=== PATIENT | male | born 1945 | race Caucasian/White ===

== ENCOUNTER → 2017-04-12 09:52 | Outpatient (CLI) | payer MEDICARE, SELFPAY ==
--- NOTE | 2017-04-12 09:57 | MR_ITS ---
MR shoulder RT wo con HISTORY: Right shoulder pain with tingling and numbness. Old injury with prior surgery ORDERING PHYSICIAN: Aguilar Ellison MD PATIENT AGE: 71 years COMPARISON: Radiograph 10/04/2016 TECHNIQUE: Standard multiplanar multiecho sequences are performed without contrast. FINDINGS: Study is slightly limited due to motion artifact and metallic artifact. There is prominent hypertrophic change of the acromioclavicular joint with impingement upon the supraspinatus tendon and subacromial stenosis. There is partial tear of the supraspinatus tendon distally and dorsally. The anterior fibers appear intact. A small amount of fluid in the subcutaneous deltoid region. The infraspinatus tendon is intact. There the subscapularis and teres minor tendons are intact. Artifact is present along the greater tuberosity and throughout the shoulder likely from metallic shavings from prior surgery. No no obvious labral tear there is a small shoulder joint effusion. There are mild osteoarthritic changes of the glenohumeral joint with small shoulder joint effusion. Small amount fluid is also present in the subcoracoid region. IMPRESSION: 1. Acromioclavicular arthropathy with hypertrophy and moderate impingement upon the supraspinatus tendon. 2. Partial tear of the supraspinatus tendon distally and posteriorly. 3. Osteoarthritic change of the glenohumeral joint with shoulder joint effusion and subcoracoid bursitis. 4. Somewhat limited exam due to motion artifact and metallic artifact
== END ==
PROVIDERS: PCP Emergency Medicine; Visit Provider Orthopaedic Surgery
DX: M75.41 Impingement syndrome of right shoulder (principal)
CPT/HCPCS: 73221

== ENCOUNTER → 2017-08-06 09:43 | Outpatient (REF) | payer MEDICARE, SELFPAY ==
[2017-08-06 13:40] LABS: Basophils # 0.1 K/mm3 (0-0.2); Basophils % 0.9 % (0.1-2.0); Eosinophils # 0.2 K/mm3 (0.0-0.4); Hematocrit 43.5 % (42.0-52.0); Hemoglobin 14.9 g/dL (14.1-18.0); Lymphocytes # 1.9 K/mm3 (0.7-4.5); Lymphocytes % 25.1 K/mm3 (10-50); Mean Corpuscular HGB Conc 34.1 g/dL (31.8-35.4); Mean Corpuscular Hemoglobin 30.9 pg (27.0-31.2); Mean Corpuscular Volume 90.7 fl (80-94); Mean Platelet Volume 8.2 fl (7.4-10.4); Monocytes # 0.4 K/mm3 (0.1-1.0); Monocytes % 4.8 % (1.7-9.3); Neutrophils # 5.1 K/mm3 (1.8-7.8); Neutrophils % 67.2 % (37.0-80.0); Platelet Count 290 K/mm3 (142-424); Red Cell Distribution Width 13.2 % (11.5-17.5); White Blood Count 7.7 K/mm3 (4.8-10.8)
[2017-08-06 14:25] LABS: Alanine Aminotransferase 19 U/L (12-78); Albumin Level 3.7 gm/dL (3.4-5.0); Albumin/Globulin Ratio 1.2 (1.1-1.8); Alkaline Phosphatase 98 U/L (46-116); Anion Gap 14.1 mEq/L (5-15); Aspartate Amino Transferase 13 U/L (15-37); Bilirubin,Total 1.3 mg/dL (0.2-1.0); Blood Urea Nitrogen 13 mg/dL (7-18); Calcium 9.6 mg/dL (8.5-10.1); Carbon Dioxide 25 mmol/L (21.0-32.0); Chloride 105 mmol/L (98-107); Creatinine,Serum 0.68 mg/dL (0.70-1.30); Estimated Glomerular Filt Rate 115 ml/min (>60); Free T4 (Free Thyroxine) 1.09 ng/dl (0.76-1.46); GFR (African American) 139 ML/MIN (>60); Globulin 3.1 gm/dl (1.3-3.2); Glucose 155 mg/dL (74-106); Potassium 4.1 mmoL/L (3.5-5.1); Sodium 140 mmol/L (136-145); Thyroid Stimulating Hormone 1.14 uIU/ml (0.358-3.740); Total Protein,Serum 6.8 gm/dL (6.4-8.2)
[2017-08-06 14:56] LABS: Hemoglobin A1C 6.4 % (0.0-7.0)
[2017-08-07 14:30] LABS: PSA, Free 0.36 ng/mL; Prostate Specific Ag 1.2 ng/mL (0.0-4.0); Vitamin D 25 Hydroxy 37.7 ng/mL (30.0-100.0)
== END ==
LOC: LAB 09:43
PROVIDERS: Visit Provider Emergency Medicine
DX: E11.9 Type 2 diabetes mellitus without complications (principal); I10 Essential (primary) hypertension; R35.1 Nocturia
CPT/HCPCS: 80053; 82652; 83036; 84153; 84154; 84439; 84443; 85025

== ENCOUNTER → 2017-09-27 08:08 | Outpatient (CLI) | payer MEDICARE, SELFPAY ==
--- NOTE | 2017-09-27 08:12 | XR_ITS ---
XR shoulder LT min 2V HISTORY: Left shoulder pain with inflammation ITS.REASON: axillary, grashy and supraspinatus views ORDERING PHYSICIAN: Aguilar Ellison MD PATIENT AGE: 72 years Comparison: None FINDINGS: No fracture or dislocation. No lytic or blastic change. There is normal mineralization. The joint spaces are well-preserved. No significant degenerative/arthritic changes. No erosive changes evident. IMPRESSION: Negative, no acute finding
== END ==
PROVIDERS: PCP Emergency Medicine; Visit Provider Orthopaedic Surgery
DX: M25.512 Pain in left shoulder (principal)
CPT/HCPCS: 73030

== ENCOUNTER → 2018-05-03 09:03 | Outpatient (CLI) | payer MEDICARE, SELFPAY | PROVIDERS: Visit Provider Emergency Medicine | DX: N39.0 Urinary tract infection, site not specified (principal) | CPT/HCPCS: 87086 ==

== ENCOUNTER → 2018-11-08 17:11 | Outpatient (CLI) | payer MEDICARE, SELFPAY ==
[2018-11-08 18:02] LABS: Basophils # 0.1 K/mm3 (0-0.2); Basophils % 0.8 % (0.1-2.0); Eosinophils # 0.2 K/mm3 (0.0-0.4); Eosinophils % 2.1 % (0.1-12.0); Hematocrit 43.9 % (42.0-52.0); Hemoglobin 14.5 g/dL (14.1-18.0); Lymphocytes # 2.5 K/mm3 (0.7-4.5); Lymphocytes % 29.4 % (10-50); Mean Corpuscular HGB Conc 33.1 g/dL (31.8-35.4); Mean Corpuscular Hemoglobin 30.3 pg (27.0-31.2); Mean Corpuscular Volume 91.5 fl (80-94); Mean Platelet Volume 7.6 fl (7.4-10.4); Monocytes # 0.4 K/mm3 (0.1-1.0); Monocytes % 4.7 % (1.7-9.3); Neutrophils # 5.4 K/mm3 (1.8-7.8); Neutrophils % 62.9 % (37.0-80.0); Platelet Count 292 K/mm3 (142-424); Red Cell Distribution Width 13.5 % (11.5-17.5); White Blood Count 8.5 K/mm3 (4.8-10.8)
[2018-11-08 19:00] LABS: Hemoglobin A1C 6.6 % (0.0-7.0)
[2018-11-08 19:28] LABS: Alanine Aminotransferase 29 U/L (12-78); Albumin Level 3.9 gm/dL (3.4-5.0); Albumin/Globulin Ratio 1.3 (1.1-1.8); Alkaline Phosphatase 96 U/L (46-116); Anion Gap 12.7 mEq/L (5-15); Aspartate Amino Transferase 12 U/L (15-37); Bilirubin,Total 1.1 mg/dL (0.2-1.0); Blood Urea Nitrogen 14 mg/dL (7-18); Calcium 9.5 mg/dL (8.5-10.1); Carbon Dioxide 25 mmol/L (21.0-32.0); Chloride 104 mmol/L (98-107); Chol/HDL Ratio 2.8 (1-3.5); Cholesterol 110 mg/dL (140-200); Creatinine,Serum 0.77 mg/dL (0.70-1.30); Estimated Glomerular Filt Rate 99 ml/min (>60); Free T4 (Free Thyroxine) 0.92 ng/dl (0.76-1.46); GFR (African American) 120 ML/MIN (>60); Globulin 3.1 gm/dl (1.3-3.2); Glucose 134 mg/dL (74-106); HDL Cholesterol 39 mg/dL (27-67); LDL Cholesterol 50 mg/dL (0-130); Potassium 4.7 mmoL/L (3.5-5.1); Sodium 137 mmol/L (136-145); Thyroid Stimulating Hormone 0.92 uIU/ml (0.358-3.740); Triglycerides 106 mg/dL (30-200); VLDL Cholesterol 21 mg/dL (0-40)
[2018-11-11 15:28] LABS: Vitamin D 25 Hydroxy 52.2 ng/mL (30.0-100.0)
== END ==
PROVIDERS: Visit Provider Emergency Medicine
DX: E11.9 Type 2 diabetes mellitus without complications (principal); Z79.84 Long term (current) use of oral hypoglycemic drugs
CPT/HCPCS: 80053; 80061; 82652; 83036; 84439; 84443; 85025

== ENCOUNTER → 2018-12-13 10:22 | Outpatient (CLI) | payer MEDICARE, SELFPAY ==
--- NOTE | 2018-12-13 10:26 | XR_ITS ---
PROCEDURE: XR FOOT WT BEARING LT 3V CLINICAL INDICATION: L Foot Pain Medial left foot pain COMPARISON: No exams were available for comparison FINDINGS: No fracture or dislocation. No lytic or blastic change. There is normal mineralization. Mild osteoarthritis of the 1st metatarsophalangeal joint Other findings:Calcaneal spur, Achilles enthesophyte, hammertoe deformity of the 2nd and 3rd toes IMPRESSION: Degenerative changes as described above Dictated by: Mingo Vanessa MD 12/13/2018 16:49 Electronically signed by Mingo Vanessa MD in [place] 12/13/2018 16:49
== END ==
PROVIDERS: PCP Emergency Medicine; Visit Provider Nurse Practitioner Family
DX: M79.672 Pain in left foot (principal)
CPT/HCPCS: 73630

== ENCOUNTER → 2019-02-04 06:37 | Outpatient (CLI) | payer MEDICARE, SELFPAY ==
--- NOTE | 2019-02-04 | CA_ITS ---
APPROVED REPORT Exam: Pharmacologic Technologist: Amrita Colvin Ht: 5 ft 5 in Wt: 192 lbs BSA: 1.94 m2 HR: 68 bpm BP: 145/77 mmHg Indications: Chest pain Medical History Medications: Amlodipine,,,,, Lisinopril,,,,, Omeprazole,,,,, Aspirin,,,,, Metformin,,,,, Gabapentin,,,,, Atorvastatin,,,,, Carvedilol,,,,, TAMSULOSIN,,,,, Flaxseed Oil,,,,, CloPIdogrel,,,,, Diclofenac,,,,, Stress Test Details Test: LEXISCAN HR Resting HR: 68 bpm Max Heart Rate (APMHR): 147 bpm Max HR Achieved: 78 bpm Target HR (85% APMHR): 124 bpm % of APMHR: 53 Recovery HR: 71 bpm BP Resting BP: 145.0/77.0 mmHg Max BP: 145.0/77.0 mmHg Recovery BP: 135.0/69.0 mmHg ECG Clinical Exercise duration: 04:01 min Highest Stage Achieved: Exercise capacity: 1.0 METs Stress ECG Conclusion Resting ECG: Sinus rhythm Lexiscan portion completed. Symptoms: Stomach discomfort, resolved in recovery. No chest pain. No shortness of breath. Arrhythmias/Ectopy: Occasional PVC. One episode of bigeminy. ST-T Changes: Less than 1.[address] depression. Conclusion: Images to follow. Electronically signed by : John Harkins, 02/05/2019 06:53:02
--- NOTE | 2019-02-04 06:39 | CA_ITS ---
APPROVED REPORT Acid Condenser: VELIA Laterality: Bilateral Study Quality: Good Indications: arm numbness DIZZINESS CAD Doppler Spectral Velocity Analysis dICA (R) 44.90/12.80 cm/s dICA (L) 63.60/18.70 cm/s Jelena (R) 72.70/18.20 cm/s Jelena (L) 92.80/25.40 cm/s pICA (R) 64.20/12.80 cm/s pICA (L) 65.80/23.20 cm/s dCCA (R) 65.50/17.30 cm/s dCCA (L) 55.60/15.50 cm/s pCCA (R) 69.00/13.90 cm/s pCCA (L) 59.30/14.40 cm/s Vert (R) 35.80/9.10 cm/s Vert (L) 34.40/9.70 cm/s ICA/CCA 1.10 ICA/CCA 1.67 Findings The right carotid arterial system appeared to be normal without stenosis of the bulb or internal carotid artery. The left carotid arterial system appeared to be normal without stenosis of the bulb or internal carotid artery. Antegrade flow seen bilateral vertebral arteries. Conclusion Bilateral carotid arterial system appeared to be normal without stenosis of the internal carotid artery. Electronically signed by : Mingo Vanessa MD 02/05/2019 19:12:16
--- NOTE | 2019-02-04 06:39 | CA_ITS ---
APPROVED REPORT EXAM: Comprehensive 2D, Doppler, and color-flow Echocardiogram Semiconductor Processing Technician: Carmelita Helms RDCS Ht: 5 ft 6 in Wt: 192lbs BSA: 1.97 BP: 142/80 mmHg Indications: Chest Pain, Diabetes, CAD, Hyperlipidemia, Hypertension/HDD 2D Dimensions LVOT 1.89 cm (M/F) 1.5-2.5 M-Mode Dimensions RVDd 2.82 cm (0.9-2.6) LVDd 5.11 cm (3.5-5.7) LVDs 3.26 cm (3.5-5.7) IVSd 1.17 cm (0.6-1.1) PWd 0.97 cm (0.6-1.1) EF (Teich) 65.60% FS 36.20% EDV (Teich) 124.40 mL ESV (Teich) 42.80 mL LV Diastology E/A Ratio 0.99 Mitral Valve MV A Velocity 54.00 (40-130 cm/s) Left Ventricle Left atrium is mildly enlarged, left ventricle is normal size, mild concentric left ventricular hypertrophy, visually estimated ejection fraction 55% with no regional wall motion abnormality, grade 1 diastolic dysfunction seen without tissue Doppler evidence of raise left atrial pressure. Right Ventricle Right atrium and right ventricular normal size and contractility. Aortic Valve Aortic valve is thickened and calcified leaflet chordae display good mobility, there is no aortic stenosis or aortic insufficiency. Mitral Valve Mitral valve is grossly normal, there is mild mitral regurgitation. Tricuspid Valve Tricuspid valve is grossly normal, there is mild tricuspid regurgitation, tricuspid regurgitation jet velocity is inadequate for calculation of the right ventricular systolic pressure. Pulmonic Valve Pulmonic valve is poorly visualized. Great Vessels Aortic root is normal size. Pericardium No significant pericardial effusion noted. Conclusion 1. Mildly enlarged left atrium, normal left ventricular size, mild concentric left ventricular hypertrophy, visually estimated ejection fraction 55% with no regional wall motion abnormality, grade 1 diastolic dysfunction seen without tissue Doppler evidence of raise left atrial pressure. 2. Mild mitral and tricuspid regurgitation. 3. No significant pericardial effusion noted. Electronically signed by : John Harkins, 02/05/2019 06:34:10
--- NOTE | 2019-02-04 06:40 | NM_ITS ---
APPROVED REPORT Exam: Nuclear Stress Test Indication: SOB, Dizziness, Left arm pain, CAD, Hx of PA, HTN, DM, High cholesterol, Family history Patient Location: Outpatient Stress Tech: Amrita Colvin [place] Tech:Patsy Morales, ARRT, RT (R)(N) Ht: 5 ft 5 in Wt: 192 lbs HR: 68 bpm BP: 145/77 mmHg BSA: 1.94 m2 BMI: 31.9 History: SOB, Dizziness, Left arm pain, CAD, Hx of PA, HTN, DM, High cholesterol, Family history Procedure: Patient received a 0.4 mg of intravenous Lexiscan, resting heart rate 68 bpm, resting blood pressure 145/77 mmHg, with Lexiscan maximum heart rate achived was 74 bpm which is Less than 85 % of the maximum predicted heart rate and blood pressure was 137/67 mmHg. With Lexiscan, patient denied any complaint of chest pain. Electrocardiogram Resting electrocardiogram showed sinus rhythm, with Lexiscan there is less than 1.[address] segment depression noted from the baseline EKG. The EKG portion of the Lexiscan Myoview is nondiagnostic. Cardiac Stress and Resting SPECT Images: Cardiac Stress and Resting SPECT images were obtained using technetium 99m Myoview 29.6 mCi stress and 10.09 mCi at rest. Gated SPECT with analysis of segmental wall motion and calculation of the ejection fraction also done. Cardiac stress and resting SPECT images show uniform myocardial activity without segmental perfusion abnormality, computer derived ejection fraction is 62% with no regional wall motion abnormality, right ventricle is normal size and contractility. Conclusion: 1. The EKG portion of the Lexiscan Myoview is nondiagnostic. 2. No scintigraphic evidence of reversible ischemia seen, computer derived ejection fraction is 62% with no regional wall motion abnormality, right ventricle is normal size and contractility. 3. Normal Lexiscan Myoview study. Electronically signed by : John Harkins, 02/05/2019 06:54:38
--- NOTE | 2019-02-04 07:12 | HMH.ITSHM ---
Current Home Medications as stated by this patient Mingo Combs or field marketing representative. []TAMSULOSIN OMEPRAZOLE METFORMIN LISINOPRIL GABAPENTIN FLUTICASONE FLAXSEED OIL DICLOFENAC CLOPIDOGREL CETIRIZINE CARVEDILOL ATORVASTATIN ASA AMLODIPINE
== END ==
PROVIDERS: PCP Emergency Medicine; Visit Provider Urology
DX: I20.9 Angina pectoris, unspecified; E78.5 Hyperlipidemia, unspecified; I11.9 Hypertensive heart disease without heart failure; I25.2 Old myocardial infarction; R20.0 Anesthesia of skin
CPT/HCPCS: 78452; 93017; 93306; 93880; A9502; J2785

== ENCOUNTER → 2019-08-04 13:30 | Outpatient (CLI) | payer MEDICARE, SELFPAY ==
[2019-08-04 14:52] LABS: Basophils # 0.1 K/mm3 (0-0.2); Basophils % 0.9 % (0.1-2.0); Eosinophils # 0.2 K/mm3 (0.0-0.4); Eosinophils % 2.1 % (0.1-12.0); Hematocrit 44.6 % (42.0-52.0); Hemoglobin 14.9 g/dL (14.1-18.0); Lymphocytes % 21.7 % (10-50); Mean Corpuscular HGB Conc 33.3 g/dL (31.8-35.4); Mean Corpuscular Volume 90.2 fl (80-94); Mean Platelet Volume 8.4 fl (7.4-10.4); Monocytes # 0.5 K/mm3 (0.1-1.0); Monocytes % 5.4 % (1.7-9.3); Neutrophils # 6.3 K/mm3 (1.8-7.8); Neutrophils % 69.8 % (37.0-80.0); Platelet Count 324 K/mm3 (142-424); Red Blood Count 4.95 M/mm3 (4.60-6.20); Red Cell Distribution Width 13.5 % (11.5-17.5)
[2019-08-04 16:00] LABS: Hemoglobin A1C 6.4 % (4.0-6.0)
[2019-08-04 16:18] LABS: Chloride 103 mmol/L (98-107); Potassium 4.6 mmoL/L (3.5-5.1); Sodium 135 mmol/L (136-145)
[2019-08-04 16:21] LABS: Alanine Aminotransferase 36 U/L (12-78); Albumin Level 4.4 g/dl (3.5-5.0); Albumin/Globulin Ratio 1.5 (1.1-1.8); Alkaline Phosphatase 104 U/L (38-126); Aspartate Amino Transferase 34 U/L (17-59); Bilirubin,Total 0.7 mg/dl (0.2-1.3); Blood Urea Nitrogen 19 mg/dl (9-20); Calcium 10.3 mg/dl (8.4-10.2); Carbon Dioxide 21 mmol/L (22.0-30.0); Cholesterol 104 mg/dl (140-200); Estimated Glomerular Filt Rate 110 ml/min (>60); GFR (African American) 133 ML/MIN (>60); Globulin 2.9 g/dL (1.3-3.2); Glucose 200 mg/dl (74-100); Total Protein,Serum 7.3 g/dl (6.3-8.2); Triglycerides 115 mg/dl (30-150); VLDL Cholesterol 23 mg/dL (0-40)
[2019-08-04 16:22] LABS: Anion Gap 15.6 mEq/L (5-15); HDL Cholesterol 35 mg/dl (40-60)
[2019-08-04 16:32] LABS: Direct LDL Cholesterol 63.67 mg/dL (100-129)
[2019-08-04 16:41] LABS: T4 (Thyroxine) 9.6 ug/dl (5.53-11.0)
[2019-08-04 16:55] LABS: Thyroid Stimulating Hormone 1.13 uIU/mL (0.465-4.68)
[2019-08-06 09:26] LABS: Creatinine, Urine 224.9 mg/dL (Not Estab.); Microalbumin, Urine 16.1 ug/mL (Not Estab.)
== END ==
PROVIDERS: Visit Provider Emergency Medicine
DX: E11.65 Type 2 diabetes mellitus with hyperglycemia (principal); G57.90 Unspecified mononeuropathy of unspecified lower limb; I10 Essential (primary) hypertension; E66.9 Obesity, unspecified; L60.3 Nail dystrophy; R53.83 Other fatigue
CPT/HCPCS: 80053; 80061; 82043; 82570; 82652; 83036; 84436; 84443; 85025

== ENCOUNTER → 2019-10-06 09:24 | Outpatient (CLI) | payer MEDICARE, SELFPAY ==
[2019-10-06 10:10] LABS: Basophils # 0.1 K/mm3 (0-0.2); Basophils % 0.9 % (0.1-2.0); Eosinophils # 0.2 K/mm3 (0.0-0.4); Eosinophils % 1.7 % (0.1-12.0); Hemoglobin 14.8 g/dL (14.1-18.0); Lymphocytes # 2.1 K/mm3 (0.7-4.5); Lymphocytes % 20.1 % (10-50); Mean Corpuscular HGB Conc 34.3 g/dL (31.8-35.4); Mean Corpuscular Hemoglobin 31.1 pg (27.0-31.2); Mean Corpuscular Volume 90.5 fl (80-94); Mean Platelet Volume 7.7 fl (7.4-10.4); Monocytes # 0.4 K/mm3 (0.1-1.0); Monocytes % 3.8 % (1.7-9.3); Neutrophils # 7.6 K/mm3 (1.8-7.8); Neutrophils % 73.5 % (37.0-80.0); Platelet Count 279 K/mm3 (142-424); Red Blood Count 4.75 M/mm3 (4.60-6.20); Red Cell Distribution Width 13.4 % (11.5-17.5); White Blood Count 10.3 K/mm3 (4.8-10.8)
[2019-10-06 11:00] LABS: Chloride 101 mmol/L (98-107); Potassium 4.1 mmoL/L (3.5-5.1); Sodium 136 mmol/L (136-145)
[2019-10-06 11:03] LABS: Anion Gap 16.1 mEq/L (5-15); Blood Urea Nitrogen 15 mg/dl (9-20); Carbon Dioxide 23 mmol/L (22.0-30.0); Estimated Glomerular Filt Rate 132 ml/min (>60); GFR (African American) 159 ML/MIN (>60)
[2019-10-06 11:04] LABS: Calcium 9.5 mg/dl (8.4-10.2); Glucose 237 mg/dl (74-100)
== END ==
PROVIDERS: Visit Provider Urology
DX: E11.8 Type 2 diabetes mellitus with unspecified complications (principal); I11.9 Hypertensive heart disease without heart failure; I25.10 Atherosclerotic heart disease of native coronary artery without angina pectoris; I25.2 Old myocardial infarction; R42 Dizziness and giddiness; R53.82 Chronic fatigue, unspecified; R55 Syncope and collapse; E78.49 Other hyperlipidemia; Z79.84 Long term (current) use of oral hypoglycemic drugs
CPT/HCPCS: 36415; 80048; 85025

== ENCOUNTER → 2019-12-08 16:10 | Outpatient (CLI) | payer MEDICARE, SELFPAY ==
--- NOTE | 2019-12-08 16:16 | XR_ITS ---
PROCEDURE: XR HIP RT 2-3V W/PELVIS CLINICAL INDICATION: hip pain Right hip pain COMPARISON: CR LS5 LUMBAR SPINE 5 VIEWS from 08/26/2012 FINDINGS: There are mild osteoarthritic changes of the right hip. No acute fracture or dislocation is evident. No lytic or blastic change. There postsurgical changes of the lumbar spine and lumbosacral junction with inter pedicular screws at L4-5 and S1. A rectangular shaped density is present in the right lower quadrant. This could be due to something within the patient, some thin patient has ingested, or artifact upon the patient. IMPRESSION: 1. Mild osteoarthritic changes of the hips 2. Other nonacute findings as described above Dictated by: Mingo Vanessa MD 12/08/2019 17:03 Mingo Vanessa MD in [place] 12/08/2019 17:03
== END ==
PROVIDERS: PCP Emergency Medicine; Visit Provider Family Medicine
DX: M25.551 Pain in right hip (principal)
CPT/HCPCS: 73502

== ENCOUNTER 2020-02-03 10:00 | Outpatient (RCR) | payer MEDICARE, SELFPAY ==
--- NOTE | 2020-01-28 15:06 | HMH.PTOPEV ---
PT Outpatient Evaluation Rehab PT Outpatient Evaluation Start: 01/28/20 14:32 Freq: Status: Active Protocol: Document 01/28/20 14:33 DARA (Rec: 01/28/20 15:06 HAYCODY [id number]) Electronically Signed By Roc Bailey PT 01/28/20 14:33 Outpatient Therapy Subjective History Subjective History Pt reports to PT for c/o R hip , thigh, rutherford, and buttocks pain. Pt reports pain began insidiously in November. Pt reprots he stated having a catch in his hip that shot pain into anterior thigh and knee, which sometimmes almost made his leg buckle. Pt reports the pain travels from his hip but points to his buttocks, and draws a line from buttocks to lateral hip, anterior thigh, rutherford and into top of foot and big toe. Pt reports that recently in the last few weeks the pain has increased. Chief Complaint Pain,Catches/Locks,Gives out/ Unstable Symptom Type Ache,Throb,Sharp,Stabbing, Burning,Shooting Symptoms Relieved By Rest/Positioning,Ice Symptoms Aggravated By Standing,Twisting Prior Functional Limitations None Current Functional Limitations Lifting,Sleeping,Standing, Recreation Activity,Walking Symptom Description Constant but Variable Level of pain today (0-10) 5 Pain scale - at its best (0-10) 2 Pain scale - at its worst (0-10) 8 Lumbopelvic Eval Palapation tenderness right thoracic spinal tenderness No lumbar spinal tenderness Yes paraspinal tenderness No buttock tenderness Yes Lumbar/Sacral Palpation Findings Tenderness Accessory Movement L2 bilateral L3 bilateral L4 bilateral Range of Motion Lumbar Spine Active Flexion Range of WFL Motion (degrees) Lumbar Spine Active Extension Range of 0 deg w/ pain into R Motion (degrees) Lumbar Spine ROM Limitations Pain Special Tests Lumbar Spine Screen Positive Forward Bending Test- Standing Negative Left,Negative Right Forward Bending Test- Sitting Negative Left,Negative Right Sciatic Nerve Tension Test Positive Right Reverse Sciatic Nerve Tension Test Positive Right Crossed Straight Leg Raise Test
== END 2020-02-03 10:58 | disposition home or self-care (01) ==
LOC: PT 10:00
PROVIDERS: PCP Emergency Medicine; Visit Provider Orthopaedic Surgery
DX: M54.41 Lumbago with sciatica, right side (principal)
CPT/HCPCS: 97014; 97110; 97163; G0283

== ENCOUNTER → 2020-02-04 12:46 | Outpatient (CLI) | payer MEDICARE, SELFPAY ==
--- NOTE | 2020-02-04 12:47 | MR_ITS ---
PROCEDURE: MR LUMBAR SPINE WO CON CLINICAL INDICATION: back pain Pt c/o lbp with rt hip and leg pain since sept this year. Pt denies injury or trauma. Pt had lumbar surgery in 1994 . COMPARISON: CR LS5 LUMBAR SPINE 5 VIEWS from 08/26/2012 TECHNIQUE: Standard multiplanar multiecho sequences are performed without contrast. 3-D MIP and myelographic images are also rendered and reviewed FINDINGS: There is normal alignment. The spinal cord ends at the L2 level. L1-L2: The disc is bulging anteriorly with anterior osteophytes. L2-L3: Degenerative disc disease with concentric bulging disc along with moderate to severe facet and ligamentum hypertrophy. There is resultant bilateral lateral recess and foraminal narrowing and canal stenosis. There is a small right paracentral disc herniation with inferior extrusion of the small right disc herniation. The disc is extruded inferiorly by 8 mm and is causing severe right lateral recess narrowing with impingement upon the right L3 nerve root. L3-L4: Severe facet and uncovertebral hypertrophy with canal stenosis and bilateral lateral recess and foraminal narrowing. L4-5: Postsurgical changes with inter pedicular screws at L4, L5, and S1. There is fusion at L4-5 with retrolisthesis of L4 of approximately 5 mm. There is some facet and ligamentum hypertrophy causing some mild transverse narrowing of the canal. The foramina are not well delineated due to the artifact from the prior surgery. There has been laminectomy at L5 Incidental note is made of a 3.2 cm right renal cyst which is incompletely imaged. IMPRESSION: 1. L2-L3: Degenerative disc disease with concentric bulging disc along with moderate to severe facet and ligamentum hypertrophy. There is resultant bilateral lateral recess and foraminal narrowing and canal stenosis. There is a small right paracentral disc herniation with inferior extrusion of the small right disc herniation. The disc is extruded inferiorly by 8 mm and is causing severe right lateral recess narrowing with impingement upon the right L3 nerve root. 2. L3-L4: Severe facet and uncovertebral hypertrophy with canal stenosis and bilateral lateral recess and foraminal narrowing. 3. L4-5: Postsurgical changes with inter pedicular screws at L4, L5, and S1. There is fusion at L4-5 with retrolisthesis of L4 of approximately 5 mm. There is some facet and ligamentum hypertrophy causing some mild transverse narrowing of the canal. The foramina are not well delineated due to the artifact from the prior surgery. There has been laminectomy at L5 Dictated by: Mingo Vanessa MD 02/05/2020 10:35 Mingo Vanessa MD in [place] 02/05/2020 10:35
== END ==
PROVIDERS: PCP Emergency Medicine; Visit Provider Emergency Medicine
DX: M54.9 Dorsalgia, unspecified (principal); M54.5 Low back pain
CPT/HCPCS: 72148; 76376

== ENCOUNTER → 2020-02-26 08:50 | Outpatient (POV) | payer MEDICARE, SELFPAY ==
[2020-02-26 09:26] VITALS: BP 125/88; PULSE 74; RESP 18; TEMP 36.6; O2SAT 98; BMI 30.2
--- NOTE | 2020-02-26 12:15 | HMH.PMCON ---
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 He is on Plavix we will call Dr. Aguayo to see if he can come off prior to his injection therapy. Patient has been instructed to call the office if he has any issues prior to his next appointment. I will follow-up with him after his injection reassess his symptoms at that time. Dr. Luna has reviewed this note and agrees with this plan of care. This note was dictated using voice recognition software and may contain errors or omissions HPI - Data of Consult Consult date: 02/26/20 Requesting Physician: Sosa Gallagher APRN Primary Care Provider: Zack Orellana MD - Consult Narrative Reason for consult: Back pain, leg pain History of present illness: Mr. Combs is a 74 year old male presents today for consultation in regard to his low back and leg pain. Patient had back surgery back in the 90s and was doing well until a month ago. He is now having back pain that radiates into his bilateral legs worse on the right side. He has an updated MRI and is awaiting neurosurgical consultation. Patient rates his pain a 9 out of 10 he is very uncomfortable he has difficulty with sleeping and daily activity. He has burning numbness tingling. Recent activity increases pain while ice and heat decreases the pain. Has tried chiropractic therapy and physical therapy along with Parkin and gabapentin with no long-term relief. CC: Sosa Gallagher APRN [facility] History I have reviewed the patient's past medical history: Yes Medical History: Reports:: Coronary Artery Disease, Diabetes Mellitus Type 2, Gastroesophageal Reflux Disease(GERD), Hyperlipidemia, Hypertension, Myocardial Infarction Denies:: Cancer, MRSA *Have you ever received a pneumonia vaccine?: Yes *Have you received a flu vaccine this season?: Yes Other Medical History: Reports: Arthritis, Other Laterality Cases: Right: Arthroscopy Shoulder Other Surgeries: Yes: Colonoscopy, Coronary Stent, Other Amputation: No Fractures: No - *Social History Smoking Status: Never smoker Alcohol Intake: never Alcohol Intake Frequency:: other Substance Use Type: denies use *Occupational Status:: other Housing: house Household Members: other *Travel in the last 8 weeks: None Family Hx:: Unable to obtain Review of Systems - Review of Systems ROS General: no recent weight change, no fever, no sleep disturbances Respiratory: no cough, no shortness of air, no recurring pulmonary infections Cardiovascular/Peripheral Vascular: No chest pain, No palpitations, no edema, no shortness of breath. Gastrointestinal: no new onset incontinence, normal bowel movements reported Genitourinary: no new onset incontinence Musculoskeletal: Back pain, leg pain Psychiatric: normal mood/ affect Neurological: [denies new onset weakness in extremities], [denies new onset balance issues] Meds Home Medications Medication Instructions Recorded Confirmed Type aspirin 81 mg tablet,delayed 81 mg PO QDAY 04/09/17 01/28/20 History release cetirizine 10 mg capsule 10 mg PO DAILY #30 cap 11/08/18 01/28/20 Rx diclofenac sodium 1 % topical gel 4 g TOPICAL QID PRN 30 Days #100 g 01/28/19 01/28/20 Rx atorvastatin 20 mg tablet 10 mg PO QDAY #90 tab 02/18/19 01/28/20 Rx fluticasone propionate 50 1 spray INTRANASAL QDAY #9.9 g 04/22/19 01/28/20 Rx mcg/actuation nasal spray,suspension carvedilol 12.5 mg tablet 12
== END ==
PROVIDERS: PCP Emergency Medicine; Visit Provider Clinical Nurse Specialist Family Health
DX: M96.1 Postlaminectomy syndrome, not elsewhere classified (principal); M47.896 Other spondylosis, lumbar region; M54.16 Radiculopathy, lumbar region
CPT/HCPCS: 99202

== ENCOUNTER 2020-03-17 15:02 | Day surgery (SDC) | payer MEDICARE, SELFPAY ==
[2020-03-17 15:34] VITALS: BP 150/74; PULSE 70; RESP 18; TEMP 36.6; O2SAT 98; BMI 22.6
[2020-03-17 16:01] VITALS: BP 133/74; PULSE 85
[2020-03-17 16:02] VITALS: BP 140/74; PULSE 85; RESP 18; O2SAT 98
--- NOTE | 2020-03-17 16:07 | HMH.PMPROC ---
- Procedure Date: 03/17/20 Time: 16:07 Anesthesiologist:: Moody Luna MD Complications:: None Pre-procedure Diagnosis:: Degenerative disc disease of lumbar spine with lumbar radiculopathy symptoms and postlaminectomy syndrome lumbar spine Post-procedure Diagnosis:: Same Indications for Procedure:: This patient is a pleasant 74-year-old white male who we are treating for low back pain with lumbar radiculopathy symptoms and postlaminectomy syndrome lumbar spine. He has increasing pain in his back rating down his legs. Right is worse than left. We will plan on a lumbar pleural steroid injection under fluoroscopy today. Procedure Details:: Lumbar epidural steroid injection under fluoroscopy Informed consent was obtained and the risk and benefits of the procedure was explained to the patient. The patient was taken to the procedure room. The patient was placed prone on the procedure table. The patient was prepped and draped in sterile fashion. C-arm fluoroscopy was used to view the lumbar spine. Skin and subcutaneous tissues were anesthetized using lidocaine. I placed an 18-gauge epidural needle and advanced into the L4-L5 interspace using fluoroscopic guidance and [id number] to air. After confirmation of needle placement in the epidural space with dye I injected 2 mL of lidocaine 1.5% with Depo-Medrol 80 mg. Patient tolerated the procedure well with no complications. Plan and Disposition:: We will follow-up with him in 2 weeks. Will reevaluate his symptoms at that time.
[2020-03-17 16:14] VITALS: BP 164/85; PULSE 75; RESP 18; O2SAT 98
== END 2020-03-17 16:15 | disposition home or self-care (01) ==
LOC: SC.PAINP 15:04
PROVIDERS: PCP Emergency Medicine; Visit Provider Anesthesiology
DX: M51.16 Intervertebral disc disorders with radiculopathy, lumbar region (principal); M96.1 Postlaminectomy syndrome, not elsewhere classified; I25.10 Atherosclerotic heart disease of native coronary artery without angina pectoris; I10 Essential (primary) hypertension; E78.5 Hyperlipidemia, unspecified; K21.9 Gastro-esophageal reflux disease without esophagitis; E11.9 Type 2 diabetes mellitus without complications; N40.0 Benign prostatic hyperplasia without lower urinary tract symptoms
CPT/HCPCS: 62323; J1040; Q9966

== ENCOUNTER 2020-03-31 14:29 | Emergency (ER) | payer MEDICARE, SELFPAY ==
[2020-03-31 14:29] VITALS: BP 102/74; PULSE 71; RESP 18; TEMP 36.9; O2SAT 98; BMI 27.3
--- NOTE | 2020-03-31 14:43 | XR_ITS ---
PROCEDURE: XR CHEST PORTABLE CLINICAL HISTORY: soa COMPARISON: No exams were available for comparison FINDINGS: There is mild cardiomegaly without failure. Small triangular-shaped opacity is present along the left heart border possibly due to a small pericardial fat pad or overlying pulmonary nodule. Consider follow-up PA and lateral chest for evaluation. The lungs are clear without infiltrates, suspicious nodules, or pleural effusions. No acute bony abnormalities. IMPRESSION: Cardiomegaly with triangular-shaped opacity along the left heart border which measures 1.9 cm at its base and could be due to pericardial fat pad or overlying pulmonary nodule or area of consolidation. Consider PA and lateral chest for further evaluation. Dictated by: Mingo Vanessa MD 03/31/2020 15:43 Mingo Vanessa MD in [place] 03/31/2020 15:43
[2020-03-31 14:54] LABS: Basophils # 0.1 K/mm3 (0-0.2); Basophils % 1.1 % (0.1-2.0); Chloride 102 mmol/L (98-107); Eosinophils % 0.2 % (0.1-12.0); Hematocrit 44.5 % (42.0-52.0); Hemoglobin 15.5 g/dL (14.1-18.0); Lymphocytes # 1.3 K/mm3 (0.7-4.5); Lymphocytes % 29.4 % (10-50); Mean Corpuscular HGB Conc 34.9 g/dL (31.8-35.4); Mean Corpuscular Hemoglobin 32.5 pg (27.0-31.2); Mean Corpuscular Volume 93.3 fl (80-94); Mean Platelet Volume 7.9 fl (7.4-10.4); Monocytes # 0.3 K/mm3 (0.1-1.0); Monocytes % 6.3 % (1.7-9.3); Neutrophils # 2.8 K/mm3 (1.8-7.8); Platelet Count 254 K/mm3 (142-424); Red Blood Count 4.77 M/mm3 (4.60-6.20); Red Cell Distribution Width 13.7 % (11.5-17.5); Sodium 135 mmol/L (136-145); White Blood Count 4.5 K/mm3 (4.8-10.8)
[2020-03-31 14:57] LABS: Blood Urea Nitrogen 15 mg/dl (9-20); Carbon Dioxide 25 mmol/L (22.0-30.0); Estimated Glomerular Filt Rate 132 ml/min (>60); GFR (African American) 159 ML/MIN (>60)
[2020-03-31 14:58] LABS: Calcium 9.8 mg/dl (8.4-10.2); Glucose 144 mg/dl (74-100)
[2020-03-31 14:59] LABS: Creatinine Clearance Estimated 75 mL/min (50-200)
--- NOTE | 2020-03-31 15:11 | HMH.EDGENADL ---
ED Disposition Clinical Impression: COVID-19, Dehydration Disposition: Home, Self-Care Condition on Discharge: Good Instructions: DI for Diarrhea and Traveler's Diarrhea -- Adult, DI for Diarrhea and Traveler's Diarrhea -- Child, DI for Nausea -- Adult, DI for Nausea -- Child Referrals: Zack Orellana MD [Primary Care Provider] - - Critical Care Critical Care Time: No Attestation: On 03/31/20, the high probability of a clinically significant, sudden or life threatening deterioration of the following system(s) required my full and direct attention, intervention and personal management. The time I documented below is in addition to time spent performing reported procedures but includes the following listed in this critical care notation. Medical Decision Making - Medical Records Medical records reviewed: Yes: I reviewed the patient's medical records. - Luan Inquiry Pt receiving controlled substance: No Vital Signs: 03/31/20 14:29 03/31/20 15:29 03/31/20 15:30 Temperature 98.4 F Temperature Source Oral Pulse Rate [Left Radial] 71 68 68 Respiratory Rate 18 20 20 Blood Pressure [Right Arm] 102/74 L 152/83 H 152/83 H Blood Pressure Mean [Right Arm] 83 106 106 Blood Pressure Source [Right Arm] Automatic Cuff Automatic Cuff Blood Pressure Position [Right Arm] Sitting Supine 02 Sat by Pulse Oximetry 98 96 96 Oxygen Delivery Method Room Air Room Air Room Air - Lab Data Lab Results 03/31/20 14:40: WBC 4.5 L, RBC 4.77, Hgb 15.5, Hct 44.5, MCV 93.3, MCH 32.5 H, MCHC 34.9, RDW 13.7, Plt Count 254, MPV 7.9, Neut % (Auto) 63.0, Lymph % (Auto) 29.4, Lyon % (Auto) 6.3, Eos % (Auto) 0.2, Baso % (Auto) 1.1, Neut # (Auto) 2.8, Lymph # (Auto) 1.3, Lyon # (Auto) 0.3, Eos # (Auto) 0.0, Baso # (Auto) 0.1 03/31/20 14:40: Sodium 135 L, Potassium 4.0, Chloride 102, Carbon Dioxide 25, Anion Gap 12.0, BUN 15, Creatinine 0.60 L, Estimated Creat Clear 75, Estimated GFR 132, Est GFR ( Amer) 159, Glucose 144 H, Calcium 9.8 Result diagrams: 03/31/20 14:40 03/31/20 14:40 Orders (Tests/Meds): ED MEDICATIONS Generic Name Dose Route Start Last Admin Trade Name Jay PRN Reason Stop Dose Admin Sodium Chloride 1,000 mls @ 999 mls/hr 03/31/20 14:45 03/31/20 14:58 Sod Chlor 0.9% 1000ml Bag IV 03/31/20 15:45 999 mls/hr .Q1H1M FOREIGN Administration ORDERS Category Date Time Status XR chest portable Stat Exams 03/31/20 14:43 Taken EKG Request [ECG Request by /Juan] Stat Y 03/31/20 14:43 Ordered Medical Decision Narrative: 74-year-old male presents with symptoms of COVID-19. Plan to give IV fluids per request, vital signs are normal not requiring extra oxygenation. Chest x-ray obtained. I doubt pulmonary embolism at this time. Laboratory evaluation obtained as well. Symptoms atypical for myocardial infarction. On reassessment he was feeling better chest x-ray and labs otherwise unremarkable and he is able to be discharged at this time General Adult HPI - General Chief complaint: Nausea/Vomiting/Diarrhea Stated complaint: covid positive,dehydrated Time Seen by Provider: 03/31/20 15:00 Mode of Arrival: Ambulatory Limitations: No Limitations Description of Symptoms (Recalled from ER Triage Doc. by RN): c/o dehydration due to covid. States he has had watery diarrhea for a few days with little appetite - History of Present Illness HPI narrative: 74-year-old male presents with worsening shortness of breath. He is diagnosed with COVID-19 and says he has had mild shortness of breath as well as inability to eat. He says he has not wanted to eat and he has noted chest pain or abdominal pain nausea or vomiting. His came to the emergency department this morning and was given IV fluids and he thought that he might be dehydrated and wants to get IV fluids as well. - Related Data Home Medications Medication Instructions Recorded Confirmed aspirin 81 mg tablet,delayed 81 mg PO QDAY 03/20
[2020-03-31 15:29] VITALS: BP 152/83; PULSE 68; RESP 20; O2SAT 96
[2020-03-31 15:30] VITALS: BP 152/83; PULSE 68; RESP 20; O2SAT 96
[2020-03-31 16:11] VITALS: BP 168/88; PULSE 68; RESP 20; TEMP 36.9; O2SAT 98
== END 2020-03-31 16:17 | disposition home or self-care (01) ==
PROVIDERS: Emergency Provider Emergency Medicine; PCP Emergency Medicine
DX: U07.1 COVID-19 (principal); E86.0 Dehydration; I10 Essential (primary) hypertension; E11.65 Type 2 diabetes mellitus with hyperglycemia; E78.5 Hyperlipidemia, unspecified; Z79.899 Other long term (current) drug therapy
CPT/HCPCS: 71045; 80048; 85025; 96365; 99282

== ENCOUNTER 2020-04-05 10:10 | Inpatient (IN) | payer MEDICARE, SELFPAY ==
[2020-04-05] VITALS (10 sets, daily range): BP systolic 129–170; BP diastolic 71–88; PULSE 72–90; RESP 14–30; TEMP 36.6–36.8; O2SAT 89–98; BMI 29.6
--- NOTE | 2020-04-05 10:28 | XR_ITS ---
PROCEDURE: XR CHEST PORTABLE CLINICAL HISTORY: cough Cough and chills, positive Covid19 COMPARISON: CR XR CHEST PORTABLE from 03/31/2020 FINDINGS: The cardiomediastinal silhouette and pulmonary vascularity are within normal limits. Consolidation present in the mid lower lung zones bilaterally consistent with pneumonia.. No obvious effusion. No acute bony abnormalities. IMPRESSION: Interval development of bilateral lower lobe pneumonia Dictated by: Mingo Vanessa MD 04/05/2020 10:56 Mingo Vanessa MD in OV 04/05/2020 10:56
--- NOTE | 2020-04-05 10:44 | PC.NURSE ---
Resp. at bedside for BG
[2020-04-05 10:50] LABS: Basophils # 0.1 K/mm3 (0-0.2); Basophils % 1.1 % (0.1-2.0); Eosinophils % 0.2 % (0.1-12.0); Hematocrit 44.1 % (42.0-52.0); Hemoglobin 14.9 g/dL (14.1-18.0); Lymphocytes # 0.7 K/mm3 (0.7-4.5); Lymphocytes % 9.5 % (10-50); Mean Corpuscular HGB Conc 33.8 g/dL (31.8-35.4); Mean Corpuscular Hemoglobin 31.8 pg (27.0-31.2); Mean Corpuscular Volume 93.9 fl (80-94); Mean Platelet Volume 11.8 fl (7.4-10.4); Monocytes # 0.5 K/mm3 (0.1-1.0); Monocytes % 6.5 % (1.7-9.3); Neutrophils # 6.3 K/mm3 (1.8-7.8); Neutrophils % 82.7 % (37.0-80.0); Platelet Count 393 K/mm3 (142-424); White Blood Count 7.7 K/mm3 (4.8-10.8)
[2020-04-05 10:51] LABS: ABG Base Excess -2.5 mmol/L (-2.4-2.3); ABG HCO3 21.5 mmhg (22.0-26.0); ABG Oxygen Saturation 91 % (90-100); ABG PCO2 31.6 mmhg (35.0-45.0); ABG PH 7.45 mmol/L (7.35-7.45); ABG PO2 55.9 mmhg (80-100); ABG TCO2 22.5 mmhg (23-27)
[2020-04-05 10:52] LABS: Allen's Test Acceptable; Oxygen RA %; Source Left Radial
[2020-04-05 10:57] LABS: Alanine Aminotransferase 19 U/L (12-78); Albumin Level 4.1 g/dl (3.5-5.0); Albumin/Globulin Ratio 1.2 (1.1-1.8); Alkaline Phosphatase 84 U/L (38-126); Anion Gap 12.7 mEq/L (5-15); Aspartate Amino Transferase 29 U/L (17-59); Bilirubin,Total 1.6 mg/dl (0.2-1.3); Blood Urea Nitrogen 16 mg/dl (9-20); Calcium 9.9 mg/dl (8.4-10.2); Carbon Dioxide 29 mmol/L (22.0-30.0); Chloride 96 mmol/L (98-107); Creatinine Clearance Estimated 74 mL/min (50-200); Estimated Glomerular Filt Rate 110 ml/min (>60); GFR (African American) 133 ML/MIN (>60); Globulin 3.5 g/dL (1.3-3.2); Glucose 167 mg/dl (74-100); Potassium 3.7 mmoL/L (3.5-5.1); Sodium 134 mmol/L (136-145); Total Protein,Serum 7.6 g/dl (6.3-8.2)
--- NOTE | 2020-04-05 11:07 | ECG_ITS ---
APPROVED REPORT Exam: Resting ECG HR:74 bpm ECG Measurements Heart Rate 74 AXES NM 190 P QRSd 88 QRS 61 QT 382 T 53 QTc 424 Conclusion Normal sinus rhythm Normal ECG Electronically signed by : Michael Hewitt, 04/05/2020 19:36:24
--- NOTE | 2020-04-05 11:08 | HMH.EDGENADL ---
ED Disposition Clinical Impression: Acute hypoxemic respiratory failure due to COVID-19, Pneumonia due to COVID-19 virus Disposition: Admitted As Inpatient Condition on Discharge: Serious Referrals: Zack Orellana MD [Primary Care Provider] - - Critical Care Critical Care Time: No Attestation: On 04/05/20, the high probability of a clinically significant, sudden or life threatening deterioration of the following system(s) required my full and direct attention, intervention and personal management. The time I documented below is in addition to time spent performing reported procedures but includes the following listed in this critical care notation. Medical Decision Making - Medical Records Medical records reviewed: Yes: I reviewed the patient's medical records. - Luan Inquiry Pt receiving controlled substance: No Vital Signs: 04/05/20 10:11 04/05/20 10:41 04/05/20 11:23 Temperature 98.2 F Temperature Source Oral Pulse Rate [Right] 73 75 78 Respiratory Rate 16 25 H Blood Pressure [Right Arm] 134/75 155/78 H 150/78 H Blood Pressure Mean [Right Arm] 94 103 102 Blood Pressure Source [Right Arm] Automatic Cuff Automatic Cuff Automatic Cuff Blood Pressure Position [Right Arm] Sitting Sitting Sitting 02 Sat by Pulse Oximetry 94 L 90 L 89 L Oxygen Delivery Method Room Air Room Air Room Air Oxygen Flow Rate (LPM) 04/05/20 11:30 04/05/20 12:00 Temperature Temperature Source Pulse Rate [Right] 82 77 Respiratory Rate 24 30 H Blood Pressure [Right Arm] 151/71 H 141/74 H Blood Pressure Mean [Right Arm] 97 96 Blood Pressure Source [Right Arm] Automatic Cuff Automatic Cuff Blood Pressure Position [Right Arm] Sitting Sitting 02 Sat by Pulse Oximetry 98 98 Oxygen Delivery Method Nasal Cannula Nasal Cannula Oxygen Flow Rate (LPM) 4 4 - Lab Data Lab Results 04/05/20 10:30: Specimen Source Left radial, O2 % Ra, ABG pH 7.45, ABG pCO2 31.6 L, ABG pO2 55.9 L, ABG HCO3 21.5 L, ABG Total CO2 22.5 L, ABG O2 Saturation 91, ABG Base Excess -2.5 L, Mingo Test Acceptable 04/05/20 10:32: WBC 7.7, RBC 4.70, Hgb 14.9, Hct 44.1, MCV 93.9, MCH 31.8 H, MCHC 33.8, RDW 14.0, Plt Count 393, MPV 11.8 H, Neut % (Auto) 82.7 H, Lymph % (Auto) 9.5 L, Hardin % (Auto) 6.5, Eos % (Auto) 0.2, Baso % (Auto) 1.1, Neut # (Auto) 6.3, Lymph # (Auto) 0.7, Hardin # (Auto) 0.5, Eos # (Auto) 0.0, Baso # (Auto) 0.1 04/05/20 10:32: Sodium 134 L, Potassium 3.7, Chloride 96 L, Carbon Dioxide 29, Anion Gap 12.7, BUN 16, Creatinine 0.70, Estimated Creat Clear 74, Estimated GFR 110, Est GFR ( Amer) 133, Glucose 167 H, Calcium 9.9, Total Bilirubin 1.6 H, AST 29, ALT 19, Alkaline Phosphatase 84, Troponin I < 0.01, Total Protein 7.6, Albumin 4.1, Globulin 3.5 H, Albumin/Globulin Ratio 1.2 04/05/20 10:32: SARS-CoV-2 IgG Ab (Rapid) Positive A, SARS-CoV-2 IgM Ab (Rapid) Negative 04/05/20 10:32: Lactate 1.4 Result diagrams: 04/05/20 10:32 04/05/20 10:32 Orders (Tests/Meds): ED MEDICATIONS Discontinued Medications Generic Name Dose Route Start Last Admin Trade Name Freq PRN Reason Stop Dose Admin Sodium Chloride 1,000 mls @ 999 mls/hr 04/05/20 10:30 04/05/20 10:39 Sod Chlor 0.9% 1000ml Bag IV 04/05/20 11:30 999 mls/hr .Q1H1M FOREIGN Administration Iopamidol 70 ml 04/05/20 12:32 04/05/20 12:33 Iopamidol-370 (76%);100ml Bottle IV 04/05/20 12:33 70 ml ONCE ONE Administration Sodium Chloride 10 ml 04/05/20 12:32 04/05/20 12:33 Sodium Chloride 0.9% 10ml Syr (Rad Only) IV 04/05/20 12:33 10 ml ONCE ONE Administration Sodium Chloride 50 ml 04/05/20 12:32 04/05/20 12:33 0.9 % Sodium Chloride 50 Ml Vial IV 04/05/20 12:33 50 ml ONCE ONE Administration ORDERS Category Date Time Status Consult to Pulmonology [CONS] Stat Cons 04/05/20 13:00 Ordered Full Resp Panel w/COVID ([facility]) Routine Lab 04/05/20 11:37 Received Troponin I Q3H Lab 04/05/20 13:30 Ordered Troponin I Q3H Lab 04/05/20 16:30 Ordered
[2020-04-05 11:10] LABS: Troponin I < 0.01 ng/ml (0.00-0.034)
--- NOTE | 2020-04-05 11:11 | PC.NURSE ---
Urine specimen requested from pt. pt states he does not feel the urge to urinate at this time. Urinal placed at bedside for patient w/ call light in reach.
--- NOTE | 2020-04-05 11:45 | PC.NURSE ---
pt still unable to urinate at this time.
--- NOTE | 2020-04-05 11:51 | PC.NURSE ---
Pt placed on 4lpm NC due to O2 sat being 88-89%. O2 increased to 97% on 4lpm NC O2.
[2020-04-05 12:02] LABS: Lactic Acid 1.4 mmol/L (0.7-2.1)
--- NOTE | 2020-04-05 12:04 | CT_ITS ---
PROCEDURE: CT ANGIO CHEST CLINCIAL INDICATION: soa Shortness of air, weakness, Covid19 positive COMPARISON: CR XR CHEST PORTABLE from 04/05/2020 TECHNIQUE: IV Contrast: 70ML Isovue 370 Axial images obtained with sagittal and coronal reformats. All CT scans at the facility use one or more dose reduction, viz: automated exposure control, ma/kV adjustment per patient size (including targeted exams where dose is matched to indication, i.e. head), or iterative reconstruction technique. FINDINGS: HEART AND MEDIASTINAL STRUCTURES: No evidence of aortic aneurysm or dissection. No evidence of pulmonary embolus. No mediastinal or hilar mass or adenopathy. There are some mildly prominent mediastinal and hilar lymph nodes which may be reactive. LUNGS AND PLEURAL SPACES: Multifocal areas of ground glass consolidation in both lower lobes, in the inferior aspect of the upper lobes, right middle lobe and lingula consistent with Covid19 pneumonia. There is trace right-sided effusion. BONY STRUCTURES: No acute bony abnormalities apparent. UPPER ABDOMEN: Unremarkable. ADDITIONAL FINDINGS: No other significant abnormalities. IMPRESSION: 1. No evidence of pulmonary embolus. 2. Multifocal pneumonia with ground-glass attenuation consistent with atypical/Covid19 pneumonia Dictated by: Mingo Vanessa MD 04/05/2020 12:48 Mingo Vanessa MD in [facility] 04/05/2020 12:48
[2020-04-05 12:10] LABS: Coronavirus 19 IgG Antibody Positive (Negative); Coronavirus 19 IgM Antibody Negative (Negative)
--- NOTE | 2020-04-05 12:10 | PC.NURSE ---
pt going to rad
--- NOTE | 2020-04-05 12:35 | PC.NURSE ---
pt returning from rad
[2020-04-05 12:40] LABS: Adenovirus,PCR Not Detected (NotDetected); Bordetella Pertussis Not Detected (NotDetected); Chlamydophila Pneumoniae, PCR Not Detected (NotDetected); Coronavirus 229E Not Detected (NotDetected); Coronavirus NL63 Not Detected (NotDetected); Coronavirus OC43 Not Detected (NotDetected); Coronovirus HKU1,PCR Not Detected (NotDetected); Human Metapneumovirus Not Detected (NotDetected); Influenza A, PCR Not Detected (NotDetected); Influenza AH1, 2009 Not Detected (NotDetected); Influenza AH1, PCR Not Detected (NotDetected); Influenza AH3,PCR Not Detected (NotDetected); Influenza B, PCR Not Detected (NotDetected); Mycoplasma Pneumoniae, PCR Not Detected (NotDetected); Parainfluenza 1, PCR Not Detected (NotDetected); Parainfluenza 2, PCR Not Detected (NotDetected); Parainfluenza 3, PCR Not Detected (NotDetected); Parainfluenza 4, PCR Not Detected (NotDetected); Respiratory Syncytial Virus Not Detected (NotDetected); Rhinovirus/Enterovirus Not Detected (NotDetected)
[2020-04-05 14:01] LABS: Coronavirus 19, PCR Detected (NotDetected)
--- NOTE | 2020-04-05 14:01 | PC.NURSE ---
Lab report received. Pt is covid positive.
[2020-04-05 14:02] LABS: Microscopic, Urine URINE MICROSCOPIC (MICROSCOPIC)
[2020-04-05 14:05] LABS: Appearance,Urine CLEAR (Clear); Bilirubin,Urine Negative (Negative); Blood, Urine Negative (Negative); Color,Urine YELLOW (Yellow); Glucose,Urine (UA) Negative (Negative); Ketones,Urine 2+ (Negative); Leukocyte Esterase,Urine Negative (Negative); Nitrate,Urine Negative (Negative); Protein,Urine Negative (Negative); Specific Gravity, Urine 1.015 (1.005-1.030); Urobilinogen,Urine 0.2 EU/dl (0.2)
[2020-04-05 14:39] LABS: Squamous Epithelial Cell,Urine Occasional #/hpf (0-5)
--- NOTE | 2020-04-05 15:37 | PC.NURSE ---
Notified floor pt was ready for admission
--- NOTE | 2020-04-05 16:08 | HMH.PHAVTE ---
[facility] Pharmacy VTE Monitoring - Patient Demographics Admission date: 04/05/20 (T) Report Date: 04/05/20 Time: 16:08 Allergies/Adverse Reactions: Patient Allergies levofloxacin [From LEVAQUIN] Allergy (Mild, Verified 03/17/20 15:46) hydrochlorothiazide/lisinopr Allergy (Uncoded 01/28/20 10:34) affects breathing Height: 1.65 m Weight: 80.739 kg Patient Problems: Current Active Problems Acute hypoxemic respiratory failure due to COVID-19 (Acute) Pneumonia due to COVID-19 virus (Acute) - VTE Risk Labs: VTE Related Lab Results Hgb 14.9 g/dL (14.1-18.0) 04/05/20 10:32 Hct 44.1 % (42.0-52.0) 04/05/20 10:32 Plt Count 393 K/mm3 (142-424) 04/05/20 10:32 BUN 16 mg/dl (9-20) 04/05/20 10:32 Creatinine 0.70 mg/dl (0.66-1.25) 04/05/20 10:32 Estimated Creat Clear 74 mL/min (50-200) 04/05/20 10:32 Clinical Trial Participant: No - Prophylaxis VTE Prophylaxis Ordered?: Yes Types of VTE Prophylaxis: TEDS Knee High, Pharmacological Pharmacologic Type: Enoxaparin
[2020-04-06] VITALS: BP 140/70; PULSE 74; RESP 17; TEMP 36.9; O2SAT 91
--- NOTE | 2020-04-06 01:45 | PC.NURSE ---
PT IS RESTING IN BED. NO COMPLAINTS OF SOA. PT STATES HE CONTINUES TO HAVE A POOR APPETITE BUT HAS BEEN DRINKING WELL. LUNG SOUNDS DIMINISHED. ABDOMEN SOFT/ NON TENDER. PT HAS NOT COMPLAINED OF NAUSEA. O2 SATURATION HAS BEEN 90-92% ON 3 L NC. VSS. WILL CONTINUE TO MONITOR.
[2020-04-06 04:00] VITALS: BP 140/62; PULSE 78; RESP 18; TEMP 36.6; O2SAT 91
[2020-04-06 06:24] LABS: Basophils % 0.5 % (0.1-2.0); Hematocrit 38.6 % (42.0-52.0); Hemoglobin 13.6 g/dL (14.1-18.0); Lymphocytes # 0.6 K/mm3 (0.7-4.5); Lymphocytes % 20.1 % (10-50); Mean Corpuscular HGB Conc 35.3 g/dL (31.8-35.4); Mean Corpuscular Hemoglobin 31.8 pg (27.0-31.2); Mean Corpuscular Volume 90.2 fl (80-94); Mean Platelet Volume 7.5 fl (7.4-10.4); Monocytes # 0.1 K/mm3 (0.1-1.0); Monocytes % 4.7 % (1.7-9.3); Neutrophils # 2.2 K/mm3 (1.8-7.8); Neutrophils % 74.6 % (37.0-80.0); Platelet Count 358 K/mm3 (142-424); Red Blood Count 4.28 M/mm3 (4.60-6.20); Red Cell Distribution Width 13.3 % (11.5-17.5)
[2020-04-06 06:47] LABS: Alanine Aminotransferase 16 U/L (12-78); Albumin Level 3.4 g/dl (3.5-5.0); Albumin/Globulin Ratio 1.1 (1.1-1.8); Alkaline Phosphatase 66 U/L (38-126); Anion Gap 13.6 mEq/L (5-15); Aspartate Amino Transferase 26 U/L (17-59); Blood Urea Nitrogen 14 mg/dl (9-20); Calcium 9.1 mg/dl (8.4-10.2); Carbon Dioxide 22 mmol/L (22.0-30.0); Chloride 102 mmol/L (98-107); Estimated Glomerular Filt Rate 210 ml/min (>60); GFR (African American) 254 ML/MIN (>60); Globulin 3.2 g/dL (1.3-3.2); Glucose 192 mg/dl (74-100); Potassium 3.6 mmoL/L (3.5-5.1); Sodium 134 mmol/L (136-145); Total Protein,Serum 6.6 g/dl (6.3-8.2)
[2020-04-06 06:50] VITALS: BMI 29.3
[2020-04-06 06:53] LABS: Creatinine Clearance Estimated 73 mL/min (50-200)
[2020-04-06 08:00] VITALS: BP 129/71; PULSE 64; RESP 18; TEMP 36.6; O2SAT 92
[2020-04-06 10:47] VITALS: BP 128/70; PULSE 70; RESP 18; TEMP 36.7; O2SAT 98
--- NOTE | 2020-04-06 10:48 | SW/DCPLANNER ---
Addendum entered by Naomi Trejo 04/07/20 11:07: Jael Hoover has stated that portable O2 will be delivered to [facility] for this patient. Addendum entered by Naomi Trejo 04/07/20 10:06: Patient is agreeable to home health services. Patient information/order will be faxed to [facility]. I will follow up with Nkechi rodrigues/ Gemma once patient information is reviewed. Patient information has also been faxed to [facility] for home O2 and portable tank. I will follow up with Kiko once patient information is reviewed. Original Note: I have spoke with patients regarding discharge plans. stated that patient does well at home prior to COVID diagnosis. stated that patients plan is to return home once medically stable for discharge. I will set patient up with home O2 if needed at time of discharge. is also agreeable to home health services if needed at time of discharge. Patient could potentially be ready for discharge soon.
--- NOTE | 2020-04-06 11:10 | HMH.PULMCON ---
*Admission Date: 04/05/20 (T) *Reason for consult:: COVID-19 pneumonia *History of present illness: Mr. Combs is a 74-year-old male never smoker no prior respiratory complaints recently diagnosed with COVID-19 on 25 March with progressively worsening symptoms since then presented to the hospital with worsening respiratory failure along with abdominal discomfort and diarrhea. Patient admits cough which is mostly nonproductive since her symptom onset. Dyspnea worsens with exertion relieved by taking rest [facility] History Medical History: Reports:: Coronary Artery Disease, Diabetes Mellitus Type 2, Gastroesophageal Reflux Disease(GERD), Hyperlipidemia, Hypertension, Myocardial Infarction Denies:: Cancer, Diabetes Mellitus Type 1, MRSA, Seizures *Have you ever received a pneumonia vaccine?: Yes *Have you received a flu vaccine this season?: Yes Other Medical History: Reports: Arthritis, Other. Denies: Blood Transfusion Reaction Laterality Cases: Right: Arthroscopy Shoulder Other Surgeries: Yes: Cardiac Catheterization, Colonoscopy, Coronary Stent, Other Amputation: No Fractures: No - *Social History Last grade of school completed: 9th or 10th Smoking Status: Never smoker Alcohol Intake: never Alcohol Intake Frequency:: other Substance Use Type: denies use *Occupational Status:: retired Housing: house Household Members: spouse *Travel in the last 8 weeks: None Family Hx:: Coronary Artery Disease, Alcoholism ROS - Cons Reports anorexia, Reports body ache(s) - Card Reports shortness of breath, Reports shortness of breath with activity, Denies leg swelling - Resp Respiratory: Reports shortness of breath, Reports chest congestion, Reports cough, Reports non-productive cough, Reports dyspnea, Reports dyspnea on exertion, Denies excessive phlegm production, Denies coughing up blood, Denies pain on inspiration, Denies pain with cough - GI Gastrointestingal: Reports: change in bowel habits Meds Home Medications Medication Instructions Recorded Confirmed Type aspirin 81 mg tablet,delayed 81 mg PO DAILY 04/09/17 04/05/20 History release tamsulosin 0.4 mg capsule 0.4 mg PO HS 10/31/19 04/05/20 History Amlodipine Besylate [Amlodipine 5 mg PO DAILY 03/17/20 04/05/20 History 5mg tab] Atorvastatin Calcium [Lipitor 20mg 10 mg PO DAILY 03/17/20 04/05/20 History Tablet*] Gabapentin 300 mg PO BID 03/17/20 04/05/20 History Metformin HCl [Glucophage] 1,000 mg PO BID 03/17/20 04/05/20 History Omeprazole 20 mg PO BID 03/17/20 04/05/20 History carvediloL [Carvedilol 12.5mg Tab] 12.5 mg PO BID 03/17/20 04/05/20 History lisinopriL [Prinivil 10mg Tablet] 10 mg PO DAILY 03/17/20 04/05/20 History Allergies Allergy/AdvReac Type Severity Reaction Status Date / Time [facility] Allergy Mild Verified 03/17/20 15:46 hydrochlorothiazide/lisinopr Allergy affects Uncoded 01/28/20 10:34 breathing Exam - Constitutional Constitutional:: no acute distress, comfortable - HENMT Exam HENMT: normocephalic - Eye Exam Eyes:: normal appearance both eyes and related structures - Neck Exam Neck:: thyroid normal - Respiratory Exam Respiratory:: able to speak in complete sentences, normal breath sounds, crackles - Cardiovascular Exam Cardiac:: S1, S2 - GI Exam GI:: soft - Skin Exam Skin: no rash - Neurological Exam Neurological: alert, awake, normal cognition - Extremities Exam Extremities: no cyanosis, no clubbing, no edema - Psychiatric Exam Psychiatric: normal affect Internal Medicine - CN: Reslt - Labs CBC & Chem 7: 04/06/20 06:00 04/06/20 06:00 Labs: Short CBC 04/06/20 Range/Units 06:00 WBC 3.0 L D (4.8-10.8) K/mm3 Hgb 13.6 L (14.1-18.0) g/dL Hct 38.6 L (42.0-52.0) % Plt Count 358 (142-424) K/mm3 [facility] 04/06/20 06:00 Sodium 134 L Potassium 3.6 Chloride 102 Carbon Dioxide 22 D BUN 14 Creatinine 0.40 L D Glucose 192 H Calcium 9.1 Cardia
--- NOTE | 2020-04-06 11:17 | HMH.HP ---
*Admission Date: 04/05/20 (T) *Chief complaint: Weakness *History of present illness: 74-year-old male presents to the emergency department complaints of generalized not feeling well, he reports he COVID-19 on 03/25/2020 and has progressively work worsened since then. He reports he has had increased shortness of breath, nonproductive cough, generalized fatigue, nausea, and some diarrhea. He does deny any vomiting. He does report a poor p.o. intake and has had difficulty getting out of bed In the emergency department CBC was unremarkable, white blood cell count was normal. Chemistries unremarkable. blood cultures x2 was drawn troponins were negative, He was afebrile, blood pressure/heart rate/respiratory rate all within normal limits. Oxygen saturations 94% on room air He did receive 1 L of normal saline in the emergency department. Azithromycin, ceftriaxone, dexamethasone, and remdesivir IV were all ordered 04/05/20 CXR: FINDINGS: The cardiomediastinal silhouette and pulmonary vascularity are within normal limits. Consolidation present in the mid lower lung zones bilaterally consistent with pneumonia.. No obvious effusion. No acute bony abnormalities. IMPRESSION: Interval development of bilateral lower lobe pneumonia Dictated by: Otf, 04/05/20 Chest CTA: FINDINGS: HEART AND MEDIASTINAL STRUCTURES: No evidence of aortic aneurysm or dissection. No evidence of pulmonary embolus. No mediastinal or hilar mass or adenopathy. There are some mildly prominent mediastinal and hilar lymph nodes which may be reactive. LUNGS AND PLEURAL SPACES: Multifocal areas of ground glass consolidation in both lower lobes, in the inferior aspect of the upper lobes, right middle lobe and lingula consistent with Covid19 pneumonia. There is trace right-sided effusion. BONY STRUCTURES: No acute bony abnormalities apparent. UPPER ABDOMEN: Unremarkable. ADDITIONAL FINDINGS: No other significant abnormalities. IMPRESSION: 1. No evidence of pulmonary embolus. 2. Multifocal pneumonia with ground-glass attenuation consistent with atypical/Covid19 pneumonia Dictated by: Otf 34-year-old man lying In bed, he reports he is still short of breath and feels better today. He is reporting restless leg syndrome and asking his medication to be restarted. Oxygen saturation 93% on 2 L per nasal cannula [facility] History I have reviewed the patient's past medical history: Yes Medical History: Reports:: Coronary Artery Disease, Diabetes Mellitus Type 2, Gastroesophageal Reflux Disease(GERD), Hyperlipidemia, Hypertension, Myocardial Infarction Denies:: Cancer, Diabetes Mellitus Type 1, MRSA, Seizures *Have you ever received a pneumonia vaccine?: Yes *Have you received a flu vaccine this season?: Yes Other Medical History: Reports: Arthritis, Other. Denies: Blood Transfusion Reaction Laterality Cases: Right: Arthroscopy Shoulder Other Surgeries: Yes: Cardiac Catheterization, Colonoscopy, Coronary Stent, Other Amputation: No Fractures: No - *Social History Last grade of school completed: 9th or 10th Smoking Status: Never smoker Alcohol Intake: never Alcohol Intake Frequency:: other Substance Use Type: denies use *Occupational Status:: retired Housing: house Household Members: spouse *Travel in the last 8 weeks: None Family Hx:: Coronary Artery Disease, Alcoholism Review of Systems - Review of Systems Review of systems:: pertinent systems reviewed and negative unless documented below - Constitutional Reports fatigue, Reports lack of energy, Denies increased appetite - Eyes Denies blind spots, Denies blurry vision - ENT Reports abnormal hearing, Denies dizziness - *Cardiovascular Reports shortness of breath - *Respiratory Reports cough, Reports shortness of breath - *Gastrointestinal Reports loose stools, Reports nausea, Denies abdominal pain, Denies vomiting - *Genitourinary Reports difficulty urinating, Reports genital pain -
[2020-04-06 14:50] VITALS: BP 125/64; PULSE 70; RESP 18; TEMP 36.5; O2SAT 91
--- NOTE | 2020-04-06 16:11 | PC.NURSE ---
Pt has been pleasant and cooperative this shift. A&O X4. No complaints of pain or SOA. Pt is receiving O2 via NC @ 2 LPM with sats. >90%. Lungs CTA. No edema noted. Skin is C/D/I. Pt ambulates independently to/from the bathroom and throughout the room. Pt has sat up in the recliner for the majority of the shift. Pt uses the urinal to void clear, yellow urine without issue. Pt reports 1 small, brown BM today thus far. 20 G peripheral IV in the RT AC is patent and infusing NS @ 100 ML/HR. 20 G peripheral IV in the LT AC is patent and SL. VSS. Call light within reach. Will continue to monitor.
[2020-04-06 20:00] VITALS: BP 146/75; PULSE 74; RESP 20; TEMP 36.5; O2SAT 90
[2020-04-07] VITALS: BP 171/75; PULSE 74; RESP 24; TEMP 36.6; O2SAT 95
[2020-04-07 04:00] VITALS: BP 150/72; PULSE 66; RESP 17; TEMP 36.6; O2SAT 93
[2020-04-07 04:59] VITALS: BMI 29.9
[2020-04-07 05:32] LABS: Chloride 104 mmol/L (98-107)
[2020-04-07 05:33] LABS: Potassium 3.5 mmoL/L (3.5-5.1); Sodium 135 mmol/L (136-145)
[2020-04-07 05:35] LABS: Alanine Aminotransferase 14 U/L (12-78); Aspartate Amino Transferase 19 U/L (17-59); Blood Urea Nitrogen 16 mg/dl (9-20); Creatinine Clearance Estimated 75 mL/min (50-200); Estimated Glomerular Filt Rate 163 ml/min (>60); GFR (African American) 197 ML/MIN (>60)
[2020-04-07 05:36] LABS: Albumin Level 3.3 g/dl (3.5-5.0); Albumin/Globulin Ratio 1.1 (1.1-1.8); Alkaline Phosphatase 66 U/L (38-126); Anion Gap 8.5 mEq/L (5-15); Bilirubin,Total 0.6 mg/dl (0.2-1.3); Calcium 9.3 mg/dl (8.4-10.2); Carbon Dioxide 26 mmol/L (22.0-30.0); Glucose 234 mg/dl (74-100); Total Protein,Serum 6.3 g/dl (6.3-8.2)
--- NOTE | 2020-04-07 06:15 | PC.NURSE ---
Pt is A&Ox4. Pt has slept well this shift. Pt has remained on 2L NC w/ o2 sats between 90-95%. Lung sounds CTA. No edema noted to extremities. Active bowel sounds in all 4 quads, no BM noted this shift. Pt turns self in the bed. Pt independently performed all ADL's. No other acute changes or complaints at this time.
[2020-04-07 08:00] VITALS: BP 147/75; PULSE 71; RESP 20; TEMP 37.1; O2SAT 92
--- NOTE | 2020-04-07 10:39 | HMH.DCSUM ---
General - General Admission date:: 04/05/20 Discharge date: 04/07/20 HPI HPI: 74-year-old male presents to the emergency department complaints of generalized not feeling well, he reports he COVID-19 on 03/25/2020 and has progressively work worsened since then. He reports he has had increased shortness of breath, nonproductive cough, generalized fatigue, nausea, and some diarrhea. He does deny any vomiting. He does report a poor p.o. intake and has had difficulty getting out of bed In the emergency department CBC was unremarkable, white blood cell count was normal. Chemistries unremarkable. blood cultures x2 was drawn troponins were negative, He was afebrile, blood pressure/heart rate/respiratory rate all within normal limits. Oxygen saturations 94% on room air He did receive 1 L of normal saline in the emergency department. Azithromycin, ceftriaxone, dexamethasone, and remdesivir IV were all ordered 04/05/20 CXR: FINDINGS: The cardiomediastinal silhouette and pulmonary vascularity are within normal limits. Consolidation present in the mid lower lung zones bilaterally consistent with pneumonia.. No obvious effusion. No acute bony abnormalities. IMPRESSION: Interval development of bilateral lower lobe pneumonia Dictated by: Otf, 04/05/20 Chest CTA: FINDINGS: HEART AND MEDIASTINAL STRUCTURES: No evidence of aortic aneurysm or dissection. No evidence of pulmonary embolus. No mediastinal or hilar mass or adenopathy. There are some mildly prominent mediastinal and hilar lymph nodes which may be reactive. LUNGS AND PLEURAL SPACES: Multifocal areas of ground glass consolidation in both lower lobes, in the inferior aspect of the upper lobes, right middle lobe and lingula consistent with Covid19 pneumonia. There is trace right-sided effusion. BONY STRUCTURES: No acute bony abnormalities apparent. UPPER ABDOMEN: Unremarkable. ADDITIONAL FINDINGS: No other significant abnormalities. IMPRESSION: 1. No evidence of pulmonary embolus. 2. Multifocal pneumonia with ground-glass attenuation consistent with atypical/Covid19 pneumonia Dictated by: Otf 34-year-old man lying In bed, he reports he is still short of breath and feels better today. He is reporting restless leg syndrome and asking his medication to be restarted. Oxygen saturation 93% on 2 L per nasal cannula Hospital Course Hospital Course: 4-year-old male presents to the emergency department complaints of generalized not feeling well, he reports he COVID-19 on 03/25/2020 and has progressively work worsened since then. He reports he has had increased shortness of breath, nonproductive cough, generalized fatigue, nausea, and some diarrhea. He does deny any vomiting. He does report a poor p.o. intake and has had difficulty getting out of bed In the emergency department CBC was unremarkable, white blood cell count was normal. Chemistries unremarkable. blood cultures x2 was drawn troponins were negative, He was afebrile, blood pressure/heart rate/respiratory rate all within normal limits. Oxygen saturations 94% on room air He did receive 1 L of normal saline in the emergency department. Azithromycin, ceftriaxone, dexamethasone, and remdesivir IV were all ordered 04/05/20 CXR: FINDINGS: The cardiomediastinal silhouette and pulmonary vascularity are within normal limits. Consolidation present in the mid lower lung zones bilaterally consistent with pneumonia.. No obvious effusion. No acute bony abnormalities.
[2020-04-07 11:18] VITALS: BP 138/82; PULSE 74; RESP 20; TEMP 36.8; O2SAT 92
--- NOTE | 2020-04-07 12:20 | HMH.PULMPN ---
Internal Medicine - PN: Subj *Date: 04/07/20 *Time: 12:20 Interval history: No acute respite event overnight. Patient is morning on 2 L nasal cannula saturating 92% Exam - Constitutional Constitutional:: no acute distress, comfortable - HENMT Exam HENMT: normocephalic, atraumatic - Respiratory Exam Respiratory:: able to speak in complete sentences, normal respiratory effort, crackles - Cardiovascular Exam Cardiac:: S1, S2 - GI Exam GI:: soft - Skin Exam Skin: warm, no rash, dry - Neurological Exam Neurological: alert, awake, normal cognition - Extremities Exam Extremities: no cyanosis, no clubbing, no edema Assessment and Plan (1) Acute hypoxemic respiratory failure due to COVID-19 Status: Acute Category: Medical Code(s): U07.1 - COVID-19; J96.01 - Acute respiratory failure with hypoxia (2) Pneumonia due to COVID-19 virus Status: Acute Category: Medical Code(s): U07.1 - COVID-19; J12.82 - Pneumonia due to coronavirus disease 2019 (3) COVID-19 Status: Acute Category: Medical Code(s): U07.1 - COVID-19 (4) Chronic low back pain Status: Acute Qualifiers: Back pain laterality: unspecified Sciatica presence: without sciatica Qualified Code(s): M54.5 - Low back pain; G89.29 - Other chronic pain Category: Medical Code(s): M54.5 - Low back pain; G89.29 - Other chronic pain (5) DJD (degenerative joint disease) Status: Acute Qualifiers: Osteoarthritis location: foot Osteoarthritis type: primary Laterality: bilateral Qualified Code(s): M19.071 - Primary osteoarthritis, right ankle and foot; M19.072 - Primary osteoarthritis, left ankle and foot Category: Medical Code(s): M19.90 - Unspecified osteoarthritis, unspecified site (6) Overweight (BMI 25.0-29.9) Status: Acute Category: Medical Code(s): E66.3 - Overweight (7) Fatigue Status: Chronic Qualifiers: Fatigue type: chronic, unspecified Qualified Code(s): R53.82 - Chronic fatigue, unspecified Category: Medical Code(s): R53.83 - Other fatigue (8) HHD (hypertensive heart disease) Status: Chronic Qualifiers: Heart failure presence: unspecified whether heart failure present Qualified Code(s): I11.9 - Hypertensive heart disease without heart failure Category: Medical Code(s): I11.9 - Hypertensive heart disease without heart failure (9) HLD (hyperlipidemia) Status: Chronic Qualifiers: Hyperlipidemia type: mixed hyperlipidemia Qualified Code(s): E78.2 - Mixed hyperlipidemia Category: Medical Code(s): E78.5 - Hyperlipidemia, unspecified (10) History of myocardial infarction Status: Chronic Category: Medical Code(s): I25.2 - Old myocardial infarction - Assessment and plan all Dx Assessment and Plan for all problems:: #COVID-19 pneumonia: number 74-year-old never smoker, no prior respiratory complaints presented to the ED with generalized weakness on further work-up tested positive for COVID-19 pneumonia. CTA performed did not show any evidence of however showed bilateral lower lobe predominant groundglass patchy airspace disease. Patient was initiated initiated on ceftriaxone azithromycin along with remdesivir and dexamethasone for possible COVID-19 pneumonia on admission Patient presentation needing 3 L nasal cannula supplementation respiratory significantly improved, this morning needing 2 L nasal cannula. Patient appreciates significant improvement in his respiratory distress. Auscultation revealed bilateral coarse breath sounds improved from yesterday. Blood cultures no growth 48 hours. Patient unable to produce phlegm for sputum analysis. White count decreased from 7.7-3.0 with lymphopenia. Plan: - Continue ceftriaxone and azithromycin for COVID-19 pneumonia, can be deescalated to Levoflaacin for total of 5 days upon discharge. - Continue remdesivir and dexamethasone until discharge - DuoNebs every 6 hours as needed, consider discharging
== END 2020-04-07 13:50 | disposition home or self-care (01) | DRG 177 ==
LOC: ER 13:11 → 2ND 21:31
PROVIDERS: Admitting Provider Emergency Medicine; Emergency Provider Emergency Medicine; PCP Emergency Medicine; Visit Provider Emergency Medicine
DX: U07.1 COVID-19 (principal); J12.82 Pneumonia due to coronavirus disease 2019; J96.01 Acute respiratory failure with hypoxia; I25.2 Old myocardial infarction; E78.5 Hyperlipidemia, unspecified; M19.071 Primary osteoarthritis, right ankle and foot; M19.072 Primary osteoarthritis, left ankle and foot; M54.5 Low back pain; I11.9 Hypertensive heart disease without heart failure; Z95.5 Presence of coronary angioplasty implant and graft; G89.29 Other chronic pain; Z79.899 Other long term (current) drug therapy; Z79.82 Long term (current) use of aspirin
CPT/HCPCS: 71045; 71275; 80053; 81001; 82803; 83605; 84484; 85025; 86328; 87040; 87581; 87633; 87798; 93005; 96365; 96375; 99284; Q9967; U0003

== ENCOUNTER → 2020-04-30 07:40 | Outpatient (CLI) | payer MEDICARE, SELFPAY ==
--- NOTE | 2020-04-30 | CA_ITS ---
APPROVED REPORT Exam: Pharmacologic Technologist: Amrita Colvin Ht: 5 ft 5 in Wt: 179 lbs BSA: 1.89 m2 HR: 71 bpm BP: 109/76 mmHg Indications: Chest pain, Shortness of Air Medical History Medications: Amlodipine,,,,, Lisinopril,,,,, Omeprazole,,,,, Aspirin,,,,, Metformin,,,,, Gabapentin,,,,, Atorvastatin,,,,, Carvedilol,,,,, TAMSULOSIN,,,,, CloPIdogrel,,,,, Tolterodine,,,,, Stress Test Details Test: LEXISCAN HR Resting HR: 72 bpm Max Heart Rate (APMHR): 146 bpm Max HR Achieved: 85 bpm Target HR (85% APMHR): 124 bpm % of APMHR: 58 Recovery HR: 75 bpm BP Resting BP: 109.0/76.0 mmHg Max BP: 123.0/67.0 mmHg Recovery BP: 112.0/68.0 mmHg ECG Resting ECG: sinus rhythm with PAC Clinical Exercise duration: 04:00 min Highest Stage Achieved: Stress ECG Conclusion Lexiscan portion complete. Patient complained of shortness of breath during peak infusion. Symptoms: Shortness of breath during peak infusion, resolved in recovery. No chest pain. Arrhythmias/Ectopy: Occasional PAC (2 episode of atrial tachycardia 3 - 4 beats) ST-T Changes: Less than 1.[address] depression. Conclusion: Images to follow. Test Summary REST . . . . . . . Resting REST 03:22 . . 72 . 109/ 76 . . Stage 1 . . . . . . . Cardiolite injected Stage 1 01:00 . . 76 . . . . Stage 2 01:00 . . 80 . 117/ 62 . . Stage 3 01:00 . . 81 . 123/ 67 . . Stage 4 01:00 . . 81 . 120/ 71 . Stop exercise at 04:00 RECOVERY 01:00 . . 77 . 120/ 70 . . RECOVERY 02:00 . . 78 . 119/ 66 . . RECOVERY 03:00 . . 76 . 119/ 66 . . RECOVERY 03:32 . . 76 . 112/ 68 . . Electronically signed by : John Harkins, 04/30/2020 12:11:56
--- NOTE | 2020-04-30 07:40 | NM_ITS ---
APPROVED REPORT Exam: Nuclear Stress Test Indication: CAD, HX.MD, HTN, DM, FM HX, C.P., SOB, FATIGUE Patient Location: Outpatient Stress Tech: Amrita Colvin MT Tech:Marlene Elam NATALIYA RT (R)(N)(M) Ht: 5 ft 6 in Wt: 177 lbs HR: 71 bpm BP: 107/76 mmHg BSA: 1.90 m2 BMI: 28.5 History: CAD, HX.MD, HTN, DM, FM HX, C.P., SOB, FATIGUE Procedure: Patient received a 0.4 mg of intravenous Lexiscan, resting heart rate 71 bpm, resting blood pressure 107/76 mmHg, with Lexiscan maximum heart rate achived was 84 bpm which is Less than 85 % of the maximum predicted heart rate and blood pressure was 117/62 mmHg. Electrocardiogram Resting electrocardiogram showed sinus rhythm, with Lexiscan there is less than 1.[address] segment depression noted from the baseline EKG. The EKG portion of the Lexiscan is nondiagnostic. Cardiac Stress and Resting SPECT Images: Cardiac Stress and Resting SPECT images were obtained using technetium 99m Myoview 30.5 mCi stress and 10.17 mCi at rest. Gated SPECT for analysis of segmental wall motion and calculation of the ejection fraction also done. Prone images were also obtained. Cardiac stress and resting SPECT images show uniform myocardial activity without segmental perfusion abnormality, computer derived ejection fraction is 55% with no regional wall motion abnormality, right ventricle is mildly enlarged with normal contractility. Conclusion: 1. The EKG portion of the Lexiscan is nondiagnostic. 2. No scintigraphic evidence of reversible ischemia seen, computer derived ejection fraction is 55% with no regional wall motion abnormality, right ventricle is mildly enlarged with normal contractility. 3. Normal Lexiscan Myoview study. Electronically signed by : John Hakrins, 04/30/2020 12:15:14
--- NOTE | 2020-04-30 07:53 | CA_ITS ---
APPROVED REPORT EXAM: Comprehensive 2D, Doppler, and color-flow Echocardiogram Shot Fireman: Medina Randall RT(R) Ht: 5 ft 5 in Wt: 179lbs BSA: 1.89 BP: 132/74 mmHg Indications: CP, SOB, DM, HTN, hyperlipidemia,CAD, preop for back surgery, post covid 2D Dimensions LVOT 2.49 cm (M/F) 1.5-2.5 M-Mode Dimensions RVDd 2.78 cm (0.9-2.6) LA Diam 4.00 cm (1.9-4.0) LVDd 5.52 cm (3.5-5.7) Ao Diam 3.39 cm (2.0-3.7) LVDs 4.35 cm (3.5-5.7) IVSd 0.97 cm (0.6-1.1) PWd 0.97 cm (0.6-1.1) EF (Teich) 42.60% FS 21.20% EDV (Teich) 148.70 mL ESV (Teich) 85.40 mL LV Diastology E Decel Time 163.00 (160-240 msec) E/A Ratio 0.7 MED E' 7.20 (< 7 cm/sec) E'/MED E' Ratio 7.97 (>14) LAT E' 7.30 (<10 cm/sec) E/LAT E' Ratio 7.86 (>14) Mitral Valve MV E Max Ezekiel. 57.00 (40-130 cm/s) MV A Velocity 82.00 (40-130 cm/s) E/A Ratio 0.70 MV Decel. Time 163.00 (160-240 ms) MV PHT 48.00 ms Tricuspid Valve TR P. Velocity 200.00 cm/s RAP Estimate 15.00 mmHg RVSP 31.00 mmHg Left Ventricle Left atrium is mildly enlarged, left ventricle is normal size, mild concentric left ventricular hypertrophy, visually estimated ejection fraction 55% with no regional wall motion abnormality, grade 1 diastolic dysfunction seen without tissue Doppler evidence of raise left atrial pressure. Right Ventricle Right atrium and right ventricle are normal size and contractility. Aortic Valve Aortic valve is minimally thickened and fibrosed, there is no aortic stenosis or aortic except 3. Mitral Valve Mitral valve is grossly normal, there is trace mitral regurgitation. Tricuspid Valve Tricuspid valve grossly normal, there is mild tricuspid regurgitation, calculated right ventricular systolic pressure is 31 mmHg. Pulmonic Valve Pulmonic valve is poorly visualized. Great Vessels Aortic root is normal size. Pericardium No significant pericardial effusion noted. Conclusion 1. Mildly enlarged left atrium, normal left ventricular size, mild concentric left ventricular hypertrophy, visually estimated ejection fraction 55% with no regional wall motion abnormality, grade 1 diastolic dysfunction seen without tissue Doppler evidence of raise left atrial pressure. 2. Trace mitral and mild tricuspid regurgitation, calculated right ventricular systolic pressure is 31 mmHg. 3. No significant pericardial effusion noted. Electronically signed by : John Harkins, 04/30/2020 13:26:54
== END ==
PROVIDERS: PCP Emergency Medicine; Visit Provider Nurse Practitioner Family
DX: E11.8 Type 2 diabetes mellitus with unspecified complications (principal); E78.2 Mixed hyperlipidemia; I11.9 Hypertensive heart disease without heart failure; I25.10 Atherosclerotic heart disease of native coronary artery without angina pectoris; R06.00 Dyspnea, unspecified; R07.89 Other chest pain; R42 Dizziness and giddiness; Z79.84 Long term (current) use of oral hypoglycemic drugs
CPT/HCPCS: 78452; 93017; 93306; A9502; J2785

== ENCOUNTER → 2020-07-01 11:17 | Outpatient (CLI) | payer MEDICARE, SELFPAY ==
[2020-07-01 11:38] LABS: Basophils # 0.1 K/mm3 (0-0.2); Eosinophils # 0.2 K/mm3 (0.0-0.4); Eosinophils % 2.1 % (0.1-12.0); Hematocrit 45.3 % (42.0-52.0); Hemoglobin 14.9 g/dL (14.1-18.0); Lymphocytes # 2.1 K/mm3 (0.7-4.5); Lymphocytes % 21.7 % (10-50); Mean Corpuscular Hemoglobin 29.7 pg (27.0-31.2); Mean Corpuscular Volume 90.1 fl (80-94); Mean Platelet Volume 7.6 fl (7.4-10.4); Monocytes # 0.3 K/mm3 (0.1-1.0); Monocytes % 3.4 % (1.7-9.3); Neutrophils # 6.9 K/mm3 (1.8-7.8); Neutrophils % 71.8 % (37.0-80.0); Platelet Count 325 K/mm3 (142-424); Red Blood Count 5.03 M/mm3 (4.60-6.20); Red Cell Distribution Width 14.4 % (11.5-17.5); White Blood Count 9.6 K/mm3 (4.8-10.8)
[2020-07-01 12:44] LABS: Alanine Aminotransferase 19 U/L (12-78); Albumin Level 4.4 g/dl (3.5-5.0); Albumin/Globulin Ratio 1.6 (1.1-1.8); Alkaline Phosphatase 81 U/L (38-126); Anion Gap 13.6 mEq/L (5-15); Aspartate Amino Transferase 24 U/L (17-59); Blood Urea Nitrogen 16 mg/dl (9-20); Calcium 10.4 mg/dl (8.4-10.2); Carbon Dioxide 26 mmol/L (22.0-30.0); Chloride 102 mmol/L (98-107); Chol/HDL Ratio 3.1 (1-3.5); Cholesterol 122 mg/dl (140-200); Estimated Glomerular Filt Rate 110 ml/min (>60); GFR (African American) 133 ML/MIN (>60); Globulin 2.7 g/dL (1.3-3.2); Glucose 234 mg/dl (74-100); HDL Cholesterol 39 mg/dl (40-60); Potassium 4.6 mmoL/L (3.5-5.1); Sodium 137 mmol/L (136-145); Total Protein,Serum 7.1 g/dl (6.3-8.2); Triglycerides 123 mg/dl (30-150); VLDL Cholesterol 25 mg/dL (0-40)
[2020-07-01 13:02] LABS: T4 (Thyroxine) 8.5 ug/dl (5.53-11.0)
[2020-07-01 13:16] LABS: Thyroid Stimulating Hormone 0.99 uIU/mL (0.465-4.68)
[2020-07-01 13:16] LABS: Prostate Specific Ag Screen 2.1 ng/ml (0.0-4.0)
== END ==
PROVIDERS: Emergency Medicine; Visit Provider Urology
DX: Z12.5 Encounter for screening for malignant neoplasm of prostate (principal); E11.65 Type 2 diabetes mellitus with hyperglycemia; R06.00 Dyspnea, unspecified; E66.9 Obesity, unspecified; Z79.84 Long term (current) use of oral hypoglycemic drugs
CPT/HCPCS: 36415; 80053; 80061; 84436; 84443; 85025; G0103

== ENCOUNTER → 2020-11-23 11:00 | Outpatient (CLI) | payer MEDICARE, SELFPAY ==
--- NOTE | 2020-11-23 11:03 | XR_ITS ---
PROCEDURE: XR HIP LT 2-3V W/PELVIS XR HIP RT 2-3V W/PELVIS the CLINICAL INDICATION: hip pain COMPARISON: CR XR HIP RT 2-3V W/PELVIS from 12/08/2019 CR XR HIP RT 2-3V W/PELVIS from 11/23/2020 FINDINGS: Left hip: Minimal osteoarthritic change with minimal spurring along the femoral head. Slight decrease in the joint space. No fracture or dislocation. Right hip: Minimal osteoarthritic change with slight decrease in the joint space and minimal spurring at the femoral head. No fracture or dislocation. No lytic or blastic change. AP view of the pelvis shows postsurgical changes at L4-5 and S1. Inter pedicular screws are present with laminectomy defect and stimulator wires along the right and left lateral aspect of the postsurgical area. Left SI joint appears partially fused superiorly. IMPRESSION: Postsurgical and degenerative changes. No acute finding. Minimal osteoarthritic changes of the hips. Dictated by: Mingo Vanessa MD 11/23/2020 11:35 Mingo Vanessa MD in [facility] 11/23/2020 11:35
== END ==
PROVIDERS: PCP Emergency Medicine; Visit Provider Emergency Medicine
DX: M25.552 Pain in left hip (principal); M25.551 Pain in right hip
CPT/HCPCS: 73502

== ENCOUNTER → 2020-12-24 10:29 | Outpatient (CLI) | payer MEDICARE, SELFPAY ==
--- NOTE | 2021-01-28 13:50 | HMH.OPNOTE ---
Date of procedure: 01/28/21 Pre-op Diagnosis:: Right hip arthritis Post-op Diagnosis:: Same Procedure performed:: Right fluoroscopic guided intra-articular hip injection Surgeon:: Diego Hudson JR, MD Anesthesia: none Estimated blood loss (mL): 0 Operative findings:: Intra-articular needle and contrast placement. Operative note:: 75-year-old male with right hip arthritis refractory to conservative measures. We discussed further treatment including fluoroscopic guided right corticosteroid injection. He was amenable with the plan. We discussed the risk and benefits of the procedure risks included but were not limited to pain, bleeding, infection, damage to adjacent structures, need for further procedures. Patient expressed verbal consent and written consent was obtained for the above procedure. Patient was identified in radiology department. History, physical, consent were reviewed and updated. All in attendance agreed regarding the patient's identity, procedure, operative site. Under sterile conditions under fluoroscopic guidance I inserted a spinal needle into the hip joint at the level of the base of the femoral neck, injected contrast dye to confirm needle placement. Once I noted that the contrast was gathering around the base of the femoral head, I injected 4 mL of 1% lidocaine and 1 mL of 40 mg/mL of methylprednisolone. He tolerated the procedure well. Condition: stable Disposition: other (Home) Complications:: None
== END ==
PROVIDERS: PCP Emergency Medicine; Visit Provider Orthopaedic Surgery
DX: M16.11 Unilateral primary osteoarthritis, right hip (principal)
CPT/HCPCS: 20610; 77002; Q9967

== ENCOUNTER 2020-12-27 15:26 | Emergency (ER) | payer MEDICARE, SELFPAY ==
--- NOTE | 2020-12-27 16:14 | XR_ITS ---
PROCEDURE INFORMATION: Exam: XR Left Wrist Exam date and time: 12/27/2020 4:14 PM Age: 75 years old Clinical indication: Injury or trauma; Fall; Blunt trauma (contusions or hematomas); Wrist; Left; Additional info: Pain TECHNIQUE: Imaging protocol: XR Left wrist. Views: 3 or more views. COMPARISON: No relevant prior studies available. FINDINGS: Bones/joints: Linear intra-articular lucency through the radial styloid. Degenerative changes at the 2nd and 3rd metacarpophalangeal joints, as well as in the radiocarpal joint and 1st carpometacarpal joint. These appear to be related to osteoarthritic changes. No other acutely displaced fractures are identified. There is no evidence of joint dislocation. No aggressive osseous lesions. Soft tissues: There is soft tissue swelling. IMPRESSION: Linear intra-articular fracture through the radial styloid.
--- NOTE | 2020-12-27 16:29 | XR_ITS ---
PROCEDURE INFORMATION: Exam: XR Left Shoulder Exam date and time: 12/27/2020 4:29 PM Age: 75 years old Clinical indication: Injury or trauma; Fall; Blunt trauma (contusions or hematomas); Shoulder; Left; Additional info: Pain TECHNIQUE: Imaging protocol: XR Left shoulder. Views: 2 or more views. COMPARISON: CR SHOULDCMLT XR shoulder LT min 2V 09/27/2017 8:17 AM FINDINGS: Bones/joints: There are mild degenerative changes of the left acromioclavicular joint. There is no evidence of acutely displaced fractures. There is no evidence of joint dislocation. No aggressive osseous lesions. Soft tissues: There is no significant soft tissue swelling. Visualized chest is unremarkable. IMPRESSION: Negative for acute skeletal pathology.
[2020-12-27 16:40] VITALS: BP 138/79; PULSE 67; RESP 19; TEMP 36.9; O2SAT 97; BMI 29.1
--- NOTE | 2020-12-27 17:06 | HMH.EDUTC ---
[facility] Disposition Clinical Impression: Radius fracture Qualifiers: Encounter type: initial encounter Radius location: styloid process Fracture type: closed Fracture alignment: nondisplaced Laterality: left Qualified Code(s): S52.515A - Nondisplaced fracture of left radial styloid process, initial encounter for closed fracture Disposition: Home, Self-Care Condition on Discharge: Good Instructions: How To Perform RICE (Rest, Ice, Compress, Elevate), Ibuprofen Additional Instructions: *RICE, Rest the extremity, Ice 15-20 minutes 3-4 times daily, Compress- wear the elton wrap as discussed as much as possible to help reduce swelling and pain, Elevate the extremity when at rest *Elton wrap is for support and help control swelling, use it except in the shower. Be sure that is not to tight but not to loose either *Elevate when resting *Ibuprofen as directed on package every 6-8 hours as needed for pain an inflammation. If need something more can take Tylenol in between doses of Ibuprofen to help Immediately follow up with your family doctor for new or worsening of symptoms, or no noticeable improvement over the next 3-5 days Referrals: Zack Orellana MD [Primary Care Provider] - As needed Aguilar Ellison MD [Staff Physician] - Time of Disposition: 17:28 Medical Decision Making - Luan Inquiry Pt receiving controlled substance: No Luan was queried for this patient: No Vital Signs: 12/27/20 16:40 12/27/20 17:37 Temperature 98.4 F 98.4 F Temperature Source Oral Pulse Rate 67 Pulse Rate [Right Brachial] 67 Respiratory Rate 19 19 Blood Pressure 138/79 Blood Pressure [Right Arm] 138/79 Blood Pressure Mean [Right Arm] 98 Blood Pressure Source [Right Arm] Automatic Cuff Blood Pressure Position [Right Arm] Sitting 02 Sat by Pulse Oximetry 97 Oxygen Delivery Method Room Air - Radiology Data #1 Image(s): Shoulder Image Reviewed: Yes I have reviewed radiologist's interpretation IMPRESSION: Negative for acute skeletal pathology. #2 Image(s): Wrist Image Reviewed: Yes I have reviewed radiologist's interpretation IMPRESSION: Linear intra-articular fracture through the radial styloid. [facility] HPI - General Stated complaint: L wrist injury Time Seen by Provider: 12/27/20 17:06 Mode of Arrival: Ambulatory Source of Information: Patient Limitations: No Limitations Description of Symptoms (Recalled from Triage Doc. by RN): PATIENT C/O LEFT SHOULDER AND WRIST PAIN AFTER FALLING THIS MORNING HEENT Symptoms (Recalled from RN notes): No Resp Symptoms (Recalled from RN notes): No Skin Symptoms (Recalled from RN notes): No MS Symptoms (Recalled from RN notes): Yes Functional Status (Recalled from RN notes): WNL - History of Present Illness Provider Complaint: Patient states that he was getting into his truck earlier when he lost his balance and fell landing on his left wrist and shoulder States that ever since he has been having pain in his left wrist area and shoulder when he moves them States that he has an abrasion on his left elbow but doesnt want to get that looked at - Related Data Home Medications Medication Instructions Recorded Confirmed aspirin 81 mg tablet,delayed 81 mg PO DAILY 04/09/17 12/27/20 release tamsulosin 0.4 mg capsule 0.4 mg PO HS 10/31/19 12/27/20 clopidogrel 75 mg tablet 75 mg PO DAILY 04/21/20 12/27/20 atorvastatin 20 mg tablet 10 mg PO HS tab 10/04/20 12/27/20 metformin 1,000 mg tablet 1,000 mg PO BID tab 10/04/20 12/27/20 omeprazole 20 mg capsule,delayed 20 mg PO DAILY cap 10/04/20 12/27/20 release Previous Rx's Medication Instructions Recorded gabapentin 300 mg capsule 300 mg PO BID #60 cap 04/28/20 carvedilol 12.5 mg tablet See Rx Instructions .ROUTE 10/11/20 .COMPLEX #180 tablet lisinopril 20 mg tablet 20 mg PO DAILY #90 tab 11/01/20 meloxicam 7.5 mg tablet 7.5 mg PO DAILY #30 tab 12/03/20 Allergies Allergy/AdvReac Type Severity Reaction
[2020-12-27 17:37] VITALS: BP 138/79; PULSE 67; RESP 19; TEMP 36.9; O2SAT 97
== END 2020-12-27 17:53 | disposition home or self-care (01) ==
PROVIDERS: Emergency Provider Nurse Practitioner; PCP Emergency Medicine
DX: S52.515A Nondisplaced fracture of left radial styloid process, initial encounter for closed fracture (principal); W19.XXXA Unspecified fall, initial encounter; I25.10 Atherosclerotic heart disease of native coronary artery without angina pectoris; E11.9 Type 2 diabetes mellitus without complications; K21.9 Gastro-esophageal reflux disease without esophagitis; E78.5 Hyperlipidemia, unspecified; I10 Essential (primary) hypertension; I25.2 Old myocardial infarction
CPT/HCPCS: 29125; G0463; 73030; 73110; 99203

== ENCOUNTER 2020-12-31 12:00 | Outpatient (RCR) | payer MEDICARE, SELFPAY | END 2020-12-31 13:29 | disposition home or self-care (01) | LOC: OT 12:00 | PROVIDERS: Visit Provider Orthopaedic Surgery | DX: M25.532 Pain in left wrist (principal) | CPT/HCPCS: 97763 ==

== ENCOUNTER → 2021-01-03 19:09 | Outpatient (CLI) | payer MEDICARE, SELFPAY ==
[2021-01-03 20:30] LABS: Benzodiazepines Screen,Urine Negative ng/ml (<200)
[2021-01-03 20:31] LABS: Amphetamine/Metha Screen,Urine Negative ng/ml (<1000); Barbiturates Screen,Urine Negative ng/ml (<200)
[2021-01-03 20:32] LABS: Cannabinoid Screen,Urine Negative ng/ml (<50); Methadone Screen,Urine Negative ng/ml (<300)
[2021-01-03 20:33] LABS: Cocaine Screen,Urine Negative ng/ml (<300)
[2021-01-03 20:34] LABS: Opiate Screen,Urine Negative ng/ml (<300); Phencyclidine Screen,Urine Negative ng/ml (<25)
== END ==
PROVIDERS: Visit Provider Emergency Medicine
DX: M47.816 Spondylosis without myelopathy or radiculopathy, lumbar region (principal)
CPT/HCPCS: 80305

== ENCOUNTER → 2021-01-27 10:48 | Outpatient (CLI) | payer MEDICARE, SELFPAY ==
--- NOTE | 2021-01-27 10:52 | XR_ITS ---
PROCEDURE: XR WRIST LT MIN 3V CLINICAL INDICATION: LT wrist pain COMPARISON: CR XR WRIST LT MIN 3V from 12/27/2020 FINDINGS: There is a nondisplaced fracture with intra-articular extension involving the base of the radial styloid process with longitudinal component extending to the articular surface. Fracture is not significantly changed. No displacement. Mild osteoarthritic change 1st carpal metacarpal joint and the scapho trapezium joint. Other findings:None. IMPRESSION: No change nondisplaced intra-articular fracture of the distal radius Dictated by: Mingo Vanessa MD 01/27/2021 13:35 Mingo Vanessa MD in [facility] 01/27/2021 13:35
== END ==
PROVIDERS: PCP Emergency Medicine; Visit Provider Orthopaedic Surgery
DX: M25.532 Pain in left wrist (principal)
CPT/HCPCS: 73110

== ENCOUNTER 2021-02-02 15:00 | Outpatient (RCR) | payer MEDICARE, SELFPAY | END 2021-02-02 15:05 | disposition home or self-care (01) | LOC: PT 15:00 | PROVIDERS: PCP Emergency Medicine; Visit Provider Orthopaedic Surgery | DX: M70.61 Trochanteric bursitis, right hip (principal) | CPT/HCPCS: 97014; 97035; 97110; 97140; 97163; G0283 ==

== ENCOUNTER 2021-02-12 10:56 | Emergency (ER) | payer MEDICARE, SELFPAY ==
[2021-02-12] VITALS (17 sets, daily range): BP systolic 133–225; BP diastolic 75–110; PULSE 65–98; RESP 18; TEMP 36.5; O2SAT 93–98; BMI 28.2
--- NOTE | 2021-02-12 11:04 | CT_ITS ---
PROCEDURE INFORMATION: Exam: CT Head Without Contrast Exam date and time: 02/12/2021 11:04 AM Age: 75 years old Clinical indication: Dizziness; Additional info: Headache, dizziness, vomiting TECHNIQUE: Imaging protocol: Computed tomography of the head without contrast. Radiation optimization: All CT scans at this facility use at least one of these dose optimization techniques: automated exposure control; mA and/or kV adjustment per patient size (includes targeted exams where dose is matched to clinical indication); or iterative reconstruction. COMPARISON: US CA CAROTID DUPLEX BI 02/04/2019 9:10 AM FINDINGS: Brain: There is no acute intracranial hemorrhage or mass effect. Mild diffuse volume loss is within the range of normal for patient age. There are small vessel ischemic changes within the periventricular and subcortical white matter, but the normal peres/white matter delineation is maintained. Cerebral ventricles: Prominence of the ventricular system is commensurate with volume loss. Paranasal sinuses: Visualized sinuses are unremarkable. No fluid levels. Mastoid air cells: Visualized mastoid air cells are well aerated. Bones/joints: Unremarkable. No acute fracture. Soft tissues: Unremarkable. IMPRESSION: No acute intracranial hemorrhage or edema. Chronic changes.
--- NOTE | 2021-02-12 11:07 | PC.NURSE ---
rad notified of head ct order
--- NOTE | 2021-02-12 11:07 | HMH.EDGENADL ---
ED Disposition Clinical Impression: Hypertensive urgency Headache Qualifiers: Headache type: unspecified Headache chronicity pattern: acute headache Intractability: not intractable Qualified Code(s): R51.9 - Headache, unspecified Disposition: Home, Self-Care Condition on Discharge: Good Additional Instructions: Home medications as directed. Return to the emergency department for returned headache, visual change, difficulty walking, slurred speech, nausea and vomiting, facial droop or weakness in your arms or legs. Referrals: Zack Orellana MD [Primary Care Provider] - 3 days Time of Disposition: 18:02 - Critical Care Critical Care Time: No Attestation: On 02/12/21, the high probability of a clinically significant, sudden or life threatening deterioration of the following system(s) required my full and direct attention, intervention and personal management. The time I documented below is in addition to time spent performing reported procedures but includes the following listed in this critical care notation. Medical Decision Making - Medical Records Medical records reviewed: Yes: I reviewed the patient's medical records. - Luan Inquiry Pt receiving controlled substance: No Vital Signs: 02/12/21 10:56 02/12/21 11:00 02/12/21 11:27 Temperature 97.7 F Temperature Source Oral Pulse Rate 68 67 Pulse Rate [Right Radial] 68 Respiratory Rate 18 Blood Pressure 208/98 H 225/110 H Blood Pressure [Right Arm] 216/103 H Blood Pressure Mean Blood Pressure Mean [Right Arm] 140 Blood Pressure Source [Right Arm] Automatic Cuff Blood Pressure Position [Right Arm] Sitting 02 Sat by Pulse Oximetry 98 98 97 Oxygen Delivery Method Room Air 02/12/21 11:35 02/12/21 11:56 02/12/21 12:06 Temperature Temperature Source Pulse Rate 65 71 74 Pulse Rate [Right Radial] Respiratory Rate Blood Pressure 197/99 H 203/96 H 177/95 H Blood Pressure [Right Arm] Blood Pressure Mean Blood Pressure Mean [Right Arm] Blood Pressure Source [Right Arm] Blood Pressure Position [Right Arm] 02 Sat by Pulse Oximetry 98 98 96 Oxygen Delivery Method 02/12/21 13:15 02/12/21 13:30 02/12/21 14:00 Temperature Temperature Source Pulse Rate 78 75 77 Pulse Rate [Right Radial] Respiratory Rate 18 18 18 Blood Pressure 190/98 H 182/97 H 198/102 H Blood Pressure [Right Arm] Blood Pressure Mean 128 125 124 Blood Pressure Mean [Right Arm] Blood Pressure Source [Right Arm] Blood Pressure Position [Right Arm] 02 Sat by Pulse Oximetry 93 L 93 L 94 L Oxygen Delivery Method Room Air Room Air Room Air 02/12/21 14:20 02/12/21 15:00 02/12/21 15:30 Temperature Temperature Source Pulse Rate 78 96 H 96 H Pulse Rate [Right Radial] Respiratory Rate Blood Pressure 194/101 H 153/83 H 156/82 H Blood Pressure [Right Arm] Blood Pressure Mean 106 Blood Pressure Mean [Right Arm] Blood Pressure Source [Right Arm] Blood Pressure Position [Right Arm] 02 Sat by Pulse Oximetry 94 L 95 97 Oxygen Delivery Method 02/12/21 16:00 02/12/21 16:30 Temperature Temperature Source Pulse Rate 98 H 90 Pulse Rate [Right Radial] Respiratory Rate Blood Pressure 133/87 143/84 H Blood Pressure [Right Arm] Blood Pressure Mean 102 103 Blood Pressure Mean [Right Arm] Blood Pressure Source [Right Arm] Blood Pressure Position [Right Arm] 02 Sat by Pulse Oximetry 96 98 Oxygen Delivery Method - Lab Data Lab results reviewed: Yes: I reviewed the patient's lab results. Lab Results 02/12/21 11:11: WBC 10.6, RBC 4.64, Hgb 15.0, Hct 42.2, MCV 90.9, MCH 32.3 H, MCHC 35.5 H, RDW 13.5, Plt Count 289, MPV 8.0, Neut % (Auto) 77.6, Lymph % (Auto) 16.5, [place] % (Auto) 4.0, Eos % (Auto) 1.0, Baso % (Auto) 0.9, Neut # (Auto) 8.2 H, Lymph # (Auto) 1.8, [place] # (Auto) 0.4, Eos # (Auto) 0.1, Baso # (Auto) 0.1 02/12/21 11:11: Sodium 138, Potassium 3.8, Chloride 100, Carb
--- NOTE | 2021-02-12 11:17 | PC.NURSE ---
Pt with rad.
[2021-02-12 11:21] LABS: Basophils # 0.1 K/mm3 (0-0.2); Basophils % 0.9 % (0.1-2.0); Eosinophils # 0.1 K/mm3 (0.0-0.4); Hematocrit 42.2 % (42.0-52.0); Lymphocytes # 1.8 K/mm3 (0.7-4.5); Lymphocytes % 16.5 % (10-50); Mean Corpuscular HGB Conc 35.5 g/dL (31.8-35.4); Mean Corpuscular Hemoglobin 32.3 pg (27.0-31.2); Mean Corpuscular Volume 90.9 fl (80-94); Monocytes # 0.4 K/mm3 (0.1-1.0); Neutrophils # 8.2 K/mm3 (1.8-7.8); Neutrophils % 77.6 % (37.0-80.0); Platelet Count 289 K/mm3 (142-424); Red Blood Count 4.64 M/mm3 (4.60-6.20); Red Cell Distribution Width 13.5 % (11.5-17.5); White Blood Count 10.6 K/mm3 (4.8-10.8)
--- NOTE | 2021-02-12 11:21 | PC.NURSE ---
Pt returned from rad.
[2021-02-12 11:24] LABS: Chloride 100 mmol/L (98-107); Potassium 3.8 mmoL/L (3.5-5.1); Sodium 138 mmol/L (136-145)
[2021-02-12 11:27] LABS: Alanine Aminotransferase 12 U/L (12-78); Albumin Level 4.1 g/dl (3.5-5.0); Albumin/Globulin Ratio 1.6 (1.1-1.8); Alkaline Phosphatase 105 U/L (38-126); Anion Gap 11.8 mEq/L (5-15); Aspartate Amino Transferase 20 U/L (17-59); Bilirubin,Total 1.5 mg/dl (0.2-1.3); Blood Urea Nitrogen 13 mg/dl (9-20); Calcium 9.6 mg/dl (8.4-10.2); Carbon Dioxide 30 mmol/L (22.0-30.0); Creatinine Clearance Estimated 72 mL/min (50-200); Estimated Glomerular Filt Rate 131 ml/min (>60); GFR (African American) 159 ML/MIN (>60); Globulin 2.6 g/dL (1.3-3.2); Glucose 198 mg/dl (74-100); Total Protein,Serum 6.7 g/dl (6.3-8.2)
--- NOTE | 2021-02-12 11:37 | CT_ITS ---
PROCEDURE INFORMATION: Exam: CT Angiography Neck With Contrast Exam date and time: 02/12/2021 11:37 AM Age: 75 years old Clinical indication: Headache; Additional info: R/O cva- headache and nausea TECHNIQUE: Imaging protocol: Computed tomography angiography of the neck with contrast. 3D rendering (Not supervised by radiologist): MIP and/or 3D reconstructed images were created by the technologist. Radiation optimization: All CT scans at this facility use at least one of these dose optimization techniques: automated exposure control; mA and/or kV adjustment per patient size (includes targeted exams where dose is matched to clinical indication); or iterative reconstruction. Contrast material: ISOVUE; Contrast volume: 100 ml; Contrast route: INTRAVENOUS (IV); COMPARISON: US CA CAROTID DUPLEX BI 02/04/2019 9:10 AM FINDINGS: Right common carotid artery: No stenosis. No dissection or occlusion. Right internal carotid artery: No stenosis of the extracranial segment. No dissection or occlusion. Right external carotid artery: No occlusion or stenosis of the origin. Left common carotid artery: No stenosis. No dissection or occlusion. Left internal carotid artery: No stenosis of the extracranial segment. No dissection or occlusion. Left external carotid artery: No occlusion or stenosis of the origin. Right vertebral artery: No stenosis. No dissection or occlusion. Left vertebral artery: No stenosis. No dissection or occlusion. Soft tissues: Normal. No significant soft tissue swelling. Bones/joints: No acute fracture. IMPRESSION: No stenosis or occlusion. REFERENCES: NASCET CRITERIA. The degree of internal carotid artery stenosis is based on NASCET criteria. Normal is no stenosis. Mild is less than 50% stenosis. Moderate is 50-69% stenosis. Severe is 70% to 99% stenosis. Total occlusion is no detectable patent lumen.
--- NOTE | 2021-02-12 11:37 | CT_ITS ---
PROCEDURE INFORMATION: Exam: CT Angiography Head With Contrast, Arteriography Exam date and time: 02/12/2021 11:37 AM Age: 75 years old Clinical indication: Headache; Additional info: R/O cva- headache and nausea TECHNIQUE: Imaging protocol: Computed tomography angiography of the head with contrast. Exam focused on the arteries. 3D rendering (Not supervised by radiologist): MIP and/or 3D reconstructed images were created by the technologist. Radiation optimization: All CT scans at this facility use at least one of these dose optimization techniques: automated exposure control; mA and/or kV adjustment per patient size (includes targeted exams where dose is matched to clinical indication); or iterative reconstruction. Contrast material: ISOVUE; Contrast volume: 100 ml; Contrast route: INTRAVENOUS (IV); COMPARISON: CT HEAD/BRAIN WO CON 02/12/2021 11:14 AM FINDINGS: ANTERIOR CIRCULATION: Right internal carotid artery: Unremarkable. Intracranial segment is patent with no significant stenosis. No aneurysm. Right middle cerebral artery: Unremarkable. No occlusion or significant stenosis. No aneurysm. Right anterior cerebral artery: Unremarkable. No occlusion or significant stenosis. No aneurysm. Left internal carotid artery: Unremarkable. Intracranial segment is patent with no significant stenosis. No aneurysm. Left middle cerebral artery: Unremarkable. No occlusion or significant stenosis. No aneurysm. Left anterior cerebral artery: Unremarkable. No occlusion or significant stenosis. No aneurysm. POSTERIOR CIRCULATION: Right vertebral artery: Unremarkable. No occlusion or significant stenosis. No aneurysm. Left vertebral artery: Unremarkable. No occlusion or significant stenosis. No aneurysm. Basilar artery: Unremarkable. No occlusion or significant stenosis. No aneurysm. Right posterior cerebral artery: Unremarkable. No occlusion or significant stenosis. No aneurysm. Left posterior cerebral artery: Unremarkable. No occlusion or significant stenosis. No aneurysm. Brain: No definite mass, mass effect, or midline shift. Cerebral ventricles: No ventriculomegaly. Bones/joints: Unremarkable. No acute fracture. Soft tissues: Unremarkable. IMPRESSION: No large vessel stenosis or occlusion.
[2021-02-12 11:43] LABS: Troponin I < 0.01 ng/ml (0.00-0.034)
--- NOTE | 2021-02-12 12:00 | ECG_ITS ---
APPROVED REPORT Exam: Resting ECG HR:74 bpm ECG Measurements Heart Rate 74 AXES WA 192 P 80 QRSd 94 QRS 40 QT 390 T 61 QTc 432 Conclusion Normal sinus rhythm Normal ECG Electronically signed by : Michael Hewitt MD 02/14/2021 14:25:08
--- NOTE | 2021-02-12 17:26 | PC.NURSE ---
pt states headache has improved
--- NOTE | 2021-02-12 18:00 | PC.NURSE ---
ALISA AGUIRRE reevaluated pt, states pt will be d/c'd home. got pt up into wheelchair, pt tolerating transfer from wheelchair to bed well. Pt states he feels better sitting up
== END 2021-02-12 18:14 | disposition home or self-care (01) ==
PROVIDERS: Emergency Provider Family Medicine; PCP Emergency Medicine
DX: I16.0 Hypertensive urgency (principal); R51.9 Headache, unspecified; I25.10 Atherosclerotic heart disease of native coronary artery without angina pectoris; E78.5 Hyperlipidemia, unspecified; I25.2 Old myocardial infarction; R73.9 Hyperglycemia, unspecified; Z79.899 Other long term (current) drug therapy
CPT/HCPCS: 70450; 70496; 70498; 80053; 84484; 85025; 93005; 96374; 96375; 96376; 99283; J2405; Q9967

== ENCOUNTER → 2021-02-17 13:35 | Outpatient (CLI) | payer MEDICARE, SELFPAY ==
--- NOTE | 2021-02-17 13:39 | XR_ITS ---
PROCEDURE: XR WRIST LT MIN 3V CLINICAL INDICATION: LT wrist pain COMPARISON: CR XR WRIST LT MIN 3V from 12/27/2020 CR XR WRIST LT MIN 3V from 01/27/2021 FINDINGS: Fracture at the base of the radial styloid process is once again noted. The fracture line however is less apparent. There is mild prominence of the scapholunate space. There is an in area cortical lucency involving the proximal aspect of the scaphoid. This could represent is impaction type injury. No evidence of avascular necrosis. Mild osteoarthritic changes are present at the scapho trapezium and 1st metacarpal-carpal joint. IMPRESSION: Healing fracture at the base of the radial styloid process. Mild prominence of the scapholunate space which may be seen with ligamentous injury. Oval area of cortical lucency involving the proximal and lateral aspect of the scaphoid possibly due to an impaction type injury. Probably not significantly changed. Dictated by: Mingo Vanessa MD 02/17/2021 14:10 Mingo Vanessa MD in OV 02/17/2021 14:10
== END ==
PROVIDERS: PCP Emergency Medicine; Visit Provider Orthopaedic Surgery
DX: S52.512A Displaced fracture of left radial styloid process, initial encounter for closed fracture (principal)
CPT/HCPCS: 73110

== ENCOUNTER → 2021-03-31 11:23 | Outpatient (CLI) | payer MEDICARE, SELFPAY ==
--- NOTE | 2021-03-31 11:29 | XR_ITS ---
FINAL REPORT CLINICAL HISTORY: LT wrist pain COMPARISON: 02/17/2021 FINDINGS: LEFT WRIST 3 views were obtained. There is a nondisplaced fracture of the radial styloid which is stable. There are mild and moderate degenerative changes. There is no soft tissue abnormality. IMPRESSION: Stable fracture of the radial styloid. Reviewed, Interpreted and Dictated by Usman Licea III, MD Transcribed by Rekha Sandoval Authenticated by Usman Licea III, MD on 03/31/2021 12:28:42 PM [facility]
== END ==
PROVIDERS: PCP Emergency Medicine; Visit Provider Orthopaedic Surgery
DX: S69.92XA Unspecified injury of left wrist, hand and finger(s), initial encounter (principal)
CPT/HCPCS: 73110

== ENCOUNTER → 2021-05-18 10:37 | Outpatient (CLI) | payer MEDICARE, SELFPAY ==
--- NOTE | 2021-05-18 10:39 | CA_ITS ---
APPROVED REPORT EXAM: Comprehensive 2D, Doppler, and color-flow Echocardiogram Head Animal Keeper: Connie Rhodes RVT Ht: 5 ft 5 in Wt: 177lbs BSA: 1.88 BP: 162/74 mmHg Indications: SYNCOPE,DIZZINESS,CAD,HTN,HLD,DIZZINESS 2D Dimensions LVOT 2.39 cm (M/F) 1.5-2.5 LA Volume 72.10 mL LA Volume Index 38.55 mL/m2 (M/F) 16-34 M-Mode Dimensions RVDd 2.63 cm (0.9-2.6) LA Diam 4.54 cm (1.9-4.0) LVDd 5.43 cm (3.5-5.7) Ao Diam 3.56 cm (2.0-3.7) LVDs 3.95 cm (3.5-5.7) IVSd 0.55 cm (0.6-1.1) PWd 0.59 cm (0.6-1.1) EF (Teich) 52.60% FS 27.30% EDV (Teich) 143.10 mL TAPSE 2.87 (<1.7) ESV (Teich) 67.90 mL LV Diastology E Decel Time 280.00 (160-240 msec) E/A Ratio 0.9 MED E' 3.90 (< 7 cm/sec) E'/MED E' Ratio 14.62 (>14) LAT E' 5.70 (<10 cm/sec) E/LAT E' Ratio 10.00 (>14) Aortic Valve AO Peak GR. 3.30 mmHg Mitral Valve MV E Max Ezekiel. 57.00 (40-130 cm/s) MV A Velocity 67.00 (40-130 cm/s) E/A Ratio 0.85 MV Decel. Time 280.00 (160-240 ms) MV PHT 82.00 ms Pulmonary Valve PV Peak Velocity 67.00 (50-150 cm/s) Tricuspid Valve TR P. Velocity 234.00 cm/s RAP Estimate 10.00 mmHg RVSP 31.90 mmHg Left Ventricle Left atrium is mildly enlarged, left ventricle is normal size, mild concentric left ventricular hypertrophy, visually estimated ejection fraction 55% with no regional wall motion abnormality, grade 1 diastolic dysfunction seen without tissue Doppler evidence of raise left atrial pressure. Right Ventricle Right atrium and right ventricle are mildly enlarged with normal contractility. Aortic Valve Aortic valve is minimally thickened and fibrosed, there is no aortic stenosis or aortic insufficiency. Mitral Valve Mitral valve is grossly normal, there is trace mitral regurgitation. Tricuspid Valve Tricuspid grossly normal, there is trace tricuspid regurgitation, tricuspid regurgitation jet velocity is inadequate for calculation of the right ventricular systolic pressure. Pulmonic Valve Pulmonic valve is poorly visualized. Great Vessels Aortic root is normal size. Inferior vena cava normal size with normal inspiratory collapse. Pericardium No significant pericardial effusion noted. Conclusion 1. Mild biatrial enlargement,, normal left ventricular size, mild concentric left ventricular hypertrophy, visually estimated ejection fraction 55% with no regional wall motion abnormality, grade 1 diastolic dysfunction seen without tissue Doppler evidence of raise left atrial pressure. 2. Mildly enlarged right ventricle with normal contractility. 3. Trace mitral and tricuspid regurgitation. 4. No significant pericardial effusion. 5. Inferior vena cava normal size with normal inspiratory collapse. Electronically signed by : John Harkins MD 05/18/2021 20:26:22
== END ==
PROVIDERS: PCP Family Medicine; Visit Provider Physician Assistant
DX: E78.2 Mixed hyperlipidemia (principal); I11.9 Hypertensive heart disease without heart failure; I25.118 Atherosclerotic heart disease of native coronary artery with other forms of angina pectoris; I25.2 Old myocardial infarction; R26.81 Unsteadiness on feet; R42 Dizziness and giddiness; R55 Syncope and collapse
CPT/HCPCS: 93306

== ENCOUNTER → 2021-05-27 11:27 | Outpatient (CLI) | payer MEDICARE, SELFPAY ==
[2021-05-27 12:11] LABS: Basophils # 0.2 K/mm3 (0-0.2); Basophils % 1.6 % (0.1-2.0); Eosinophils # 0.1 K/mm3 (0.0-0.4); Eosinophils % 1.6 % (0.1-12.0); Hemoglobin 14.8 g/dL (14.1-18.0); Lymphocytes # 2.1 K/mm3 (0.7-4.5); Lymphocytes % 22.9 % (10-50); Mean Corpuscular HGB Conc 32.3 g/dL (31.8-35.4); Mean Corpuscular Hemoglobin 30.8 pg (27.0-31.2); Mean Corpuscular Volume 95.4 fl (80-94); Mean Platelet Volume 8.3 fl (7.4-10.4); Monocytes # 0.4 K/mm3 (0.1-1.0); Neutrophils # 6.3 K/mm3 (1.8-7.8); Neutrophils % 69.9 % (37.0-80.0); Platelet Count 310 K/mm3 (142-424); Red Blood Count 4.82 M/mm3 (4.60-6.20); Red Cell Distribution Width 13.7 % (11.5-17.5); White Blood Count 9.1 K/mm3 (4.8-10.8)
[2021-05-27 12:50] LABS: Alanine Aminotransferase 16 U/L (12-78); Albumin Level 4.2 g/dl (3.5-5.0); Albumin/Globulin Ratio 1.7 (1.1-1.8); Alkaline Phosphatase 85 U/L (38-126); Anion Gap 13.3 mEq/L (5-15); Aspartate Amino Transferase 17 U/L (17-59); Bilirubin,Total 1.2 mg/dl (0.2-1.3); Blood Urea Nitrogen 11 mg/dl (9-20); Calcium 9.7 mg/dl (8.4-10.2); Carbon Dioxide 25 mmol/L (22.0-30.0); Chloride 103 mmol/L (98-107); Estimated Glomerular Filt Rate 162 ml/min (>60); GFR (African American) 196 ML/MIN (>60); Globulin 2.5 g/dL (1.3-3.2); Glucose 186 mg/dl (74-100); Potassium 4.3 mmoL/L (3.5-5.1); Sodium 137 mmol/L (136-145); Total Protein,Serum 6.7 g/dl (6.3-8.2)
[2021-05-27 13:20] LABS: Thyroid Stimulating Hormone 0.87 uIU/mL (0.465-4.68)
[2021-05-27 13:55] LABS: Vitamin B12 229 pg/mL (239-931)
[2021-05-27 13:58] LABS: Folate 6.97 ng/mL
== END ==
PROVIDERS: Visit Provider Specialist
DX: G62.9 Polyneuropathy, unspecified (principal); R26.9 Unspecified abnormalities of gait and mobility; U07.1 COVID-19
CPT/HCPCS: 36415; 80053; 82607; 82746; 84443; 85025

== ENCOUNTER → 2021-06-02 13:34 | Outpatient (CLI) | payer MEDICARE, SELFPAY ==
--- NOTE | 2021-06-02 13:35 | MR_ITS ---
FINAL REPORT CLINICAL HISTORY: dizziness, hearing loss, left tinnitus. 16ml prohance given. FINDINGS: Multiplanar MR imaging of the brain was performed without and with contrast. There is mild age-appropriate atrophy. Scattered foci of increased T2 signal are seen in the cerebral white matter that have a nonspecific appearance but likely represent severe chronic ischemic/gliotic changes. There is no evidence of intracranial hemorrhage or mass. No abnormal ventricular dilatation is identified. There is no evidence of shift of the midline structures. No abnormal extra-axial fluid collection is seen. No area of abnormal restricted diffusion is identified. The posterior fossa and brainstem have an unremarkable appearance. No abnormal contrast enhancement is seen. Normal major vessel vascular flow voids are seen. IMPRESSION: Atrophy and severe chronic ischemic/gliotic changes. No acute intracranial abnormality. Reviewed, Interpreted and Dictated by Usman Licea III, MD Transcribed by Magali Gudino Authenticated by Usman Licea III, MD on 06/02/2021 04:01:01 PM [facility]
== END ==
PROVIDERS: PCP Family Medicine; Visit Provider Specialist
DX: H91.90 Unspecified hearing loss, unspecified ear (principal); H93.12 Tinnitus, left ear; R42 Dizziness and giddiness
CPT/HCPCS: 70553; A9576

== ENCOUNTER → 2021-06-16 12:07 | Outpatient (CLI) | payer MEDICARE, SELFPAY ==
[2021-06-18 12:41] LABS: Antiparietal Cell Antibody 1.6 Units (0.0-20.0)
== END ==
PROVIDERS: PCP Emergency Medicine; Visit Provider Specialist
DX: E53.8 Deficiency of other specified B group vitamins; R42 Dizziness and giddiness
CPT/HCPCS: 36415; 83516; 86340; 93225; 93226

== ENCOUNTER → 2021-06-20 06:25 | Outpatient (CLI) | payer MEDICARE, SELFPAY ==
--- NOTE | 2021-06-20 06:26 | CA_ITS ---
APPROVED REPORT Exam: Pharmacologic Technologist: Rebeca Vera, Ht: 5 ft 5 in Wt: 175 lbs BSA: 1.87 m2 HR: 59 bpm BP: 161/76 mmHg Rhythm: SINUS RHONDA Medical History Medications: Aspirin,,,,, Metformin,,,,, Gabapentin,,,,, Vitamin C,,,,, Atorvastatin,,,,, TAMSULOSIN,,,,, Protonix,,,,, CloPIdogrel,,,,, BisOPROLOL,,,,, Meclizine,,,,, OxYbutynin,,,,, Lisinopri/HCTZ,,,,, Allergies: LEVOFLOXACIN Stress Test Details Test: LEXISCAN HR Resting HR: 59 bpm Max Heart Rate (APMHR): 145 bpm Max HR Achieved: 79 bpm Target HR (85% APMHR): 123 bpm % of APMHR: 54 Recovery HR: 71 bpm BP Max BP: 180/89 mmHg Recovery BP: 188.0/89.0 mmHg ECG Resting ECG: SINUS RHONDA Clinical Reason for Termination: Completed Protocol Exercise duration: 04:05 min Highest Stage Achieved: Stress ECG Conclusion NO CP. OCC PVC'S. <1.[address] SEGMENT CHANGES. NON-DIAGNOSTIC Electronically signed by : John Harkins MD 06/20/2021 21:23:44
--- NOTE | 2021-06-20 06:26 | NM_ITS ---
APPROVED REPORT Exam: Nuclear Stress Test Indication: Chest pain, SOB, Abnormal EKG, HTN, CAD, Hx of VT, DM, High cholesterol, Family history Patient Location: Outpatient Stress Tech: Rebeca Vera [place] Tech:Patsy Morales, ARRT, RT (R)(N) Ht: 5 ft 5 in Wt: 174 lbs HR: 59 bpm BP: 180/89 mmHg BSA: 1.86 m2 BMI: 28.9 History: Chest pain, SOB, Abnormal EKG, HTN, CAD, Hx of VT, DM, High cholesterol, Family history Procedure: Patient received a 0.4 mg of intravenous Lexiscan, resting heart rate 59 bpm, resting blood pressure 180/89 mmHg, with Lexiscan maximum heart rate achived was 79 bpm which is Less than 85 resting electrocardiogram shows sinus rhythm, % of the maximum predicted heart rate and blood pressure was 180/89 mmHg. With Lexiscan, patient denied any complaint of chest pain. Electrocardiogram The Lexiscan there is less than 1.[address] segment depression noted from the baseline EKG. The EKG portion of the Lexiscan is nondiagnostic. Cardiac Stress and Resting SPECT Images: Cardiac Stress and Resting SPECT images were obtained using technetium 99m Myoview 31.2 mCi stress and 10.11 mCi at rest. Gated SPECT for analysis of segmental wall motion and calculation of the ejection fraction also done. Cardiac stress and rest SPECT images show uniform myocardial activity without segmental perfusion abnormality, computer derived ejection fraction is 52% with no regional wall motion abnormality, right ventricle is normal size and contractility. Conclusion: 1. The EKG portion of the Lexiscan is nondiagnostic. 2. No scintigraphic evidence of reversible ischemia seen, computer derived ejection fraction is 53% with no regional wall motion abnormality, right ventricle is normal size and contractility. 3. Normal Lexiscan Myoview study. Electronically signed by : John Harkins MD 06/20/2021 21:25:51
--- NOTE | 2021-06-20 08:52 | HMH.ITSHM ---
Current Home Medications as stated by this patient Mingo Combs or medical customer service representative. []PANTOPRAZOLE OXYBUTYNIN METFORMIN MECLIZINE LISINOPRIL GABAPENTIN DICLOFENAC CLOPIDOGREL BISOPROLOL ATORVASTATIN ASA VITAMIN C
== END ==
PROVIDERS: PCP Emergency Medicine; Visit Provider Physician Assistant
DX: E11.65 Type 2 diabetes mellitus with hyperglycemia (principal); E11.8 Type 2 diabetes mellitus with unspecified complications; E66.9 Obesity, unspecified; E78.2 Mixed hyperlipidemia; I10 Essential (primary) hypertension; I11.9 Hypertensive heart disease without heart failure; I25.118 Atherosclerotic heart disease of native coronary artery with other forms of angina pectoris; I25.2 Old myocardial infarction; I27.20 Pulmonary hypertension, unspecified; R42 Dizziness and giddiness; Z79.84 Long term (current) use of oral hypoglycemic drugs
CPT/HCPCS: 78452; 93017; A9502; J2785

== ENCOUNTER → 2021-07-05 14:37 | Outpatient (CLI) | payer MEDICARE, SELFPAY | PROVIDERS: PCP Emergency Medicine; Visit Provider Urology | DX: Z12.5 Encounter for screening for malignant neoplasm of prostate (principal) | CPT/HCPCS: 36415; G0103 ==

== ENCOUNTER 2021-07-12 18:08 | Emergency (ER) | payer MEDICARE, SELFPAY ==
[2021-07-12] VITALS (9 sets, daily range): BP systolic 174–206; BP diastolic 80–162; PULSE 60–69; RESP 18–20; TEMP 36.3–36.8; O2SAT 95–100; BMI 27.4
--- NOTE | 2021-07-12 18:13 | ECG_ITS ---
APPROVED REPORT Exam: Resting ECG HR:61 bpm ECG Measurements Heart Rate 61 AXES FL 220 P 47 QRSd 106 QRS 34 QT 421 T 35 QTc 424 Conclusion SINUS RHYTHM WITH FIRST DEGREE AV BLOCK ABNORMAL ECG UNCONFIRMED REPORT Electronically signed by : Michael Hewitt MD 07/14/2021 08:03:52
--- NOTE | 2021-07-12 18:13 | CT_ITS ---
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 Radiation optimization: All CT scans at this facility use at least one of these dose optimization techniques: automated exposure control; mA and/or kV adjustment per patient size (includes targeted exams where dose is matched to clinical indication); or iterative reconstruction. Other technique: STROKE PROTOCOL was implemented. COMPARISON: MR HEAD/BRAIN WO/W CON 06/02/2021 1:59 PM FINDINGS: Brain: Decreased attenuation of the supratentorial white matter is likely secondary to chronic microvascular ischemia. No acute intracranial hemorrhage. Cerebral ventricles: Ventricular and subarachnoid spaces are age appropriate. Paranasal sinuses: Minimal paranasal sinus disease. Mastoid air cells: Partial opacification of the [id number]-left mastoid air cells. Vasculature: Intracranial vascular calcification. Bones/joints: Unremarkable. No acute fracture. Soft tissues: Unremarkable. IMPRESSION: No acute intracranial abnormality. ASSESSMENT: ASPECTS (Darleen Stroke Program Early CT Score) is 10.
--- NOTE | 2021-07-12 18:15 | HMH.EDGENADL ---
ED Disposition Condition on Discharge: Good - Critical Care Critical Care Time: No <Rafita Mcbride - Last Filed: 07/12/21 19:12> <Zack Orellana - Last Filed: 07/12/21 22:35> Clinical Impression: TIA (transient ischemic attack) Disposition: Xfer Short-Term Hosp Referrals: Kishore Chu MD [Primary Care Provider] - Attestation: On 07/12/21, the high probability of a clinically significant, sudden or life threatening deterioration of the following system(s) required my full and direct attention, intervention and personal management. The time I documented below is in addition to time spent performing reported procedures but includes the following listed in this critical care notation. Medical Decision Making - Medical Records Medical records reviewed: Yes: I reviewed the patient's medical records. - Luan Inquiry Pt receiving controlled substance: No - ECG Data Tracing #1 I reviewed this ECG and interpreted as documented below: <Rafita Mcbride - Last Filed: 07/12/21 19:12> - Lab Data Lab results reviewed: Yes: I reviewed the patient's lab results. Result diagrams: 07/12/21 18:54 07/12/21 18:54 - ECG Data Tracing #1 Normal Sinus Rhythm: Yes - Physician Consults Physician Consulted: [email or web address] Reason -: Pt condition Additional Consult: maria del carmen Reason -: Transfer to another facilty <Zack Orellana - Last Filed: 07/12/21 22:35> Vital Signs: 07/12/21 18:08 07/12/21 18:30 07/12/21 19:00 Temperature 97.4 F L Temperature Source Oral Pulse Rate 60 63 Pulse Rate [Left Radial] 62 Respiratory Rate 18 Blood Pressure 181/108 H 174/86 H Blood Pressure [Right Arm] 182/80 H Blood Pressure Mean 115 Blood Pressure Mean [Right Arm] 114 Blood Pressure Source Blood Pressure Position [Right Arm] Sitting 02 Sat by Pulse Oximetry 96 96 95 Oxygen Delivery Method Room Air Room Air 07/12/21 19:30 07/12/21 20:09 07/12/21 20:30 Temperature Temperature Source Pulse Rate 69 65 64 Pulse Rate [Left Radial] Respiratory Rate Blood Pressure 184/85 H 204/100 H 188/96 H Blood Pressure [Right Arm] Blood Pressure Mean 118 118 Blood Pressure Mean [Right Arm] Blood Pressure Source Manual Cuff/ Auscultation Blood Pressure Position [Right Arm] 02 Sat by Pulse Oximetry 98 98 100 Oxygen Delivery Method Room Air Room Air Room Air 07/12/21 21:02 07/12/21 21:32 Temperature Temperature Source Pulse Rate 66 68 Pulse Rate [Left Radial] Respiratory Rate 20 Blood Pressure 206/162 H 177/98 H Blood Pressure [Right Arm] Blood Pressure Mean 187 149 Blood Pressure Mean [Right Arm] Blood Pressure Source Blood Pressure Position [Right Arm] 02 Sat by Pulse Oximetry 97 98 Oxygen Delivery Method Room Air Room Air - Lab Data Lab Results 07/12/21 18:54: WBC 9.7, RBC 4.72, Hgb 14.5, Hct 42.8, MCV 90.7, MCH 30.7, MCHC 33.9, RDW 13.5, Plt Count 286, MPV 7.3 L, Neut % (Auto) 65.9, Lymph % (Auto) 25.5, [place] % (Auto) 5.8, Eos % (Auto) 1.9, Baso % (Auto) 0.9, Neut # (Auto) 6.4, Lymph # (Auto) 2.5, [place] # (Auto) 0.6, Eos # (Auto) 0.2, Baso # (Auto) 0.1 07/12/21 18:54: Sodium 139, Potassium 4.2, Chloride 105, Carbon Dioxide 26, Anion Gap 12.2, BUN 16, Creatinine 0.60 L, Estimated Creat Clear 70, Estimated GFR 131, Est GFR ( Amer) 159, Glucose 125 H, Calcium 9.9, Total Bilirubin 1.7 H, AST 26, ALT 17, Alkaline Phosphatase 66, Total Protein 7.0, Albumin 4.1, Globulin 2.9, Albumin/Globulin Ratio 1.4 07/12/21 18:54: Vitamin B12 401 07/12/21 20:35: Urine Color Yellow, Urine Appearance Clear, Urine pH 8.0, Ur Specific [place] 1.015, Urine Protein Negative, Urine Glucose (UA) Negative, Urine Ketones Negative, Urine Blood Negative, Urine Nitrate Negative, Urine Bilirubin Negative, Urine Urobilinogen 0.2, Ur Leukocyte Esterase Negative, Urine RBC None, Urine WBC 3-5, Ur Squamous Epith Cells Occasional, Urine Bacteria None 07/12/21 21:15: SARS-CoV-2 (PCR) Not det
--- NOTE | 2021-07-12 18:53 | PC.NURSE ---
ct report called to ALISA AGUIRRE
--- NOTE | 2021-07-12 18:59 | CT_ITS ---
PROCEDURE INFORMATION: Exam: CT Angiography Neck With Contrast Exam date and time: 07/12/2021 7:46 PM Age: 75 years old Clinical indication: Speech disturbance; Aphasia; Additional info: TIA symptoms, aphasia TECHNIQUE: Imaging protocol: Computed tomography angiography of the neck with contrast. 3D rendering (Not supervised by radiologist): MIP and/or 3D reconstructed images were created by the technologist. Radiation optimization: All CT scans at this facility use at least one of these dose optimization techniques: automated exposure control; mA and/or kV adjustment per patient size (includes targeted exams where dose is matched to clinical indication); or iterative reconstruction. Contrast material: ISOVUE 370; Contrast volume: 100 ml; Contrast route: INTRAVENOUS (IV); COMPARISON: CT ANGIO NECK 02/12/2021 12:17 PM FINDINGS: Right common carotid artery: No stenosis. No dissection or occlusion. Right internal carotid artery: No stenosis of the extracranial segment. No dissection or occlusion. Right external carotid artery: No occlusion or stenosis of the origin. Left common carotid artery: No stenosis. No dissection or occlusion. Left internal carotid artery: No stenosis of the extracranial segment. No dissection or occlusion. Left external carotid artery: No occlusion or stenosis of the origin. Right vertebral artery: No stenosis. No dissection or occlusion. Left vertebral artery: No stenosis. No dissection or occlusion. Soft tissues: Normal. No significant soft tissue swelling. Bones/joints: There are degenerative changes involving the spine. IMPRESSION: No significant stenosis or dissection. REFERENCES: NASCET CRITERIA. The degree of internal carotid artery stenosis is based on NASCET criteria. Normal is no stenosis. Mild is less than 50% stenosis. Moderate is 50-69% stenosis. Severe is 70% to 99% stenosis. Total occlusion is no detectable patent lumen.
--- NOTE | 2021-07-12 18:59 | CT_ITS ---
PROCEDURE INFORMATION: Exam: CT Angiography Head With Contrast, Arteriography Exam date and time: 07/12/2021 7:46 PM Age: 75 years old Clinical indication: Speech disturbance; Aphasia; Additional info: TIA symptoms, aphasia TECHNIQUE: Imaging protocol: Computed tomography angiography of the head with contrast. Exam focused on the arteries. 3D rendering (Not supervised by radiologist): MIP and/or 3D reconstructed images were created by the technologist. Radiation optimization: All CT scans at this facility use at least one of these dose optimization techniques: automated exposure control; mA and/or kV adjustment per patient size (includes targeted exams where dose is matched to clinical indication); or iterative reconstruction. Contrast material: ISOVUE 370; Contrast volume: 100 ml; Contrast route: INTRAVENOUS (IV); COMPARISON: CT ANGIO HEAD 02/12/2021 12:17 PM FINDINGS: ANTERIOR CIRCULATION: Right internal carotid artery: Unremarkable. Intracranial segment is patent with no significant stenosis. No aneurysm. Right middle cerebral artery: Unremarkable. No occlusion or significant stenosis. No aneurysm. Right anterior cerebral artery: Hypoplastic right A1 segment. Left internal carotid artery: Unremarkable. Intracranial segment is patent with no significant stenosis. No aneurysm. Left middle cerebral artery: Unremarkable. No occlusion or significant stenosis. No aneurysm. Left anterior cerebral artery: Unremarkable. No occlusion or significant stenosis. No aneurysm. POSTERIOR CIRCULATION: Right vertebral artery: Unremarkable. No occlusion or significant stenosis. No aneurysm. Left vertebral artery: Unremarkable. No occlusion or significant stenosis. No aneurysm. Basilar artery: Unremarkable. No occlusion or significant stenosis. No aneurysm. Right posterior cerebral artery: Unremarkable. No occlusion or significant stenosis. No aneurysm. Left posterior cerebral artery: Unremarkable. No occlusion or significant stenosis. No aneurysm. IMPRESSION: No hemodynamically significant stenosis or large vessel occlusion.
[2021-07-12 19:05] LABS: Basophils # 0.1 K/mm3 (0-0.2); Basophils % 0.9 % (0.1-2.0); Eosinophils # 0.2 K/mm3 (0.0-0.4); Eosinophils % 1.9 % (0.1-12.0); Hematocrit 42.8 % (42.0-52.0); Hemoglobin 14.5 g/dL (14.1-18.0); Lymphocytes # 2.5 K/mm3 (0.7-4.5); Lymphocytes % 25.5 % (10-50); Mean Corpuscular HGB Conc 33.9 g/dL (31.8-35.4); Mean Corpuscular Hemoglobin 30.7 pg (27.0-31.2); Mean Corpuscular Volume 90.7 fl (80-94); Mean Platelet Volume 7.3 fl (7.4-10.4); Monocytes # 0.6 K/mm3 (0.1-1.0); Monocytes % 5.8 % (1.7-9.3); Neutrophils # 6.4 K/mm3 (1.8-7.8); Neutrophils % 65.9 % (37.0-80.0); Platelet Count 286 K/mm3 (142-424); Red Blood Count 4.72 M/mm3 (4.60-6.20); Red Cell Distribution Width 13.5 % (11.5-17.5); White Blood Count 9.7 K/mm3 (4.8-10.8)
[2021-07-12 19:18] LABS: Chloride 105 mmol/L (98-107)
[2021-07-12 19:19] LABS: Potassium 4.2 mmoL/L (3.5-5.1); Sodium 139 mmol/L (136-145)
[2021-07-12 19:21] LABS: Alanine Aminotransferase 17 U/L (12-78); Albumin Level 4.1 g/dl (3.5-5.0); Albumin/Globulin Ratio 1.4 (1.1-1.8); Alkaline Phosphatase 66 U/L (38-126); Anion Gap 12.2 mEq/L (5-15); Aspartate Amino Transferase 26 U/L (17-59); Bilirubin,Total 1.7 mg/dl (0.2-1.3); Blood Urea Nitrogen 16 mg/dl (9-20); Carbon Dioxide 26 mmol/L (22.0-30.0); Creatinine Clearance Estimated 70 mL/min (50-200); Estimated Glomerular Filt Rate 131 ml/min (>60); GFR (African American) 159 ML/MIN (>60); Globulin 2.9 g/dL (1.3-3.2)
[2021-07-12 19:22] LABS: Calcium 9.9 mg/dl (8.4-10.2); Glucose 125 mg/dl (74-100)
--- NOTE | 2021-07-12 19:46 | PC.NURSE ---
Pt gone to RAD
--- NOTE | 2021-07-12 20:00 | PC.NURSE ---
Pt back from RAD
--- NOTE | 2021-07-12 20:02 | PC.NURSE ---
ER speaking to Dr. Aguilar and Dr. Moon with [facility] stroke team
--- NOTE | 2021-07-12 20:46 | PC.NURSE ---
Dr. Orellana s/w family and pt at bedside
[2021-07-12 20:47] LABS: Microscopic, Urine URINE MICROSCOPIC (MICROSCOPIC)
--- NOTE | 2021-07-12 21:12 | PC.NURSE ---
Dr. Orellana on phone with Dr. Vitale
[2021-07-12 21:22] LABS: Coronavirus 19, PCR Not Detected (NotDetected); Influenza A, PCR Not Detected (NotDetected); Influenza B, PCR Not Detected (NotDetected)
[2021-07-12 21:25] LABS: Appearance,Urine CLEAR (Clear); Bilirubin,Urine Negative (Negative); Blood, Urine Negative (Negative); Color,Urine YELLOW (Yellow); Glucose,Urine (UA) Negative (Negative); Ketones,Urine Negative (Negative); Leukocyte Esterase,Urine Negative (Negative); Nitrate,Urine Negative (Negative); Protein,Urine Negative (Negative); Specific Gravity, Urine 1.015 (1.005-1.030); Urobilinogen,Urine 0.2 EU/dl (0.2)
--- NOTE | 2021-07-12 21:32 | PC.NURSE ---
Dr. Orellana speaking with Dr. Miller hospitalist at [facility] [place]
--- NOTE | 2021-07-12 21:41 | PC.NURSE ---
Dr. Orellana @ bedside s/w pt & family reviewing POC and process of transfer
[2021-07-12 21:43] LABS: Vitamin B12 401 pg/mL (239-931)
--- NOTE | 2021-07-12 21:46 | PC.NURSE ---
Spoke with Latoya at [facility], she advised they had no immediate beds available, and would give another bed status update around 0300.
[2021-07-12 21:52] LABS: Squamous Epithelial Cell,Urine Occasional #/hpf (0-5)
--- NOTE | 2021-07-12 22:26 | PC.NURSE ---
[facility] called and advised that pt had bed assignment
--- NOTE | 2021-07-12 22:33 | PC.NURSE ---
Luz Maria Triana RN, spoke with pt and notified her pt had bed at [facility]
--- NOTE | 2021-07-12 23:03 | PC.NURSE ---
Called report to Nunu @ [facility] 3 E
== END 2021-07-12 23:25 | disposition short-term general hospital (02) ==
PROVIDERS: Emergency Medicine; Emergency Provider Emergency Medicine; PCP Family Medicine
DX: R47.01 Aphasia (principal); R42 Dizziness and giddiness; R47.81 Slurred speech; R29.810 Facial weakness; G45.9 Transient cerebral ischemic attack, unspecified; Z20.822 Contact with and (suspected) exposure to COVID-19; I10 Essential (primary) hypertension; I44.0 Atrioventricular block, first degree; I25.10 Atherosclerotic heart disease of native coronary artery without angina pectoris; I25.2 Old myocardial infarction; K21.9 Gastro-esophageal reflux disease without esophagitis; E78.5 Hyperlipidemia, unspecified; E11.9 Type 2 diabetes mellitus without complications; N40.0 Benign prostatic hyperplasia without lower urinary tract symptoms; M19.90 Unspecified osteoarthritis, unspecified site; Z79.84 Long term (current) use of oral hypoglycemic drugs; Z79.82 Long term (current) use of aspirin; Z79.02 Long term (current) use of antithrombotics/antiplatelets; Z88.8 Allergy status to other drugs, medicaments and biological substances; Z82.49 Family history of ischemic heart disease and other diseases of the circulatory system; Z81.1 Family history of alcohol abuse and dependence
CPT/HCPCS: 70450; 70496; 70498; 80053; 81001; 82607; 85025; 93005; 99285; C9803; Q9967; U0003; U0005

== ENCOUNTER 2021-09-05 14:20 | Outpatient (RCR) | payer MEDICARE, SELFPAY ==
--- NOTE | 2021-09-05 15:13 | HMH.PTOPEV ---
PT Outpatient Evaluation Rehab PT Outpatient Evaluation Start: 09/05/21 14:24 Freq: Status: Active Protocol: Document 09/05/21 15:02 PHORNE (Rec: 09/05/21 15:13 PHORNE [id number]) Electronically Signed By Fahad Tan, PT 09/05/21 15:02 Outpatient Therapy Subjective History Subjective History Pt is 76 yowm who presents with c/o decreased balance x 3 -4 mos. He reports 1 fall ~ 5 mos ago with resulting L hand fx which happened while stepping up onto a curb and falling backwards. He reports no c/o dizziness, lightheadedness or vertigo. He reports PMH of DM-II with neuropathy, PLIF, BPH, CAD, HL , HTN, HI with stents x 2. Chief Complaint Weakness Symptoms Relieved By Nothing Symptoms Aggravated By Physical Activity Prior Functional Limitations None Current Functional Limitations Recreation Activity,Walking Symptom Description Activity Dependent Balance Eval Hx of Falls Hx Falls Yes Number in last 6 months 1 Gait/Posture Asssessment General Gait Observation Wide Based Gait,Decrease Stride Lngth (R),Decrease Stride Lngth (L) Nystagmus Nystagmus Presence None Oculomotor Gaze Oculomotor Gaze Nml: Vergence Smooth Pursuit Saccades VOR Cancellation Cover/Uncover Cross Cover Dynamic Gait Index Test Protocol Gait Level Surface Normal Query Text: Instructions: Walk at your normal speed from here to the next steve (20'). Grading: Steve the lowest category that applies. Change in Gait Speed Normal Query Text: Instructions: Begin walking at your normal pace (for 5'), when I tell you go , walk as fast as you can (for 5'). When I tell you slow , walk as slowly as you can (for 5'). Grading: Steve the lowest category that applies. Gait with Horizontal Head Turns Normal Query Text: Instructions: Begin walking at your normal pace. When I tell you to look right , keep walking straight, but turn you head to the right. Keep looking to the right unit I tell you look left , then keep walking straight and turn your head to the left. Keep your head to the left until I tell you
== END 2021-09-05 14:25 | disposition home or self-care (01) ==
LOC: PT 14:20
PROVIDERS: PCP Family Medicine; Visit Provider Otolaryngology
DX: R42 Dizziness and giddiness (principal)
CPT/HCPCS: 97112; 97163

== ENCOUNTER → 2022-06-22 13:48 | Outpatient (CLI) | payer MEDICARE, SELFPAY ==
[2022-06-22 14:15] LABS: Basophils # 0.1 K/mm3 (0-0.2); Basophils % 1.2 % (0.1-2.0); Eosinophils # 0.1 K/mm3 (0.0-0.4); Eosinophils % 1.5 % (0.1-12.0); Hematocrit 45.2 % (42.0-52.0); Hemoglobin 14.1 g/dL (14.1-18.0); Lymphocytes # 1.7 K/mm3 (0.7-4.5); Lymphocytes % 20.3 % (10-50); Mean Corpuscular HGB Conc 31.3 g/dL (31.8-35.4); Mean Corpuscular Hemoglobin 29.2 pg (27.0-31.2); Mean Corpuscular Volume 93.2 fl (80-94); Mean Platelet Volume 7.7 fl (7.4-10.4); Monocytes # 0.4 K/mm3 (0.1-1.0); Monocytes % 5.1 % (1.7-9.3); Neutrophils # 5.9 K/mm3 (1.8-7.8); Platelet Count 278 K/mm3 (142-424); Red Blood Count 4.84 M/mm3 (4.60-6.20); Red Cell Distribution Width 13.8 % (11.5-17.5); White Blood Count 8.2 K/mm3 (4.8-10.8)
[2022-06-22 15:50] LABS: Chloride 104 mmol/L (98-107); Sodium 142 mmol/L (136-145)
[2022-06-22 15:51] LABS: Potassium 4.5 mmoL/L (3.5-5.1)
[2022-06-22 15:53] LABS: Alanine Aminotransferase 23 U/L (12-78); Alkaline Phosphatase 87 U/L (38-126); Anion Gap 19.5 mEq/L (5-15); Aspartate Amino Transferase 23 U/L (17-59); Bilirubin,Indirect 1.2 mg/dL (0.0-0.9); Bilirubin,Total 1.2 mg/dl (0.2-1.3); Bilirubin,Unconjugated 1.2 mg/dL (0.0-1.1); Blood Urea Nitrogen 13 mg/dl (9-20); Calcium 9.5 mg/dl (8.4-10.2); Carbon Dioxide 23 mmol/L (22.0-30.0); Cholesterol 89 mg/dl (140-200); Estimated Glomerular Filt Rate 131 ml/min (>60); GFR (African American) 159 ML/MIN (>60); Glucose 204 mg/dl (74-100); Triglycerides 144 mg/dl (30-150); VLDL Cholesterol 29 mg/dL (0-40)
[2022-06-22 15:54] LABS: Albumin Level 4.2 g/dl (3.5-5.0); Chol/HDL Ratio 2.7 (1-3.5); HDL Cholesterol 33 mg/dl (40-60); Total Protein,Serum 6.6 g/dl (6.3-8.2)
[2022-06-22 16:11] LABS: Free T4 (Free Thyroxine) 0.95 ng/dl (0.78-2.19)
[2022-06-22 16:26] LABS: Thyroid Stimulating Hormone 0.48 uIU/mL (0.465-4.68)
== END ==
PROVIDERS: PCP Emergency Medicine; Visit Provider Nurse Practitioner
DX: E66.9 Obesity, unspecified; E78.2 Mixed hyperlipidemia; I11.9 Hypertensive heart disease without heart failure; I25.10 Atherosclerotic heart disease of native coronary artery without angina pectoris; I25.2 Old myocardial infarction; I27.20 Pulmonary hypertension, unspecified; M54.16 Radiculopathy, lumbar region; R00.0 Tachycardia, unspecified; R42 Dizziness and giddiness; R06.00 Dyspnea, unspecified; I63.9 Cerebral infarction, unspecified; E11.9 Type 2 diabetes mellitus without complications; Z68.29 Body mass index [BMI] 29.0-29.9, adult; Z79.84 Long term (current) use of oral hypoglycemic drugs
CPT/HCPCS: 36415; 80048; 80061; 80076; 84439; 84443; 85025

== ENCOUNTER → 2022-08-21 13:35 | Outpatient (CLI) | payer MEDICARE, SELFPAY ==
--- NOTE | 2022-08-21 13:42 | XR_ITS ---
FINAL REPORT CLINICAL HISTORY: pain in left hand and 4th digit FINDINGS: AP, oblique, and lateral views of the left hand were obtained. There is no prior exam for comparison. There is no acute fracture of the left hand. There is multi joint degenerative change in the radiocarpal joint, as well as mild degenerative change in the 2nd and 3rd metacarpal phalangeal joints. The soft tissues are normal. IMPRESSION: No acute osseous abnormality of the left hand. Degenerative change in the radiocarpal joint as well as the 2nd and 3rd metacarpophalangeal joints. Reviewed, Interpreted and Dictated by Tila Raymundo MD Transcribed by Camila Jesus Authenticated and [facility]
== END ==
PROVIDERS: PCP Internal Medicine Adolescent Medicine; Visit Provider Orthopaedic Surgery
DX: M79.642 Pain in left hand (principal)
CPT/HCPCS: 73130

== ENCOUNTER → 2022-09-01 10:33 | Outpatient (CLI) | payer MEDICARE, SELFPAY ==
--- NOTE | 2022-09-01 10:39 | XR_ITS ---
FINAL REPORT TECHNIQUE: Chest PA & Lateral CLINICAL HISTORY: Pre op trigger finger release, 0 chest complaints. 0 chest complaints COMPARISON: None FINDINGS: 2 views of the chest were performed. The heart size is normal. Calcified right hilar lymph nodes. There is no acute cardiopulmonary process. There are no pleural effusions. There is no pneumothorax. The bony thorax appears intact. IMPRESSION: No acute cardiopulmonary process. Reviewed, Interpreted and Dictated by Den Cronin MD Transcribed by Nkechi Barraza Authenticated and [facility]
[2022-09-01 10:51] LABS: MANUAL DIFFERENTIAL MANUAL DIFFERENTIAL (MANUAL DIFF)
--- NOTE | 2022-09-01 11:03 | ECG_ITS ---
APPROVED REPORT Exam: Resting ECG HR:56 bpm ECG Measurements Heart Rate 56 AXES AR 144 P -11 QRSd 105 QRS 61 QT 417 T 29 QTc 409 Conclusion SINUS BRADYCARDIA NONSPECIFIC ST & T-WAVE ABNORMALITY BORDERLINE ECG UNCONFIRMED REPORT Electronically signed by : Michael Hewitt MD 09/01/2022 16:17:08
[2022-09-01 11:42] LABS: Basophils # 0.1 K/mm3 (0-0.2); Basophils % 0.6 % (0.1-2.0); Eosinophils # 0.2 K/mm3 (0.0-0.4); Hematocrit 44.1 % (42.0-52.0); Hemoglobin 14.1 g/dL (14.1-18.0); Lymphocytes % 22.7 % (10-50); Mean Corpuscular HGB Conc 31.9 g/dL (31.8-35.4); Mean Corpuscular Hemoglobin 29.1 pg (27.0-31.2); Mean Corpuscular Volume 91.3 fl (80-94); Mean Platelet Volume 8.3 fl (7.4-10.4); Monocytes # 0.4 K/mm3 (0.1-1.0); Monocytes % 5.1 % (1.7-9.3); Neutrophils # 6.1 K/mm3 (1.8-7.8); Neutrophils % 69.7 % (37.0-80.0); Platelet Count 301 K/mm3 (142-424); Red Blood Count 4.83 M/mm3 (4.60-6.20); Red Cell Distribution Width 13.5 % (11.5-17.5); White Blood Count 8.7 K/mm3 (4.8-10.8)
[2022-09-01 11:55] LABS: Alanine Aminotransferase 22 U/L (12-78); Albumin Level 4.3 g/dl (3.5-5.0); Albumin/Globulin Ratio 1.5 (1.1-1.8); Alkaline Phosphatase 69 U/L (38-126); Anion Gap 16.6 mEq/L (5-15); Aspartate Amino Transferase 31 U/L (17-59); Bilirubin,Total 1.5 mg/dl (0.2-1.3); Blood Urea Nitrogen 13 mg/dl (9-20); Calcium 9.6 mg/dl (8.4-10.2); Carbon Dioxide 25 mmol/L (22.0-30.0); Chloride 102 mmol/L (98-107); Estimated Glomerular Filt Rate 131 ml/min (>60); GFR (African American) 158 ML/MIN (>60); Globulin 2.8 g/dL (1.3-3.2); Glucose 182 mg/dl (74-100); Potassium 4.6 mmoL/L (3.5-5.1); Sodium 139 mmol/L (136-145); Total Protein,Serum 7.1 g/dl (6.3-8.2)
[2022-09-01 16:06] LABS: Eosinophils % 1 % (0-3); Lymphocytes % 18 % (10-50); Monocytes % 3 % (2-9); Neutrophils % 78 % (42-76); Platelet Estimate Normal; RBC Morphology Normal; Total Cells Counted 100
== END ==
PROVIDERS: PCP Internal Medicine Adolescent Medicine; Visit Provider Orthopaedic Surgery
DX: M65.342 Trigger finger, left ring finger (principal); Z01.818 Encounter for other preprocedural examination
CPT/HCPCS: 36415; 71046; 80053; 85007; 85014; 85018; 85048; 85049; 93005

== ENCOUNTER 2022-09-13 09:37 | Day surgery (SDC) | payer MEDICARE, SELFPAY ==
[2022-09-05 11:39] VITALS: BMI 30.2
[2022-09-13 10:31] VITALS: BP 158/85; PULSE 59; RESP 18; TEMP 36.9; O2SAT 99
[2022-09-13 10:37] LABS: POC Glucose,Bedside 147 (70-110)
--- NOTE | 2022-09-13 11:13 | P.PN_ITS ---
[facility] Disclaimer: The information contained in this section may have been updated after the patient was seen, as this information can be updated by other users. Medical History CAD (coronary artery disease) Degenerative joint disease (DJD) of lumbar spine Diabetes mellitus DJD (degenerative joint disease) HHD (hypertensive heart disease) History of myocardial infarction HLD (hyperlipidemia) HTN (hypertension) Left Achilles bursitis Left Achilles tendinitis Postlaminectomy syndrome Pulmonary HTN Radius fracture Right chronic serous otitis media TIA (transient ischemic attack) Type 2 diabetes mellitus with hyperglycemia, without long-term current use of insulin Varicose veins of both lower extremities Vertigo Surgical History (Updated 09/13/22 @ 10:26 by Nkechi Benoit RN) History of back surgery History of coronary artery stent placement Family History Other No significant family history Social History Smoking Status: Never smoker second hand exposure: No alcohol intake: never substance use type: denies use current occupational status: retired and disabled Travel in the last 8 weeks: None household members: family housing: house number of children: 2 current occupational exposures/hazards: No caffeine: Yes [facility] Anesthesia Checklist Patient Identification Patient Identification: Arm Band, Family and Verbal (Name & ) Structural Data Admitted From: Home Planned Operative Procedure/s: left trigger finger Verified Documents: Surgical Consent and History and Physical NPO Status Verified Time NPO: 00:00 Additional verifications Anesthesia Reactions: No Hx Blood Transfusions: No Blood Transfusion Reaction: No Airway Assessment C-Spine Mobility Assessed: Yes TMJ Mobility Assessed: Yes Dentition: Good Dentition Neurological Assessment Level of Consciousness: Awake and Alert Anesthesia Plan Anesthesia Risk discussed: Yes ASA Class: III Anesthesia Type: IV sedation
[2022-09-13 11:55] VITALS: BP 151/73; PULSE 60; RESP 18; TEMP 36.8; O2SAT 93
--- NOTE | 2022-09-13 11:59 | EXP.OP.NOTE ---
Date of procedure: 09/13/22 Pre-op Diagnosis:: Left ring finger trigger finger Post-op Diagnosis:: Same Procedure performed:: Left ring finger A1 mellissa release Surgeon:: Gerard Gardiner DO BIT SHARPENER OPERATOR:: Other Anesthesia: MAC and local Estimated blood loss (mL): 0 Operative findings:: Triggering left ring finger Operative note:: Patient is identified preoperatively. Left ring finger marked with a yes and my initials. Transferred operative suite. Placed upon operating bed. Hand table placed. Left upper extremity prepped draped normal sterile fashion. Once prepped and draped final operative timeout performed to identify proper patient procedure and extremity. Everyone involved the case agreed. No counter occasion beginning. He did receive antibiotics. Local anesthesia lidocaine with epinephrine was injected to the planned incision site over the A1 mellissa in the ring finger on the left hand. Esmarch was used to exsanguinate during pneumatic tourniquet plated 1050 mmHg. Skin knife was used incise through skin. Careful dissection was taken down and retractors were placed to identify the A1 mellissa. A1 mellissa was cut with a [place] blade. And then completed cut with scissors. The tendons were brought out through the wound to make sure there is no adhesions and catching to the tendon. The finger was taken through range of motion there is a small bump around the tendons but no triggering of the finger. Irrigation of wound performed skin closed with nylon stitch sterile dressing placed patient waken from sedation taken recovery stable condition. Tourniquet time (min): 13 Condition: stable Disposition: PACU Complications:: None apparent
[2022-09-13 12:10] VITALS: BP 153/75; PULSE 60; RESP 18; TEMP 36.8; O2SAT 95
[2022-09-13 12:46] LABS: POC Glucose,Bedside 172 (70-110)
== END 2022-09-13 12:40 | disposition home or self-care (01) ==
PROVIDERS: PCP Internal Medicine Adolescent Medicine; Visit Provider Orthopaedic Surgery
PROC: (CPT 26055; principal; 2022-09-13 11:15)
DX: M65.342 Trigger finger, left ring finger (principal); E11.9 Type 2 diabetes mellitus without complications; I10 Essential (primary) hypertension; I25.10 Atherosclerotic heart disease of native coronary artery without angina pectoris; Z79.899 Other long term (current) drug therapy
CPT/HCPCS: 26055; 82962; 96374

== ENCOUNTER → 2023-01-02 14:22 | Outpatient (POV) | payer MEDICARE, SELFPAY | PROVIDERS: Visit Provider Dermatology | DX: Z00.00 Encounter for general adult medical examination without abnormal findings (principal) ==

== ENCOUNTER 2023-03-02 15:42 | Emergency (ER) | payer MEDICARE, SELFPAY ==
[2023-03-02 15:42] VITALS: BP 199/85; PULSE 61; RESP 18; TEMP 36.4; O2SAT 99; BMI 28.2
--- NOTE | 2023-03-02 15:43 | ECG_ITS ---
APPROVED REPORT Exam: Resting ECG HR:60 bpm ECG Measurements Heart Rate 60 AXES IN 234 P 72 QRSd 101 QRS 46 QT 416 T 64 QTc 416 Conclusion SINUS RHYTHM WITH FIRST DEGREE AV BLOCK ABNORMAL ECG UNCONFIRMED REPORT Electronically signed by : Michael Hewitt MD 03/04/2023 07:34:51
--- NOTE | 2023-03-02 15:46 | PC.NURSE ---
FSBS: [id number]
--- NOTE | 2023-03-02 15:49 | CT_ITS ---
PROCEDURE INFORMATION: Exam: CT Head Without Contrast Exam date and time: 03/02/2023 4:15 PM Age: 77 years old Clinical indication: Weakness, extremity; Left; Additional info: Cp to back with L upper extremity weakness TECHNIQUE: Imaging protocol: Computed tomography of the head without contrast. Radiation optimization: All CT scans at this facility use at least one of these dose optimization techniques: automated exposure control; mA and/or kV adjustment per patient size (includes targeted exams where dose is matched to clinical indication); or iterative reconstruction. REPORTING DATA: Count of CT and Cardiac NM exams in prior 12 months: This patient has received 0 known CTs and 0 known cardiac nuclear medicine studies in the 12 months prior to the current study. COMPARISON: 1. CT ANGIO HEAD 07/12/2021 7:[address] HEAD/BRAIN WO CON 07/12/2021 6:18 PM 3. MR HEAD/BRAIN WO/W CON 06/02/2021 1:59 PM FINDINGS: Brain: The brain parenchyma appears normal for an elderly patient, with no evidence of acute ischemia, hemorrhage, or masses. The hooper-white matter differentiation is preserved. Mild periventricular white matter hypodensities are consistent with chronic small vessel ischemic changes, which are often seen in elderly patients and are not indicative of acute pathology. Cerebral ventricles: Ventricles and sulci are consistent with patient age, showing mild age-related atrophy but no significant enlargement. Paranasal sinuses: The orbits and paranasal sinuses are free of marked disease. No opacifications are observed in the visible sinus cavities. Mastoid air cells: Visualized mastoid air cells are well aerated. Bones/joints: The cranial bones are intact with no signs of fractures or lytic lesions. Soft tissues: Unremarkable. IMPRESSION: In this patient, the head CT reveals no evidence of acute intracranial pathology. The observed structures including the brain parenchyma, vascular structures, cranial bones, and soft tissues appear within normal limits, except for age-related atrophic and chronic ischemic changes which are not unexpected for this age group.
--- NOTE | 2023-03-02 15:49 | CT_ITS ---
PROCEDURE INFORMATION: Exam: CTA Neck With Contrast Exam date and time: 03/02/2023 4:41 PM Age: 77 years old Clinical indication: Weakness; Additional info: Cp to back with L upper extremity weakness TECHNIQUE: Imaging protocol: Computed tomographic angiography of the neck with contrast. Exam focused on the cervical segments of the vasculature. 3D rendering (Not supervised by radiologist): MIP and/or 3D reconstructed images were created by the technologist. Radiation optimization: All CT scans at this facility use at least one of these dose optimization techniques: automated exposure control; mA and/or kV adjustment per patient size (includes targeted exams where dose is matched to clinical indication); or iterative reconstruction. Contrast material: ISOVUE 370; Contrast volume: 100 ml; Contrast route: INTRAVENOUS (IV); REPORTING DATA: Count of CT and Cardiac NM exams in prior 12 months: This patient has received 0 known CTs and 0 known cardiac nuclear medicine studies in the 12 months prior to the current study. COMPARISON: 1. CT ANGIO NECK 07/12/2021 7:[address] ANGIO NECK 02/12/2021 12:[address] ANGIO HEAD 03/02/2023 4:41 PM FINDINGS: Right common carotid artery: No stenosis. No dissection or occlusion. Right internal carotid artery: No stenosis of the extracranial segment. No dissection or occlusion. Right external carotid artery: No occlusion or stenosis of the origin. Left common carotid artery: No stenosis. No dissection or occlusion. Left internal carotid artery: No stenosis of the extracranial segment. No dissection or occlusion. Left external carotid artery: No occlusion or stenosis of the origin. Right vertebral artery: No stenosis. No dissection or occlusion. Left vertebral artery: No stenosis. No dissection or occlusion. Thyroid: There is heterogeneity of the thyroid gland for which nonemergent thyroid ultrasound should be considered. Soft tissues: Normal. No significant soft tissue swelling. Bones/joints: Partially imaged degenerative disease of the cervical spine. Other findings: Please see the dedicated interpretation of the thorax for findings in that region. IMPRESSION: 1. No large vessel occlusion or significant stenosis. No evidence for dissection. 2. Please see the dedicated interpretation of the thorax for findings in that region. 3. There is heterogeneity of the thyroid gland for which nonemergent thyroid ultrasound should be considered. REFERENCES: NASCET CRITERIA. The degree of stenosis in the cervical segment of the internal carotid artery is based on NASCET criteria. Normal is no stenosis. Mild is less than 50% stenosis. Moderate is 50-69% stenosis. Severe is 70% to 99% stenosis. Total occlusion is no detectable patent lumen.
--- NOTE | 2023-03-02 15:49 | CT_ITS ---
PROCEDURE INFORMATION: Exam: CTA Head With Contrast, Arteriography Exam date and time: 03/02/2023 4:41 PM Age: 77 years old Clinical indication: Weakness; Additional info: Cp to back with L upper extremity weakness TECHNIQUE: Imaging protocol: Computed tomographic angiography of the head with contrast. Exam focused on the arteries. 3D rendering (Not supervised by radiologist): MIP and/or 3D reconstructed images were created by the technologist. Radiation optimization: All CT scans at this facility use at least one of these dose optimization techniques: automated exposure control; mA and/or kV adjustment per patient size (includes targeted exams where dose is matched to clinical indication); or iterative reconstruction. Contrast material: ISOVUE 370; Contrast volume: 100 ml; Contrast route: INTRAVENOUS (IV); REPORTING DATA: Count of CT and Cardiac NM exams in prior 12 months: This patient has received 0 known CTs and 0 known cardiac nuclear medicine studies in the 12 months prior to the current study. COMPARISON: 1. CT ANGIO HEAD 07/12/2021 7:[address] ANGIO HEAD 02/12/2021 12:[address] HEAD/BRAIN WO CON 03/02/2023 4:15 PM FINDINGS: ANTERIOR CIRCULATION: Right internal carotid artery: Intracranial segment is patent with no significant stenosis. No aneurysm. Right middle cerebral artery: No occlusion or significant stenosis. No aneurysm. Right anterior cerebral artery: No occlusion or significant stenosis. No aneurysm. Left internal carotid artery: Intracranial segment is patent with no significant stenosis. No aneurysm. Left middle cerebral artery: No occlusion or significant stenosis. No aneurysm. Left anterior cerebral artery: No occlusion or significant stenosis. No aneurysm. POSTERIOR CIRCULATION: Right vertebral artery: No occlusion or significant stenosis. No aneurysm. Left vertebral artery: No occlusion or significant stenosis. No aneurysm. Basilar artery: No occlusion or significant stenosis. No aneurysm. Right posterior cerebral artery: No occlusion or significant stenosis. No aneurysm. Left posterior cerebral artery: No occlusion or significant stenosis. No aneurysm. Brain: No definite mass, mass effect, or midline shift. Cerebral ventricles: No ventriculomegaly. Bones/joints: Unremarkable. No acute fracture. Soft tissues: Unremarkable. IMPRESSION: No large vessel stenosis or occlusion.
--- NOTE | 2023-03-02 15:50 | CT_ITS ---
PROCEDURE INFORMATION: Exam: CTA Chest With Contrast Exam date and time: 03/02/2023 4:45 PM Age: 77 years old Clinical indication: Pain; Chest pressure; Additional info: Cp with arm weakness TECHNIQUE: Imaging protocol: Computed tomographic angiography of the chest with contrast. Exam focused on the arteries. 3D rendering (Not supervised by radiologist): MIP and/or 3D reconstructed images were created by the technologist. Radiation optimization: All CT scans at this facility use at least one of these dose optimization techniques: automated exposure control; mA and/or kV adjustment per patient size (includes targeted exams where dose is matched to clinical indication); or iterative reconstruction. Contrast material: ISOVUE 370; Contrast volume: 100 ml; Contrast route: INTRAVENOUS (IV); REPORTING DATA: Count of CT and Cardiac NM exams in prior 12 months: This patient has received 0 known CTs and 0 known cardiac nuclear medicine studies in the 12 months prior to the current study. COMPARISON: 1. CT ANGIO CHEST 04/05/2020 12:25 PM 2. CR XR CHEST 2V 09/01/2022 10:43 AM 3. CR XR CHEST PORTABLE 04/05/2020 10:45 AM FINDINGS: Pulmonary arteries: There is fair opacification of the pulmonary arterial tree. No central pulmonary arterial filling defect is seen. Aorta: There is atherosclerotic disease of the visualized aorta and its major branch vessels. Other arteries: Subsegmental vessels are not well evaluated due to contrast timing. Lungs: There is extensive ground-glass opacity which could reflect air trapping but may also be seen in viral pneumonitis among other entities, correlate clinically. Calcified granuloma in the left upper lobe. Evaluation for small pulmonary nodules is precluded by patient condition. Fleischner Society guidelines are n/a. Scattered areas of bronchial wall thickening which are likely chronic inflammatory. A few areas of subpleural reticulation are noted, nonspecific. Pleural spaces: Unremarkable. No pneumothorax. No pleural effusion. Heart: The heart appears upper limits of normal in size. Coronary arteries: There is mild coronary atherosclerotic disease/calcification although evaluation is limited secondary to the non gated nature of the study. Lymph nodes: Stable borderline enlarged right hilar lymph nodes since at least 2020. There are calcified mediastinal lymph nodes likely reflecting prior granulomatous disease. Spleen: There are multiple calcifications in the spleen most likely reflects small granulomas. Bones/joints: There is diffuse degenerative disease of the visualized osseous structures. Soft tissues: Unremarkable. Other findings: Motion artifact mildly limits evaluation. IMPRESSION: 1. There is extensive ground-glass opacity which could reflect air trapping but may also be seen in viral pneumonitis among other entities, correlate clinically. 2. No central pulmonary arterial filling defect is seen. Subsegmental vessels are not well evaluated due to contrast timing.
--- NOTE | 2023-03-02 15:51 | XR_ITS ---
PROCEDURE INFORMATION: Exam: XR Chest Exam date and time: 03/02/2023 4:48 PM Age: 77 years old Clinical indication: Pain; Chest pressure; Additional info: Cp TECHNIQUE: Imaging protocol: Radiologic exam of the chest. Views: 1 view. COMPARISON: CT ANGIO CHEST 03/02/2023 4:45 PM FINDINGS: Lungs: There is coarsening of the bronchovascular markings. Pleural spaces: No evidence of pleural effusion, pneumothorax, or pleural thickening in the visualized pleural spaces. Heart/Mediastinum: Stable cardiac and mediastinal contours. Bones/joints: No evidence of acute osseous abnormalities within the visualized portions of the thoracic spine and ribs. Osseous structures appear appropriate for patient age. IMPRESSION: No dense parenchymal consolidation, pleural effusion, or pneumothorax.
--- NOTE | 2023-03-02 15:57 | PC.NURSE ---
Dr. Orozco at BS for pt eval
[2023-03-02 16:00] VITALS: BP 193/83; PULSE 76; O2SAT 99
[2023-03-02 16:05] LABS: Basophils # 0.1 K/mm3 (0-0.2); Eosinophils # 0.1 K/mm3 (0.0-0.4); Eosinophils % 1.7 % (0.1-12.0); Hematocrit 43.9 % (42.0-52.0); Hemoglobin 14.8 g/dL (14.1-18.0); Lymphocytes # 2.3 K/mm3 (0.7-4.5); Lymphocytes % 29.5 % (10-50); Mean Corpuscular HGB Conc 33.7 g/dL (31.8-35.4); Mean Corpuscular Hemoglobin 31.1 pg (27.0-31.2); Mean Corpuscular Volume 92.2 fl (80-94); Mean Platelet Volume 8.3 fl (7.4-10.4); Monocytes # 0.4 K/mm3 (0.1-1.0); Monocytes % 4.9 % (1.7-9.3); Neutrophils # 4.9 K/mm3 (1.8-7.8); Neutrophils % 62.9 % (37.0-80.0); Platelet Count 268 K/mm3 (142-424); Red Blood Count 4.76 M/mm3 (4.60-6.20); Red Cell Distribution Width 13.6 % (11.5-17.5); White Blood Count 7.8 K/mm3 (4.8-10.8)
[2023-03-02 16:07] LABS: Alanine Aminotransferase 30 U/L (12-78); Albumin Level 4.4 g/dl (3.5-5.0); Albumin/Globulin Ratio 1.3 (1.1-1.8); Alkaline Phosphatase 72 U/L (38-126); Anion Gap 11.2 mEq/L (5-15); Aspartate Amino Transferase 37 U/L (17-59); Bilirubin,Total 1.5 mg/dl (0.2-1.3); Blood Urea Nitrogen 10 mg/dl (9-20); Carbon Dioxide 26 mmol/L (22.0-30.0); Chloride 102 mmol/L (98-107); Creatinine Clearance Estimated 69 mL/min (50-200); Estimated Glomerular Filt Rate 109 ml/min (>60); GFR (African American) 132 ML/MIN (>60); Globulin 3.3 g/dL (1.3-3.2); Glucose 233 mg/dl (74-100); Potassium 4.2 mmoL/L (3.5-5.1); Sodium 135 mmol/L (136-145); Total Protein,Serum 7.7 g/dl (6.3-8.2)
--- NOTE | 2023-03-02 16:09 | [facility].EDCP ---
Discharge Plan Disposition Patient Disposition: Home, Self-Care Chief Complaint: Chest Pain Prescriptions Prescriptions: No Action aspirin [Adult Low Dose Aspirin] 81 mg tablet,delayed release (DR/EC) 81 mg PO DAILY tamsulosin 0.4 mg capsule 0.4 mg PO DAILY Patient Comments: TAKE 1 CAPSULE BY MOUTH EVERY DAY AT BEDTIME oxybutynin chloride 10 mg tablet extended release 24hr 10 mg PO DAILY cyclobenzaprine 10 mg tablet 10 mg PO TID PRN (Reason: muscle spasm) Qty: 60 0RF mecobalamin (vitamin B12) 1,000 mcg tablet,disintegrating 1,000 mcg SL DAILY Rx Instructions: place tablet under tongue and allow to dissolve for at least30 secs before swallowing atorvastatin 20 mg tablet 10 mg PO HS Qty: 90 3RF lisinopril 40 mg tablet 40 mg PO DAILY Qty: 90 3RF clopidogrel 75 mg tablet See Rx Instructions .ROUTE .COMPLEX Qty: 30 11RF Rx Instructions: Take 1 tablet by mouth once daily pantoprazole 20 mg tablet,delayed release (DR/EC) See Rx Instructions .ROUTE .COMPLEX Qty: 90 1RF Rx Instructions: Take 1 tablet by mouth once daily bisoprolol fumarate 10 mg tablet 10 mg PO DAILY metformin 1,000 mg tablet See Rx Instructions .ROUTE .COMPLEX Rx Instructions: Take 1 tablet by mouth twice daily gabapentin 300 mg capsule 300 mg PO BID Referrals Follow up/Referrals: Michael Hewitt MD [Primary Care Provider] - See instructions Activity Restrictions/Add. Instructions Additional Instructions/Restrictions: Follow-up with your family doctor regarding this visit to the emergency department. Talk to them about referral to Dr. Flores, neurologist. Call your family doctor to establish care for this visit to the emergency department and schedule follow-up within 48 hours to ensure improvement. If you have any worsening of your condition or any other concerning signs or symptoms, return to the emergency department or your primary care doctor for further evaluation. Christal maneuver on the left or right side can help with your symptoms, depending on which side is affected by vertigo. Clinical Impressions Clinical Impression: Episodic peripheral vertigo Discharge ED Provider: Dawson Orozco General Chief Complaint: Chest Pain Stated Complaint: WEAKNESS Time Seen by Provider: 03/02/23 15:44 Mode of Arrival: Ambulatory Source of Information: Patient Limitations: No Limitations Description of Symptoms (Recalled from ER Triage Doc. by RN): started yesterday chest pain & pain in back part of head and right ear with some slurred speech; today continued with slurred speech & unable to feel & hold anything in left hand. History of Present Illness HPI narrative: 77 male history hypertension, hyperlipidemia, CAD, and last stenting x 2, type 2 diabetes, chronic peripheral vertigo presenting with multiple complaints. Patient states that 1 day prior to arrival, he started having chest tightness and shortness of breath with exertion. Today, he started having difficulty speaking and weakness in his left arm, as well as pain and burning behind his right ear. Last known normal was yesterday, 03/01 in the morning. This all happened while he was driving. He states that it is worse when he looks up and down, not necessarily when he turns his head left and right in the car to look around. Denies current chest pain or shortness of breath, lower extremity swelling, diaphoresis, vomiting, or any other concerns. On my evaluation, speaking in full sentences clearly Related Data Home Medications Medication Instructions Recorded Confirmed aspirin 81 mg tablet,delayed 81 mg PO DAILY heart health 04/09/17 03/02/23 release (Adult Low Dose Aspirin) oxybutynin chloride 10 mg 10 mg PO DAILY . 05/26/21 03/02/23 tablet,extended release 24 hr mecobalamin (vitamin B12) 1,000 1,000 mcg sublingual DAILY 09/15/21 03/02/23 mcg disintegrating Supplement tablet,sublingual
[2023-03-02 16:10] LABS: Lipase 84 U/L (23-300)
[2023-03-02 16:19] LABS: NT Pro Brain Natriuretic Pep. 562 pg/mL (0-450)
--- NOTE | 2023-03-02 16:20 | PC.NURSE ---
Pt gone to RAD via stretcher
[2023-03-02 16:24] LABS: Troponin I < 0.01 ng/ml (0.00-0.034)
--- NOTE | 2023-03-02 16:56 | PC.NURSE ---
Pt returned from RAD
[2023-03-02 17:01] VITALS: BP 206/92; PULSE 75; RESP 16; O2SAT 98
[2023-03-02 18:07] VITALS: BP 163/76; PULSE 69; RESP 17; TEMP 36.7; O2SAT 99
--- NOTE | 2023-03-02 18:12 | PC.NURSE ---
DR GOMEZ AT BEDSIDE TO UPDATE PT
== END 2023-03-02 18:28 | disposition home or self-care (01) ==
PROVIDERS: Emergency Provider Emergency Medicine; PCP Internal Medicine Adolescent Medicine
DX: H81.399 Other peripheral vertigo, unspecified ear (principal); R07.9 Chest pain, unspecified; R51.9 Headache, unspecified; R47.81 Slurred speech; R06.02 Shortness of breath; I44.0 Atrioventricular block, first degree; E78.5 Hyperlipidemia, unspecified; I25.10 Atherosclerotic heart disease of native coronary artery without angina pectoris; E11.9 Type 2 diabetes mellitus without complications; I11.9 Hypertensive heart disease without heart failure; I27.20 Pulmonary hypertension, unspecified
CPT/HCPCS: 70450; 70496; 70498; 71045; 71275; 80053; 83690; 83880; 84484; 85025; 93005; 96374; 99285; Q9967

== ENCOUNTER 2023-06-20 18:08 | Emergency (ER) | payer MEDICARE, SELFPAY ==
[2023-06-20 18:09] VITALS: BP 181/83; PULSE 79; RESP 18; TEMP 38.2; O2SAT 95; BMI 29.3
[2023-06-20 18:16] VITALS: BP 181/83; PULSE 77; RESP 18; TEMP 38.2; O2SAT 95
--- NOTE | 2023-06-20 18:16 | ED_ITS ---
<Statement entered by Lilia Reagan DO - 06/20/23 22:25> I was consulted by the FRANCESCA, and we discussed the complexity of the problems being addressed. I approved the treatment and management plan for this patient's care in the emergency department, thus performing a substantive portion of the medical decision making. Lilia Reagan DO Discharge Plan Disposition Patient Disposition: Home, Self-Care Condition: Good Prescriptions Prescriptions: No Action aspirin [Adult Low Dose Aspirin] 81 mg tablet,delayed release (DR/EC) 81 mg PO DAILY tamsulosin 0.4 mg capsule 0.4 mg PO DAILY Patient Comments: TAKE 1 CAPSULE BY MOUTH EVERY DAY AT BEDTIME hydrochlorothiazide 25 mg tablet 25 mg PO DAILY Qty: 90 3RF atorvastatin 20 mg tablet 10 mg PO HS Qty: 90 3RF lisinopril 40 mg tablet 40 mg PO DAILY Qty: 90 3RF clopidogrel 75 mg tablet See Rx Instructions .ROUTE .COMPLEX Qty: 30 11RF Rx Instructions: Take 1 tablet by mouth once daily pantoprazole 20 mg tablet,delayed release (DR/EC) See Rx Instructions .ROUTE .COMPLEX Qty: 90 1RF Rx Instructions: Take 1 tablet by mouth once daily bisoprolol fumarate 10 mg tablet 10 mg PO DAILY metformin 1,000 mg tablet See Rx Instructions .ROUTE .COMPLEX Rx Instructions: Take 1 tablet by mouth twice daily gabapentin 300 mg capsule 300 mg PO BID Referrals Follow up/Referrals: Reanna Lockhart APRN [Primary Care Provider] - See instructions Activity Restrictions/Add. Instructions Additional Instructions/Restrictions: Take Tylenol alternating every 4 hours with Motrin as needed for constitutional symptoms of fever body aches etc. Follow-up with PCP as needed or return to ER as needed. Clinical Impressions Clinical Impression: Acute COVID-19, Asthenia Discharge ED Provider: Neymar Chang General Adult HPI <MIKA Ott - Last Filed: 06/20/23 19:42> General Chief complaint: Fever Stated complaint: weakness Time Seen by Provider: 06/20/23 18:12 Mode of Arrival: EMS Source of Information: Patient and EMS Limitations: No Limitations Description of Symptoms (Recalled from ER Triage Doc. by RN): pt presents to ED c/o fever. per report EMS was called for lift assist after pt became weak while going to the restroom. pt denies falling but states he got weak so sat himself down. pt alert and oriented. pt c/o sore throat and aching all over. History of Present Illness HPI narrative: Patient presents after having an event of profound weakness in which he assisted himself to the ground but felt too weak to get up. There was no precipitating factors. Patient reports generalized malaise and bodyaches throughout the day but no other specific localizing complaints. Patient denies chest pain fever chills hemoptysis hematochezia melena nausea vomiting diarrhea. However patient was febrile on arrival here to 100.8. Related Data Home Medications Medication Instructions Recorded Confirmed aspirin 81 mg tablet,delayed 81 mg PO DAILY heart health 04/09/17 06/18/23 release (Adult Low Dose Aspirin) tamsulosin 0.4 mg capsule 0.4 mg PO DAILY prostate 11/10/21 06/18/23 bisoprolol fumarate 10 mg tablet 10 mg PO DAILY bp 09/13/22 06/18/23 gabapentin 300 mg capsule 300 mg PO BID Pain 09/13/22 06/18/23 metformin 1,000 mg tablet See Rx Instructions .Route 09/13/22 06/18/23 .COMPLEX Diabetes Previous Rx's Medication Instructions Recorded atorvastatin 20 mg tablet 10 mg (1/2 x 20 mg) PO HS High 09/04/22 cholesterol #90 tabs lisinopril 40 mg tablet 40 mg PO DAILY bp #90 tabs 09/25/22 clopidogrel 75 mg tablet See Rx Instructions .Route 01/30/23 .COMPLEX Blood thinner #30 tabs pantoprazole 20 mg tablet,delayed See Rx Instructions .Route 02/20/23 release .COMPLEX gerd #90 tabs hydrochlorothiazide 25 mg tablet 25 mg PO DAILY #90 tabs 06/18/23 Allergies Allergy/AdvReac Type Severity Reaction Status Date / Time levofloxacin [From LEVAQUIN] Allergy Mild Verified 06/18/23 14:24 [facility] <MIKA Ott - Last Filed: 06/20/23 19:42> [facility] Disclaimer: The information contained in this section may have been updated after the patient was seen, as this information can be updated by other users. Medical History Right chronic serous otitis media Vertigo This appears to be more of a disequilibrium issue. I do think he would benefit from vestibular therapy. If it should persist, I would recommend VNG and posturography examination. TIA (transient ischemic attack) Radius fracture Pulmonary HTN Degenerative joint disease (DJD) of lumbar spine Postlaminectomy syndrome Left Achilles tendinitis Left Achilles bursitis Type 2 diabetes mellitus with hyperglycemia, without long-term current use of insulin Varicose veins of both lower extremities DJD (degenerative joint disease) Diabetes mellitus HHD (hypertensive heart disease) History of myocardial infarction HLD (hyperlipidemia) HTN (hypertension) CAD (coronary artery disease) Surgical History History of back surgery History of coronary artery stent placement Family History Other No significant family history Social History Smoking Status: Never smoker second hand exposure: No alcohol intake: never substance use type: denies use current occupational status: retired and disabled Travel in the last 8 weeks: None household members: family housing: house number of children: 2 current occupational exposures/hazards: No caffeine: Yes <MIKA Ott - Last Filed: 06/20/23 19:42> ROS Obtained: Yes Systems reviewed as appropriate & no additional complaints except as documented Physical Exam <MIKA Ott - Last Filed: 06/20/23 19:42> General General appearance: alert and in no apparent distress Head Head exam: atraumatic and normal inspection Eye Eye exam: Present normal appearance, PERRL and EOMI ENT ENT exam: Present normal exam, normal oropharynx and mucous membranes moist Neck Neck exam: Present normal inspection, full ROM and trachea midline; Absent lymphadenopathy Chest Chest inspection: Present normal inspection and symmetric chest wall rise Respiratory Respiratory exam: Present normal lung sounds bilaterally; Absent respiratory distress, wheezes, stridor or accessory muscle use Cardiovascular Cardiovascular exam: Present regular rate, normal rhythm, normal heart sounds, +S1 and +S2 Abdominal Exam Abdominal exam: Present soft and normal bowel sounds; Absent tenderness Extremities Exam Extremities exam: Present normal inspection and full ROM; Absent tenderness Back Exam Back exam: Present normal inspection; Absent full ROM Neurological Exam Neurological exam: Present alert, oriented X3 and CN II-XII intact Psychiatric Psychiatric exam: Present normal affect and normal mood Skin Skin exam: Present warm, dry and normal color Medical Decision Making <MIKA Ott - Last Filed: 06/20/23 19:42> Medical Records Medical records reviewed: Yes I reviewed the patient's medical records. Luan Inquiry Pt receiving controlled substance: No Vital Signs: 06/20/23 18:09 06/20/23 18:16 06/20/23 18:17 Temperature 100.8 F H 100.8 F H Temperature Source Oral Oral Oral Pulse Rate 77 Pulse Rate [Right Radial] 79 Respiratory Rate 18 18 Blood Pressure 181/83 H Blood Pressure [Right Arm] 181/83 H Blood Pressure Mean Blood Pressure Mean [Right Arm] 115 Blood Pressure Source Automatic Cuff Blood Pressure Source [Right Arm] Automatic Cuff Blood Pressure Position Sitting Blood Pressure Position [Right Arm] Sitting 02 Sat by Pulse Oximetry 95 95 Oxygen Delivery Method Room Air Room Air 06/20/23 18:30 06/20/23 18:57 06/20/23 19:01 Temperature Temperature Source Pulse Rate 74 74 Pulse Rate [Right Radial] Respiratory Rate Blood Pressure 162/93 H 145/80 H 145/76 H Blood Pressure [Right Arm] Blood Pressure Mean 116 113 99 Blood Pressure Mean [Right Arm] Blood Pressure Source Blood Pressure Source [Right Arm] Blood Pressure Position Blood Pressure Position [Right Arm] 02 Sat by Pulse Oximetry 96 96 Oxygen Delivery Method 06/20/23 19:51 Temperature 97.9 F Temperature Source Oral Pulse Rate 73 Pulse Rate [Right Radial] Respiratory Rate 20 Blood Pressure 145/76 H Blood Pressure [Right Arm] Blood Pressure Mean Blood Pressure Mean [Right Arm] Blood Pressure Source Automatic Cuff Blood Pressure Source [Right Arm] Blood Pressure Position Sitting Blood Pressure Position [Right Arm] 02 Sat by Pulse Oximetry Oxygen Delivery Method Room Air Lab Data Lab results reviewed: Yes I reviewed the patient's lab results. Lab Results 06/20/23 18:14: SARS-CoV-2 (PCR) Detected A, Influenza A Untype (PCR) Not detected, Influenza Type B (PCR) Not detected 06/20/23 18:15: WBC 13.8 H, RBC 4.64, Hgb 14.6, Hct 42.7, MCV 92.1, MCH 31.4 H, MCHC 34.1, RDW 14.0, Plt Count 284, MPV 8.1, Neut % (Auto) 84.8 H, Lymph % (Auto) 9.4 L, [place] % (Auto) 4.7, Eos % (Auto) 0.3, Baso % (Auto) 0.8, Neut # (Auto) 11.7 H, Lymph # (Auto) 1.3, [place] # (Auto) 0.7, Eos # (Auto) 0.1, Baso # (Auto) 0.1, Sodium 133 L, Potassium 3.9, Chloride 101, Carbon Dioxide 24, Anion Gap 11.9, BUN 16, Creatinine 0.70, Estimated Creat Clear 72, Estimated GFR 109, Est GFR ( Amer) 132, Glucose 191 H, Calcium 9.8, Total Bilirubin 1.9 H, AST 37, ALT 40, Alkaline Phosphatase 101, Total Protein 7.1, Albumin 4.2, Globulin 2.9, Albumin/Globulin Ratio 1.4 06/20/23 19:35: Urine Color Yellow, Urine Appearance Clear, Urine pH 6.0, Ur Specific Christine >= 1.030, Urine Protein Negative, Urine Glucose (UA) Trace, Urine Ketones Trace, Urine Blood Negative, Urine Nitrate Negative, Urine Bilirubin Negative, Urine Urobilinogen 1.0, Ur Leukocyte Esterase Negative, Urine RBC None, Urine WBC None, Ur Squamous Epith Cells None, Urine Bacteria None 06/20/23 : Lactate 2.4 H 06/20/23 18:15 06/20/23 18:15 Orders (Tests/Meds): ED MEDICATIONS Discontinued Medications Generic Name Dose Route Start Last Admin Trade Name Freq PRN Reason Stop Dose Admin Acetaminophen 1,000 mg 06/20/23 18:24 06/20/23 18:38 Acetaminophen 1,000mg/100ml Vial IV 06/20/23 18:25 1,000 mg ONCE ONE Administration Lactated Ringer's 1,000 mls @ 999 mls/hr 06/20/23 18:24 06/20/23 18:37 Lactated Ringer's 1000 Ml Bag IV 06/20/23 19:24 999 mls/hr .Q1H1M ONE Administration Piperacillin Sod/Tazobactam 50 mls @ 100 mls/hr 06/20/23 19:30 Sod 3.375 gm/ Sodium Chloride IV 06/30/23 19:29 Q6H FOREIGN Ketorolac Tromethamine 15 mg 06/20/23 18:24 06/20/23 18:38 Ketorolac 30mg/Ml Vial IV 06/20/23 18:25 15 mg ONCE ONE Administration Miscellaneous 1 each 06/20/23 19:30 Vancomycin Consult Request NOTAPPLIC 07/20/23 19:29 [facility] Sodium Chloride 10 ml 06/20/23 18:17 Sodium Chloride 0.9% 10ml Flush Syringe IV 07/20/23 18:16 NEEDED PRN Maintain IV Site ORDERS Category Date Time Status Chest XR -- portable [XR chest portable] Stat Exams 06/20/23 18:25 Completed Complete Blood Count Auto Diff Stat Lab 06/20/23 18:15 Completed Comprehensive Metabolic Panel Stat Lab 06/20/23 18:15 Completed Lactic Acid Stat Lab 06/20/23 Completed Myoglobin Stat Lab 06/20/23 Received Rapid PCR Covid and Flu A/B Stat Lab 06/20/23 18:14 Completed Urinalysis and Microscopic Stat Lab 06/20/23 19:35 Completed Medical Decision Narrative: In summary patient is a 77-year-old male who presents to the emergency department for evaluation of asthenia. Patient is slightly hypertensive but satting at 96% on room air with a heart rate of 74 respiratory rate of 18 upon arrival, with a temperature of 100.8. Physical exam is unremarkable and nonfocal including no chest pain clear breath sounds normal posterior pharynx full range of motion with muscle strength 4 out of 5 in all 4 extremities and no focal neurologic deficits of any kind. Differential diagnosis includes functional decline versus viral or bacterial illness versus neurologic event etc. Initial workup will be conducted with hematologic labs plain film chest x- ray twelve-lead EKG respiratory swabs for flu and COVID. Initial interventions include crystalloid bolus Toradol and Tylenol. Initial workup reviewed by me shows a slightly elevated white count with a left shift and a positive COVID test but my informal interpretation is plain film chest x-ray shows no acute processes and his urinalysis was bland. Upon repeat evaluation patient is tolerating p.o. and is able to ambulate without assistance in the emergency department prior to discharge. Subsequently patient was discharged home with instructions to follow-up with PCP in 1 week or sooner if symptoms worsen or change or return to the ER as needed. Patient verbalized understanding and agreement. <Lilia Reagan, - Last Filed: 06/20/23 22:25> Vital Signs: 06/20/23 18:09 06/20/23 18:16 06/20/23 18:17 Temperature 100.8 F H 100.8 F H Temperature Source Oral Oral Oral Pulse Rate 77 Pulse Rate [Right Radial] 79 Respiratory Rate 18 18 Blood Pressure 181/83 H Blood Pressure [Right Arm] 181/83 H Blood Pressure Mean Blood Pressure Mean [Right Arm] 115 Blood Pressure Source Automatic Cuff Blood Pressure Source [Right Arm] Automatic Cuff Blood Pressure Position Sitting Blood Pressure Position [Right Arm] Sitting 02 Sat by Pulse Oximetry 95 95 Oxygen Delivery Method Room Air Room Air 06/20/23 18:30 06/20/23 18:57 06/20/23 19:01 Temperature Temperature Source Pulse Rate 74 74 Pulse Rate [Right Radial] Respiratory Rate Blood Pressure 162/93 H 145/80 H 145/76 H Blood Pressure [Right Arm] Blood Pressure Mean 116 113 99 Blood Pressure Mean [Right Arm] Blood Pressure Source Blood Pressure Source [Right Arm] Blood Pressure Position Blood Pressure Position [Right Arm] 02 Sat by Pulse Oximetry 96 96 Oxygen Delivery Method 06/20/23 19:51 Temperature 97.9 F Temperature Source Oral Pulse Rate 73 Pulse Rate [Right Radial] Respiratory Rate 20 Blood Pressure 145/76 H Blood Pressure [Right Arm] Blood Pressure Mean Blood Pressure Mean [Right Arm] Blood Pressure Source Automatic Cuff Blood Pressure Source [Right Arm] Blood Pressure Position Sitting Blood Pressure Position [Right Arm] 02 Sat by Pulse Oximetry Oxygen Delivery Method Room Air Lab Data Lab Results 06/20/23 18:14: SARS-CoV-2 (PCR) Detected A, Influenza A Untype (PCR) Not detected, Influenza Type B (PCR) Not detected 06/20/23 18:15: WBC 13.8 H, RBC 4.64, Hgb 14.6, Hct 42.7, MCV 92.1, MCH 31.4 H, MCHC 34.1, RDW 14.0, Plt Count 284, MPV 8.1, Neut % (Auto) 84.8 H, Lymph % (Auto) 9.4 L, [place] % (Auto) 4.7, Eos % (Auto) 0.3, Baso % (Auto) 0.8, Neut # (Auto) 11.7 H, Lymph # (Auto) 1.3, [place] # (Auto) 0.7, Eos # (Auto) 0.1, Baso # (Auto) 0.1, Sodium 133 L, Potassium 3.9, Chloride 101, Carbon Dioxide 24, Anion Gap 11.9, BUN 16, Creatinine 0.70, Estimated Creat Clear 72, Estimated GFR 109, Est GFR ( Amer) 132, Glucose 191 H, Calcium 9.8, Total Bilirubin 1.9 H, AST 37, ALT 40, Alkaline Phosphatase 101, Total Protein 7.1, Albumin 4.2, Globulin 2.9, Albumin/Globulin Ratio 1.4 06/20/23 19:35: Urine Color Yellow, Urine Appearance Clear, Urine pH 6.0, Ur Specific Christine >= 1.030, Urine Protein Negative, Urine Glucose (UA) Trace, Urine Ketones Trace, Urine Blood Negative, Urine Nitrate Negative, Urine Bilirubin Negative, Urine Urobilinogen 1.0, Ur Leukocyte Esterase Negative, Urine RBC None, Urine WBC None, Ur Squamous Epith Cells None, Urine Bacteria None 06/20/23 : Lactate 2.4 H Orders (Tests/Meds): ED MEDICATIONS Discontinued Medications Generic Name Dose Route Start Last Admin Trade Name Freq PRN Reason Stop Dose Admin Acetaminophen 1,000 mg 06/20/23 18:24 06/20/23 18:38 Acetaminophen 1,000mg/100ml Vial IV 06/20/23 18:25 1,000 mg ONCE ONE Administration Lactated Ringer's 1,000 mls @ 999 mls/hr 06/20/23 18:24 06/20/23 18:37 Lactated Ringer's 1000 Ml Bag IV 06/20/23 19:24 999 mls/hr .Q1H1M ONE Administration Piperacillin Sod/Tazobactam 50 mls @ 100 mls/hr 06/20/23 19:30 Sod 3.375 gm/ Sodium Chloride IV 06/30/23 19:29 Q6H FOREIGN Ketorolac Tromethamine 15 mg 06/20/23 18:24 06/20/23 18:38 Ketorolac 30mg/Ml Vial IV 06/20/23 18:25 15 mg ONCE ONE Administration Miscellaneous 1 each 06/20/23 19:30 Vancomycin Consult Request NOTAPPLIC 07/20/23 19:29 [facility] Sodium Chloride 10 ml 06/20/23 18:17 Sodium Chloride 0.9% 10ml Flush Syringe IV 07/20/23 18:16 NEEDED PRN Maintain IV Site ORDERS Category Date Time Status Chest XR -- portable [XR chest portable] Stat Exams 06/20/23 18:25 Completed Complete Blood Count Auto Diff Stat Lab 06/20/23 18:15 Completed Comprehensive Metabolic Panel Stat Lab 06/20/23 18:15 Completed Lactic Acid Stat Lab 06/20/23 Completed Myoglobin Stat Lab 06/20/23 Received Rapid PCR Covid and Flu A/B Stat Lab 06/20/23 18:14 Completed Urinalysis and Microscopic Stat Lab 06/20/23 19:35 Completed ECG Data Tracing #1: I reviewed this ECG and interpreted as documented below: Sinus rhythm with a ventricular rate of [address] changes concerning for ischemia. First-degree AV block with a UT interval of 224 ms. ECG initial impression date: 06/20/23 ECG initial impression time: 19:25 Critical Care <MIKA Ott - Last Filed: 06/20/23 19:42> Critical Care Time Critical Care Time: No
[2023-06-20 18:23] LABS: Basophils # 0.1 K/mm3 (0-0.2); Basophils % 0.8 % (0.1-2.0); Eosinophils # 0.1 K/mm3 (0.0-0.4); Eosinophils % 0.3 % (0.1-12.0); Hematocrit 42.7 % (42.0-52.0); Hemoglobin 14.6 g/dL (14.1-18.0); Lymphocytes # 1.3 K/mm3 (0.7-4.5); Lymphocytes % 9.4 % (10-50); Mean Corpuscular HGB Conc 34.1 g/dL (31.8-35.4); Mean Corpuscular Hemoglobin 31.4 pg (27.0-31.2); Mean Corpuscular Volume 92.1 fl (80-94); Mean Platelet Volume 8.1 fl (7.4-10.4); Monocytes # 0.7 K/mm3 (0.1-1.0); Monocytes % 4.7 % (1.7-9.3); Neutrophils # 11.7 K/mm3 (1.8-7.8); Neutrophils % 84.8 % (37.0-80.0); Platelet Count 284 K/mm3 (142-424); Red Blood Count 4.64 M/mm3 (4.60-6.20); White Blood Count 13.8 K/mm3 (4.8-10.8)
[2023-06-20 18:24] LABS: Influenza A, PCR Not Detected (NotDetected); Influenza B, PCR Not Detected (NotDetected)
--- NOTE | 2023-06-20 18:25 | XR_ITS ---
PROCEDURE INFORMATION: Exam: XR Chest Exam date and time: 06/20/2023 6:24 PM Age: 77 years old Clinical indication: Fever; Additional info: Weakness, fever TECHNIQUE: Imaging protocol: Radiologic exam of the chest. Views: 1 view. COMPARISON: CR XR CHEST PORTABLE 03/02/2023 4:48 PM FINDINGS: Lungs: Unremarkable. No consolidation. Pleural spaces: Unremarkable. No pleural effusion. No pneumothorax. Heart/Mediastinum: Heart size mildly enlarged and stable. Bones/joints: Unremarkable. IMPRESSION: Stable chest x-ray with no acute disease.
[2023-06-20 18:28] LABS: Chloride 101 mmol/L (98-107)
[2023-06-20 18:29] LABS: Potassium 3.9 mmoL/L (3.5-5.1); Sodium 133 mmol/L (136-145)
[2023-06-20 18:30] VITALS: BP 162/93; PULSE 74; O2SAT 96
[2023-06-20 18:31] LABS: Alanine Aminotransferase 40 U/L (12-78); Aspartate Amino Transferase 37 U/L (17-59); Blood Urea Nitrogen 16 mg/dl (9-20); Creatinine Clearance Estimated 72 mL/min (50-200); Estimated Glomerular Filt Rate 109 ml/min (>60); GFR (African American) 132 ML/MIN (>60)
--- NOTE | 2023-06-20 18:31 | PC.NURSE ---
lab called about pt blood needed for labs, lab will be to draw it
[2023-06-20 18:32] LABS: Albumin Level 4.2 g/dl (3.5-5.0); Albumin/Globulin Ratio 1.4 (1.1-1.8); Alkaline Phosphatase 101 U/L (38-126); Anion Gap 11.9 mEq/L (5-15); Bilirubin,Total 1.9 mg/dl (0.2-1.3); Calcium 9.8 mg/dl (8.4-10.2); Carbon Dioxide 24 mmol/L (22.0-30.0); Globulin 2.9 g/dL (1.3-3.2); Glucose 191 mg/dl (74-100); Total Protein,Serum 7.1 g/dl (6.3-8.2)
[2023-06-20] MEDS: LACTATED RINGERS 1000ML 1,000 ML 999 ML IV (18:37)
[2023-06-20] MEDS: KETOROLAC 30MG/ML VIAL 15 MG IV (18:38)
[2023-06-20] MEDS: ACETAMINOPHEN 1,000MG/100ML VIAL 1000 MG IV (18:38)
--- NOTE | 2023-06-20 18:40 | PC.NURSE ---
pt aware that urine sample is needed, urinal given
[2023-06-20 18:49] LABS: Coronavirus 19, PCR Detected (NotDetected)
[2023-06-20 18:57] VITALS: BP 145/80; PULSE 74; O2SAT 96
[2023-06-20 19:01] VITALS: BP 145/76
--- NOTE | 2023-06-20 19:09 | PC.NURSE ---
report given to oncoming shift.
[2023-06-20 19:12] LABS: Lactic Acid 2.4 mmol/L (0.7-2.1)
--- NOTE | 2023-06-20 19:17 | ECG_ITS ---
APPROVED REPORT Exam: Resting ECG HR:70 bpm ECG Measurements Heart Rate 70 AXES UT 224 P 49 QRSd 106 QRS 34 QT 396 T 48 QTc 417 Conclusion SINUS RHYTHM WITH FIRST DEGREE AV BLOCK NONSPECIFIC T-WAVE ABNORMALITY Electronically signed by : SKYLER BAUMAN, 06/20/2023 23:25:39
[2023-06-20 19:40] LABS: Microscopic, Urine URINE MICROSCOPIC (MICROSCOPIC)
--- NOTE | 2023-06-20 19:46 | PC.NURSE ---
pt tolerated ambuation well.
--- NOTE | 2023-06-20 19:47 | PC.NURSE ---
Patient ambulated well from room to bathroom with minimal assistance. Provider notified
[2023-06-20 19:51] VITALS: BP 145/76; PULSE 73; RESP 20; TEMP 36.6; O2SAT 96
[2023-06-20 20:10] LABS: Appearance,Urine CLEAR (Clear); Bilirubin,Urine Negative (Negative); Blood, Urine Negative (Negative); Color,Urine YELLOW (Yellow); Glucose,Urine (UA) TRACE (Negative); Ketones,Urine TRACE (Negative); Leukocyte Esterase,Urine Negative (Negative); Nitrate,Urine Negative (Negative); Protein,Urine Negative (Negative); Specific Gravity, Urine >= 1.030 (1.005-1.030)
[2023-06-20 22:58] LABS: Reflex Lactic Add Lactic Reflex
[2023-06-22 13:34] LABS: Myoglobin 46 ng/mL (28-72)
== END 2023-06-20 19:52 | disposition home or self-care (01) ==
PROVIDERS: Emergency Provider Physician Assistant; PCP Nurse Practitioner Family
DX: U07.1 COVID-19 (principal); E87.1 Hypo-osmolality and hyponatremia; I44.0 Atrioventricular block, first degree; R50.9 Fever, unspecified; R53.1 Weakness; R53.81 Other malaise; E11.9 Type 2 diabetes mellitus without complications; I11.9 Hypertensive heart disease without heart failure; I25.10 Atherosclerotic heart disease of native coronary artery without angina pectoris; E78.5 Hyperlipidemia, unspecified; Z79.84 Long term (current) use of oral hypoglycemic drugs; Z95.5 Presence of coronary angioplasty implant and graft
CPT/HCPCS: 71045; 80053; 81001; 83605; 83874; 85025; 87636; 93005; 96361; 96365; 96375; 99285; J0131

== ENCOUNTER 2023-06-26 16:32 | Outpatient (POV) | payer MEDICARE, SELFPAY | END 2023-06-26 23:59 | disposition home or self-care (01) | LOC: SC 16:32 | PROVIDERS: PCP Nurse Practitioner Family; Visit Provider Dermatology | DX: Z00.00 Encounter for general adult medical examination without abnormal findings (principal) ==

== ENCOUNTER 2023-07-30 09:42 | Outpatient (CLI) | payer MEDICARE, SELFPAY ==
--- NOTE | 2023-07-30 09:46 | FL_ITS ---
FINAL REPORT CLINICAL HISTORY: RECURRENT VOMITING 1322.84 dap 2.04 fluoro time FINDINGS: UPPER GI EXAM HISTORY: Acute epigastric pain with vomiting PROCEDURE: The patient ingested barium. Effervescent crystals were also administered. Spot and overhead films were obtained. FINDINGS: The esophagus is normal. There is no hiatal hernia. A 13 mm barium tablet passes through the esophagus and into the stomach without delay. There is no gastroesophageal reflux. Peristalsis is normal. The rugal fold pattern of the stomach is normal. The duodenal bulb is normal. Number of images: 26 Fluoro time: 2 minutes 4 seconds DAP: 1322.84 uGym2. IMPRESSION: Normal upper GI. Films reviewed , interpreted and dictated by Dr. Licea. Transcribed by John Thomas PA-C. Reviewed, Interpreted and Dictated by Usman Licea III, MD Transcribed by MIKA Ramirez Authenticated and [facility]
[2023-07-30] MEDS: BARIUM SULFATE(E-Z-AC);750ML BOTTLE 750 ML PO (10:31)
[2023-07-30] MEDS: BARIUM SULFATE (E-Z-HD 340GM);135ML BOTTLE 135 ML PO (10:31)
[2023-07-30] MEDS: E-Z-GASII EFFERVESCENT GRANULES;1PK 1 EACH PO (10:32)
== END 2023-07-30 23:59 | disposition home or self-care (01) ==
LOC: RAD 09:42
PROVIDERS: PCP Nurse Practitioner Family; Visit Provider Nurse Practitioner Family
DX: R11.10 Vomiting, unspecified (principal)
CPT/HCPCS: 74246

== ENCOUNTER 2023-08-06 09:03 | Outpatient (CLI) | payer MEDICARE, SELFPAY ==
--- NOTE | 2023-08-06 09:07 | US_ITS ---
FINAL REPORT CLINICAL HISTORY: RECURRENT VOMITING FINDINGS: ULTRASOUND GALLBLADDER Sonographic imaging of the gallbladder was obtained. The gallbladder is small with numerous tiny stones. Limited images of the pancreas are unremarkable. The right kidney measures 11 cm in length. There is a right renal cyst measuring 3 cm. IMPRESSION: Small gallbladder with numerous tiny stones. Right renal cyst. Reviewed, Interpreted and Dictated by Den Cronin MD Transcribed by Rekha Sandoval Authenticated and [facility]
== END 2023-08-06 23:59 | disposition home or self-care (01) ==
LOC: RAD 09:04
PROVIDERS: PCP Nurse Practitioner Family; Visit Provider Nurse Practitioner Family
DX: R11.10 Vomiting, unspecified (principal)
CPT/HCPCS: 76705

== ENCOUNTER 2023-09-10 08:18 | Day surgery (SDC) | payer MEDICARE, SELFPAY ==
[2023-09-10] VITALS (7 sets, daily range): BP systolic 114–154; BP diastolic 65–87; PULSE 45–58; RESP 14–17; TEMP 36.3–36.6; O2SAT 95–100; BMI 29.6
[2023-09-10 08:54] LABS: POC Glucose,Bedside 203 (70-110)
--- NOTE | 2023-09-10 09:02 | P.PNANES_ITS ---
[facility] Disclaimer: The information contained in this section may have been updated after the patient was seen, as this information can be updated by other users. Medical History Right chronic serous otitis media Vertigo This appears to be more of a disequilibrium issue. I do think he would benefit from vestibular therapy. If it should persist, I would recommend VNG and posturography examination. TIA (transient ischemic attack) Radius fracture Pulmonary HTN Degenerative joint disease (DJD) of lumbar spine Postlaminectomy syndrome Left Achilles tendinitis Left Achilles bursitis Type 2 diabetes mellitus with hyperglycemia, without long-term current use of insulin Varicose veins of both lower extremities DJD (degenerative joint disease) Diabetes mellitus HHD (hypertensive heart disease) History of myocardial infarction HLD (hyperlipidemia) HTN (hypertension) CAD (coronary artery disease) Surgical History History of back surgery History of coronary artery stent placement Family History Other No significant family history Social History Smoking Status: Never smoker second hand exposure: No alcohol intake: never substance use type: denies use current occupational status: retired and disabled Travel in the last 8 weeks: None household members: family housing: house number of children: 2 current occupational exposures/hazards: No caffeine: Yes [facility] Anesthesia Checklist Patient Identification Patient Identification: Arm Band and Verbal (Name & ) Structural Data Admitted From: Home Planned Operative Procedure/s: EGD Consent for Planned Operative Procedure(s) Verified: Yes Verified Documents: Surgical Consent and History and Physical NPO Status Verified Time NPO: 19:00 Chart Verification Results Verified: CBC, BMP, ECG and Chest Xray Additional verifications Fingerstick Blood Glucose: 203 Patient : No Anesthesia Reactions: No Hx Blood Transfusions: No Blood Transfusion Reaction: No Cardiovascular Assessment Heart Sounds: S1 & S2 Pulse Rhythm: Irregular Peripheral Edema: No Airway Assessment Mallampati Score:: Class II C-Spine Mobility Assessed: Yes (FROM) TMJ Mobility Assessed: Yes Dentition: Poor Dentition (Many missing. Nothing loose per pt.) Neurological Assessment Level of Consciousness: Awake, Alert, Appropriate and Follows Commands Hx Seizures: No Numbness or tingling in extremities: No Anesthesia Plan Anesthesia Risk discussed: Yes Anesthesia Plan: Verified ASA Class: III Anesthesia Type: MAC
--- NOTE | 2023-09-10 09:29 | P.PCN_ITS ---
Procedure: Date: 09/10/23 Patient Date of :: 1945 Procedure Performed:: Esophagogastroduodenoscopy with biopsies . Indications:: Patient presents for upper endoscopy. He is a 78-year-old male with history of TIA, pulmonary hypertension, type 2 diabetes, hypertensive heart disease, coronary artery disease, prior myocardial infarction with stents on Plavix, hypertension, hyperlipidemia, referred by Marley Lockhart for gallstones and seen in the office on 08/31/2023. He describes symptoms over about the past couple of months of mostly postprandial nausea and some discomfort. It is usually epigastric. Basically he states that he awakens early in the morning with epigastric fullness. This is not necessarily related to eating however he has been on a very limited diet due to his symptoms. He often has regurgitation of medications. He also feels some fullness in the throat early in the morning and has the need to clear his throat. He underwent upper GI series on 07/30/2023 which was normal. He had a gallbladder ultrasound on 08/06/2023 which reveals small gallbladder with numerous tiny stones. No mention of common bile duct. Given his history he underwent cardiac risk assessment and has been cleared for surgery. Apparently he has a history of hiatal hernia. When I last saw the patient in the office after his cardiology assessment I felt that his symptoms seemed much more consistent with upper GI etiology. Prior to proceeding immediately with surgical removal of the gallbladder I felt that upper endoscopy would be warranted and this was arranged to be done expeditiously. His symptoms been rather atypical for gallbladder disease. He does state that a couple of days ago he had vomiting with coffee in the morning without associated pain. . Performing Provider:: Usman Leone MD Referring Provider:: Marley Lockhart Sedation:: MAC sedation Procedure:: Patient history was obtained and appropriate physical examination was performed. Patient's medications and allergies were reviewed. Informed consent was obtained after explaining the benefits, alternatives, and risks of the procedure including, but not limited to, bleeding, perforation, missed lesions, and ad verse reaction to anesthesia medications. Patient was transported to endoscopy procedure room. Patient was connected to monitoring devices. Throughout the procedure the patient's blood pressure, p ulse, and oxygen saturations were monitored continuously. Patient identification and planned procedure were verified by the staff. Patient was positioned in lateral decubitus position. Olympus endoscope was inserted via the oropharynx. Esophagus was cannulated. Endoscope was advanced. There is minor tortuosity to the esophagus. Gastroesophageal junction was encountered at 42 cm from the incisors. No evidence of any appreciable esophagitis or obstructing lesion. Stomach was cannulated and insufflated. Retroflexion was performed which revealed an extremely tiny 1 to 2 cm sliding hiatal hernia. There is some diffuse mild to moderate nonerosive gastropathy/gastritis. Pylorus was traversed. Duodenum was carefully inspected which appeared to be normal. Biopsy was obtained at the duodenal sweep and within the duodenal bulb. Endoscope was withdrawn into the gastric lumen and a couple of biopsies were obtained in the antrum. Endoscope was withdrawn into the distal esophagus and a couple of distal esophageal biopsies were obtained. Stomach was desufflated and the endoscope was withdrawn. . Findings:: Mild tortuosity to the esophagus but no evidence of any appreciable esophagitis or obstructing lesion Gastroesophageal junction at 42 cm Mild to moderate diffuse nonerosive gastritis/gastropathy, biopsied Normal duodenum . Recommendations:: Upper endoscopy relatively unremarkable on endoscopic appearance. Follow-up on biopsies. May be reasonable to proceed with cholecystectomy. However, once again, his symptoms seem somewhat atypical. Could be secondary to gastroparesis. . Complications:: None immediately apparent Estimated blood obtained (mL): 1 Colonoscopy Component Colonoscopy Component Was a colonoscopy performed during today's procedure?: No
--- NOTE | 2023-09-10 09:32 | EXP.ANES.I ---
[facility] Anesthesia Record Part I Anesthesia Record I Intake, IV Amount: 300 Hydration: Adequate Estimated blood loss (mL): 1 Urine output (mL): 0 Blood Products used (#): none Blood Pressure: 114/65 SaO2: 96 Pulse Rate: 53 Airway Patency: Patent Respiratory Rate: 16 Temperature: 97.9 F Patient is:: Awake (Talking) and Stable Stable to PACU at:: 09:35
== END 2023-09-10 10:05 | disposition home or self-care (01) ==
PROVIDERS: PCP Nurse Practitioner Family; Visit Provider Surgery
PROC: 0DJ08ZZ Inspection of Upper Intestinal Tract, Via Natural or Artificial Opening Endoscopic (ICD-10-PCS; CPT 43235; principal; 2023-09-10 09:30)
DX: R10.13 Epigastric pain (principal); R11.0 Nausea; E11.9 Type 2 diabetes mellitus without complications; K44.9 Diaphragmatic hernia without obstruction or gangrene; K29.70 Gastritis, unspecified, without bleeding; K31.9 Disease of stomach and duodenum, unspecified
CPT/HCPCS: 43239; 82962; 88305

== ENCOUNTER 2023-09-18 13:34 | Outpatient (CLI) | payer MEDICARE, SELFPAY ==
[2023-09-18 14:01] LABS: Basophils # 0.1 K/mm3 (0-0.2); Basophils % 1.3 % (0.1-2.0); Eosinophils # 0.1 K/mm3 (0.0-0.4); Eosinophils % 0.9 % (0.1-12.0); Hematocrit 41.1 % (42.0-52.0); Hemoglobin 13.6 g/dL (14.1-18.0); Lymphocytes # 2.2 K/mm3 (0.7-4.5); Lymphocytes % 22.1 % (10-50); Mean Corpuscular Hemoglobin 30.8 pg (27.0-31.2); Mean Corpuscular Volume 93.3 fl (80-94); Mean Platelet Volume 8.2 fl (7.4-10.4); Monocytes # 0.4 K/mm3 (0.1-1.0); Monocytes % 3.7 % (1.7-9.3); Neutrophils # 7.2 K/mm3 (1.8-7.8); Platelet Count 352 K/mm3 (142-424); Red Blood Count 4.41 M/mm3 (4.60-6.20); Red Cell Distribution Width 14.5 % (11.5-17.5)
[2023-09-18 14:15] LABS: Alanine Aminotransferase 30 U/L (12-78); Albumin Level 4.2 g/dl (3.5-5.0); Albumin/Globulin Ratio 1.5 (1.1-1.8); Alkaline Phosphatase 68 U/L (38-126); Anion Gap 13.2 mEq/L (5-15); Aspartate Amino Transferase 31 U/L (17-59); Bilirubin,Total 1.4 mg/dl (0.2-1.3); Blood Urea Nitrogen 22 mg/dl (9-20); Calcium 10.8 mg/dl (8.4-10.2); Carbon Dioxide 26 mmol/L (22.0-30.0); Chloride 102 mmol/L (98-107); Estimated Glomerular Filt Rate 82 ml/min (>60); GFR (African American) 99 ML/MIN (>60); Globulin 2.8 g/dL (1.3-3.2); Glucose 214 mg/dl (74-100); Potassium 4.2 mmoL/L (3.5-5.1); Sodium 137 mmol/L (136-145)
== END 2023-09-18 23:59 | disposition home or self-care (01) ==
LOC: LAB 13:35
PROVIDERS: PCP Nurse Practitioner Family; Visit Provider Surgery
DX: K80.20 Calculus of gallbladder without cholecystitis without obstruction (principal)
CPT/HCPCS: 36415; 80053; 85025

== ENCOUNTER → 2023-09-21 05:59 | Day surgery (SDC) | payer MEDICARE, SELFPAY ==
[2023-09-19 13:00] VITALS: BMI 29.0
[2023-09-21] VITALS (10 sets, daily range): BP systolic 125–147; BP diastolic 65–89; PULSE 56–63; RESP 16–18; TEMP 36.2–43; O2SAT 94–100; BMI 29.9
[2023-09-21] MEDS: LACTATED RINGERS 1000ML 1,000 ML 25 ML IV (06:39)
[2023-09-21] MEDS: CEFAZOLIN SODIUM 1 GM in 0.9 % SODIUM CHLORIDE 50 ML IV (07:23)
[2023-09-21] MEDS: ROPIVACAINE 0.5% 30ML VIAL 150 MG (07:47)
[2023-09-21] MEDS: LIDOCAINE 1% 20ML MDV 20 ML (07:47)
[2023-09-21 09:02] LABS: POC Glucose,Bedside 143 (70-110)
--- NOTE | 2023-09-21 09:04 | EXP.OP.NOTE ---
Date of procedure: 09/21/23 Pre-op Diagnosis:: Symptomatic gallstones Post-op Diagnosis:: Same Procedure performed:: Laparoscopic cholecystectomy Surgeon:: Usman Leone MD PROGRESSIVE DIE MAKER:: Haresh Hickey Anesthesia: GETEnrique Estimated blood loss (mL): 25 Clinical Note:: Patient presents for cholecystectomy. He is a 78-year-old male with history of TIA, pulmonary hypertension, type 2 diabetes, hypertensive heart disease, coronary artery disease, prior myocardial infarction with stents on Plavix, hypertension, hyperlipidemia, originally referred by Marley Lockhart for gallstones and seen in the office on 08/31/2023. He describes symptoms over about the past couple of months of nausea and some epigastric discomfort. He states that he awakens early in the morning with epigastric fullness. This is not necessarily related to eating however he has been on a very limited diet due to his symptoms. He often has regurgitation of medications. He also feels some fullness in the throat early in the morning and has the need to clear his throat. He underwent upper GI series on 07/30/2023 which was normal. He had a gallbladder ultrasound on 08/06/2023 which reveals small gallbladder with numerous tiny stones. No mention of common bile duct. Given his history he underwent cardiac risk assessment and has been cleared for surgery. When I last saw the patient in the office after his cardiology assessment I felt that his symptoms likely seemed much more consistent with upper GI etiology and that his symptoms seemed rather atypical for gallbladder disease. Therefore prior to proceeding with immediate cholecystectomy I performed expeditious outpatient endoscopy on 09/10/2023. He was found to have some mild tortuosity of the esophagus, gastroesophageal junction at 42 cm, mild to moderate diffuse nonerosive gastritis/gastropathy (), normal duodenum. Biopsies reveal normal duodenal mucosa, mild chronic gastritis, normal distal esophageal biopsies.Patient has gallstones with somewhat atypical symptoms with normal upper GI and unremarkable EGD. He was seen back in the office following upper endoscopy. He had ongoing symptoms. I discussed the options with him. I felt that it may be reasonable to proceed with cholecystectomy. I explained him the nature and details of this procedure along with associated risks and expected outcome. I explained to him that cholecystectomy may not alleviate his symptoms. He understands and agrees to proceed. . Operative findings:: He had findings of some hepatic steatosis with appearance of the liver consistent with early mild cirrhosis. Gallbladder was somewhat thickened and distended. He had a quite prominent cystic artery. . Operative note:: Consent was obtained and patient was taken to the operating room. Was given preoperative intravenous antibiotics. In the operating room he was placed in a supine position. General anesthesia was induced via endotracheal tube. Abdomen was prepped and draped in the standard surgical fashion. Subumbilical skin incision was made and while performing abdominal wall lift Veress needle was inserted. CO2 pneumoperitoneum was achieved to approximately 15 mmHg. 11 mm optical trocar was inserted at the umbilicus. Intraperitoneal contents were visualized. He was positioned in reverse Trendelenburg left side down. A couple 5 mm trocars were inserted in the right upper abdomen. 10 mm trocar was inserted in the epigastrium. Liver was found to have findings on apparent consistent with early mild cirrhosis. Liver was elevated and gallbladder was grasped retracted anteriorly and superiorly over the dome of the liver. Infundibulum of the gallbladder was retracted anterior laterally. Blunt dissection was carried out the neck of the gallbladder bluntly incising the visceral peritoneum. Prolonged dissection was carried out ultimately identifying the cystic duct and cystic artery in the critical view of safety. Cystic duct was multiply clipped and sharply divided. Due to the prominence of the cystic artery single Hemoclip was placed and then it was cauterized and divided with MERARI ultrasonic harmonic dayan. Gallbladder was carefully dissected free from the liver in a retrograde fashion using MERARI ultrasonic harmonic dayan. Gallbladder was placed within an Endo Catch retrieval device and removed from the peritoneal cavity via the umbilical trocar site which required some extension of the fascial incision for delivery. Gallbladder fossa was inspected for hemostasis. There appeared to be good hemostasis. Limited irrigation was performed of the perihepatic space and gallbladder fossa. Trocars were removed as CO2 pneumoperitoneum was evacuated. Fascia at the umbilical incision was closed with several interrupted 0 Vicryl sutures. Single 0 Vicryl suture was placed in the epigastric trocar site in the anterior fashion. Local anesthetic was infiltrated. Skin incision was closed with 4-0 Monocryl in a subcuticular fashion. Dermabond and dressings were applied. Condition: stable Disposition: PACU Complications:: None immediately apparent
--- NOTE | 2023-09-21 09:13 | P.PNANES_ITS ---
[facility] Anesthesia Record Part I Anesthesia Record I Intake, IV Amount: 1,000 Hydration: Adequate Estimated blood loss (mL): 10 Urine output (mL): 0 Blood Products used (#): none Blood Pressure: 128/75 SaO2: 95 Pulse Rate: 59 Airway Patency: Patent Respiratory Rate: 16 Temperature: 99.1 F Patient is:: Drowsy and Stable Stable to PACU at:: 09:05
--- NOTE | 2023-09-21 09:13 | EXP.ANES.CKL ---
[facility] Disclaimer: The information contained in this section may have been updated after the patient was seen, as this information can be updated by other users. Medical History Right chronic serous otitis media Vertigo TIA (transient ischemic attack) Radius fracture Pulmonary HTN Degenerative joint disease (DJD) of lumbar spine Postlaminectomy syndrome Left Achilles tendinitis Left Achilles bursitis Type 2 diabetes mellitus with hyperglycemia, without long-term current use of insulin Varicose veins of both lower extremities DJD (degenerative joint disease) Diabetes mellitus HHD (hypertensive heart disease) History of myocardial infarction HLD (hyperlipidemia) HTN (hypertension) CAD (coronary artery disease) Surgical History History of esophagogastroduodenoscopy (EGD) History of back surgery History of coronary artery stent placement Family History Other No significant family history Social History (Updated 09/21/23 @ 06:13 by Karly Hassan RN) Smoking Status: Never smoker second hand exposure: No alcohol intake: never substance use type: denies use current occupational status: retired and disabled Travel in the last 8 weeks: None household members: family housing: house number of children: 2 current occupational exposures/hazards: No caffeine: Yes [facility] Anesthesia Checklist Patient Identification Patient Identification: Arm Band Structural Data Admitted From: Home Planned Operative Procedure/s: Laparoscopic Cholecystectomy Consent for Planned Operative Procedure(s) Verified: Yes Verified Documents: Surgical Consent and History and Physical NPO Status Verified Time NPO: 00:00 Additional verifications Anesthesia Reactions: No Hx Blood Transfusions: No Blood Transfusion Reaction: No Airway Assessment Mallampati Score:: Class II C-Spine Mobility Assessed: Yes TMJ Mobility Assessed: Yes Dentition: Good Dentition Neurological Assessment Level of Consciousness: Awake, Alert and Appropriate Anesthesia Plan Anesthesia Risk discussed: Yes Anesthesia Plan: Verified ASA Class: III Anesthesia Type: General
--- NOTE | 2023-09-21 10:09 | EXP.ANES.II ---
[facility] Anesthesia Record Part II Anesthesia Record Part II Discharge Time: 09:35 Destination: Surgical Day Care (OP Surgery) PACU nurse assessment reviewed?: Yes Patient Condition:: Good Anesthesia Complications:: None Swallowing reflex intact?: Yes Airway Patency: Patent Cyanosis?: No Blood Pressure: 125/79 SaO2: 96 Respiratory Rate: 16 Pulse Rate: 57 Temperature: 99.1 F Mental Status: Alert & Oriented Pain level:: 0 Nausea and/or vomitting:: None Intake, IV Amount: 0 Hydration: Adequate
== END | disposition home or self-care (01) ==
PROVIDERS: PCP Nurse Practitioner Family; Visit Provider Surgery
PROC: 0FT44ZZ Resection of Gallbladder, Percutaneous Endoscopic Approach (ICD-10-PCS; CPT 47562; principal; 2023-09-21 07:30)
DX: K80.10 Calculus of gallbladder with chronic cholecystitis without obstruction (principal); E11.9 Type 2 diabetes mellitus without complications; Z79.84 Long term (current) use of oral hypoglycemic drugs; I10 Essential (primary) hypertension; I25.10 Atherosclerotic heart disease of native coronary artery without angina pectoris; Z79.899 Other long term (current) drug therapy
CPT/HCPCS: 47562; 82962; 88304; 96374; J3490; J1100; J2405; J3010; J7120

== ENCOUNTER 2023-10-24 07:52 | Outpatient (CLI) | payer MEDICARE, SELFPAY ==
--- NOTE | 2023-10-24 07:53 | CA_ITS ---
APPROVED REPORT EXAM: Comprehensive 2D, Doppler, and color-flow Echocardiogram Leather Finisher: Cece Juarez CRT Ht: 5 ft 5 in Wt: 174lbs BSA: 1.86 BP: 156/74 mmHg Indications: Shortness of Breath, Diabetes, CAD, Hyperlipidemia, Hypertension/HDD, PHTN, stents 2D Dimensions Left Atrium 3.96 cm LVEF (Haile's) 54.40 % LVOT 2.09 cm (M/F) 1.5-2.5 LV Volume 101.80 mL LA Volume 77.20 mL LA Volume Index 41.50 mL/m2 (M/F) 16-34 EF AP4 55.50 % EF AP2 53.4 % EF BP 54.4 % GL Strain -19.2 % M-Mode Dimensions RVDd 2.94 cm (0.9-2.6) LVDd 5.27 cm (3.5-5.7) Ao Diam 4.24 cm (2.0-3.7) LVDs 3.58 cm (3.5-5.7) IVSd 1.61 cm (0.6-1.1) PWd 0.80 cm (0.6-1.1) EF (Teich) 59.80% FS 32.10% EDV (Teich) 133.60 mL TAPSE 2.65 (<1.7) ESV (Teich) 53.70 mL LV Diastology E Decel Time 196 (160-240 msec) E/A Ratio 0.81 MED E' 4.6 (>= 7 cm/sec) MED A' 10.40 cm/s E'/MED E' Ratio 11.59 (<= 14) LAT E' 4.5 (>= 10 cm/sec) LAT A' 6.90 cm/s E/LAT E' Ratio 11.84 (<= 14) Aortic Valve AoV Peak Ezekiel. 116.0 (50-130 cm/s) AO Peak GR. 5.40 mmHg Mitral Valve MV E Max Ezekiel. 53.0 (40-130 cm/s) MV A Velocity 65.0 (40-130 cm/s) E/A Ratio 0.81 MV Decel. Time 196 (160-240 ms) Tricuspid Valve TR P. Velocity 268.00 cm/s RAP Estimate 10.00 mmHg RVSP 38.80 mmHg Left Ventricle The left ventricle is normal size. The left ventricular systolic function is normal. The left ventricular ejection fraction is within the normal range. There is increased LV wall thickness. There is normal LV segmental wall motion. The left ventricular diastolic function is normal. LVEF is 55%. Right Ventricle The right ventricle is normal size. The right ventricular systolic function is normal. Atria The left atrium is mildly dilated. The right atrium size is normal. There is no Doppler evidence of interatrial shunt. Aortic Valve The aortic valve is mildly thickened. There is no aortic valvular stenosis. Trace aortic regurgitation. Mitral Valve The mitral valve is normal in structure. No evidence of mitral valve stenosis. Mild mitral regurgitation. Tricuspid Valve The tricuspid valve leaflets are thin and pliable. Trace tricuspid regurgitation. There is insufficient TR jet to estimate RVSP. Pulmonic Valve The pulmonary valve is normal in structure. Mild pulmonic regurgitation. Great Vessels The aortic root is normal in size. The ascending aorta is normal in size. IVC is normal in size and collapses >50% with inspiration. Pericardium There is no pericardial effusion. Other Information Study Quality: Fair Conclusion Normal biventricular systolic function. Mild LA dilation. Mild MR. Electronically signed by : Rimma Lyon MD 10/28/2023 17:36:57
== END 2023-10-24 23:59 | disposition home or self-care (01) ==
LOC: RT 07:53
PROVIDERS: PCP Nurse Practitioner Family; Visit Provider Physician Assistant
DX: I25.10 Atherosclerotic heart disease of native coronary artery without angina pectoris (principal); I51.7 Cardiomegaly
CPT/HCPCS: 93306

== ENCOUNTER 2024-08-05 06:35 | Outpatient (CLI) | payer MEDICARE, SELFPAY ==
--- NOTE | 2024-08-05 | CA_ITS ---
APPROVED REPORT Exam: Pharmacologic Technologist: Amrita Colvin Ht: 5 ft 5 in Wt: 176 lbs BSA: 1.87 m2 HR: 86 bpm BP: 186/87 mmHg Stress Test Details Test: Lexiscan HR Resting HR: 86 bpm Max Heart Rate (APMHR): 141 bpm Max HR Achieved: 119 bpm Target HR (85% APMHR): 120 bpm % of APMHR: 84 Recovery HR: 101 bpm BP Resting BP: 186.0/87.0 mmHg Max BP: 210.0/136.0 mmHg Recovery BP: 186.0/116.0 mmHg ECG Resting ECG: Atrial fibrillation Stress ECG Conclusion Symptoms: Nausea, dyspnea Arrhythmias/Ectopy: Atrial fibrillation, PVC ST-T Changes: Less than [address] depression. Conclusion: EKG portion abnormal due to new onset atrial fibrillation, and abnormal blood pressure response. No significant changes. Patient sent to cardiology office for further evaluation. Electronically signed by : Rimma Lyon MD 08/06/2024 13:20:44
--- NOTE | 2024-08-05 07:00 | NM_ITS ---
APPROVED REPORT Exam: Nuclear Stress Test Indication: SOB, HTN, DM, High cholesterol, Family history, CAD, Hx of VA Patient Location: Outpatient Stress Tech: Amrita Vinicius MA Tech:Patsy Morales, ARRT, RT (R)(N) Ht: 5 ft 5 in Wt: 180 lbs HR: 91 bpm BP: 186/87 mmHg BSA: 1.89 m2 TID: 1.07 BMI: 29.9 History: SOB, HTN, DM, High cholesterol, Family history, CAD, Hx of VA Procedure: Patient received 0.4 mg of intravenous Lexiscan, resting heart rate 91 bpm, resting blood pressure 186/87 mmHg, with Lexiscan maximum heart rate achieved was 121 bpm which is % of the maximum predicted heart rate and blood pressure was 210/136 mmHg. Cardiac Stress and Resting SPECT Images: Resting and stress imaging in supine and prone position demonstrate no evidence of fixed or reversible perfusion defects. Gated imaging demonstrates moderate reduction of global LV systolic function. LVEF is calculated at 32%. Conclusion: No evidence of fixed or reversible perfusion defects. Gated imaging demonstrates moderate reduction of global LV systolic function. LVEF is calculated at 32%. Correlation of LV systolic function with new or recent TTE is suggested. Electronically signed by : Rimma Lyon MD 08/05/2024 11:33:43
[2024-08-05] MEDS: SODIUM CHLORIDE 0.9% 10ML SYR (RAD ONLY) 10 ML IV ×2 (08:55→08:56)
[2024-08-05] MEDS: REGADENOSON 0.4MG/5ML SYRINGE 0.4 MG IV (08:55)
[2024-08-05] MEDS: ISOTOPE MYOVIEW (PER STUDY) 1 DOSE IV (08:56)
== END 2024-08-05 23:59 | disposition home or self-care (01) ==
PROVIDERS: PCP Nurse Practitioner Family; Visit Provider Physician Assistant
DX: R06.02 Shortness of breath (principal); I25.10 Atherosclerotic heart disease of native coronary artery without angina pectoris; I10 Essential (primary) hypertension; I48.0 Paroxysmal atrial fibrillation
CPT/HCPCS: 78452; 93017; 93018; 93270; A9502; J2785

== ENCOUNTER 2024-08-19 09:22 | Inpatient (IN) | payer MEDICARE, SELFPAY ==
[2024-08-19] VITALS (16 sets, daily range): BP systolic 132–197; BP diastolic 87–113; PULSE 70–85; RESP 15–23; TEMP 36.6–36.8; O2SAT 94–98; BMI 30.9; BMI 29.2
--- NOTE | 2024-08-19 09:32 | ECG_ITS ---
APPROVED REPORT Exam: Resting ECG HR:79 bpm ECG Measurements Heart Rate 79 AXES QRSd 105 QRS 76 QT 393 T 51 QTc 427 Conclusion ATRIAL FIBRILLATION WITH ABERRANT CONDUCTION OR VENTRICULAR PREMATURE COMPLEXES ANTEROSEPTAL MYOCARDIAL INFARCTION , OF INDETERMINATE AGE [40+ ms Q WAVE IN V1-V4] No STEMI Electronically signed by : TOBY CARLSON, 08/20/2024 02:22:35
--- NOTE | 2024-08-19 09:37 | PC.NURSE ---
EKG done at 0932
[2024-08-19 10:03] LABS: Basophils # 0.1 K/mm3 (0-0.2); Basophils % 0.9 % (0.1-2.0); Eosinophils # 0.1 Kmm3 (0.0-0.4); Hematocrit 41.7 % (42.0-52.0); Hemoglobin 13.7 g/dL (14.1-18.0); Immature Granulocytes # 0.03 10^3uL; Immature Granulocytes % 0.3 %; Lymphocytes # 1.5 K/mm3 (0.7-4.5); Lymphocytes % 15.8 % (10-50); Mean Corpuscular HGB Conc 32.9 g/dL (31.8-35.4); Mean Corpuscular Hemoglobin 29.7 pg (27.0-31.2); Mean Corpuscular Volume 90.3 fl (80-94); Mean Platelet Volume 10.1 fl (7.4-10.4); Monocytes # 0.5 K/mm3 (0.1-1.0); Monocytes % 5.1 % (1.7-9.3); Neutrophils # 7.1 K/mm3 (1.8-7.8); Neutrophils % 76.9 % (37.0-80.0); Nucleated Red Blood Cells # 0 10^3/uL; Nucleated Red Blood Cells % 0 %; Platelet Count 293 K/mm3 (142-424); Red Blood Count 4.62 M/mm3 (4.60-6.20); Red Cell Distribution Width 13.2 % (11.5-17.5); Red Cell Distribution Width-SD 43.7 fL; White Blood Count 9.2 K/mm3 (4.8-10.8)
--- NOTE | 2024-08-19 10:07 | XR_ITS ---
FINAL REPORT CLINICAL HISTORY: chest pain, soa 2 weeks COMPARISON: 06/20/2023 FINDINGS: 2 views of the chest were obtained . The heart is normal in size. The mediastinum is within normal limits. There are new bilateral interstitial opacities which could represent pulmonary edema or pneumonia. There is no effusion or pneumothorax. Osseous structures are unremarkable. IMPRESSION: New bilateral interstitial opacities which could represent pulmonary edema or pneumonia. Reviewed, Interpreted and Dictated by Tila Raymundo MD Transcribed by Ml Mustafa Authenticated and [facility]
[2024-08-19 10:09] LABS: Potassium 3.9 mmoL/L (3.5-5.1)
[2024-08-19 10:10] LABS: Alanine Aminotransferase 14 U/L (12-78); Albumin Level 3.9 g/dl (3.5-5.0); Albumin/Globulin Ratio 1.3 (1.1-1.8); Alkaline Phosphatase 72 U/L (38-126); Anion Gap 10.9 mEq/L (5-15); Aspartate Amino Transferase 20 U/L (17-59); Bilirubin,Total 1.8 mg/dl (0.2-1.3); Blood Urea Nitrogen 13 mg/dl (9-20); Calcium 9.5 mg/dl (8.4-10.2); Carbon Dioxide 27 mmol/L (22.0-30.0); Chloride 106 mmol/L (98-107); Creatinine Clearance Estimated 71 mL/min (50-200); Estimated Glomerular Filt Rate 109 ml/min (>60); GFR (African American) 132 ML/MIN (>60); Globulin 2.9 g/dL (1.3-3.2); Glucose 138 mg/dl (74-100); Sodium 140 mmol/L (136-145); Total Protein,Serum 6.8 g/dl (6.3-8.2)
[2024-08-19] MEDS: ONDANSETRON 4MG/2ML VIAL 4 MG IV (10:23)
[2024-08-19] MEDS: BELLADONNA ALKALOIDS 60 ML ML PO (10:23)
[2024-08-19] MEDS: ASPIRIN 81MG CHEWABLE TABLET 324 MG PO (10:23)
[2024-08-19] MEDS: NITROGLYCERIN 0.4MG SL TABLET 0.4 MG SL (10:24)
[2024-08-19 10:27] LABS: D-Dimer 0.54 ug/mL (0.0-0.5)
[2024-08-19 10:40] LABS: NT Pro Brain Natriuretic Pep. 1660 pg/mL (0-450)
[2024-08-19 10:44] LABS: Troponin I < 0.01 ng/ml (0.00-0.034)
[2024-08-19 10:45] LABS: T4 (Thyroxine) 9.3 ug/dl (5.53-11.0)
[2024-08-19 10:58] LABS: Thyroid Stimulating Hormone 1.55 uIU/mL (0.465-4.68)
--- NOTE | 2024-08-19 11:16 | HMH.EDCP ---
Discharge Plan Disposition Patient Disposition: Admitted Condition: Good Clinical Impressions Clinical Impression: CHF (congestive heart failure), Pulmonary edema, Chest pain, HBP (high blood pressure), Atrial fibrillation Discharge ED Provider: Lilia Reagan HPI General Chief Complaint: Shortness of Breath/Dyspnea Stated Complaint: vomiting bp elevated Time Seen by Provider: 08/19/24 09:52 Mode of Arrival: Ambulatory Source of Information: Patient Description of Symptoms (Recalled from ER Triage Doc. by RN): Patient states he has been feeling short of breath for about 2-3 weeks, has had a stress test and saw Johnny Morton with cardiology yesterday and was prescribed a new medication because his heart is out of rhythm but he has not started it yet. Patient states he took all his blood pressure medication this morning but he vomited it back up. History of Present Illness HPI narrative: This patient is a 79-year-old male with a history of atrial fibrillation, CHF, hypertension, hyperlipidemia, hypertensive heart disease, CAD status post stenting, prior TIA, type 2 diabetes presenting to the Emergency Department for evaluation with concern for chest tightness, high blood pressure, and feeling like his heart is out of rhythm. Patient notes that he was just seen by cardiology yesterday and was told to stop taking his aspirin and to start taking Eliquis, but he has not yet picked that up. They also were increasing his heart medication because of irregular heart rhythm. It looks like they are increasing his bisoprolol. He states that he was doing okay yesterday, but when he woke up this morning he was feeling very bad chest tightness. He states that he then had an episode of emesis and felt a little bit better afterward, but the chest tightness is still there. He took his blood pressure and the systolic was greater than 200 at home this morning. He did vomit up all of his blood pressure medication. No back pain, abdominal pain, or other concerns. Related Data Home Medications ?Medication ?Instructions ?Recorded ?Confirmed tamsulosin 0.4 mg capsule 0.4 mg PO DAILY 11/10/21 08/19/24 metformin 1,000 mg tablet 1,000 mg PO BID 09/13/22 08/19/24 atorvastatin 20 mg tablet 10 mg PO HS 08/19/24 08/19/24 clopidogrel 75 mg tablet 75 mg PO DAILY 08/19/24 08/19/24 lisinopril 40 mg tablet 40 mg PO DAILY 08/19/24 08/19/24 pantoprazole 40 mg tablet,delayed 40 mg PO DAILY 08/19/24 08/19/24 release Previous Rx's ?Medication ?Instructions ?Recorded bisoprolol fumarate 10 mg tablet 20 mg (2 x 10 mg) PO DAILY #60 tabs 08/18/24 Allergies Allergy/AdvReac Type Severity Reaction Status Date / Time levofloxacin (From LEVAQUIN) Allergy Mild Anaphylaxis Verified 08/19/24 09:43 [facility] Disclaimer: The information contained in this section may have been updated after the patient was seen, as this information can be updated by other users. Medical History Afib SOB (shortness of breath) Right chronic serous otitis media Vertigo TIA (transient ischemic attack) Radius fracture Pulmonary HTN Degenerative joint disease (DJD) of lumbar spine Postlaminectomy syndrome Left Achilles tendinitis Left Achilles bursitis Type 2 diabetes mellitus with hyperglycemia, without long-term current use of insulin Varicose veins of both lower extremities DJD (degenerative joint disease) Diabetes mellitus HHD (hypertensive heart disease) History of myocardial infarction HLD (hyperlipidemia) HTN (hypertension) CAD (coronary artery disease) Surgical History History of laparoscopic cholecystectomy History of esophagogastroduodenoscopy (EGD) History of back surgery History of coronary artery stent placement Family History Other No significant family history Social History Smoking Status: Never smoker second hand exposure: No alcohol intake: never substance use type: denies use current occupational status: retired and disabled Travel in the last 8 weeks?: None household members: family housing: house number of children: 2 current occupational exposures/hazards: No caffeine: Yes Have you lived/traveled outside US in past 30 days?: No Contact w/someone who lives/traveled outside US past 30 days?: No Exposure to someone with infectious disease in past 14 days?: No Do you have a fever (greater than 100.4 F or 38 C)?: No Have you tested positive for COVID-19?: No Exposed to someone with COVID-19 in past 14 days?: No Do you have a sore throat?: No Do you have a cough?: No Do you have any weakness?: No Do you have any diarrhea?: No Are you experiencing any unusual bleeding?: No Do you have any muscle aches/pain?: No Do you have any abdominal pain?: No Are you experiencing loss of taste or smell?: No Other Medical History Have you received the Flu Vaccine for this season: Yes Have you received the Pneumonia Vaccine: Yes ROS Obtained: Yes All systems reviewed & no additional complaints except as documented Physical Exam General General appearance: alert, in no apparent distress and obese Head Head exam: atraumatic and normocephalic Eye Eye exam: Present normal appearance, PERRL and EOMI ENT ENT exam: Present normal exam, normal oropharynx, mucous membranes moist and normal external ear exam Neck Neck exam: Present normal inspection, full ROM and trachea midline; Absent tenderness Chest Chest inspection: Present normal inspection and symmetric chest wall rise; Absent tenderness Respiratory Respiratory exam: Present normal lung sounds bilaterally; Absent respiratory distress, wheezes, stridor or accessory muscle use Cardiovascular Cardiovascular exam: Present regular rate and normal rhythm Abdominal Exam Abdominal exam: Present soft; Absent distention, tenderness or guarding Extremities Exam Extremities exam: Present normal inspection, full ROM and normal capillary refill; Absent tenderness or edema Back Exam Back exam: Present normal inspection and full ROM; Absent tenderness Neurological Exam Neurological exam: Present alert, oriented X3, CN II-XII intact and normal gait; Absent motor sensory deficit Psychiatric Psychiatric exam: Present normal affect and normal mood Skin Skin exam: Present warm and dry HEART Score HEART Score HEART Score assessment performed?: Yes History (anamnesis): Moderately suspicious ECG: Normal Age: >65 years Risk factors: Atherosclerosis history Troponin: </= normal limit HEART Score: 5 Critical Care Critical Care Time Critical Care Time: No Medical Decision Making Luan Inquiry Pt receiving controlled substance: No Vital Signs Vital Signs: 08/19/24 09:37 08/19/24 10:00 08/19/24 10:23 Temperature 97.9 F Temperature Source Oral Pulse Rate 85 77 Pulse Rate [Right Radial] 78 Respiratory Rate 15 18 18 Blood Pressure 182/101 H 183/108 H Blood Pressure [Right Arm] 197/107 H Blood Pressure Mean 128 122 Blood Pressure Mean [Right Arm] 137 Blood Pressure Source Blood Pressure Source [Right Arm] Automatic Cuff Blood Pressure Position Blood Pressure Position [Right Arm] Sitting 02 Sat by Pulse Oximetry 97 96 97 Oxygen Delivery Method Room Air 08/19/24 11:01 08/19/24 11:30 08/19/24 12:01 Temperature Temperature Source Pulse Rate 78 76 77 Pulse Rate [Right Radial] Respiratory Rate 18 16 18 Blood Pressure 154/88 H 157/94 H 165/102 H Blood Pressure [Right Arm] Blood Pressure Mean 110 107 110 Blood Pressure Mean [Right Arm] Blood Pressure Source Blood Pressure Source [Right Arm] Blood Pressure Position Blood Pressure Position [Right Arm] 02 Sat by Pulse Oximetry 97 95 97 Oxygen Delivery Method 08/19/24 12:30 08/19/24 13:00 08/19/24 13:30 Temperature Temperature Source Pulse Rate 76 76 77 Pulse Rate [Right Radial] Respiratory Rate 17 18 18 Blood Pressure 158/87 H 175/96 H 152/90 H Blood Pressure [Right Arm] Blood Pressure Mean 110 113 110 Blood Pressure Mean [Right Arm] Blood Pressure Source Blood Pressure Source [Right Arm] Blood Pressure Position Blood Pressure Position [Right Arm] 02 Sat by Pulse Oximetry 95 94 L 98 Oxygen Delivery Method 08/19/24 14:00 08/19/24 14:31 08/19/24 15:05 Temperature Temperature Source Pulse Rate 79 76 Pulse Rate [Right Radial] Respiratory Rate 16 18 Blood Pressure 171/103 H 160/104 H Blood Pressure [Right Arm] Blood Pressure Mean Blood Pressure Mean [Right Arm] Blood Pressure Source Blood Pressure Source [Right Arm] Blood Pressure Position Blood Pressure Position [Right Arm] 02 Sat by Pulse Oximetry 94 L Oxygen Delivery Method Room Air Room Air 08/19/24 15:59 08/19/24 16:00 Temperature 98.3 F 97.9 F Temperature Source Oral Oral Pulse Rate 83 Pulse Rate [Right Radial] 78 Respiratory Rate 18 23 Blood Pressure 132/100 H Blood Pressure [Right Arm] 132/113 H Blood Pressure Mean Blood Pressure Mean [Right Arm] 119 Blood Pressure Source Automatic Cuff Blood Pressure Source [Right Arm] Automatic Cuff Blood Pressure Position Sitting Blood Pressure Position [Right Arm] 02 Sat by Pulse Oximetry 96 Oxygen Delivery Method Room Air Room Air Lab Data Labs: Lab Results 08/19/24 09:50: WBC 9.2, RBC 4.62, Hgb 13.7 L, Hct 41.7 L, MCV 90.3, MCH 29.7, MCHC 32.9, RDW 13.2, Plt Count 293, MPV 10.1, Neut % (Auto) 76.9, Lymph % (Auto) 15.8, [place] % (Auto) 5.1, Eos % (Auto) 1.0, Baso % (Auto) 0.9, Neut # (Auto) 7.1, Lymph # (Auto) 1.5, [place] # (Auto) 0.5, Eos # (Auto) 0.1, Baso # (Auto) 0.1, D-Dimer 0.54 H, Sodium 140, Potassium 3.9, Chloride 106, Carbon Dioxide 27, Anion Gap 10.9, BUN 13, Creatinine 0.70, Estimated Creat Clear 71, Estimated GFR 109, Est GFR ( Amer) 132, Glucose 138 H, Calcium 9.5, Total Bilirubin 1.8 H, AST 20, ALT 14, Alkaline Phosphatase 72, Troponin I < 0.01, NT-Pro-B Natriuret Pep 1660 H, Total Protein 6.8, Albumin 3.9, Globulin 2.9, Albumin/Globulin Ratio 1.3, TSH 1.55, Thyroxine (T4) 9.3 08/19/24 12:46: Troponin I < 0.01 08/19/24 09:50 08/19/24 09:50 Response Orders (Tests/Meds): ED MEDICATIONS Generic Name Dose Route Start Last Admin Trade Name Freq PRN Reason Stop Dose Admin Acetaminophen 650 mg 08/19/24 15:45 Acetaminophen 325mg Tab PO 09/18/24 15:44 Q4HP PRN Fever or Mild Pain (1-3) Enoxaparin Sodium 40 mg 08/20/24 09:00 Enoxaparin 40mg/0.4ml Syringe SUBCUT 09/19/24 08:59 DAILY FOREIGN Furosemide 40 mg 08/19/24 17:15 08/19/24 17:42 Furosemide 40mg/4ml Vial IV 09/18/24 17:14 40 mg DAILY FOREIGN Administration Insulin Human Lispro 0 unit 08/19/24 16:30 08/19/24 16:05 Humalog 100 Units/Ml 10ml Vial (Ssi) SUBCUT 09/18/24 16:29 Not Given ACHS [facility] Protocol Ondansetron HCl 4 mg 08/19/24 15:45 Ondansetron 4mg/2ml Vial IV 09/18/24 15:44 Q6HP PRN Nausea Discontinued Medications Generic Name Dose Route Start Last Admin Trade Name Luis Albertoq PRN Reason Stop Dose Admin Aspirin 324 mg 08/19/24 10:07 08/19/24 10:23 Aspirin 81mg Chewable Tablet PO 08/19/24 10:08 324 mg ONCE ONE Administration Belladonna Alkaloids 60 ml 08/19/24 10:07 08/19/24 10:23 Belladonna Alkaloids 60 Ml Ml PO 08/19/24 10:08 60 ml ONCE ONE Administration Nitroglycerin 0.4 mg 08/19/24 10:07 08/19/24 10:24 Nitroglycerin 0.4mg Sl Tablet SL 08/19/24 10:08 0.4 mg ONCE ONE Administration Ondansetron HCl 4 mg 08/19/24 10:09 08/19/24 10:23 Ondansetron 4mg/2ml Vial IV 08/19/24 10:10 4 mg ONCE ONE Administration ORDERS Category Date Time Status Cardiology Consult [Consult to Cardiology] [CONS] Cons 08/19/24 13:48 Active Routine CXR 2 view (NOT portable) [XR chest 2V] Stat Exams 08/19/24 10:07 Completed BNP [NT Pro Brain Natriuretic Pep.] Stat Lab 08/19/24 09:50 Completed Complete Blood Count Auto Diff Stat Lab 08/19/24 09:50 Completed Comprehensive Metabolic Panel Stat Lab 08/19/24 09:50 Completed D-Dimer Stat Lab 08/19/24 09:50 Completed T4 (Thyroxine) Stat Lab 08/19/24 09:50 Completed TSH [Thyroid Stimulating Hormone] Stat Lab 08/19/24 09:50 Completed Trop I [Troponin I] Stat Lab 08/19/24 09:50 Completed Troponin I Q3H Lab 08/19/24 12:46 Completed Troponin I Q3H Lab 08/19/24 16:15 Completed ECG Data Tracing #1: Attestation: I reviewed this ECG and interpreted as documented below: ECG Narrative: Atrial fibrillation with a ventricular rate of 79 bpm. No acute STEMI. PVC noted ECG initial impression date: 08/19/24 ECG initial impression time: 09:35 MDM Narrative Medical Decision Narrative: In summary, this patient is a 79-year-old male presenting to the Emergency Department for evaluation of chest tightness, high blood pressure at home, irregular heart rate, and an episode of emesis this morning. Differential diagnoses considered include but are not limited to ACS, dysrhythmia, hypertensive urgency, hypertensive emergency, GERD, costochondritis. Ruling out the most morbid conditions drove assessment. It should be noted patient's history includes CAD status post stenting, hypertension, hypertensive heart disease, atrial fibrillation, CHF which may or may not be at goal therapy. This complicates all aspects of care by increasing patient's risk for morbidity. I reviewed patient's past medical records and noted cardiology evaluation yesterday, at which point patient complained that he had been having episodes of emesis in the mornings. He also was prescribed Eliquis for anticoagulation and told to stop his aspirin. His bisoprolol was also increased. He was given GI referral for vomiting, but has not yet seen GI. On exam, the patient is sitting upright in no acute distress. He is hypertensive with systolics in the 180s on my assessment, but otherwise vitals are reassuring on cardiac telemetry. He is in atrial fibrillation with an irregularly irregular heart rate but he is rate controlled. Abdominal exam is benign with no tenderness. Workup included CBC, CMP, troponin, D-dimer, chest x-ray, EKG. EKG is reassuring with no acute ST changes. Patient was given oral aspirin, GI cocktail, and nitroglycerin for symptomatic improvement. I independently interpreted chest x-ray prior to the radiologist read and noted no acute focal consolidation concerning for pneumonia, no pneumothorax, but he does have pulmonary edema. Please see their read for final interpretation. Labs were obtained that demonstrated negative initial troponin, reassuring CBC with no significant leukocytosis or anemia, reassuring chemistry with normal liver enzymes. Bilirubin is very mildly elevated, which is chronic. BNP is slightly elevated from prior at 1660, though he does not look grossly volume overloaded on clinical exam. On reassessment, patient had decent improvement after administration of interventions above. He is resting comfortably with improved vital signs on cardiac telemetry with systolics in the 150s. Heart rate is still in the 70s in atrial fibrillation. At 1115, patient was placed in ED observation status pending second troponin to determine whether or not the patient would be appropriate for discharge versus admission. The patient was provided serial reevaluations and cardiac monitoring while awaiting ultimate disposition. Patient's second troponin resulted and is also negative, and on reassessment he states he is feeling okay. He does have elevation in BNP with pulmonary edema noted on chest x-ray and had concerning chest pain this morning. I reviewed his records and the stress test demonstrated an EF of around 32% when previously he had had normal EF, so I called and had an interactive discussion with Dr. Aguayo with cardiology who recommended admission for potential cath or further workup tomorrow. I then had an interactive discussion with the hospitalist who admitted the patient in stable condition at 2:15 PM. Total ED observation time was 3 hours.
[2024-08-19 13:38] LABS: Troponin I < 0.01 ng/ml (0.00-0.034)
--- NOTE | 2024-08-19 13:50 | PC.NURSE ---
Dr. Reagan spoke with Dr. Aguayo who states pt will get a heart cath tomorrow.
--- NOTE | 2024-08-19 14:00 | PC.NURSE ---
house notified of admission
--- NOTE | 2024-08-19 14:45 | HMH.PHAINT1 ---
Pharmacy Intervention Comments: MEDICATION RECONCILIATION COMPLETED ON PATIENT USING EXTERNAL FILL HISTORY FROM PHARMACY AND LIST FROM CARDIOLOGY OFFICE. -BRAEDEN HINDS, SONJAD
--- NOTE | 2024-08-19 15:44 | EXP.HP ---
History of Present Illness *Admission Date: 08/19/24 *Reason for visit:: Chest pain *History of present illness: Rocky Combs is a 79-year-old male with a medical history significant for CAD with stents, A-fib on Eliquis, hypertension, type 2 diabetes who presents with acute onset chest pain around 8 AM this morning. It lasted up until he arrived to the ED. He states last time he had this some lower midsternal chest pain was when he had his heart attack about 10 years ago which required 2 stents. No radiation. He does endorse chronic intermittent nausea/vomiting that is not related to eating. It occurred again this morning. Unclear if it is of cardiac origin. On arrival, BP 197/107. Troponins negative, EKG without acute ischemic changes. CXR showing bibasilar opacities suggestive of pneumonia versus edema. BNP elevated 1660. On room air. ED reached out to Dr. Aguayo who recommended LHC in the morning. Case discussed with ED provider and decision was made to admit patient for ACS workup. [facility] Disclaimer: The information contained in this section may have been updated after the patient was seen, as this information can be updated by other users. Medical History Afib SOB (shortness of breath) Right chronic serous otitis media Vertigo TIA (transient ischemic attack) Radius fracture Pulmonary HTN Degenerative joint disease (DJD) of lumbar spine Postlaminectomy syndrome Left Achilles tendinitis Left Achilles bursitis Type 2 diabetes mellitus with hyperglycemia, without long-term current use of insulin Varicose veins of both lower extremities DJD (degenerative joint disease) Diabetes mellitus HHD (hypertensive heart disease) History of myocardial infarction HLD (hyperlipidemia) HTN (hypertension) CAD (coronary artery disease) Surgical History History of laparoscopic cholecystectomy History of esophagogastroduodenoscopy (EGD) History of back surgery History of coronary artery stent placement Family History Other No significant family history Social History Smoking Status: Never smoker second hand exposure: No alcohol intake: never substance use type: denies use current occupational status: retired and disabled Travel in the last 8 weeks?: None household members: family housing: house number of children: 2 current occupational exposures/hazards: No caffeine: Yes Have you lived/traveled outside [place] in past 30 days?: No Contact w/someone who lives/traveled outside US past 30 days?: No Exposure to someone with infectious disease in past 14 days?: No Do you have a fever (greater than 100.4 F or 38 C)?: No Have you tested positive for COVID-19?: No Exposed to someone with COVID-19 in past 14 days?: No Do you have a sore throat?: No Do you have a cough?: No Do you have any weakness?: No Do you have any diarrhea?: No Are you experiencing any unusual bleeding?: No Do you have any muscle aches/pain?: No Do you have any abdominal pain?: No Are you experiencing loss of taste or smell?: No Other Medical History Have you received the Flu Vaccine for this season: Yes Have you received the Pneumonia Vaccine: Yes Meds Home Medications and Allergies Home Medications ?Medication ?Instructions ?Recorded ?Confirmed ?Type tamsulosin 0.4 mg capsule 0.4 mg PO DAILY 11/10/21 08/19/24 History metformin 1,000 mg tablet 1,000 mg PO BID 09/13/22 08/19/24 History bisoprolol fumarate 10 mg tablet 20 mg (2 x 10 mg) PO DAILY #60 tabs 08/18/24 08/19/24 Rx atorvastatin 20 mg tablet 10 mg PO HS 08/19/24 08/19/24 History clopidogrel 75 mg tablet 75 mg PO DAILY 08/19/24 08/19/24 History lisinopril 40 mg tablet 40 mg PO DAILY 08/19/24 08/19/24 History pantoprazole 40 mg tablet,delayed 40 mg PO DAILY 08/19/24 08/19/24 History release New Prescriptions to Start Prescriptions: Allergies Allergy/AdvReac Type Severity Reaction Status Date / Time levofloxacin (From LEVAQUIN) Allergy Mild Anaphylaxis Verified 08/19/24 09:43 Exam Data for Last 24 hours Vital signs and Labs for Last 24 Hours: Temp Pulse Resp BP Pulse Ox O2 Del Method 97.9 F 76 18 160/104 H 94 L Room Air 08/19/24 09:37 08/19/24 14:31 08/19/24 14:31 08/19/24 14:31 08/19/24 14:31 08/19/24 14:31 Laboratory Results - last 24 hr 08/19/24 09:50: WBC 9.2, RBC 4.62, Hgb 13.7 L, Hct 41.7 L, MCV 90.3, MCH 29.7, MCHC 32.9, RDW 13.2, Plt Count 293, MPV 10.1, Neut % (Auto) 76.9, Lymph % (Auto) 15.8, [place] % (Auto) 5.1, Eos % (Auto) 1.0, Baso % (Auto) 0.9, Neut # (Auto) 7.1, Lymph # (Auto) 1.5, [place] # (Auto) 0.5, Eos # (Auto) 0.1, Baso # (Auto) 0.1, D-Dimer 0.54 H, Sodium 140, Potassium 3.9, Chloride 106, Carbon Dioxide 27, Anion Gap 10.9, BUN 13, Creatinine 0.70, Estimated Creat Clear 71, Estimated GFR 109, Est GFR ( Amer) 132, Glucose 138 H, Calcium 9.5, Total Bilirubin 1.8 H, AST 20, ALT 14, Alkaline Phosphatase 72, Troponin I < 0.01, NT-Pro-B Natriuret Pep 1660 H, Total Protein 6.8, Albumin 3.9, Globulin 2.9, Albumin/Globulin Ratio 1.3, TSH 1.55, Thyroxine (T4) 9.3 08/19/24 12:46: Troponin I < 0.01 I & O for Last 24 hours: Intake & Output 08/16/24 08/17/24 08/18/24 08/19/24 23:59 23:59 23:59 23:59 Weight 84.368 kg Constitutional Constitutional: no acute distress *Routine HEENT Exam Head: Present normocephalic Eye: Present EOMI and PERRL ENT: Present mucous membranes moist *Routine Neck Exam Neck: Present supple; Absent lymphadenopathy *Routine Respiratory Exam Respiratory: Present CTA bilaterally *Routine Cardiovascular Exam Cardiovascular: Present RRR *Routine Abdominal Exam Abdominal: Present soft and normoactive bowel sounds; Absent tenderness *Routine Rectal Exam Rectal:: deferred *Routine Genitalia Exam Genitalia:: deferred *Routine Extremities Exam Extremities: Absent cyanosis, clubbing or edema *Routine Skin Exam Skin: Present warm; Absent rash *Routine Neurological Exam Neurological: Present alert and oriented X3 Assessment and Plan *Assessment and plan (1) Chest pain: Status: Acute Category: Medical Code(s): R07.9 - Chest pain, unspecified Plan Rocky Combs is a 79-year-old male with a medical history significant for CAD with stents, A-fib on Eliquis, hypertension, type 2 diabetes who presents with acute onset chest pain around 8 AM this morning. It lasted up until he arrived to the ED. He states last time he had this some lower midsternal chest pain was when he had his heart attack about 10 years ago which required 2 stents. No radiation. He does endorse chronic intermittent nausea/vomiting that is not related to eating. It occurred again this morning. Unclear if it is of cardiac origin. On arrival, BP 197/107. Troponins negative, EKG without acute ischemic changes. CXR showing bibasilar opacities suggestive of pneumonia versus edema. BNP elevated 1660. Patient states he has experienced orthopnea for some time now has gotten worse. On room air. ED reached out to Dr. Aguayo who recommended LHC in the morning. Case discussed with ED provider and decision was made to admit patient for ACS workup. #Chest pain #History of CAD with stents #Suspected heart failure, unknown type new onset #Suspected community-acquired pneumonia #Hypertension ? Acute onset lower midsternal chest pain without radiation. Troponins, EKG unremarkable. ? CXR shows bibasilar opacities, pneumonia versus edema. BNP elevated to 1660. Patient endorses orthopnea. ? Aspirin 81 mg, atorvastatin 40 mg. ? IV ceftriaxone, azithromycin day 1/5 for suspected pneumonia. ? IV Lasix 40 mg daily for suspected heart failure. ? Continue home bisoprolol, lisinopril. Third up this morning, schedule lisinopril tonight. Labetalol as needed for BP greater than 200/100. ? Follow-up ECHO. ? Cardiology consulted, pending further recommendations. N.p.o. at midnight for tentative LHC in the morning. #Acute on chronic intermittent nausea/vomiting #GERD ? Not related to eating. History of GERD, on Protonix. ? GI consulted, pending further recommendations. Possible gastroparesis with a history of diabetes. ? Follow-up CT abdomen/pelvis. ? Continue Protonix 40 mg. #A-fib ? Continue home bisoprolol, Eliquis. #Type 2 diabetes ? Follow-up hemoglobin A1c. LDSSI, ACHS glucose checks. DNR/DNI DVT prophylaxis: Lovenox 40 mg
[2024-08-19 17:19] LABS: Troponin I < 0.01 ng/ml (0.00-0.034)
[2024-08-19] MEDS: FUROSEMIDE 40MG/4ML VIAL 40 MG IV (17:42)
--- NOTE | 2024-08-19 17:46 | PC.NURSE ---
new admit. no angina since arrival to floor. aox4. tolerating room air. ambulates in room independently. afib/flutter on tele.
--- NOTE | 2024-08-19 19:13 | CT_ITS ---
PROCEDURE INFORMATION: Exam: CT Abdomen And Pelvis With Contrast Exam date and time: 08/19/2024 7:34 PM Age: 79 years old Clinical indication: Other: Chronic intermittent nausea/vomiting TECHNIQUE: Imaging protocol: Computed tomography of the abdomen and pelvis with contrast. Radiation optimization: All CT scans at this facility use at least one of these dose optimization techniques: automated exposure control; mA and/or kV adjustment per patient size (includes targeted exams where dose is matched to clinical indication); or iterative reconstruction. Contrast material: ISOVUE; Contrast volume: 75 ml; Contrast route: IV; COMPARISON: 1. CT ANGIO CHEST 04/05/2020 12:25 PM 2. CR XR HIP LT 2-3V W/PELVIS 11/23/2020 11:10 AM FINDINGS: Lungs: Bibasilar interlobular septal thickening suggesting interstitial edema. Small to moderate-sized bibasilar pleural effusions [id number]-left. Liver: Normal. No mass. Gallbladder and biliary ducts: Status post cholecystectomy. No evident bile duct dilatation allowing for prior cholecystectomy. Pancreas: Normal. No ductal dilation. Spleen: Normal. No splenomegaly. Adrenal glands: A 20 mm left adrenal nodule incidentally noted. This is unchanged from CT chest 04/05/2020 compatible with adenoma. Kidneys and ureters: A 3.8 cm simple appearing cyst arises from the posterolateral right kidney. No follow-up advised. A 2 mm nonobstructing stone inferior left kidney. Kidneys and ureters otherwise unremarkable with no obstructing stones or uropathy. Stomach and bowel: Some scattered diverticula of the sigmoid and descending colon. Colon otherwise unremarkable with no evidence of diverticulitis. GI tract structures otherwise unremarkable with no evident wall thickening allowing for incomplete distention. Appendix: Appendix is normal. No evidence of appendicitis. Intraperitoneal space: Unremarkable. No free air. No significant fluid collection. Vasculature: Unremarkable. No abdominal aortic aneurysm. Lymph nodes: Unremarkable. No enlarged lymph nodes. Urinary bladder: A 12 mm stone noted in the posterior left side of the bladder. Bladder otherwise unremarkable. Reproductive: Unremarkable as visualized. Bones/joints: Unremarkable. No acute fracture. Soft tissues: Small fat containing inguinal hernias. IMPRESSION: 1. Bibasilar interlobular septal thickening suggesting interstitial edema. Small to moderate-sized bibasilar pleural effusions [id number]-left. 2. Tiny left kidney stone and 12 mm bladder stone. 3. Additional nonemergent findings as above. COMMENTS: Consistent with the [employer]'s Incidental Findings Committee white paper (J Am Moni Radiol 2018): Any incidental renal lesion less than 1 cm or classified as too small to characterize, or any incidental cystic renal lesion characterized as simple-appearing, is likely benign. No follow-up imaging is recommended for these lesions per consensus recommendations based on imaging criteria.
[2024-08-19 19:30] LABS: POC Glucose,Bedside 105 (70-110)
--- NOTE | 2024-08-19 19:31 | PC.NURSE ---
Patient left floor with radiology at 19:35.
[2024-08-19] MEDS: IOPAMIDOL-370 (76%);100ML BOTTLE 75 ML IV (19:32)
[2024-08-19] MEDS: SODIUM CHLORIDE 0.9% 10ML SYR (RAD ONLY) 10 ML IV (19:32)
--- NOTE | 2024-08-19 19:40 | PC.NURSE ---
Patient arrived back to floor from Radiology at 19:40.
[2024-08-19] MEDS: CEFTRIAXONE 1 GM 1 GM in 0.9 % SODIUM CHLORIDE 50 ML IV (19:50)
[2024-08-19] MEDS: AZITHROMYCIN 500 MG in 0.9 % SODIUM CHLORIDE 250 ML 250 MG IV (20:19)
[2024-08-19] MEDS: APIXABAN 5MG TABLET 5 MG PO (20:20)
[2024-08-19] MEDS: ATORVASTATIN 20MG TABLET 10 MG PO (20:24)
[2024-08-19] MEDS: humaLOG 100 UNITS/ML 10ML VIAL (SSI) SUBCUT (20:28)
[2024-08-19 20:40] LABS: POC Glucose,Bedside 192 (70-110)
[2024-08-20] VITALS (26 sets, daily range): BP systolic 121–190; BP diastolic 73–105; PULSE 68–99; RESP 14–24; TEMP 36.6–36.9; O2SAT 89–98; BMI 29.3
--- NOTE | 2024-08-20 06:00 | CA_ITS ---
APPROVED REPORT EXAM: Comprehensive 2D, Doppler, and color-flow Echocardiogram Apprentice: SHAUN Georges, RVS Ht: 5 ft 5 in Wt: 175lbs BSA: 1.87 BP: 160/104 mmHg Indications: Chest Pain, CAD, Afib 2D Dimensions IVSd 0.98 cm M: 0.6-1.2 LVEF (Visual) 39.70 % PWd 0.96 cm M: 0.6 - 1.2 LA Volume 122.60 mL LVDd 5.72 cm M: 4.2 - 5.9 LA Volume Index 65.56 mL/m2 (M/F) 16-34 LVDs 4.60 cm M: 2.5 - 4.0 Left Atrium 4.91 cm M: 3.0 - 4.0 M-Mode Dimensions RVDd 2.81 cm (0.9-2.6) LA Diam 4.46 cm (1.9-4.0) LVDd 6.12 cm (3.5-5.7) LVDs 4.98 cm (3.5-5.7) IVSd 0.95 cm (0.6-1.1) PWd 0.65 cm (0.6-1.1) EF (Teich) 37.80% EPSs 1.45 cm FS 18.60% EDV (Teich) 188.30 mL TAPSE 1.72 (<1.7) ESV (Teich) 117.10 mL LV Diastology E Decel Time 193 (160-240 msec) E/A Ratio 4.56 MED A' 2.00 cm/s LAT A' 3.20 cm/s Aortic Valve RADHA Index 1.38 cm2/m2 AoV Peak Ezekiel. 90.0 (50-130 cm/s) AO Peak GR. 3.20 mmHg AO Mean GR. 1.60 (<5 mmHg) AO VTI 17.8 (18-25 cm) RADHA (VTI) 2.63 (2.5-4.5 cm2) Mitral Valve MV A Velocity 23.0 (40-130 cm/s) E/A Ratio 4.56 Pulmonary Valve CA End VMAX 175.0 cm/s Tricuspid Valve TR P. Velocity 259.00 cm/s RAP Estimate 10.00 mmHg RVSP 36.90 mmHg Left Ventricle The left ventricle is normal size. Left ventricular systolic function is mildly decreased. There is increased LV wall thickness. There is mild global hypokinesis present. There is moderate hypokinesis of the septal and anteroseptal LV ruiz. Diastolic function is indeterminate. LVEF is 40-45%. Right Ventricle The right ventricle is normal size. The right ventricular systolic function is normal. Atria The left atrium is severely dilated. Right atrium is severely dilated. The interatrial septum is not well-visualized on the study. Aortic Valve The aortic valve is trileaflet. The aortic valve opens well. There is no aortic valvular stenosis. No aortic regurgitation is present. Mitral Valve The mitral valve is normal in structure. No evidence of mitral valve stenosis. Mild mitral regurgitation. Tricuspid Valve Tricuspid valve is grossly normal in structure and function. Mild tricuspid regurgitation. RVSP 30-35 mmHg. Pulmonic Valve The pulmonary valve is normal in structure. Mild pulmonic regurgitation. Great Vessels The aortic root is normal in size. IVC is normal in size and collapses >50% with inspiration. Pericardium There is no pericardial effusion. Other Information Study Quality: Fair Conclusion Mildly reduced LV systolic function (LVEF 40-45%). Moderate hypokinesis of the septal and anteroseptal LV ruiz. Severe biatrial dilation. Mild MR, mild TR, mild PI. Electronically signed by : Rimma Lyon MD 08/20/2024 12:20:45
[2024-08-20 06:10] LABS: POC Glucose,Bedside 113 (70-110)
--- NOTE | 2024-08-20 06:11 | PC.NURSE ---
Pt A&OX4 and has tolerated room air. Lung sounds clear and bowels sounds active. He has denied any chest pain or SOA. Receiving IV ABX. He has ambulated room independently. He has remained NPO since midnight. No complaints at this time, call light within reach.
[2024-08-20 06:35] LABS: Basophils # 0.1 K/mm3 (0-0.2); Basophils % 0.9 % (0.1-2.0); Eosinophils # 0.1 Kmm3 (0.0-0.4); Eosinophils % 0.8 % (0.1-12.0); Hematocrit 37.7 % (42.0-52.0); Immature Granulocytes # 0.02 10^3uL; Immature Granulocytes % 0.2 %; Lymphocytes # 2.2 K/mm3 (0.7-4.5); Lymphocytes % 25.9 % (10-50); Mean Corpuscular HGB Conc 32.1 g/dL (31.8-35.4); Mean Corpuscular Hemoglobin 28.8 pg (27.0-31.2); Mean Corpuscular Volume 89.8 fl (80-94); Mean Platelet Volume 10.4 fl (7.4-10.4); Monocytes # 0.5 K/mm3 (0.1-1.0); Neutrophils # 5.6 K/mm3 (1.8-7.8); Neutrophils % 66.2 % (37.0-80.0); Nucleated Red Blood Cells # 0 10^3/uL; Nucleated Red Blood Cells % 0 %; Platelet Count 255 K/mm3 (142-424); Red Cell Distribution Width 13.2 % (11.5-17.5); Red Cell Distribution Width-SD 43.3 fL; White Blood Count 8.5 K/mm3 (4.8-10.8)
[2024-08-20 06:44] LABS: Albumin Level 3.7 g/dl (3.5-5.0); Chloride 104 mmol/L (98-107); Potassium 3.4 mmoL/L (3.5-5.1); Sodium 139 mmol/L (136-145)
[2024-08-20 06:46] LABS: Alanine Aminotransferase 10 U/L (12-78); Alkaline Phosphatase 68 U/L (38-126); Anion Gap 9.4 mEq/L (5-15); Aspartate Amino Transferase 21 U/L (17-59); Bilirubin,Total 1.7 mg/dl (0.2-1.3); Blood Urea Nitrogen 14 mg/dl (9-20); Carbon Dioxide 29 mmol/L (22.0-30.0); Creatinine Clearance Estimated 68 mL/min (50-200); Estimated Glomerular Filt Rate 109 ml/min (>60); GFR (African American) 132 ML/MIN (>60)
[2024-08-20 06:47] LABS: Albumin/Globulin Ratio 1.5 (1.1-1.8); Calcium 8.9 mg/dl (8.4-10.2); Globulin 2.5 g/dL (1.3-3.2); Glucose 106 mg/dl (74-100); Magnesium 1.5 mg/dl (1.6-2.3); Total Protein,Serum 6.2 g/dl (6.3-8.2)
[2024-08-20] MEDS: LISINOPRIL 20MG TABLET 40 MG PO (08:05)
[2024-08-20] MEDS: CLOPIDOGREL 75MG TAB 75 MG PO (08:05)
[2024-08-20] MEDS: ASPIRIN EC 81MG TABLET 81 MG PO (08:06)
[2024-08-20] MEDS: BISOPROLOL 5MG TABLET 20 MG PO (08:06)
[2024-08-20] MEDS: FUROSEMIDE 40MG/4ML VIAL 40 MG IV (08:06)
[2024-08-20] MEDS: POTASSIUM CHLORIDE 20MEQ TAB 40 MEQ PO ×2 (08:07→13:01)
[2024-08-20] MEDS: MAGNESIUM SULFATE IN WATER 2 GM/50 ML PIGGYBACK IV ×2 (08:07→09:31)
[2024-08-20] MEDS: APIXABAN 5MG TABLET 5 MG PO ×2 (08:10→20:09)
[2024-08-20 08:16] LABS: Hemoglobin 12.3 g/dL (14.1-18.0)
--- NOTE | 2024-08-20 08:40 | CT_ITS ---
FINAL REPORT TECHNIQUE: Axial imaging of the chest is obtained after the administration of contrast. 3-D MIP reformatted images were also obtained and reviewed per PE protocol. This study was performed with techniques to keep radiation doses as low as reasonably achievable (ALARA). Individualized dose reduction techniques using automated exposure control or adjustment of mA and/or kV according to the patient's size were employed. CLINICAL HISTORY: chest pain, SOA COMPARISON: 03/02/2023 FINDINGS: The pulmonary arteries are well filled. There is no evidence of pulmonary embolus. The exam is nondiagnostic for aortic dissection, secondary to timing of the contrast bolus. The heart is enlarged. There are enlarged right paratracheal nodes, the largest measuring 22 mm in size, best seen on image #16, was previously 18 mm. There is an AP window node present, measuring 19 mm, was previously 17 mm in size. Mild bilateral hilar adenopathy is noted. There is interlobular septal thickening noted bilaterally, as well as patchy ground glass opacities in the lower lobes, although the ground glass opacities are not as prominent as seen on the prior exam. Favor that this represents pulmonary edema. Small bilateral pleural effusions are present. Limited evaluation of the upper abdomen is without acute abnormality. No acute osseous abnormality. IMPRESSION: No evidence of pulmonary embolism. The heart is enlarged, with small bilateral pleural effusions, interlobular septal thickening bilaterally, and patchy ground glass opacities, favor pulmonary edema. Mild mediastinal and hilar adenopathy, which can be seen in congestive heart failure. Reviewed, Interpreted and Dictated by Tila Raymundo MD Transcribed by Camila Jesus Authenticated and [facility]
[2024-08-20] MEDS: SODIUM CHLORIDE 0.9% 10ML SYR (RAD ONLY) 10 ML IV (09:21)
[2024-08-20] MEDS: 0.9 % SODIUM CHLORIDE 50 ML VIAL IV (09:21)
[2024-08-20] MEDS: IOPAMIDOL-370 (76%);100ML BOTTLE 85 ML IV (09:21)
--- NOTE | 2024-08-20 10:42 | IR_ITS ---
APPROVED REPORT Patient Location: Inpatient Solution Architect: NATALIYA Armenta RT (R) PROCEDURES Left heart catheterization Left ventriculogram Selective coronary angiogram INDICATION New onset cardiomyopathy, Unstable angina Informed consent was obtained prior to the procedure. COMPLICATIONS NONE Estimated Blood Loss: LESS THAN 10 ML TECHNIQUE One percent lidocaine used to anesthetize the right anterior aspect of the wrist. The right radial artery was accessed via the Seldinger technique. A 6 Persian sheath was placed in the right radial artery. 2.5 mg of Verapamil, 800 mcg of nitroglycerin, 1mg Lidocaine and 5000 U Heparin were given through the arterial sheath. The JL3 catheter was also used to perform left heart catheterization, left ventriculogram and selective coronary angiogram. At the end of the procedure the sheath was removed good hemostasis was achieved using Traclet band, patient was transferred to the postop holding area in stable condition. ANGIOGRAPHIC RESULTS The left main artery Normal The left anterior descending artery Is a small caliber vessel throughout with maximum diameter of 2 mm in the proximal segment. Proximally there is a 50% stenosis immediately proximal and distal to the first septal fiberglass boat builder. The rest of the LAD is patent just very narrow in caliber The circumflex artery Is nondominant and gives rise to a medium sized ramus intermedius which is widely patent. The circumflex artery gives rise to a medium sized first obtuse marginal artery which has a concentric 50% proximal stenosis. 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 Patient has new onset cardiomyopathy and has consistently had diastolic blood pressures over 100 mmHg. Today in the Hardness Inspector his blood pressure was 200/115 mmHg. He will be started on a night pride drip while adjustments in medical therapy are made 2. LDL less than 55 to be achieved with high intensity statin 3. At this point I am in favor of medical management of the coronary artery disease with more aggressive management of the hypertensive heart disease 4. Risk factor modification Electronically signed by : Bridger Aguayo MD 08/20/2024 11:43:11
[2024-08-20] MEDS: HEPARIN 1,000 UNITS/500ML NS (CATH LAB) 3000 UNIT IV (11:12)
[2024-08-20] MEDS: NITROGLYCERIN 800MCG/8ML SYR (CATH LAB) 800 MCG IA (11:13)
[2024-08-20] MEDS: LIDOCAINE 1% 10ML MDV 10 ML IJ (11:13)
[2024-08-20] MEDS: diphenhydrAMINE 50MG/ML VIAL 50 MG IV (11:13)
[2024-08-20] MEDS: VERAPAMIL 2.5MG/ML 2ML VIAL 2.5 MG IV (11:13)
[2024-08-20] MEDS: 0.9 % SODIUM CHLORIDE 500 ML 25 ML IV (11:13)
[2024-08-20] MEDS: HEPARIN 1,000 UNITS/ML 10ML VIAL (CATH LAB) 5000 UNIT IV (11:14)
--- NOTE | 2024-08-20 11:14 | PC.NURSE ---
Pt left with staff via wheelchair for heart cath
[2024-08-20] MEDS: FENTANYL 100MCG/2ML VIAL 50 MCG IV (11:38)
[2024-08-20] MEDS: MIDAZOLAM HCL 1MG/ML 5ML VIAL 1 MG IV (11:38)
[2024-08-20] MEDS: NITROPRUSSIDE SODIUM 50 MG in DEXTROSE 5 % IN WATER 250 ML 7.25 MG IV (11:51)
[2024-08-20] MEDS: IOPAMIDOL-370 (76%);100ML BOTTLE 60 ML IV (11:58)
--- NOTE | 2024-08-20 12:05 | EXP.CARD.CON ---
History of Present Illness History of Present Illness Consult date: 08/20/24 Requesting physician: Duc Madsen Consult reason: chest pain Chief complaint: chest pain and soa History of present illness: This is a 79-year-old white male with past medical history of coronary artery disease status post stenting in 2014, hypertension, A-fib newly diagnosed, diabetes mellitus and hypertension who presented to emergency department last night with complaints of chest pressure and shortness of breath. EKG on arrival to emergency department shows rate controlled A-fib at a rate of 79 with anteroseptal myocardial infarction of indeterminate age noted. Labs were as follow: WBC 9.2, hemoglobin 13.7, positive D-dimer, sodium 140, potassium 3.9 trending down to 3.4 on repeat, creatinine 0.7, liver enzymes normal, serial troponins negative and a BNP 1660. Patient was admitted for further evaluation by cardiology for chest pain. A CTA was obtained this morning due to elevated D-dimer which shows no evidence of pulmonary embolism but does show enlargement of heart with small bilateral pleural effusions, interlobar wall septal thickening bilaterally and patchy groundglass opacities favoring pulmonary edema. Preliminary echo report shows an EF of 40 to 45%. Patient has been started on Lasix 40 mg IV and left heart catheterization is pending. This morning on exam patient denies chest pain but reports shortness of breath with activity. [facility] Disclaimer: The information contained in this section may have been updated after the patient was seen, as this information can be updated by other users. Medical History Afib SOB (shortness of breath) Right chronic serous otitis media Vertigo TIA (transient ischemic attack) Radius fracture Pulmonary HTN Degenerative joint disease (DJD) of lumbar spine Postlaminectomy syndrome Left Achilles tendinitis Left Achilles bursitis Type 2 diabetes mellitus with hyperglycemia, without long-term current use of insulin Varicose veins of both lower extremities DJD (degenerative joint disease) Diabetes mellitus HHD (hypertensive heart disease) History of myocardial infarction HLD (hyperlipidemia) HTN (hypertension) CAD (coronary artery disease) Surgical History History of laparoscopic cholecystectomy History of esophagogastroduodenoscopy (EGD) History of back surgery History of coronary artery stent placement Family History Other No significant family history Social History Smoking Status: Never smoker second hand exposure: No alcohol intake: never substance use type: denies use current occupational status: retired and disabled Travel in the last 8 weeks?: None household members: family housing: house number of children: 2 current occupational exposures/hazards: No caffeine: Yes Have you lived/traveled outside [place] in past 30 days?: No Contact w/someone who lives/traveled outside US past 30 days?: No Exposure to someone with infectious disease in past 14 days?: No Do you have a fever (greater than 100.4 F or 38 C)?: No Have you tested positive for COVID-19?: No Exposed to someone with COVID-19 in past 14 days?: No Do you have a sore throat?: No Do you have a cough?: No Do you have any weakness?: No Do you have any diarrhea?: No Are you experiencing any unusual bleeding?: No Do you have any muscle aches/pain?: No Do you have any abdominal pain?: No Are you experiencing loss of taste or smell?: No Review of Systems Review of Systems Review of systems:: pertinent systems reviewed and negative unless documented below *Cardiovascular Cardiovascular: Reports chest pain and Reports dyspnea *Respiratory Respiratory: Reports dyspnea Exam Data for Last 24 hours Vital signs and Labs for Last 24 Hours: Temp Pulse Resp BP Pulse Ox O2 Del Method 97.8 F 84 15 166/94 H 96 Room Air 08/20/24 08:00 08/20/24 08:00 08/20/24 08:00 08/20/24 08:00 08/20/24 08:00 08/20/24 08:42 Laboratory Results - last 24 hr 08/19/24 12:46: Troponin I < 0.01 08/19/24 16:03: POC Glucose 105 08/19/24 16:15: Troponin I < 0.01 08/19/24 20:26: POC Glucose 192 H 08/20/24 05:45: WBC 8.5, RBC 4.20 L, Hgb 12.3 L D, Hct 37.7 L, MCV 89.8, MCH 28.8, MCHC 32.1, RDW 13.2, Plt Count 255, MPV 10.4, Neut % (Auto) 66.2, Lymph % (Auto) 25.9, [place] % (Auto) 6.0, Eos % (Auto) 0.8, Baso % (Auto) 0.9, Neut # (Auto) 5.6, Lymph # (Auto) 2.2, [place] # (Auto) 0.5, Eos # (Auto) 0.1, Baso # (Auto) 0.1, Sodium 139, Potassium 3.4 L, Chloride 104, Carbon Dioxide 29, Anion Gap 9.4, BUN 14, Creatinine 0.70, Estimated Creat Clear 68, Estimated GFR 109, Est GFR ( Amer) 132, Glucose 106 H D, Calcium 8.9, Magnesium 1.5 L, Total Bilirubin 1.7 H, AST 21, ALT 10 L D, Alkaline Phosphatase 68, Total Protein 6.2 L, Albumin 3.7, Globulin 2.5, Albumin/Globulin Ratio 1.5 08/20/24 06:02: POC Glucose 113 H I & O for Last 24 hours: Intake & Output 08/17/24 08/18/24 08/19/24 08/20/24 23:59 23:59 23:59 23:59 Intake Total 470 / 770 300 / 300 Output Total 0 / 0 Balance 470 / 770 300 / 300 Weight 175 lb 8 oz 176 lb 2 oz Constitutional Constitutional: no acute distress *Routine Respiratory Exam Respiratory: Present CTA bilaterally and symmetric chest movement *Routine Cardiovascular Exam Cardiovascular: Present Normal S1, Normal S2, irregular rhythm and irregularly irregular *Routine Abdominal Exam Abdominal: Present soft and normoactive bowel sounds; Absent tenderness *Routine Extremities Exam Extremities: Present full ROM and normal capillary refill; Absent edema *Routine Skin Exam Skin: Present intact, dry and warm Detailed Neck Exam: Thyroids Thyroid: Absent bruit Meds Home Medications and Allergies Home Medications ?Medication ?Instructions ?Recorded ?Confirmed ?Type tamsulosin 0.4 mg capsule 0.4 mg PO DAILY 11/10/21 08/19/24 History metformin 1,000 mg tablet 1,000 mg PO BID 09/13/22 08/19/24 History bisoprolol fumarate 10 mg tablet 20 mg (2 x 10 mg) PO DAILY #60 tabs 08/18/24 08/19/24 Rx atorvastatin 20 mg tablet 10 mg PO HS 08/19/24 08/19/24 History clopidogrel 75 mg tablet 75 mg PO DAILY 08/19/24 08/19/24 History lisinopril 40 mg tablet 40 mg PO DAILY 08/19/24 08/19/24 History pantoprazole 40 mg tablet,delayed 40 mg PO DAILY 08/19/24 08/19/24 History release New Prescriptions to Start Prescriptions: Allergies Allergy/AdvReac Type Severity Reaction Status Date / Time levofloxacin (From LEVAQUIN) Allergy Mild Anaphylaxis Verified 08/19/24 09:43 Assessment and Plan *Assessment and plan (1) Atrial fibrillation: Status: Acute Category: Medical Code(s): I48.91 - Unspecified atrial fibrillation (2) HBP (high blood pressure): Status: Acute Category: Medical Code(s): I10 - Essential (primary) hypertension (3) Chest pain: Status: Acute Category: Medical Code(s): R07.9 - Chest pain, unspecified (4) HFrEF (heart failure with reduced ejection fraction): Status: Acute Category: Medical Code(s): I50.20 - Unspecified systolic (congestive) heart failure (5) HLD (hyperlipidemia): Status: Chronic Qualifiers: Hyperlipidemia type: mixed hyperlipidemia Qualified Code(s): E78.2 - Mixed hyperlipidemia Category: Medical Code(s): E78.5 - Hyperlipidemia, unspecified (6) CAD (coronary artery disease): Status: Chronic Qualifiers: Coronary Disease-Associated Artery/Lesion type: [place] artery [place] vs. transplanted heart: [place] heart Associated angina: without angina Qualified Code(s): I25.10 - Atherosclerotic heart disease of [place] coronary artery without angina pectoris Category: Medical Code(s): I25.10 - Atherosclerotic heart disease of [place] coronary artery without angina pectoris Plan History of coronary artery disease History of FLASH in 2014 Normal Myoview for 2021 Presented with chest pain and shortness of breath Echocardiogram reveals a new ejection fraction of 40 to 45%. D-dimer was positive so a CTA chest was obtained which was negative for PE Will proceed with left heart catheterization to further evaluate for coronary artery disease in the setting of chest pain with newly diagnosed cardiomyopathy. Discussed risk versus benefits with patient he is agreeable to proceed. Continue DAPT therapy with aspirin Plavix and high-dose statin. New onset HFrEF Previously ejection fraction was normal, echo from today shows an estimated EF of 40 to 45%. Official read is pending Continue Lasix 40 mg IV daily Continue home dose of bisoprolol 20 mg daily Change lisinopril to Entresto 24/26 mg p.o. twice daily Add Aldactone 25 mg p.o. daily Will add Farxiga or Jardiance tomorrow A-fib, chadsvasc > 2 Continue bisoprolol 20 mg p.o. daily Resume Eliquis 5 mg p.o. twice daily after heart cath CV summary 08/20/2024: CTA chest is negative for PE. Continue to diurese patient with Lasix 40 mg IV daily. Preliminary echo report shows an EF of 40 to 45%. Start Entresto and Aldactone. Left heart catheterization is pending. Cardiac meds: Aspirin 81 mg daily Plavix 75 mg p.o. daily Atorvastatin 40 mg p.o. daily Bisoprolol 20 mg p.o. daily Eliquis 5 mg p.o. twice daily Entresto 24/26 mg p.o. twice daily Aldactone 25 mg p.o. daily Add Jardiance or Farxiga tomorrow
--- NOTE | 2024-08-20 12:18 | PC.NURSE ---
received Report from Nurse in wood and wood products labourer PANCHO Castelan. Patient was transported per stretcher to room 263.
[2024-08-20] MEDS: SPIRONOLACTONE 25MG TABLET 25 MG PO (12:48)
--- NOTE | 2024-08-20 15:37 | EXP.GE.CONS ---
History of Present Illness *Admission Date: 08/19/24 *History of present illness: Mr. Combs is a 79-year-old gentleman who is admitted after presenting to the ED with chest pain. He did have an acute AR 10 years ago at which time he had 2 coronary stents placed. His chest pain recurred again yesterday morning and on arrival, he was hemodynamically stable but blood pressure was elevated at 197/107. His troponins were negative and EKG was without ischemic change. His BNP was elevated at 1660. He did have a cardiac catheterization this morning. This did show coronary artery disease with first obtuse marginal artery with 50% stenosis and a smaller 1.5 mm second obtuse marginal artery with mid vessel 90% concentric stenosis. The RCA had some stenosis. It was recommended that he have the catheterization which took place this morning but the results are not yet available. The hypertensive cardiomyopathy was deemed not related to CASHD. GI was consulted for possibility of noncardiac chest pain. The patient does have a lot of belching, bloating and gassiness. He did have some nausea and vomiting. He has bowel irregularity with loose to hard stools. He does get some globus sensation in the mornings. He did have prior cholecystectomy(September 2023) but Usman Leone. He had an EGD in August [address] Leone that showed some mild esophageal tortuosity without esophagitis and mild to moderate gastropathy. [facility] Disclaimer: The information contained in this section may have been updated after the patient was seen, as this information can be updated by other users. Medical History Afib SOB (shortness of breath) Right chronic serous otitis media Vertigo TIA (transient ischemic attack) Radius fracture Pulmonary HTN Degenerative joint disease (DJD) of lumbar spine Postlaminectomy syndrome Left Achilles tendinitis Left Achilles bursitis Type 2 diabetes mellitus with hyperglycemia, without long-term current use of insulin Varicose veins of both lower extremities DJD (degenerative joint disease) Diabetes mellitus HHD (hypertensive heart disease) History of myocardial infarction HLD (hyperlipidemia) HTN (hypertension) CAD (coronary artery disease) Surgical History History of laparoscopic cholecystectomy History of esophagogastroduodenoscopy (EGD) History of back surgery History of coronary artery stent placement Family History Other No significant family history Social History Smoking Status: Never smoker second hand exposure: No alcohol intake: never substance use type: denies use current occupational status: retired and disabled Travel in the last 8 weeks?: None household members: family housing: house number of children: 2 current occupational exposures/hazards: No caffeine: Yes Have you lived/traveled outside [place] in past 30 days?: No Contact w/someone who lives/traveled outside US past 30 days?: No Exposure to someone with infectious disease in past 14 days?: No Do you have a fever (greater than 100.4 F or 38 C)?: No Have you tested positive for COVID-19?: No Exposed to someone with COVID-19 in past 14 days?: No Do you have a sore throat?: No Do you have a cough?: No Do you have any weakness?: No Do you have any diarrhea?: No Are you experiencing any unusual bleeding?: No Do you have any muscle aches/pain?: No Do you have any abdominal pain?: No Are you experiencing loss of taste or smell?: No Meds Home Medications and Allergies Home Medications ?Medication ?Instructions ?Recorded ?Confirmed ?Type tamsulosin 0.4 mg capsule 0.4 mg PO DAILY 11/10/21 08/19/24 History metformin 1,000 mg tablet 1,000 mg PO BID 09/13/22 08/19/24 History bisoprolol fumarate 10 mg tablet 20 mg (2 x 10 mg) PO DAILY #60 tabs 08/18/24 08/19/24 Rx atorvastatin 20 mg tablet 10 mg PO HS 08/19/24 08/19/24 History clopidogrel 75 mg tablet 75 mg PO DAILY 08/19/24 08/19/24 History lisinopril 40 mg tablet 40 mg PO DAILY 08/19/24 08/19/24 History pantoprazole 40 mg tablet,delayed 40 mg PO DAILY 08/19/24 08/19/24 History release New Prescriptions to Start Prescriptions: Allergies Allergy/AdvReac Type Severity Reaction Status Date / Time levofloxacin (From LEVFineline) Allergy Mild Anaphylaxis Verified 08/19/24 09:43 Exam (Inpt) Vital signs and Labs for Last 24 Hours: Temp Pulse Resp BP Pulse Ox O2 Del Method 98.0 F 70 18 149/84 H 96 Room Air 08/20/24 13:30 08/20/24 15:18 08/20/24 15:18 08/20/24 15:18 08/20/24 15:18 08/20/24 15:18 Laboratory Results - last 24 hr 08/19/24 16:03: POC Glucose 105 08/19/24 16:15: Troponin I < 0.01 08/19/24 20:26: POC Glucose 192 H 08/20/24 05:45: WBC 8.5, RBC 4.20 L, Hgb 12.3 L D, Hct 37.7 L, MCV 89.8, MCH 28.8, MCHC 32.1, RDW 13.2, Plt Count 255, MPV 10.4, Neut % (Auto) 66.2, Lymph % (Auto) 25.9, [place] % (Auto) 6.0, Eos % (Auto) 0.8, Baso % (Auto) 0.9, Neut # (Auto) 5.6, Lymph # (Auto) 2.2, [place] # (Auto) 0.5, Eos # (Auto) 0.1, Baso # (Auto) 0.1, Sodium 139, Potassium 3.4 L, Chloride 104, Carbon Dioxide 29, Anion Gap 9.4, BUN 14, Creatinine 0.70, Estimated Creat Clear 68, Estimated GFR 109, Est GFR ( Amer) 132, Glucose 106 H D, Calcium 8.9, Magnesium 1.5 L, Total Bilirubin 1.7 H, AST 21, ALT 10 L D, Alkaline Phosphatase 68, Total Protein 6.2 L, Albumin 3.7, Globulin 2.5, Albumin/Globulin Ratio 1.5 08/20/24 06:02: POC Glucose 113 H I & O for Labs for Last 24 Hours: Intake & Output 08/17/24 08/18/24 08/19/24 08/20/24 23:59 23:59 23:59 23:59 Intake Total 470 / 770 415.588 / 415.588 Output Total 0 / 0 100 / 100 Balance 470 / 770 315.588 / 315.588 Weight 175 lb 8 oz 176 lb 2 oz Comments:: Normoactive bowel sounds, moderate gaseous distention, nontender, benign abdomen Results Labs 08/20/24 05:45 08/20/24 05:45 Labs: Laboratory Results - last 24 hr 08/19/24 16:03: POC Glucose 105 08/19/24 16:15: Troponin I < 0.01 08/19/24 20:26: POC Glucose 192 H 08/20/24 05:45: WBC 8.5, RBC 4.20 L, Hgb 12.3 L D, Hct 37.7 L, MCV 89.8, MCH 28.8, MCHC 32.1, RDW 13.2, Plt Count 255, MPV 10.4, Neut % (Auto) 66.2, Lymph % (Auto) 25.9, [place] % (Auto) 6.0, Eos % (Auto) 0.8, Baso % (Auto) 0.9, Neut # (Auto) 5.6, Lymph # (Auto) 2.2, [place] # (Auto) 0.5, Eos # (Auto) 0.1, Baso # (Auto) 0.1, Sodium 139, Potassium 3.4 L, Chloride 104, Carbon Dioxide 29, Anion Gap 9.4, BUN 14, Creatinine 0.70, Estimated Creat Clear 68, Estimated GFR 109, Est GFR ( Amer) 132, Glucose 106 H D, Calcium 8.9, Magnesium 1.5 L, Total Bilirubin 1.7 H, AST 21, ALT 10 L D, Alkaline Phosphatase 68, Total Protein 6.2 L, Albumin 3.7, Globulin 2.5, Albumin/Globulin Ratio 1.5 08/20/24 06:02: POC Glucose 113 H Assessment and Plan *Assessment and plan (1) Chest pain: Status: Acute Category: Medical Code(s): R07.9 - Chest pain, unspecified (2) Chest pain, non-cardiac: Status: Acute Category: Medical Code(s): R07.89 - Other chest pain (3) Bloating: Status: Acute Category: Medical Code(s): R14.0 - Abdominal distension (gaseous) (4) Belching: Status: Acute Category: Medical Code(s): R14.2 - Eructation (5) Nausea: Status: Acute Category: Medical Code(s): R11.0 - Nausea (6) Irregular bowel habits: Status: Acute Category: Medical Code(s): R19.8 - Other specified symptoms and signs involving the digestive system and abdomen Plan 1. Chest pain. I am not convinced by clinical history this is unstable angina but would like to see results of his cardiac cath and whether this had clinical significance with requirement of coronary stent placement. His EKG and troponins were unchanged and normal but he did have elevated BNP which can be from other etiologies. His last EGD showed colonic tortuosity and he could have esophageal dyskinesia/esophageal spasm as the cause of his chest pain. This is often gas driven and the patient does have a lot of belching. I would consider EGD but he would need clearance by cardiology before we proceed and I know he is going to be on increased anticoagulation which increases bleeding risk. I will keep him n.p.o. after midnight tonight in case he is cleared by cardiology for EGD.
[2024-08-20] MEDS: SACUBITRIL/VALSARTAN 24-26MG TABLET 1 EACH PO (16:48)
[2024-08-20] MEDS: ACETAMINOPHEN 325MG TAB 650 MG PO (16:58)
[2024-08-20] MEDS: TAMSULOSIN 0.4MG CAPSULE 0.4 MG PO (17:28)
[2024-08-20 18:18] LABS: Microscopic, Urine URINE MICROSCOPIC (MICROSCOPIC)
[2024-08-20 18:19] LABS: Appearance,Urine SL CLOUDY (Clear); Bilirubin,Urine Negative (Negative); Blood, Urine 2+ (Negative); Color,Urine YELLOW (Yellow); Glucose,Urine (UA) Negative (Negative); Ketones,Urine 2+ (Negative); Leukocyte Esterase,Urine Negative (Negative); Nitrate,Urine Negative (Negative); PH,Urine 7.5 (5.0-8.5); Protein,Urine TRACE (Negative); Specific Gravity, Urine 1.015 (1.005-1.030)
[2024-08-20] MEDS: AZITHROMYCIN 500 MG in 0.9 % SODIUM CHLORIDE 250 ML 250 MG IV (18:22)
[2024-08-20 18:34] LABS: Amorphous Sediment,Urine 1+ /lpf; Bacteria,Urine 2+ /lpf; RBC,Urine TNTC #/hpf (0-3); Squamous Epithelial Cell,Urine Occasional #/hpf (0-5); WBC,Urine Occasional #/hpf (0-3)
[2024-08-20] MEDS: ATORVASTATIN 40MG TABLET 40 MG PO (20:09)
[2024-08-20] MEDS: PANTOPRAZOLE 40MG TABLET 40 MG PO (20:09)
[2024-08-20] MEDS: CEFTRIAXONE 1 GM 1 GM in 0.9 % SODIUM CHLORIDE 50 ML IV (20:09)
[2024-08-20] MEDS: ONDANSETRON 4MG/2ML VIAL 4 MG IV (20:16)
--- NOTE | 2024-08-20 21:30 | EXP.PN ---
Subjective *Date: 08/20/24 *Time: 21:30 Exam Data for Last 24 hours Vital signs and Labs for Last 24 Hours: Temp Pulse Resp BP Pulse Ox O2 Del Method 98.4 F 71 24 134/87 93 L Room Air 08/20/24 20:00 08/20/24 21:00 08/20/24 21:00 08/20/24 21:00 08/20/24 21:00 08/20/24 19:00 Laboratory Results - last 24 hr 08/20/24 05:45: WBC 8.5, RBC 4.20 L, Hgb 12.3 L D, Hct 37.7 L, MCV 89.8, MCH 28.8, MCHC 32.1, RDW 13.2, Plt Count 255, MPV 10.4, Neut % (Auto) 66.2, Lymph % (Auto) 25.9, [place] % (Auto) 6.0, Eos % (Auto) 0.8, Baso % (Auto) 0.9, Neut # (Auto) 5.6, Lymph # (Auto) 2.2, [place] # (Auto) 0.5, Eos # (Auto) 0.1, Baso # (Auto) 0.1, Sodium 139, Potassium 3.4 L, Chloride 104, Carbon Dioxide 29, Anion Gap 9.4, BUN 14, Creatinine 0.70, Estimated Creat Clear 68, Estimated GFR 109, Est GFR ( Amer) 132, Glucose 106 H D, Calcium 8.9, Magnesium 1.5 L, Total Bilirubin 1.7 H, AST 21, ALT 10 L D, Alkaline Phosphatase 68, Total Protein 6.2 L, Albumin 3.7, Globulin 2.5, Albumin/Globulin Ratio 1.5 08/20/24 06:02: POC Glucose 113 H 08/20/24 18:10: Urine Color Yellow, Urine Appearance Sl cloudy, Urine pH 7.5, Ur Specific [place] 1.015, Urine Protein Trace, Urine Glucose (UA) Negative, Urine Ketones 2+, Urine Blood 2+ A, Urine Nitrate Negative, Urine Bilirubin Negative, Urine Urobilinogen 1.0, Ur Leukocyte Esterase Negative, Urine RBC Tntc, Urine WBC Occasional, Ur Squamous Epith Cells Occasional, Amorphous Sediment 1+, Urine Bacteria 2+ I & O for Last 24 hours: Intake & Output 06/04/1208/18/24 08/19/24 08/20/24 23:59 23:59 23:59 23:59 Intake Total 470 / 770 415.588 / 415.588 Output Total 0 / 0 520 / 520 Balance 470 / 770 -104.412 / -104.412 Weight 79.605 kg 79.889 kg Constitutional Constitutional: no acute distress *Routine HEENT Exam Head: Present normocephalic Eye: Present EOMI and PERRL ENT: Present mucous membranes moist *Routine Neck Exam Neck: Present supple; Absent lymphadenopathy *Routine Respiratory Exam Respiratory: Present CTA bilaterally *Routine Cardiovascular Exam Cardiovascular: Present RRR *Routine Abdominal Exam Abdominal: Present soft and normoactive bowel sounds; Absent tenderness *Routine Extremities Exam Extremities: Absent cyanosis, clubbing or edema *Routine Skin Exam Skin: Present warm; Absent rash *Routine Neurological Exam Neurological: Present alert and oriented X3 Assessment and Plan *Assessment and plan (1) Chest pain: Status: Acute Category: Medical Code(s): R07.9 - Chest pain, unspecified Plan Rocky Combs is a 79-year-old male with a medical history significant for CAD with stents, A-fib on Eliquis, hypertension, type 2 diabetes who presents with acute onset chest pain around 8 AM this morning. It lasted up until he arrived to the ED. He states last time he had this some lower midsternal chest pain was when he had his heart attack about 10 years ago which required 2 stents. No radiation. He does endorse chronic intermittent nausea/vomiting that is not related to eating. It occurred again this morning. Unclear if it is of cardiac origin. On arrival, BP 197/107. Troponins negative, EKG without acute ischemic changes. CXR showing bibasilar opacities suggestive of pneumonia versus edema. BNP elevated 1660. Patient states he has experienced orthopnea for some time now has gotten worse. On room air. ED reached out to Dr. Aguayo who recommended LHC in the morning. Case discussed with ED provider and decision was made to admit patient for ACS workup. #Chest pain #History of CAD with stents #HFrEF exacerbation #Suspected community-acquired pneumonia #Hypertension ? Acute onset lower midsternal chest pain without radiation. Troponins, EKG unremarkable. ? CXR shows bibasilar opacities, pneumonia versus edema. BNP elevated to 1660. Patient endorses orthopnea. ? Aspirin 81 mg, atorvastatin 40 mg. ? IV ceftriaxone, azithromycin day 03/23 for suspected pneumonia. ? IV Lasix 40 mg daily for heart failure. ? Diuresing well, patient feels and breathing better today. ? ECHO LVEF 40-45% with wall motion abnomalities. S/p LHC without occlusive CAD. Required nipride after LHC due to BP > 200/100. Weaned off. - Cardiology started Entresto, Jardiance. #Acute on chronic intermittent nausea/vomiting #GERD ? Not related to eating. History of GERD, on Protonix. ? GI consulted, pending further recommendations. Possible gastroparesis with a history of diabetes. CT abdomen/pelvis without relevant findings. ? Continue Protonix 40 mg. - GI tentatively planning for EGD tomorrow. NPO at midnight. #Bladder stone #BPH - 1.2cm non-obstructive stone found on CT. Plan to refer to urology on discharge. - Started Flomax due to LUTS. #A-fib ? Continue home bisoprolol, Eliquis. #Type 2 diabetes ? A1c 6.4%. LDSSI, ACHS glucose checks. DNR/DNI DVT prophylaxis: Lovenox 40 mg
[2024-08-21] VITALS (21 sets, daily range): BP systolic 108–157; BP diastolic 70–98; PULSE 68–86; RESP 14–21; TEMP 36.6–36.9; O2SAT 90–98; BMI 28.5
[2024-08-21 06:02] LABS: Basophils # 0.1 K/mm3 (0-0.2); Eosinophils % 0.4 % (0.1-12.0); Hematocrit 40.3 % (42.0-52.0); Hemoglobin 13.3 g/dL (14.1-18.0); Immature Granulocytes # 0.03 10^3uL; Immature Granulocytes % 0.3 %; Lymphocytes # 2.4 K/mm3 (0.7-4.5); Lymphocytes % 24.5 % (10-50); Mean Corpuscular Hemoglobin 29.4 pg (27.0-31.2); Mean Corpuscular Volume 89.2 fl (80-94); Mean Platelet Volume 10.5 fl (7.4-10.4); Monocytes # 0.6 K/mm3 (0.1-1.0); Monocytes % 6.3 % (1.7-9.3); Neutrophils # 6.7 K/mm3 (1.8-7.8); Neutrophils % 67.5 % (37.0-80.0); Nucleated Red Blood Cells # 0 10^3/uL; Nucleated Red Blood Cells % 0 %; Platelet Count 287 K/mm3 (142-424); Red Blood Count 4.52 M/mm3 (4.60-6.20); Red Cell Distribution Width 13.2 % (11.5-17.5); White Blood Count 9.9 K/mm3 (4.8-10.8)
[2024-08-21 06:14] LABS: Albumin Level 3.8 g/dl (3.5-5.0); Chloride 105 mmol/L (98-107); Potassium 3.8 mmoL/L (3.5-5.1); Sodium 138 mmol/L (136-145)
[2024-08-21 06:16] LABS: Anion Gap 10.8 mEq/L (5-15); Blood Urea Nitrogen 10 mg/dl (9-20); Carbon Dioxide 26 mmol/L (22.0-30.0); Creatinine Clearance Estimated 66 mL/min (50-200); Estimated Glomerular Filt Rate 109 ml/min (>60); GFR (African American) 132 ML/MIN (>60)
[2024-08-21 06:17] LABS: Alanine Aminotransferase 12 U/L (12-78); Albumin/Globulin Ratio 1.3 (1.1-1.8); Alkaline Phosphatase 80 U/L (38-126); Aspartate Amino Transferase 18 U/L (17-59); Bilirubin,Total 2.4 mg/dl (0.2-1.3); Calcium 8.9 mg/dl (8.4-10.2); Globulin 2.9 g/dL (1.3-3.2); Glucose 121 mg/dl (74-100); Total Protein,Serum 6.7 g/dl (6.3-8.2)
[2024-08-21 07:32] LABS: POC Glucose,Bedside 150 (70-110)
[2024-08-21 07:32] LABS: POC Glucose,Bedside 119 (70-110)
[2024-08-21 07:32] LABS: POC Glucose,Bedside 151 (70-110)
[2024-08-21] MEDS: SACUBITRIL/VALSARTAN 24-26MG TABLET 1 EACH PO (08:32)
[2024-08-21] MEDS: ASPIRIN EC 81MG TABLET 81 MG PO (08:32)
[2024-08-21] MEDS: SPIRONOLACTONE 25MG TABLET 25 MG PO (08:32)
[2024-08-21] MEDS: APIXABAN 5MG TABLET 5 MG PO (08:32)
[2024-08-21] MEDS: FUROSEMIDE 40MG/4ML VIAL 40 MG IV (08:33)
[2024-08-21] MEDS: BISOPROLOL 5MG TABLET 20 MG PO (08:33)
--- NOTE | 2024-08-21 09:47 | PC.NURSE ---
cleared for egd by cards per KARLA Talamantes
--- NOTE | 2024-08-21 10:47 | EXP.CARD.PN ---
Subjective Subjective Date: 08/21/24 Time: 08:00 Principal diagnosis: chest pain and soa Interval history: Patient reports he is feeling good this morning. Denies chest pain or shortness of breath. Patient is status post left heart catheterization yesterday without stenting. Please see report. Morning labs reviewed and stable. EGD pending for this morning. Exam Data for Last 24 hours Vital signs and Labs for Last 24 Hours: Temp Pulse Resp BP Pulse Ox O2 Del Method 98.5 F 80 20 157/92 H 95 Room Air 08/21/24 08:00 08/21/24 08:00 08/21/24 08:00 08/21/24 08:00 08/21/24 07:00 08/21/24 09:00 Laboratory Results - last 24 hr 08/20/24 16:40: POC Glucose 119 H 08/20/24 18:10: Urine Color Yellow, Urine Appearance Sl cloudy, Urine pH 7.5, Ur Specific [place] 1.015, Urine Protein Trace, Urine Glucose (UA) Negative, Urine Ketones 2+, Urine Blood 2+ A, Urine Nitrate Negative, Urine Bilirubin Negative, Urine Urobilinogen 1.0, Ur Leukocyte Esterase Negative, Urine RBC Tntc, Urine WBC Occasional, Ur Squamous Epith Cells Occasional, Amorphous Sediment 1+, Urine Bacteria 2+ 08/20/24 21:09: POC Glucose 151 H 08/21/24 05:08: WBC 9.9, RBC 4.52 L, Hgb 13.3 L, Hct 40.3 L, MCV 89.2, MCH 29.4, MCHC 33.0, RDW 13.2, Plt Count 287, MPV 10.5 H, Neut % (Auto) 67.5, Lymph % (Auto) 24.5, [place] % (Auto) 6.3, Eos % (Auto) 0.4, Baso % (Auto) 1.0, Neut # (Auto) 6.7, Lymph # (Auto) 2.4, [place] # (Auto) 0.6, Eos # (Auto) 0.0, Baso # (Auto) 0.1, Sodium 138, Potassium 3.8, Chloride 105, Carbon Dioxide 26, Anion Gap 10.8, BUN 10 D, Creatinine 0.70, Estimated Creat Clear 66, Estimated GFR 109, Est GFR ( Amer) 132, Glucose 121 H, Calcium 8.9, Magnesium 2.0 D, Total Bilirubin 2.4 H, AST 18, ALT 12, Alkaline Phosphatase 80, Total Protein 6.7, Albumin 3.8, Globulin 2.9, Albumin/Globulin Ratio 1.3 08/21/24 06:43: POC Glucose 150 H I & O for Last 24 hours: Intake & Output 08/18/24 08/19/24 08/20/24 08/21/24 23:59 23:59 23:59 23:59 Intake Total 470 / 770 700.588 / 700.588 110 / 110 Output Total 0 / 0 620 / 820 450 / 450 Balance 470 / 770 80.588 / -119.412 -340 / -340 Weight 175 lb 8 oz 176 lb 2 oz 171 lb 11.841 oz Constitutional Constitutional: no acute distress *Routine Respiratory Exam Respiratory: Present CTA bilaterally and symmetric chest movement *Routine Cardiovascular Exam Cardiovascular: Present Normal S1, Normal S2, irregular rhythm and irregularly irregular *Routine Abdominal Exam Abdominal: Present soft and normoactive bowel sounds; Absent tenderness *Routine Extremities Exam Extremities: Present full ROM and normal capillary refill; Absent edema Comments: Right radial access-no obvious bleeding noted. *Routine Skin Exam Skin: Present intact, dry and warm Detailed Neck Exam: Thyroids Thyroid: Absent bruit Progress Note: A&P Assessment and plan (1) Chest pain: Status: Acute Assessment and Plan Assessment and Plan for All Diagnoses:: History of coronary artery disease Chest pain History of FLASH in 2014 Normal Myoview for 2021 Presented with chest pain and shortness of breath Echocardiogram reveals a new ejection fraction of 40 to 45%. D-dimer was positive so a CTA chest was obtained which was negative for [facility] 08/20/2024: Medical management, please see cath report Continue Plavix Patient is going for EGD today for evaluation of noncardiac related issues contributing to chest pain New onset HFrEF Echo shows an EF of 40 to 45% with moderate hypokinesis of the septal and anteroseptal LV wall. Severe biatrial dilation mild MR mild TR mild PI Change IV Lasix to p.o. Continue home dose of bisoprolol 20 mg daily Increase Entresto to 49/51 mg p.o. twice daily Continue Aldactone 25 mg p.o. daily Start Farxiga 10 mg p.o. daily Hypertension Increase Entresto to 49/51 mg p.o. twice daily Continue bisoprolol 20 mg p.o. nightly Continue Aldactone 25 mg p.o. daily Continue Lasix 40 mg p.o.BID A-fib, chadsvasc > 2 Continue bisoprolol 20 mg p.o. daily Continue Eliquis 5 mg p.o. twice daily after heart cath CV summary 08/21/2024: Patient is CV stable, and cleared for EGD. Cardiology will sign off. Please continue below listed medications and have patient follow-up in cardiology clinic in 1 week for reevaluation. We will consider cardioversion on an outpatient basis. Cardiac meds: Lasix 40 mg p.o. BID Plavix 75 mg p.o. daily Atorvastatin 40 mg p.o. daily Bisoprolol 20 mg p.o. daily Eliquis 5 mg p.o. twice daily Entresto 49/51 mg p.o. twice daily Aldactone 25 mg p.o. daily Farixa 10 mg p.o. daily
[2024-08-21] MEDS: DAPAGLIFLOZIN PROPANEDIOL 10 MG TABLET PO (11:01)
[2024-08-21 11:10] LABS: POC Glucose,Bedside 193 (70-110)
[2024-08-21] MEDS: humaLOG 100 UNITS/ML 10ML VIAL (SSI) SUBCUT ×2 (11:10→16:07)
--- NOTE | 2024-08-21 12:32 | EXP.ANES.CKL ---
[facility] Disclaimer: The information contained in this section may have been updated after the patient was seen, as this information can be updated by other users. Medical History Afib SOB (shortness of breath) Right chronic serous otitis media Vertigo TIA (transient ischemic attack) Radius fracture Pulmonary HTN Degenerative joint disease (DJD) of lumbar spine Postlaminectomy syndrome Left Achilles tendinitis Left Achilles bursitis Type 2 diabetes mellitus with hyperglycemia, without long-term current use of insulin Varicose veins of both lower extremities DJD (degenerative joint disease) Diabetes mellitus HHD (hypertensive heart disease) History of myocardial infarction HLD (hyperlipidemia) HTN (hypertension) CAD (coronary artery disease) Surgical History History of laparoscopic cholecystectomy History of esophagogastroduodenoscopy (EGD) History of back surgery History of coronary artery stent placement Family History Other No significant family history Social History Smoking Status: Never smoker second hand exposure: No alcohol intake: never substance use type: denies use current occupational status: retired and disabled Travel in the last 8 weeks?: None household members: family housing: house number of children: 2 current occupational exposures/hazards: No caffeine: Yes Have you lived/traveled outside [place] in past 30 days?: No Contact w/someone who lives/traveled outside US past 30 days?: No Exposure to someone with infectious disease in past 14 days?: No Do you have a fever (greater than 100.4 F or 38 C)?: No Have you tested positive for COVID-19?: No Exposed to someone with COVID-19 in past 14 days?: No Do you have a sore throat?: No Do you have a cough?: No Do you have any weakness?: No Do you have any diarrhea?: No Are you experiencing any unusual bleeding?: No Do you have any muscle aches/pain?: No Do you have any abdominal pain?: No Are you experiencing loss of taste or smell?: No [facility] Anesthesia Checklist Patient Identification Patient Identification: Arm Band Structural Data Admitted From: Inpatient Planned Operative Procedure/s: EGD Consent for Planned Operative Procedure(s) Verified: Yes Verified Documents: Surgical Consent and History and Physical NPO Status Verified Time NPO: 00:00 Additional verifications Anesthesia Reactions: No Hx Blood Transfusions: No Blood Transfusion Reaction: No Airway Assessment Mallampati Score:: Class II C-Spine Mobility Assessed: Yes TMJ Mobility Assessed: Yes Dentition: Good Dentition Neurological Assessment Level of Consciousness: Awake, Alert and Appropriate Anesthesia Plan Anesthesia Risk discussed: Yes Anesthesia Plan: Verified ASA Class: III Anesthesia Type: MAC
--- NOTE | 2024-08-21 12:59 | P.PCN_ITS ---
[facility] Procedure Note Date: 08/21/24 Time: 13:07 Procedure Note:: Upper Endoscopy Procedure Report: Esophagogastroduodenoscopy with cold biopsies and TTS balloon dilation Endoscopost: Bebo Cannon II, MD Referring Physician: GALO Shah Date of Procedure: August 21, 2024 Equipment: Olympus GIF 190 standard upper endoscope Sedation: MAC sedation Indications: Mr. Combs is a 79-year-old gentleman who is here for diagnostic upper endoscopy secondary to chest pain. He was admitted after presenting to the ED with chest pain. He did have an acute CT 10 years ago at which time he had 2 coronary stents placed. His chest pain recurred again yesterday morning and on arrival, he was hemodynamically stable but blood pressure was elevated at 197/107. His troponins were negative and EKG was without ischemic change. His BNP was elevated at 1660. He did have an echocardiogram yesterday morning.. This did show coronary artery disease with first obtuse marginal artery with 50% stenosis and a smaller 1.5 mm second obtuse marginal artery with mid vessel 90% concentric stenosis. The RCA had some stenosis. It was recommended that he have the catheterization which took place yesterday morning or afternoon. He did not have coronary stents placed or any clinically significant coronary stenosis. The hypertensive cardiomyopathy was deemed not related to CASHD. GI was consulted for possibility of noncardiac chest pain. The patient does have a lot of belching, bloating and gassiness. He did have some nausea and vomiting. He has bowel irregularity with loose to hard stools. He does get some globus sensation in the mornings and some swallowing difficulty. He did have prior cholecystectomy(September 2023) but Usman Leone. He had an EGD in August [address] Leone that showed some mild esophageal tortuosity without esophagitis and mild to moderate gastropathy. Procedure: Prior to the procedure, a history and physical exam was performed, and patient's medications and allergies were reviewed. The risks, benefits and alternatives of the sedation and procedure were discussed with the patient. All questions were answered and informed consent was obtained. The patient was brought to the procedure room. Patient identification and proposed procedure were verified by the physician and the nurse. The patient was placed in a left lateral decubitus position and the scope was passed under direct vision. Throughout the procedure, the patient's blood pressure, pulse, and oxygen saturations were monitored continuously. The upper GI endoscopy was accomplished without difficulty. The patient tolerated the procedure well. Findings: The scope was passed directly into the upper esophagus and advanced to the fourth portion of duodenum and proximal jejunum. A cold biopsy was taken from the proximal jejunum for disaccharidase assay. The proximal jejunum, post bulbar duodenum, ampulla and duodenal bulb were normal with normal mucosa and conniventes. The scope was withdrawn through a normal duodenal bulb and pylorus into the stomach. There was bile reflux with mild antral gastropathy and mild proximal chronic gastritis. Biopsies were taken along the lesser curvature to rule out H. pylori. Upon retroflexion there was no hiatal hernia. The scope w as then withdrawn into the esophagus. There is no evidence of reflux esophagitis or Monahan's. There were no strictures, rings, furrowing or inlet patch. There were strong tertiary contractions and evidence of moderate esophageal dysmotility. The entire esophagus was dilated to 60 Thai/20 mm with a TTS hydrostatic balloon. There was mild resistance at the cricopharyngeus. The remainder of the esophageal mucosa was normal. Impression: 1. Nonerosive GERD with moderate esophageal dysmotility and mild cricopharyngeal spasm 2. Bile reflux with mild antral gastropathy and mild chronic gastritis Plan: I will follow-up the biopsies and disaccharidase assay and discuss the findings with the patient and family. I do feel that his chest pain is likely to be esophageal dyskinesia/esophageal spasm. We will discuss treatment options.
--- NOTE | 2024-08-21 14:20 | EXP.DC.SUM ---
General Admission date:: 08/20/24 HPI HPI HPI: Mr. Combs is a 79-year-old gentleman who is admitted after presenting to the ED with chest pain. He did have an acute CA 10 years ago at which time he had 2 coronary stents placed. His chest pain recurred again yesterday morning and on arrival, he was hemodynamically stable but blood pressure was elevated at 197/107. His troponins were negative and EKG was without ischemic change. His BNP was elevated at 1660. He did have a cardiac catheterization this morning. This did show coronary artery disease with first obtuse marginal artery with 50% stenosis and a smaller 1.5 mm second obtuse marginal artery with mid vessel 90% concentric stenosis. The RCA had some stenosis. It was recommended that he have the catheterization which took place this morning but the results are not yet available. The hypertensive cardiomyopathy was deemed not related to CASHD. GI was consulted for possibility of noncardiac chest pain. The patient does have a lot of belching, bloating and gassiness. He did have some nausea and vomiting. He has bowel irregularity with loose to hard stools. He does get some globus sensation in the mornings. He did have prior cholecystectomy(September 2023) but Usman Leone. He had an EGD in August [address] Leone that showed some mild esophageal tortuosity without esophagitis and mild to moderate gastropathy. Hospital Course Hospital Course Hospital Course: Rocky Combs is a 79-year-old male with a medical history significant for CAD with stents, A-fib on Eliquis, hypertension, type 2 diabetes who presents with acute onset chest pain around 8 AM this morning. It lasted up until he arrived to the ED. He states last time he had this some lower midsternal chest pain was when he had his heart attack about 10 years ago which required 2 stents. No radiation. He does endorse chronic intermittent nausea/vomiting that is not related to eating. It occurred again this morning. Unclear if it is of cardiac origin. On arrival, BP 197/107. Troponins negative, EKG without acute ischemic changes. CXR showing bibasilar opacities suggestive of pneumonia versus edema. BNP elevated 1660. Patient states he has experienced orthopnea for some time now has gotten worse. On room air. ED reached out to Dr. Aguayo who recommended LHC in the morning. Case discussed with ED provider and decision was made to admit patient for ACS workup. #Chest pain #History of CAD with stents #HFrEF exacerbation #Suspected community-acquired pneumonia #Hypertension ? Acute onset lower midsternal chest pain without radiation. Troponins, EKG unremarkable. ? CXR shows bibasilar opacities, pneumonia versus edema. BNP elevated to 1660. Patient endorses orthopnea. ? ECHO LVEF 40-45% with wall motion abnomalities. S/p LHC without occlusive CAD. Required nipride after LHC due to BP > 200/100. Weaned off. ? Clinically improved with IV Lasix diuresis, ceftriaxone, azithromycin. Transitioned to doxycycline for 3 more days. ? Discharged with Lasix 40 mg twice daily, doxycycline, aspirin 81 mg, atorvastatin 40 mg, losartan 50 mg. ? Will follow-up with cardiology within 2 weeks. #Acute on chronic intermittent nausea/vomiting #GERD ? Not related to eating. History of GERD, on Protonix. ? GI consulted, s/p EGD showing nonerosive GERD. ? Increased Protonix 40 mg to twice daily. #Bladder stone #BPH - 1.2cm non-obstructive stone found on CT. Plan to refer to urology on discharge. - Started Flomax due to LUTS. #A-fib ? Continue home bisoprolol, Eliquis. #Type 2 diabetes ? A1c 6.4%. NELSON JIMENEZ glucose checks. Total time spent on discharge: 32 minutes on chart review, counseling, documentation, and direct care with patient. Exam Data for Last 24 hours Vital signs and Labs for Last 24 Hours: Temp Pulse Resp BP Pulse Ox O2 Del Method 98.1 F 80 16 126/76 95 Room Air 08/21/24 14:00 08/21/24 14:00 08/21/24 14:00 08/21/24 14:00 08/21/24 14:00 08/21/24 14:00 Laboratory Results - last 24 hr 08/20/24 16:40: POC Glucose 119 H 08/20/24 18:10: Urine Color Yellow, Urine Appearance Sl cloudy, Urine pH 7.5, Ur Specific Gardners 1.015, Urine Protein Trace, Urine Glucose (UA) Negative, Urine Ketones 2+, Urine Blood 2+ A, Urine Nitrate Negative, Urine Bilirubin Negative, Urine Urobilinogen 1.0, Ur Leukocyte Esterase Negative, Urine RBC Tntc, Urine WBC Occasional, Ur Squamous Epith Cells Occasional, Amorphous Sediment 1+, Urine Bacteria 2+ 08/20/24 21:09: POC Glucose 151 H 08/21/24 05:08: WBC 9.9, RBC 4.52 L, Hgb 13.3 L, Hct 40.3 L, MCV 89.2, MCH 29.4, MCHC 33.0, RDW 13.2, Plt Count 287, MPV 10.5 H, Neut % (Auto) 67.5, Lymph % (Auto) 24.5, [place] % (Auto) 6.3, Eos % (Auto) 0.4, Baso % (Auto) 1.0, Neut # (Auto) 6.7, Lymph # (Auto) 2.4, [place] # (Auto) 0.6, Eos # (Auto) 0.0, Baso # (Auto) 0.1, Sodium 138, Potassium 3.8, Chloride 105, Carbon Dioxide 26, Anion Gap 10.8, BUN 10 D, Creatinine 0.70, Estimated Creat Clear 66, Estimated GFR 109, Est GFR ( Amer) 132, Glucose 121 H, Calcium 8.9, Magnesium 2.0 D, Total Bilirubin 2.4 H, AST 18, ALT 12, Alkaline Phosphatase 80, Total Protein 6.7, Albumin 3.8, Globulin 2.9, Albumin/Globulin Ratio 1.3 08/21/24 06:43: POC Glucose 150 H 08/21/24 11:03: POC Glucose 193 H I & O for Last 24 hours: Intake & Output 08/18/24 08/19/24 08/20/24 08/21/24 23:59 23:59 23:59 23:59 Intake Total 470 / 770 700.588 / 700.588 110 / 110 Output Total 0 / 0 620 / 820 950 / 950 Balance 470 / 770 80.588 / -119.412 -840 / -840 Weight 79.605 kg 79.889 kg 77.9 kg Constitutional Constitutional: no acute distress *Routine Respiratory Exam Respiratory: Present CTA bilaterally and symmetric chest movement *Routine Cardiovascular Exam Cardiovascular: Present Normal S1, Normal S2, irregular rhythm and irregularly irregular *Routine Abdominal Exam Abdominal: Present soft and normoactive bowel sounds; Absent tenderness *Routine Extremities Exam Extremities: Present full ROM and normal capillary refill; Absent edema Comments: Right radial access-no obvious bleeding noted. *Routine Skin Exam Skin: Present intact, dry and warm Detailed Neck Exam: Thyroids Thyroid: Absent bruit Results Data Completed and Pending Labs on day of discharge: Labs from last 24 hours 08/21/24 08/21/24 08/21/24 11:03 06:43 05:08 WBC 9.9 RBC 4.52 L Hgb 13.3 L Hct 40.3 L MCV 89.2 MCH 29.4 MCHC 33.0 RDW 13.2 Plt Count 287 MPV 10.5 H Neut % (Auto) 67.5 Lymph % (Auto) 24.5 Huntington % (Auto) 6.3 Eos % (Auto) 0.4 Baso % (Auto) 1.0 Neut # (Auto) 6.7 Lymph # (Auto) 2.4 Huntington # (Auto) 0.6 Eos # (Auto) 0.0 Baso # (Auto) 0.1 Sodium 138 Potassium 3.8 Chloride 105 Carbon Dioxide 26 Anion Gap 10.8 BUN 10 D Creatinine 0.70 Estimated Creat Clear 66 Estimated GFR 109 Est GFR ( Amer) 132 Glucose 121 H POC Glucose 193 H 150 H Calcium 8.9 Magnesium 2.0 D Total Bilirubin 2.4 H AST 18 ALT 12 Alkaline Phosphatase 80 Total Protein 6.7 Albumin 3.8 Globulin 2.9 Albumin/Globulin Ratio 1.3 Urine Color Urine Appearance Urine pH Ur Specific Gardners Urine Protein Urine Glucose (UA) Urine Ketones Urine Blood Urine Nitrate Urine Bilirubin Urine Urobilinogen Ur Leukocyte Esterase Urine RBC Urine WBC Ur Squamous Epith Cells Amorphous Sediment Urine Bacteria 08/20/24 08/20/24 08/20/24 21:09 18:10 16:40 WBC RBC Hgb Hct MCV MCH MCHC RDW Plt Count MPV Neut % (Auto) Lymph % (Auto) Huntington % (Auto) Eos % (Auto) Baso % (Auto) Neut # (Auto) Lymph # (Auto) Huntington # (Auto) Eos # (Auto) Baso # (Auto) Sodium Potassium Chloride Carbon Dioxide Anion Gap BUN Creatinine Estimated Creat Clear Estimated GFR Est GFR ( Amer) Glucose POC Glucose 151 H 119 H Calcium Magnesium Total Bilirubin AST ALT Alkaline Phosphatase Total Protein Albumin Globulin Albumin/Globulin Ratio Urine Color Yellow Urine Appearance Sl cloudy Urine pH 7.5 Ur Specific Gardners 1.015 Urine Protein Trace Urine Glucose (UA) Negative Urine Ketones 2+ Urine Blood 2+ A Urine Nitrate Negative Urine Bilirubin Negative Urine Urobilinogen 1.0 Ur Leukocyte Esterase Negative Urine RBC Tntc Urine WBC Occasional Ur Squamous Epith Cells Occasional Amorphous Sediment 1+ Urine Bacteria 2+ DS: Diagnosis Discharge Diagnosis (1) Chest pain: Status: Acute Code(s): R07.9 - Chest pain, unspecified Meds Home Medications and Allergies Home Medications ?Medication ?Instructions ?Recorded ?Confirmed ?Type metformin 1,000 mg tablet 1,000 mg PO BID 09/13/22 08/25/24 History bisoprolol fumarate 10 mg tablet 20 mg (2 x 10 mg) PO DAILY #60 tabs 08/18/24 08/25/24 Rx clopidogrel 75 mg tablet 75 mg PO DAILY 08/19/24 08/25/24 History apixaban 5 mg tablet (Eliquis) 5 mg PO BID 30 days #60 tabs 08/21/24 08/25/24 Rx atorvastatin 40 mg tablet 40 mg PO HS 30 days #30 tabs 08/21/24 08/25/24 Rx furosemide 40 mg tablet 40 mg PO BIDL 30 days #60 tabs 08/21/24 08/25/24 Rx losartan 50 mg tablet 50 mg PO DAILY 30 days #30 tabs 08/21/24 08/25/24 Rx pantoprazole 40 mg tablet,delayed 40 mg PO BID 30 days #0 tabs 08/21/24 08/25/24 Rx release spironolactone 25 mg tablet 25 mg PO DAILY 30 days #30 tabs 08/21/24 08/25/24 Rx tamsulosin 0.4 mg capsule (Flomax) 0.4 mg PO DAILY 90 days #90 caps 08/25/24 08/25/24 Rx New Prescriptions to Start Prescriptions: apixaban [Eliquis] Millicent,Noe atorvastatin Millicent,Noe furosemide Millicent,Noe losartan Millicent,Noe spironolactone Noe Ricks Allergies Allergy/AdvReac Type Severity Reaction Status Date / Time levofloxacin (From LEVAQUIN) Allergy Mild Anaphylaxis Verified 08/25/24 11:10 Discharge Plan Disposition Patient Disposition: Home, Self-Care Condition: Fair Discharge Order Discharge Orders: Discharge Order (Routine); Ordered 08/21/24 Ordered By: Noe Ricks Follow up Plan Follow up with: Vinita Cespedes APRN [Nurse Practitioner, Cardiology] - 08/28/24 Referral Note: Please call for follow up appointment Noe Bryson MD [Staff Physician, Urology] - 08/25/24 9:00 am Laura Delong APRN [Nurse Practitioner, Gastroenterology] - 09/04/24 Referral Note: Please call for follow up appointment Prescriptions/Medication Reconciliation: New atorvastatin 40 mg Tablet 40 mg PO HS 30 Days Qty: 30 0RF Eliquis 5 mg Tablet 5 mg PO BID 30 Days Qty: 60 0RF furosemide 40 mg Tablet 40 mg PO BIDL 30 Days Qty: 60 0RF spironolactone 25 mg Tablet 25 mg PO DAILY 30 Days Qty: 30 0RF losartan 50 mg tablet 50 mg PO DAILY 30 Days Qty: 30 0RF Continued bisoprolol fumarate 10 mg tablet 20 mg PO DAILY Qty: 60 5RF clopidogrel 75 mg tablet 75 mg PO DAILY metformin 1,000 mg tablet 1,000 mg PO BID Changed pantoprazole 40 mg tablet,delayed release (DR/EC) 40 mg PO BID 30 Days Qty: 0 0RF Discontinued atorvastatin 20 mg tablet 10 mg PO HS lisinopril 40 mg tablet 40 mg PO DAILY No Action tamsulosin [Flomax] 0.4 mg capsule 0.4 mg PO DAILY 90 Days Qty: 90 1RF Problem Reconciliation Problems Reviewed?: Yes Patient Discharge Instructions Patient Instructions: DI for Heart Failure Print Language: Azeri Providers Primary Care Provider: Reanna Lockhart Admit Provider: Noe Ricks Attending Provider: Noe Ricks
[2024-08-21] MEDS: AZITHROMYCIN 250MG TABLET 500 MG PO (15:05)
[2024-08-21] MEDS: FUROSEMIDE 40 MG TABLET PO (15:11)
--- NOTE | 2024-08-22 10:32 | SW/DCPLANNER ---
Spoke with patient on the phone. Patient stated that he has been throwing up this morning. Patient stated that he is aware of his upcoming appointments. Patient stated that he was able to get his new medicine from clinic pharmacy. Patient stated that he has no concerns or questions at this time. Roby Rick
[2024-08-22 10:38] LABS: POC Glucose,Bedside 177 (70-110)
[2024-08-26 14:26] LABS: Disclaimer Notes (.); Interpretation Notes (.); Lactase 59.35 (>/= 14.0); Palatinase 38.3 (>/= 8.5); Reference Notes (.); Sucrase 182.43 (>/= 25.0)
== END 2024-08-21 16:26 | disposition home or self-care (01) | DRG 286 ==
LOC: ER 13:52 → 2ND 14:52 → ICU 08-20 11:53 → 2ND 08-21 12:05
PROVIDERS: Internal Medicine; Internal Medicine Gastroenterology; Admitting Provider Student in an Organized Health Care Education/Training Program; Emergency Provider Emergency Medicine; PCP Nurse Practitioner Family; Visit Provider Student in an Organized Health Care Education/Training Program
PROC: 4A023N7 Measurement of Cardiac Sampling and Pressure, Left Heart, Percutaneous Approach (ICD-10-PCS; CPT 93452; principal; 2024-08-20 11:00)
PROC: 0DJ08ZZ Inspection of Upper Intestinal Tract, Via Natural or Artificial Opening Endoscopic (ICD-10-PCS; principal; 2024-08-21 14:30)
DX: I25.110 Atherosclerotic heart disease of native coronary artery with unstable angina pectoris (principal); I50.23 Acute on chronic systolic (congestive) heart failure; J18.9 Pneumonia, unspecified organism; I43 Cardiomyopathy in diseases classified elsewhere; I48.91 Unspecified atrial fibrillation; E11.9 Type 2 diabetes mellitus without complications; I11.0 Hypertensive heart disease with heart failure; K21.9 Gastro-esophageal reflux disease without esophagitis; R11.2 Nausea with vomiting, unspecified; N21.0 Calculus in bladder; N40.1 Benign prostatic hyperplasia with lower urinary tract symptoms; K29.50 Unspecified chronic gastritis without bleeding; K31.9 Disease of stomach and duodenum, unspecified; Z66 Do not resuscitate; E78.5 Hyperlipidemia, unspecified; I25.2 Old myocardial infarction; Z95.5 Presence of coronary angioplasty implant and graft; Z79.84 Long term (current) use of oral hypoglycemic drugs; Z79.02 Long term (current) use of antithrombotics/antiplatelets; Z79.899 Other long term (current) drug therapy; Z88.1 Allergy status to other antibiotic agents
CPT/HCPCS: 36415; 71046; 71275; 74177; 80053; 81001; 82657; 82962; 83735; 83880; 84436; 84443; 84484; 85025; 85378; 87086; 88305; 93005; 93306; 99152; C1725; C1726; C1769; G0378; J0456; J0696; J1200; J1644; J1938; J2003; J2250; J2405; J2704; J3010; J3475; J7040; J7050; J7060; Q9967

== ENCOUNTER 2024-08-25 15:37 | Outpatient (CLI) | payer MEDICARE, SELFPAY ==
[2024-08-25 15:15] LABS: Microscopic, Urine URINE MICROSCOPIC (MICROSCOPIC)
[2024-08-25 15:40] LABS: Appearance,Urine CLEAR (Clear); Bilirubin,Urine Negative (Negative); Blood, Urine Negative (Negative); Color,Urine YELLOW (Yellow); Glucose,Urine (UA) TRACE (Negative); Ketones,Urine Negative (Negative); Leukocyte Esterase,Urine Negative (Negative); Nitrate,Urine Negative (Negative); Protein,Urine Negative (Negative); Urobilinogen,Urine 0.2 EU/dl (0.2)
[2024-08-25 16:27] LABS: Bacteria,Urine Trace /lpf; Calcium Oxalate Crystals,Urine 2+ /lpf
== END 2024-08-25 23:59 | disposition home or self-care (01) ==
LOC: LAB.DROPOF 15:38
PROVIDERS: PCP Urology; Visit Provider Urology
DX: N39.0 Urinary tract infection, site not specified (principal); R32 Unspecified urinary incontinence; N40.0 Benign prostatic hyperplasia without lower urinary tract symptoms
CPT/HCPCS: 81001; 87086

== ENCOUNTER 2024-09-23 07:29 | Day surgery (SDC) | payer MEDICARE, SELFPAY ==
--- OUTSIDE RECORDS SUMMARY | 2024-06-21 17:30 | XMS_ITS ---
Author Organization [facility] D [place] Address [address] [place] [address] Care Team Providers Care Rn Charge Name Role Phone Reanna Lockhart Primary Care Provider [phone] REANNA LOCKHART Unavailable Unavaila ble Migration, Provider Unavailable Unavailable Allergies Allergen (clinical drug ingredient) Drug/Non Drug Allergy documented on EMR Reaction Allergy Type Onset Date Status LEVAQUIN (uncoded) anaphylaxis Allergy Active REASON FOR VISIT [facility] To [facility] Conversion Encounter Medications Medication SIG (Take, [...] Active Encounters Encounter Location Date Provider Diagnosis [facility] [place] [address] [place] [address] 06/21/2024 Provider Migration Urinary frequency R35.0 and [...] 11/24/2024 02:00:00 PM, [address] [facility], [address], [place], [place], [address], Progress Notes * Rocky COMBS ADOB: [birth year] (79 yo M)Acc No.[id number]:06/21/2024 Patient: Rocky ADRIAN Provider: Konrad lam Migration :1945 A ge:78 Y S ex:Male Date:06/21/2024 Address:[address] [place] [address] [place], [id number] Pcp:Reanna Lockhart Subjective: * Chief Complaints: * 1 . [facility]. * Medical History: * Medications: [...] Electronic signature of Prov ider Migration on 09/23/2024 at 07:33 AM EDT Sign off status: Pending * Provider: Konrad lam Migration Date: 0 06/21/2024 Generated for Sarbjit bullard/Domenico/Star on: 0 09/23/2024 07:33 AM EDT
--- OUTSIDE RECORDS SUMMARY | 2024-08-28 11:45 | XMS_ITS ---
Author Organization Formerly [facility] D [place] Address [address] [place] [address] Care Team Providers Care Market Research Assistant Name Role Phone Leander Lockhart Primary Care Provider [phone] LEANDER LOCKHART Unavailable Unavaila ble Allergies Allergen (clinical drug ingredient) Drug/Non Drug Allergy documented on EMR Reaction Allergy Type Onset Date Status LEVAQUIN (uncoded) anaphylaxis Allergy Active Results Component Value Reference Range Notes BASIC METABOLIC PANEL (43343 ) Reviewed date:09/01/2024 11:31:03 AM Interpretation: Performing Lab:CB, [facility] [id number], [facility] Dave Vogt Notes/Report: NON-FASTING GLUCOSE 162 65-99 mg/dL Fasting reference interval For someone without known diabetes, a glucose value >125 mg/dL indicates that they may have diabetes and this should be confirmed with a follow-up test. UREA NITROGEN (BUN) 19 7-25 mg/dL CREATININE 1.13 0.70-1.28 mg/dL EGFR 66 > OR = 60 mL/min/1.73m2 BUN/CREATININE RATIO SEE NOTE: 6-22 (calc) Not Reported: BUN and Creatinine are within reference range. SODIUM 137 135-146 mmol/L POTASSIUM 3.5 3.5-5.3 mmol/L CHLORIDE 99 98-110 mmol/L CARBON DIOXIDE 25 20-32 mmol/L CALCIUM 10.6 8.6-10.3 mg/dL REASON FOR VISIT Discharge Follow Up- Vomiting meds Medications Medication SIG (Take, Route, Frequency, Duration) Notes Start Date End Date Status Gabapentin 300 MG 1 cap(s) orally 2 ti mes a day as needed for pain; Duration: 30 days 08/08/2024 Active Lasix 40 MG 1 tab(s) orally twic e a day; Duration: 14 days 10/18/2023 Active metFORMIN HCl 1000 MG 1 tab(s) orally 2 times a day; Duration: 30 days Active Tamsulosin HCl 0.4 mg TAKE TWO CAPSULES BY MOUTH ONCE DAILY; Duration: 90 Active Pantoprazole Sodium 40 MG 1 tab(s) orall y once a day; Duration: 90 days 07/09/2023 Active Bisoprolol Fumarate 10 MG 1 tab(s) orall y twice a day; Duration: 30 days Active Clopidogrel Bisulfate 75 MG 1 tab(s) ora lly once a day Active Atorvastatin Calcium 40 MG 1 tablet oral ly once a day Active Losartan Potassium 50 MG 1 tablet Orally Once a day Active Eliquis 5 MG as directed Orally t wice a day Active Spironolactone 25 MG 1 tablet Orally Onc e a day Active Metoclopramide HCl 5 MG 1 tablet before meals Orally Twice a day; Duration: 30 days 08/28/2024 Active Social History Tobacco Use: Social History Observation Description Date Details (start date - stop date) Never Smoker NA - NA Smoking: Question Answer Notes Are you a: nonsmoker Problems Problem Type SNOMED Code ICD Code Onset Dates Problem Status W/U Status Risk Notes Problem Systolic CHF, chronic (I50.22) Active confirmed Problem Esophageal dysmotility (412417104) Esophageal dysmotility (K22.4) Active confirmed Problem Atrial fibrillation (05949277) Atrial fibrillation, unspecified type (I48.91) Active confirmed Problem Essential hypertension (50015115) Essential hypertension (I10) Active confirmed Problem Bladder stone (17789152) Bladder stone (N21.0) Active confirmed Vital Signs Temperature 96.6 degrees Fahrenheit 08/29/19 25 Heart Rate 84 /min 08/28/2024 Blood pressure systolic 88 mm Hg 08/29/19 25 Blood pressure diastolic 58 mm Hg 025 Height 5ft 6in in 08/28/2024 Weight 161.4 lbs 08/28/2024 BMI 26.05 kg/m2 08/28/2024 Encounters Encounter Location Date Provider Diagnosis [facility] [place] [address] [place] [address] 08/28/2024 Leanderbladimir DaleChantelle Systolic CHF, chroni c I50.22 ; 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 strict return precautions reviewed. cut losartan in half. 08/28/2024 Esophageal dysmotility (ICD-10 - K22.4) 08/28/2024 Recurrent vomiting (ICD-10 - R11.10) 08/28/2024 Atrial fibrillation, unspecified type (ICD-10 - I48.91) 08/28/2024 Essential hypertension (ICD-10 - I10) 08/28/2024 Bladder stone (ICD-10 - N21.0) 08/28/2024 Hospital discharge follow-up (ICD-10 - Z09) Plan Of Treatment Medication Medication Name Sig Start Date Stop Date Notes Metoclopramide HCl 5 MG 1 tablet before meals Orally Twice a day; Duration: 30 days 08/28/2024 Next Appt Details Follow Up: 4 Weeks,prn, Reas on: Provider Name:Leander Rico ce, 11/24/2024 02:00:00 PM, [address], [address], [place], [address], Progress Notes * Rocky COMBS ADOB: 6 (79 yo M)Acc No.[id number]:08/28/2024 HOSP F/U Patient: Annie ADRIANsalvatore Nunez Provider: GALO Longoria :1945 A ge:79 Y S ex:Male Date:08/28/2024 Address:[address] [place], [place] [address], [id number] Subjective: * Chief Complaints: * 1 . Discharge Follow Up- Vomiting meds. * HPI: I ntrim History: Transition of care visit from hospital D ate of admission to hospital: 0 08/20/2024, D ate of receipt of hospital admission report: 0 08/25/2024,?Date of discharge from hospital: 0 08/21/2024, D ate of receipt of hospital discharge summary: 0 09/03/2024, D ischarge medications reviewed and reconciled from hospital: M edications changed (e.g. discontinued, changed or added) multiple as noted. 79 yr old male presents today for hospital FU. Admitted overnight with chest pain. h/o CAD. evaluated by cardiology, underwent echo and LHC. New HFrEF, afib, bladder stone. Multiple medication adjustments. No eliquis in his bag of medication today but believes he has it at home, I wrote them a note to make sure of this. He continues to report vomiting, difficulty keeping his medication and food/fluids in. Has FU with cardiology as well as URO. * ROS: R ESPIRATORY: Shortness of breath y es. n o C hest pain. n o?Cough. C ARDIOLOGY: no C hest pain. n o P alpitations. n o L eg edema. C ONSTITUTIONAL: Loss of appetite y es. n o F ever. W eakness?yes. D ERMATOLOGY: no R carlos. E NDOCRINOLOGY: Polyuria y es. G ASTROENTEROLOGY: Nausea y es. V omiting y es. n o A bdominal pain. n o D iarrhea. n o C onstipation. U ROLOGY: no D ifficulty urinating. n o B lood in urine. F requent urination y es. N octuria y es. * Medical History: T ype 2 diabetes, Hyperlipidemia, Stroke, 2 stents, Myocardial infarction, DDD with lumbar radiculopathy. * Surgical History: h eart stent x2 , cologuard 2020, surgery on right middle finger and 3rd digit , Right Ankle 1977, Back Surgery- 6 screws, fusion 1994, cholecystectomy 09/2023, Endoscopy 08/2024. * Hospitalization/Major Diagno stic Procedure: h opsitalized after the surgeries above , Heart and breathing issues 08/2024. * Family History: F ather: , alchoholism. M other: 83 yrs. P aternal Grand Father: . P aternal Grand Mother: . M aternal Grand Father: . M aternal Grand Mother: . P aternal uncle: . P aternal aunt: . M aternal uncle: . M aternal aunt: . S iblings: alive. C hildren: alive. 1 son(s) , 1 daughter(s) - healthy. . 2 full blooded siblings and 3 1/2 siblings1. * Social History: S moking A re you a: n onsmoker. R ecreational drug use: no. Exercise: no. Home smoke detector use: yes. Caffeine: yes, frequency: coffee every morning, soda on occasion,. Living Will: Yes. Alcohol: no. Sexually active: no. Travel outside [place]: no. Occupation: retired. * Medications: T aking Eliquis 5 MG Tablet as directed Orally twice a day , Taking Spironolactone 25 MG Tablet 1 tablet Orally Once a day , Taking Losartan Potassium 50 MG Tablet 1 tablet Orally Once a day , Taking Clopidogrel Bisulfate 75 MG Tablet 1 tab(s) orally once a day , Taking Atorvastatin Calcium 40 MG Tablet 1 tablet orally once a day , Taking Pantoprazole Sodium 40 MG Tablet Delayed Release 1 tab(s) orally once a day , Taking Bisoprolol Fumarate 10 MG Tablet 1 tab(s) orally twice a day , Taking metFORMIN HCl 1000 MG Tablet 1 tab(s) orally 2 times a day , Taking Tamsulosin HCl 0.4 mg Capsule TAKE TWO CAPSULES BY MOUTH ONCE DAILY , Taking Gabapentin 300 MG Capsule 1 cap(s) orally 2 times a day as needed for pain , Taking Lasix 40 MG Tablet 1 tab(s) orally twice a day , Discontinued Gemtesa 75 MG Tablet 1 tab(s) orally once a day , Discontinued Farxiga 10 MG Tablet 1 tablet Orally Once a day , Discontinued hydroCHLOROthiazide 25 MG Tablet 1 tab(s) orally once a day , Discontinued Lisinopril 40 MG Tablet 1 tab(s) orally once a day , Discontinued Aspirin Adult Low Dose 81 MG Tablet Delayed Release 1 tab(s) orally once a day , Discontinued Allergy Relief (Loratadine) 10 MG Tablet 1 tab(s) orally once a day , Medication List reviewed and reconciled with the patient * Allergies: L EVAQUIN: anaphylaxis - Allergy. Objective: * Vitals: N urse: KJ, Pain: 0, Temp: 96.6, RR: 18, HR: 84, BP: 88/58, Ht: 5ft 6in, Wt: 161.4, BMI:26.05. * Examination: G eneral Examination: Heart: R egular Rate and Rhythm, no murmur, rubs or gallops. Lungs: c lear to auscultation,. Abdomen: s oft, distended , normoactive bowel sounds. Skin: w ithout acute rashes. Extremities: n o clubbing, no edema,, no foot lesions,.? neck s upple,, no thyromegaly,, no lymphadenopathy,. Psych N ormal Mood/Affect. Assessment: * Assessment: 1. H ypertensive cardiomegaly - I11.9 (Primary) 2 . S ystolic CHF, chronic - I50.22 3 . E sophageal dysmotility - K22.4 4 . R ecurrent vomiting - R11.10 5 . A trial fibrillation, unspecified type - I48.91 6 . E ssential hypertension - I10 7 . B ladder stone - N21.0 ? 8 . H ospital discharge follow-up - Z09 Plan: * Treatment: 2. S ystolic CHF, chronic L AB: BASIC METABOLIC PANEL (69027) (Collection Date & Time - 08/28/2024 04:50 PM) Value Reference Range G LUCOSE 162 H 65-99 - mg/dL * U PARISH NITROGEN (BUN) 19 7-25 - mg/dL * C REATININE 1.13 0.70-1.28 - mg/dL * B UN/CREATININE RATIO SEE NOTE: 09-07 - (calc) * S ODIUM 137 135-146 - mmol/L * P OTASSIUM 3.5 3.5-5.3 - mmol/L * C HLORIDE 99 98-110 - mmol/L * C ARBON DIOXIDE 25 20-32 - mmol/L * C ALCIUM 10.6 H 8.6-10.3 - mg/dL * E GFR 66 > OR = 60 - mL/min/1 .73m2 3.?Esophageal dysmotility? Start Metoclopramide HCl Tablet, 5 MG, 1 tablet before meals, Orally, Twice a day, 30 days, 60, Refills 0.?? * Procedure Codes: 9 9496 TRANS CARE MGMT 7 DAY DISCH, 1111F DSCHRG MED/CURRENT MED MERGE * Follow Up: 4 Weeks,prn * * Sign off status: Completed true * Provider: GALO Longoria Date: 0 08/28/2024 Generated for Sarbjit bullard/Domenico/Star on: 0 09/23/2024 07:33 AM EDT History and Physical Notes * HPI (History of Present Illness) Category Sub-Category Detail Notes Category Not es Intrim History Transition of care visit from hospital Date of admission to hospital:: 08/20/2024 79 yr old male presents today for hospital FU. Admitted overnight with chest pain. h/o CAD. evaluated by cardiology, underwent echo and LHC. New HFrEF, afib, bladder stone. Multiple medication adjustments. No eliquis in his bag of medication today but believes he has it at home, I wrote them a note to make sure of this. He continues to report vomiting, difficulty keeping his medication and food/fluids in. Has FU with cardiology as well as URO. Date of receipt of hospital admission re port:: 08/25/2024 Date of discharge from hospital:: 2024 Date of receipt of hospital discharge graham mmary:: 09/03/2024 Discharge medications review ed and reconciled from hospital:: Medications changed (e.g. discontinued, changed or added) multiple as noted Examination Category Sub-Category Detail Notes Category Not es General Examination Heart: Regular Rate and Rhythm, no murmur, rubs or gallops Lungs: clear to auscultatio n, Abdomen: soft, distended , no rmoactive bowel sounds Extremities: no clubbing, no andie a,, no foot lesions, Skin: without acute rashes neck supple,, no thyromeg samantha,, no lymphadenopathy, Psych Normal Mood/Affect
--- OUTSIDE RECORDS SUMMARY | 2024-09-10 13:30 | XMS_ITS | Encounter Summary ---
Author Organization Healthcare Address [address] [id number] Care Team Providers Care Drum Cleaner Name Role Phone Zack Orellana MD Primary Care Provider [phone] Reason for Visit * Reason Comments Advice Only Encounter Details Date Type Department Care Team ([facility] Contact Info) Description 09/10/2024 1:30 PM EDT Consult Medical Office Building Urology [address] [place] [address] Leena Calderon MD [address] [place] [address] Nocturia (Primary Dx) Social History [...] Posadas MD - 09/10/2024 1:30 PM EDT [facility] Urology Clinic Note 09/10/24 CC: BPH [...] dribbling. Has previously seen Dr. Bryson at [facility] and was on Flomax for a [...] Department Care Team (Latest Contact Info) Description 10/10/2024 12:45 PM EDT Hospital Encounter [facility] [address] [place] [address] Leena Calderon MD [address] [address] 10/10/2024 12:45 PM EDT - 10/10/2024 3:05 PM EDT Surgery [facility] [address] [place] [address] Leena Calderon MD [address] [address] TURP, USING SALINE PLASMA VAPORIZATION TECHNIQUE,GREENLIGHT, CYSTOLITHOLAPAXY [18092 (CPT )] Scheduled Procedures Name Priority Associated [...] at day 1 09/12/2024 8:25 AM EDT [facility] Urine Urine specimen obtained by clean catch procedure / Unknown Non-blood Collection / Unknown 09/10/2024 2:16 PM EDT 09/10/2024 5:32 PM EDT us Leena Calderon MD LAB MICROBIOLOGY - GENERAL O RDERABLES Final Result [facility] [address] [place] [address] documented in this encounter Visit Diagnoses Diagnosis [...] documented as of this encounter Care Teams Drum Cleaner Relationship Specialty Start Date End Date Zack Orellana MD [address] [place] [address] PCP - General 07/30/20 documented as of this encounter
[2024-09-16 13:43] VITALS: BMI 29.1
--- OUTSIDE RECORDS SUMMARY | 2024-09-23 07:33 | XMS_ITS | Encounter Summary ---
Author Organization Healthcare Address [address] [id number] Care Team Providers Care Hole Puncher Strap Name Role Phone Zack Orellana MD Primary Care Provider [phone] Reason for Visit * Reason Onset Date Comments HCN - Patient Message 09/09/2024 Encounter Details Date Type Department Care Team (Late st Contact Info) Description 09/09/2024 Telephone [facility] [address] [place] [address] None, None [address], [place] [id number] HCN - Patient Message Social History Tobacco Use Types Packs/Day Years Used Date Smoking Tobacco: Never PHQ-2 Answer Date Recorded Patient Health Questionnaire-2 [...] on file documented as of this encounter Functional Status * AUDIT-C Score [...] Patient does not drink 09/10/2024 1:08 PM Cathy Davis Q3: How often do you have six or more drinks on one occasion? Never 09/10/2024 1:08 PM Cathy Davis * Over the past 2 weeks, how often have you been bothered by any of the following problems? Question Answer Date of Assessment Author Little interest or pleasure in doing things Several days 09/10/2024 1:21 PM Cathy Davis Feeling down, depressed, or hopeless Several days 09/10/2024 1:21 PM SOLET Cathy Conde Patient Health Questionnaire -2 Score 2 09/10/2024 1:21 PM Cathy Davis * Question Answer Date of Assessment Author Trouble falling or staying asleep, or sleeping too much Not at all 09/10/2024 1:21 PM Cathy Davis Feeling tired or having merlene le energy Several days 09/10/2024 1:21 PM Cathy Davis Poor appetite or overeating Not at all 09/10/2024 1: 21 PM Cathy Davis Trouble concentrating on things, such as reading the newspaper or watching television Several days 09/10/2024 1:21 PM Cathy Davis Moving or speaking so slowly that other people could have noticed? Or the opposite - being so fidgety or restless that you have been moving around a lot more than usual. Not at all 09/10/2024 1:21 PM Cathy Davis Thoughts that you would be better off or hurting yourself in some way Not at all 09/10/2024 1:21 PM Cathy Davis * If you checked off any problems on this questionnaire so far, Question Answer Date of Assessment Author How difficult have these problems made it for you to do your work, take care of things at home, or get along with other people? Not difficult at all 09/10/2024 1:21 PM Cathy Davis * How difficult have these problems made it for you to do your work, take care of things at home, or get along with other people? Answer Date of Assessment Author Not difficult at all 09/10/2024 1:21 PM EDT Anai duran Cathy L documented as of this encounter Miscellaneous Notes * Telephone Encounter - Kalpana Hawkins - 09/12/2024 11:50 AM EDT Left message for patient to return call on direct line to schedule surgery * Telephone Encounter - Juma Montes - 09/09/2024 10:34 AM EDT Patient Phone Message Reason for Call: Poly with [facility] calling regarding a fax they received to [facility] his CT done on 08/20/23 but states they do not have any records of him having that done there. Best contact number and optimal time of day to reach caller: [phone] - anytime Note: Please do not reply to this message. Follow-up communication and further actions as a result of this message need to be communicated with the patient directly, if the patient is not active onMyChart. If the patient is active on MyChart, they will receive notification of the communication/outcome via ugichem. documented in this encounter Plan of Treatment Upcoming Encounters Date Type Department Care Team (Latest Contact Info) Description 10/10/2024 12:45 PM EDT Hospital Encounter [facility] [address] [place] [address] Leena Calderon MD [address] [address] 10/10/2024 12:45 PM EDT - 10/10/2024 3:05 PM EDT Surgery [facility] [address] [place] [address] Leena Caldeorn MD [address] [place] [address] TURP, USING SALINE PLASMA VAPORIZATION TECHNIQUE,GREENLIGHT, CYSTOLITHOLAPAXY [34233 (CPT )] Scheduled Procedures Name Priority Associated Diagnoses Date/Ti me TURP, USING SALINE PLASMA VAPORIZATION TECHNIQUE Benign prostatic hyperplasia 10/10/2024 12:45 PM EDT documented as of this encounter Visit Diagnoses Not on filedocumented in this encounter Care Teams Hole Puncher Strap Relationship Specialty Start Date End Date Zack Orellana MD [address] [place] [address] PCP - General 07/30/20 documented as of this encounter
--- OUTSIDE RECORDS SUMMARY | 2024-09-23 07:33 | XMS_ITS | Patient Health Record ---
Author Organization [facility] PE D [facility] Address [address] [place] [address] Care Team Providers Care Assistant Auto Center Manager Name Role Phone Leander Lockhart Primary Care Provider LEANDER LOCKHART Unavailable Unavaila ble Migration, Provider Unavailable Unavailable Allergies Allergen (clinical drug ingredient) Drug/Non Drug Allergy documented on EMR Reaction Allergy Type Onset Date Status LEVAQUIN (uncoded) anaphylaxis Allergy Active Results Component Value Reference Range Notes BASIC METABOLIC PANEL (97342 ) Reviewed date:09/01/2024 11:31:03 AM Interpretation: Performing Lab:CM, [employer] [id number] [place] Mcmullen[address] Dave Vogt Notes/Report: NON-FASTING GLUCOSE 162 65-99 [...] 25 20-32 mmol/L CALCIUM 10.6 8.6-10.3 mg/dL LIPID PANEL, STANDARD (7600) Reviewed date:02/12/2024 09:57:48 AM Interpretation: Performing Lab:CB, [facility] [address], [facility] ClinicTxziWF[address] Dave Vogt Notes/Report: NON-FASTING; NON-FASTING; NON-FASTING; NON-FASTING; NON-FAST FASTING:YES FASTING: YES CHOLESTEROL, TOTAL 79 <200 mg/dL HDL CHOLESTEROL 34 > OR = 40 mg/dL TRIGLYCERIDES 119 <150 mg/dL LDL-CHOLESTEROL 24 Reference range: <100 Desirable range <100 mg/dL for primary prevention; <70 mg/dL for patients with CHD or diabetic patients with > or = 2 CHD risk factors. LDL-C is now calculated using the Humberto-Morales calculation, which is a validated novel method providing better accuracy than the Friedewald equation in the estimation of LDL-C. Humberto SS et al. ANUP. 2013;310(19): 5848-4651 (http://UCAN.Help Me Rent Magazine/faq/WFG095) CHOL/HDLC RATIO 2.3 <5.0 (calc) NON HDL CHOLESTEROL 45 <130 mg/dL (calc) For patients with diabetes plus 1 major ASCVD risk factor, treating to a non-HDL-C goal of <100 mg/dL (LDL-C of <70 mg/dL) is considered a therapeutic option. COMPREHENSIVE METABOLIC [facility] Morteza (65768) Reviewed date:02/12/2024 09:57:49 AM Interpretation: Performing Lab:[facility] Izcp7083 [facility] [place], [facility] ClinicWsspSM[address] Dave Vogt Notes/Report: NON-FASTING; NON-FASTING; NON-FASTING; NON-FASTING; NON-FAST FASTING:YES FASTING: YES GLUCOSE 183 65-99 mg/dL Fasting reference interval For someone without known diabetes, a glucose value >125 mg/dL indicates that they may have diabetes and this should be confirmed with a follow-up test. UREA NITROGEN (BUN) 17 7-25 mg/dL CREATININE 1.01 0.70-1.28 mg/dL EGFR 76 > OR = 60 mL/min/1.73m2 BUN/CREATININE RATIO SEE NOTE: 6-22 (calc) Not Reported: BUN and Creatinine are within reference range. SODIUM 140 135-146 mmol/L POTASSIUM 4.1 3.5-5.3 mmol/L CHLORIDE 104 98-110 mmol/L CARBON DIOXIDE 26 20-32 mmol/L CALCIUM 9.8 8.6-10.3 mg/dL PROTEIN, TOTAL 7.2 6.1-8.1 g/dL ALBUMIN 4.2 3.6-5.1 g/dL GLOBULIN 3.0 1.9-3.7 g/dL (calc) ALBUMIN/GLOBULIN RATIO 1.4 1.0-2.5 (calc) BILIRUBIN, TOTAL 1.2 0.2-1.2 mg/dL ALKALINE PHOSPHATASE 88 35-144 U/L AST 11 10-35 U/L ALT 10 9-46 U/L CBC (INCLUDES DIFF/PLT) (639 9) Reviewed date:02/12/2024 09:57:49 AM Interpretation: Performing Lab:CM [facility] Alvareze1355 [facility] CenterevIn[facility] Center VinelandServandoGkgbFF[address] Dave Vogt Notes/Report: NON-FASTING; NON-FASTING; NON-FASTING; NON-FASTING; NON-FAST FASTING:YES FASTING: YES WHITE BLOOD CELL COUNT 8.8 3.8-10.8 Thousand/ uL RED BLOOD CELL COUNT 4.77 4.20-5.80 Million/uL HEMOGLOBIN 13.9 13.2-17.1 g/dL HEMATOCRIT 43.2 38.5-50.0 % MCV 90.6 80.0-100.0 fL MCH 29.1 27.0-33.0 pg MCHC 32.2 32.0-36.0 g/dL For adults, a slight decrease in the calculated MCHC value (in the range of 30 to 32 g/dL) is most likely not clinically significant; however, it should be interpreted with caution in correlation with other red cell parameters and the patient's clinical condition. RDW 12.6 11.0-15.0 % PLATELET COUNT 287 140-400 Thousand/uL MPV 10.7 7.5-12.5 fL ABSOLUTE NEUTROPHILS 6398 9320-0863 cells/uL ABSOLUTE LYMPHOCYTES 5404 216-1236 cells/uL ABSOLUTE MONOCYTES 484 200-950 cells/uL ABSOLUTE EOSINOPHILS 62 15-500 cells/uL ABSOLUTE BASOPHILS 114 0-200 cells/uL NEUTROPHILS 72.7 LYMPHOCYTES 19.8 MONOCYTES 5.5 EOSINOPHILS 0.7 BASOPHILS 1.3 PSA, TOTAL (5363) Reviewed date:02/12/2024 09:57:49 AM Interpretation: Performing Lab:CM [facility] [id number] [facility], [facility] ClinicDgriLE[address] Dave Vogt Notes/Report: NON-FASTING; NON-FASTING; NON-FASTING; NON-FASTING; NON-FAST FASTING:YES FASTING: YES PSA, TOTAL 1.37 < OR = 4.00 ng/mL The total PSA value from this assay system is standardized against the WHO standard. The test result will be approximately 20% lower when compared to the equimolar-standardized total PSA ([place] [place]). Comparison of serial PSA results should be interpreted with this fact in mind. This test was performed using the Siemens chemiluminescent method. Values obtained from different assay methods cannot be used interchangeably. PSA levels, regardless of value, should not be interpreted as absolute evidence of the presence or absence of disease. Urinalysis Reviewed date:06/09/2024 10:12:27 AM Interpretation: Performing Lab: Notes/Report: Color/Clarity yellow Leuk neg Nitrite neg Urobili 0.2 Protein neg pH 6.0 Blood neg Sp. Gr. 1.025 Ketone neg Bili neg Glucose 500mg Microalbumin (In-House) Reviewed date:02/07/2024 07:14:02 PM Interpretation: Performing Lab: Notes/Report: ALB 80mg/L CRE 300mg/dL A:C 30-300mg/g HEMOGLOBIN A1c (496) Reviewed date:02/12/2024 09:57:49 AM Interpretation: Performing Lab:CM [facility] Hlhs2970 [facility], [facility] ClinicNfggSF[address] Dave Votg Notes/Report: NON-FASTING; NON-FASTING; NON-FASTING; NON-FASTING; NON-FAST FASTING:YES FASTING: YES HEMOGLOBIN A1c 7.5 <5.7 % of total Hgb For someone without known diabetes, a hemoglobin A1c value of 6.5% or greater indicates that they may have diabetes and this should be confirmed with a follow-up test. For someone with known diabetes, a value <7% indicates that their diabetes is well controlled and a value greater than or equal to 7% indicates suboptimal control. A1c targets should be individualized based on duration of diabetes, age, comorbid conditions, and other considerations. Currently, no consensus exists regarding use of hemoglobin A1c for diagnosis of diabetes for children. TSH W/REFLEX TO FT4 (76607) Reviewed date:02/12/2024 09:57:49 AM Interpretation: Performing Lab:MC, [employer] [id number] [facility], [facility] ClinicItxzXY[address] Dave Vogt Notes/Report: NON-FASTING; NON-FASTING; NON-FASTING; NON-FASTING; NON-FAST FASTING:YES FASTING: YES TSH W/REFLEX TO FT4 0.82 0.40-4.50 mIU/L COMPREHENSIVE METABOLIC PANE L (74501) Reviewed date:07/23/2024 09:34:31 AM Interpretation: Performing Lab:CM, [employer] Xsyz1751 [facility], [facility] ClinicEuwiOH[address] Dave Vogt Notes/Report: NON-FASTING; NON-FASTING GLUCOSE 128 65-99 mg/dL Fasting reference interval For someone without known diabetes, a glucose value >125 mg/dL indicates that they may have diabetes and this should be confirmed with a follow-up test. UREA NITROGEN (BUN) 12 7-25 mg/dL CREATININE 0.73 0.70-1.28 mg/dL EGFR 93 > OR = 60 mL/min/1.73m2 BUN/CREATININE RATIO SEE NOTE: 6-22 (calc) Not Reported: BUN and Creatinine are within reference range. SODIUM 140 135-146 mmol/L POTASSIUM 4.0 3.5-5.3 mmol/L CHLORIDE 104 98-110 mmol/L CARBON DIOXIDE 25 20-32 mmol/L CALCIUM 9.6 8.6-10.3 mg/dL PROTEIN, TOTAL 6.7 6.1-8.1 g/dL ALBUMIN 4.1 3.6-5.1 g/dL GLOBULIN 2.6 1.9-3.7 g/dL (calc) ALBUMIN/GLOBULIN RATIO 1.6 1.0-2.5 (calc) BILIRUBIN, TOTAL 1.2 0.2-1.2 mg/dL ALKALINE PHOSPHATASE 78 35-144 U/L AST 11 10-35 U/L ALT 7 9-46 U/L HEMOGLOBIN A1c (496) Reviewed date:07/23/2024 09:34:31 AM Interpretation: Performing Lab:CM, [employer] [id number] [address] [facility], [facility] ClinicFygnRH[address] Dave Vogt Notes/Report: NON-FASTING; NON-FASTING HEMOGLOBIN A1c 7.0 <5.7 % For someone without known diabetes, a hemoglobin A1c value of 6.5% or greater indicates that they may have diabetes and this should be confirmed with a follow-up test. For someone with known diabetes, a value <7% indicates that their diabetes is well controlled and a value greater than or equal to 7% indicates suboptimal control. A1c targets should be individualized based on duration of diabetes, age, comorbid conditions, and other considerations. Currently, no consensus exists regarding use of hemoglobin A1c for diagnosis of diabetes for children. Reason For Referral Reason Dr Velasquez for [place] skin check at [facility] Diagnosis 1 Seborrheic dermatiti s of scalp (L21.9) Referral Organization [facility] Referring Provider First Name Leander Referring Provider Last Name Chantelle Referring Provider [facility] hemant Referred Organization [facility] Referred Address [address], [place], [place],[address], Referred Provider Specialty Dermatology General Notes Sarah Beth Fernandez 2023 10:08:00 AM >Sent to Dr. Velasquez- They will contact patient to schedule. Referral Priority Routine Reason please send screenin g kit Diagnosis 1 Colon cancer screeni ng (Z12.11) Referral Organization [facility] Referring Provider First Name Leander Referring Provider Last Name Chantelle Referring Provider [facility] hemant Referred Provider Sil eng Referral Priority Routine Medications Medication SIG (Take, Route, Frequency, Duration) Notes Start Date End Date Status Eliquis 5 MG as directed Orally t wice a day Active Spironolactone 25 MG 1 tablet Orally Onc e a day Active Gabapentin 300 MG 1 cap(s) orally 2 ti mes a day as needed for pain; Duration: 30 days 08/08/2024 Active Tamsulosin HCl 0.4 mg TAKE TWO CAPSULES BY MOUTH ONCE DAILY; Duration: 90 Active Pantoprazole Sodium 40 MG 1 tab(s) orall y once a day; Duration: 90 days 07/09/2023 Active Bisoprolol Fumarate 10 MG 1 tab(s) orall y twice a day; Duration: 30 days Active Clopidogrel Bisulfate 75 MG 1 tab(s) ora lly once a day Active metFORMIN HCl 1000 MG TAKE ONE TABLET BY MOUTH TWICE DAILY; Duration: 30 Active Metoclopramide HCl 5 mg TAKE ONE TABLET BY MOUTH TWICE DAILY BEFORE MEALS; Duration: 30 Active Losartan Potassium 50 MG 1 tablet Orally Once a day Active Atorvastatin Calcium 40 MG 1 tablet oral ly once a day; Duration: 90 days Active Lasix 40 MG 1 tab(s) orally twic e a day; Duration: 14 days Active Immunizations Vaccine Route Administration Date Status Comme nts Prevnar PCV-13 (Pneumococcal conjugate 13) Unknown 12/12/2018 Administered Pneumovax 23 IM Intramuscular 08/07/2022 Administered Fluzone High Dose IM Intramuscular 11/28/2022 Administered Fluzone High Dose IM Intramuscular 12/27/2023 Administered Covid Vlad Unknown 05/29/2020 Administered Arexvy IM Intramuscular 02/07/2024 Administered Social History Tobacco Use: Social History Observation Description Date Details (start date - stop date) Never Smoker NA - NA Smoking: Question Answer Notes Are you a: nonsmoker Problems Problem Type SNOMED Code ICD Code Onset Dates Problem Status W/U Status Risk Notes Problem Sciatica (70833450) Lumbago with sciatica, right side (M54.41) Active confirmed Problem Sciatica (10979275) Lumbago with sciatica, left side (M54.42) Active confirmed Problem Esophageal dysmotility (815379560) Esophageal dysmotility (K22.4) Active confirmed Problem Essential hypertension (88444066) Essential hypertension (I10) Active confirmed Problem Chronic pain (69472524) Other chronic pain (G89.29) Active confirmed Problem Body mass index 25-29 - overweight (907161718) BMI 28.0-28.9,adult (Z68.28) Active confirmed Problem Chronic systolic heart failure (978911165) Systolic CHF, chronic (I50.22) Active confirmed Problem Atrial fibrillation (81969238) Atrial fibrillation, unspecified type (I48.91) Active confirmed Problem Type II diabetes mellitus without complication (726372829) Type 2 diabetes mellitus without complication, without long-term current use of insulin (E11.9) Active confirmed Problem Lower urinary tract symptoms due to benign prostatic hypertrophy (72818312594856) Benign prostatic hyperplasia with lower urinary tract symptoms (N40.1) Active confirmed Problem Hearing loss (44915132) Bilateral hearing loss, unspecified hearing loss type (H91.93) Active confirmed Problem Seasonal allergic rhinitis (460615495) Seasonal allergic rhinitis, unspecified trigger (J30.2) Active confirmed Problem Bladder stone (51590593) Bladder stone (N21.0) Active confirmed Problem History of excision of intestinal structure (657392162) S/P cholecystectomy (Z90.49) Active confirmed Vital Signs Heart Rate 84 /min 08/28/2024 Temperature 96.6 degrees Fahrenheit 08/28/2024 Blood pressure diastolic 58 mm Hg 08/28/2024 Height 5ft 6in in 08/28/2024 Blood pressure systolic 88 mm Hg 08/28/2024 Weight 161.4 lbs 08/28/2024 BMI 26.05 kg/m2 08/28/2024 Encounters Encounter Location Date Provider Diagnosis [facility] [address] [facility] [place] [address] [place] [address] 06/21/2024 Provider Migration Urinary frequency R35.0 and Type 2 diabetes mellitus without complication, without long-term current use of insulin E11.9 [facility] [address] [place] [address] 10/15/2023 Leander Chantelle Lower extremity andie a R60.0 and S/P cholecystectomy Z90.49 [facility] [address] [facility] [place] [address] [place], [place] [address] 12/27/2023 Leander Chantelle Immunization(s) administered Z23 ; Seborrheic dermatitis of scalp L21.9 ; HTN (hypertension), benign I10 and Type 2 diabetes mellitus without complication, without long-term current use of insulin E11.9 [facility] [address] [facility] [place] [address] [place], [place] [address] 02/07/2024 Leander Chantelle Urinary frequency R3 5.0 ; Medicare annual wellness visit, subsequent Z00.00 ; HTN (hypertension), benign I10 ; History of stroke Z86.73 ; History of coronary artery disease Z86.79 ; Type 2 diabetes mellitus without complication, without long-term current use of insulin E11.9 ; BMI 28.0-28.9,adult Z68.28 ; Recurrent vomiting R11.10 ; Encounter for immunization Z23 and Colon cancer screening Z12.11 [facility] [address] [facility] [place] [address] [place] [address] 06/09/2024 Leander Chantelle Urinary frequency R3 5.0 ; Type 2 diabetes mellitus without complication, without long-term current use of insulin E11.9 ; HTN (hypertension), benign I10 and Benign prostatic hyperplasia with lower urinary tract symptoms N40.1 [facility] [address] [facility] [address] [place] [address] 07/21/2024 Leander Chantelle Urinary frequency R3 5.0 ; Type 2 diabetes mellitus without complication, without long-term current use of insulin E11.9 ; HTN (hypertension), benign I10 and Benign prostatic hyperplasia with lower urinary tract symptoms N40.1 [facility] [address] [facility] [address] [place] [address] 08/28/2024 Leander Chantelle Systolic CHF, chroni c I50.22 ; 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 [place] [address] [place] [address] 10/18/2023 Leander Chantelle [facility] [address] [facility] [place] [address] [place] [address] 02/12/2024 Leander Chantelle [facility] [address] [facility] [place] [address] [place] [address] 06/09/2024 Leander Chantelle [facility] [address] [address] 06/11/2024 Leander Chantelle [facility] [address] [facility] [place] [address] [place] [address] 07/21/2024 Leander Chantelle [facility] [address] [facility] [place] [address] [place] [address] 08/26/2024 Leander Chantelle [facility] [address] [address] 09/18/2024 Leander Chantelle Assessments Encounter Date Diagnosis (ICD Code) Assessment Notes Treatment Notes Treatment Clinical Notes Section Notes 10/15/2023 Lower extremity edema (ICD-10 - R60.0) self-resolving at this point. continue to increase activity as tolerated, limit added salt in diet and I asked him to call me if edema recurs 10/15/2023 S/P cholecystectomy (ICD-10 - Z90.49) healing well, return precautions reviewed 12/27/2023 Immunization(s) administered (ICD-10 - Z23) 12/27/2023 Seborrheic dermatitis of scalp (ICD-10 - L21.9) He is already using head and shoulder shampoo, I have asked him to use this only 1-2 times per week so that he does not over dry his scalp and encouraged him to use a conditioner afterwards. Otherwise we will get him back in with dermatology for routine skin check. 02/07/2024 Urinary frequency (ICD-10 - R35.0) continue tamsulosin 02/07/2024 Medicare annual wellness visit, subsequent (ICD-10 - Z00.00) Due for repeat cologuard, agrees to RSV vaccination today. We discussed ways to improve balance/decreas e fall risk 06/09/2024 Urinary frequency (ICD-10 - R35.0) suspect due to BPH and OAB, sample of Gemtesa provided. Declines FU with urology but he has seen them previously 06/09/2024 Type 2 diabetes mellitus without complication, without long-term current use of insulin (ICD-10 - E11.9) additional samples of Farxiga 5mg once a day provided and we will look into availability of patient assistance program. encouraged CC diet, increased activity as tolerated, careful with foot care 06/21/2024 Urinary frequency (ICD-10 - R35.0) 06/21/2024 Type 2 diabetes mellitus without complication, without long-term current use of insulin (ICD-10 - E11.9) 07/21/2024 Urinary frequency (ICD-10 - R35.0) suspect due to BPH and OAB, sample of Gemtesa provided. Declines FU with urology but he has seen them previously 07/21/2024 Type 2 diabetes mellitus without complication, without long-term current use of insulin (ICD-10 - E11.9) additional samples of Farxiga 10mg once a day provided and we will look into availability of patient assistance program. 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 strict return precautions reviewed. cut losartan in half. 06/09/2024 HTN (hypertension), benign (ICD-10 - I10) well controlled on current regimen 08/28/2024 Esophageal dysmotility (ICD-10 - K22.4) 07/21/2024 HTN (hypertension), benign (ICD-10 - I10) well controlled on current regimen 02/07/2024 HTN (hypertension), benign (ICD-10 - I10) well controlled on current regimen 12/27/2023 HTN (hypertension), benign (ICD-10 - I10) Elevated but improved during his visit today. Continue cardiology follow-up and we will see him again in 6 weeks 12/27/2023 Type 2 diabetes mellitus without complication, without long-term current use of insulin (ICD-10 - E11.9) I asked him to start monitoring his sugars at home again at least periodically, stop eating Halloween candy and hopefully lose a few pounds between now and his next visit. Follow-up in about 6 weeks for routine labs 06/09/2024 Benign prostatic hyperplasia with lower urinary tract symptoms (ICD-10 - N40.1) 02/07/2024 History of stroke (ICD-10 - Z86.73) 07/21/2024 Benign prostatic hyperplasia with lower urinary tract symptoms (ICD-10 - N40.1) 08/28/2024 Recurrent vomiting (ICD-10 - R11.10) 08/28/2024 Atrial fibrillation, unspecified type (ICD-10 - I48.91) 02/07/2024 History of coronary artery disease (ICD-10 - Z86.79) 02/07/2024 Type 2 diabetes mellitus without complication, without long-term current use of insulin (ICD-10 - E11.9) goal A1C < 7 08/28/2024 Essential hypertension (ICD-10 - I10) 08/28/2024 Bladder stone (ICD-10 - N21.0) 02/07/2024 BMI 28.0-28.9,adult (ICD-10 - Z68.28) stable, CC/Heart healthy diet encouraged 02/07/2024 Recurrent vomiting (ICD-10 - R11.10) Consider gastric emptying study, he will let me know if this continues 08/28/2024 Hospital discharge follow-up (ICD-10 - Z09) 02/07/2024 Encounter for immunization (ICD-10 - Z23) 02/07/2024 Colon cancer screening (ICD-10 - Z12.11) 06/09/2024 Other Plan Of Treatment Next Appt Details Provider Name:Leander Pro Jacky ce, 11/24/2024 02:00:00 PM, [address], [place], [address], Insurance Providers Payer Name Payer Address Payer Phone Subscriber Number Group Number Insured Name Patient Relationship to Insured Coverage Start Date Coverage End Date [place] [address] [place] [phone] [id number] Rocky Combs Self - patient is the insured [facility] [address] [place] [address] [id number] Rocky Combs Self - patient is the insured [employer] [address] [place] [address] ACL Rocky Combs Self - patient is the insured Medications Administered Medication Instructions Date of Administration Dosage Notes Dexamethasone 4mg Injection 11/28/2022 4 mg Dexamethasone 4mg Injection 01/09/2023 4 mg Medical (General) History Medical History History ICD Code type 2 diabetes hyperlipidemia stroke 2 stents myocardial infarction DDD with lumbar radiculopathy Surgical History Surgery Date(Month/Year) heart stent x2 cologuard 2020 surgery on right middle finger and 3rd d igit Right Ankle 1977 Back Surgery- 6 screws, fusion 1994 cholecystectomy 09/2023 Endoscopy 08/2024 Hospitalization History Reason Date(Month/Year) Heart and breathing issues 08/2024 hopsitalized after the surgeries above
--- OUTSIDE RECORDS SUMMARY | 2024-09-23 07:33 | XMS_ITS | Encounter Summary ---
Author Organization Healthcare Address [address] [place] [address] Care Team Providers Care Associate Store Manager Name Role Phone Zack Orellana MD Primary Care Provider [phone] Encounter Details Date Type Department Care Team (Late st Contact Info) Description 08/19/2024 Orders Only External Location [address] [place] [address] Provider, External Social History Tobacco Use Types Packs/Day Years Used Date Smoking Tobacco: Never Sex and Gender Information Value Date Recorded Sex Assigned at Not on file Legal Sex Male 8:02 PM EDT Gender Identity Not on file Sexual Orientation Not on file documented as of this encounter Plan of Treatment Upcoming Encounters Date Type Department Care Team (Latest Contact Info) Description 10/10/2024 12:45 PM EDT Hospital Encounter [facility] [address] [place] [phone] Leena Calderon MD [address] [address] 10/10/2024 12:45 PM EDT - 10/10/2024 3:05 PM EDT Surgery [facility] [address] [place] [address] Leena Calderon MD [address] [address] TURP, USING SALINE PLASMA VAPORIZATION TECHNIQUE,GREENLIGHT, CYSTOLITHOLAPAXY [63603 (CPT )] Scheduled Procedures Name Priority Associated Diagnoses Date/Ti me TURP, USING SALINE PLASMA VAPORIZATION TECHNIQUE Benign prostatic hyperplasia 10/10/2024 12:45 PM EDT documented as of this encounter Procedures Procedure Name Priority Date/Time Associated Diagnosis Comments CT MSK OUTSIDE IMAGES 08/19/2024 7:34 PM EDT documented in this encounter Results * CT MSK OUTSIDE IMAGES (08/19/2024 7:34 PM EDT) Anatomical Region Laterality Modality Computed Tomogra phy 08/19/2024 7:34 PM EDT us External Provider IMG CT PROCEDURES Final Result documented in this encounter Visit Diagnoses Not on filedocumented in this encounter Care Teams Associate Store Manager Relationship Specialty Start Date End Date Zack Orellana MD [address] [place] [address] PCP - General 07/30/20 documented as of this encounter
--- OUTSIDE RECORDS SUMMARY | 2024-09-23 07:33 | XMS_ITS | Encounter Summary ---
Author Organization Healthcare Address [address] [phone] Care Team Providers Care Raimann Machine Operator Name Role Phone Zack Orellana MD Primary Care Provider [phone] Encounter Details Date Type Department Care Team (Late st Contact Info) Description 09/12/2024 Telephone [place] [facility] [address] [place] [address] Leena Calderon MD [address] [place] [address] Social History Tobacco Use Types Packs/Day Years Used Date Smoking Tobacco: Never Smokeless Tobacco: Never Alcohol Use Standard Drinks/Week Comments Never 0 [...] Hospital Encounter [facility] [address] [place] [phone] Leena Calderon MD [address] [place] [address] 10/10/2024 12:45 PM EDT - 10/10/2024 3:05 PM EDT Surgery [facility] [address] [place] [address] Leena Calderon MD [address] [place] [address] TURP, USING SALINE PLASMA VAPORIZATION TECHNIQUE,GREENLIGHT, CYSTOLITHOLAPAXY [39104 (CPT )] Scheduled Orders Name Type Priority Associated Diagnoses Orde r Schedule Urine Culture Microbiology Routine Nocturia Expected: 09/12/2024 (Approximate), Expires: 03/14/2026 Scheduled Procedures Name Priority Associated Diagnoses Date/Ti me TURP, USING SALINE PLASMA VAPORIZATION TECHNIQUE Benign prostatic hyperplasia 10/10/2024 12:45 PM EDT documented as of this encounter Goals Goal Patient Goal Type Associated Problems Recent Progress Patient-Stated? Author Autogenerat ed Goal Care Plan Autogenerated Problem No Kalpana Hawkins documented as of this encounter Visit Diagnoses Diagnosis Nocturia- Primary Benign prostatic hyperplasia Unspecified hyperplasia of prostate without urinary obstruction and other lower urinary tract symptoms (LUTS) documented in this encounter Additional Health Concerns Active Problems Noted Date Diagnosed Date Autogenerated Problem 09/12/2024 Assessment Noted Time A fall risk assessment has been complete d for the patient 09/10/2024 1:20 PM EDT A Body Mass Index follow-up plan has been documented for the patient 09/11/2024 8:38 AM EDT documented as of this encounter Care Teams Raimann Machine Operator Relationship Specialty Start Date End Date aZck Orellana MD [address] [place] [address] PCP - General 07/30/20 documented as of this encounter
--- OUTSIDE RECORDS SUMMARY | 2024-09-23 07:33 | XMS_ITS | Encounter Summary ---
Author Organization Healthcare Address [address] [place] [address] Care Team Providers Care Senior Manufacturing Engineer Name Role Phone Zack Orellana MD Primary Care Provider [phone] Encounter Details Date Type Department Care Team (Latest Contact Info) Description 09/10/2024 Travel Social History Tobacco Use Types Packs/Day Years [...] watching television Several days 09/10/2024 1:21 PM SOLET Cathy Conde Moving or speaking so slowly [...] difficult at all 09/10/2024 1:21 PM EDT Stur gis, Cathy L documented as of this encounter Plan of Treatment Upcoming Encounters Date Type Department Care Team (Latest Contact Info) Description 10/10/2024 12:45 PM EDT Hospital Encounter [facility] [address] [place] [address] Leena Calderon MD [address] [address] 10/10/2024 12:45 PM EDT - 10/10/2024 3:05 PM EDT Surgery [facility] [address] [place] [address] Leena Calderon MD [address] [phone] TURP, USING SALINE PLASMA VAPORIZATION TECHNIQUE,GREENLIGHT, CYSTOLITHOLAPAXY [05899 (CPT )] Scheduled Procedures Name Priority Associated Diagnoses Date/Ti me TURP, USING SALINE PLASMA VAPORIZATION TECHNIQUE Benign prostatic hyperplasia 10/10/2024 12:45 PM EDT documented as of this encounter Visit Diagnoses Not on filedocumented in this encounter Additional Health Concerns Assessment Noted Time A fall risk assessment has been complete d for the patient 09/10/2024 1:20 PM EDT A Body Mass Index follow-up plan has been documented for the patient 09/11/2024 8:38 AM EDT documented as of this encounter Care Teams Senior Manufacturing Engineer Relationship Specialty Start Date End Date Zack Orellana MD [address] [place] [address] PCP - General 07/30/20 documented as of this encounter
--- OUTSIDE RECORDS SUMMARY | 2024-09-23 07:34 | XMS_ITS | Clinical Summary ---
Author Organization Healthcare Address [address] [place] [address] Care Team Providers Care Signaling Project Engineer Name Role Phone Zack Orellana MD Primary Care Provider [phone] Allergies Active Allergy Reactions Criticality Noted Date Comments Levofloxacin Anaphylaxis,Unknown - Patient states they do not know rxn details High 03/09/2020 Medications amLODIPine (Norvasc) 5 MG tablet Take 1 tablet by mouth daily. 12/10/2019 Active ascorbic acid (Vitamin C) 500 MG ER capsule 03/09/2020 Activ e bisoprolol (Zebeta) 10 MG tablet Take 2 tablets by mouth daily. 08/21/2024 Active carvedilol (Coreg) 12.5 MG tablet Take 1 tablet by mouth 2 times a day. 10/13/2019 Active clopidogrel (Plavix) 75 MG tablet TAKE ONE TABLET BY MOUTH EVERY DAY FOR blood thinner Active furosemide (Lasix) 20 MG tablet Take 1 tablet by mouth daily. 10/18/2023 Active lisinopril 10 MG tablet Take 1 tablet by mouth daily. 12/30/2019 Active losartan (Cozaar) 50 MG tablet Take 1 tablet by mouth daily. 08/21/2024 Active metFORMIN (Glucophage) 1000 MG tablet Take 1 tablet by mouth 2 times a day. Active tolterodine (Detrol) 2 MG tablet Take 1 tablet by mouth nightly. 01/07/2020 Active Encounters Date Type Department Care Team Description 09/12/2024 Telephone [place] [facility] [address], [address] [place] [address] Leena Calderon MD 09/10/2024 1:30 PM EDT Consult Medical Office Building Urology [address] [facility], [address] [place] [address] Leena Calderon MD Nocturia (Primary Dx) 09/10/2024 Travel 09/09/2024 Telephone [place] [facility] [address] [place] [address] None, None HCN - Patient Message 08/19/2024 Orders Only External Location [address] [place] [address] Provider, External from Last 3 Months Family History Medical History Relation Name Comments Heart Problem Mother Relation Name Status Comments Mother Social History Tobacco Use Types Packs/Day Years [...] on file Sexual Orientation Not on file Last Filed Vital Signs Vital Sign Reading Time Taken Comments Blood Pressure 95/68 09/10/2024 1:06 PM EDT Pulse 73 09/10/2024 1:06 PM EDT Temperature 36.9 C (98.4 F) 05/27/2020 2:22 PM EST Respiratory Rate - - Oxygen Saturation 96% 09/10/2024 1:06 PM EDT Inhaled Oxygen Concentration - - Weight 82.6 kg (182 lb) 09/10/2024 1:06 PM EDT Height 165.1 cm (5' 5 ) 09/10/2024 1:06 PM EDT Body Mass Index 30.29 09/10/2024 1:06 PM EDT Plan of Treatment Upcoming Encounters Date Type Department Care Team (Latest Contact Info) Description 10/10/2024 12:45 PM EDT Hospital Encounter [facility] [address] [place] [address] Leena Calderon MD [address] [address] 10/10/2024 12:45 PM EDT - 10/10/2024 3:05 PM EDT Surgery [facility] [address] [place] [address] Leena Calderon MD [address] [address] TURP, USING SALINE PLASMA VAPORIZATION TECHNIQUE,GREENLIGHT, CYSTOLITHOLAPAXY [38744 (CPT )] Scheduled Procedures Name Priority Associated Diagnoses Date/Ti me TURP, USING SALINE PLASMA VAPORIZATION TECHNIQUE Benign prostatic hyperplasia 10/10/2024 12:45 PM EDT Health Maintenance Due Date Last Done Comments [facility]-Depression Screening 1945 [facility]-Infant/Child/Adol SDOH Screenings 1945 [facility]- SDOH Screenings 07/21/1963 [facility]-Adult SDOH Screenings 07/21/1963 [facility]-DTaP,Tdap,and Td Vaccines (1 - Tdap) 1964 [facility]-Zoster Vaccines (1 of 2) 07/21/1995 [facility]-[id number]-35 Vaccine (2 - season) 2023 05/29/2020 [facility]-Influenza Vaccine (#1) 11/17/202412/26, 11/28/2022, 12/14/2021, Additional history exists [facility]-Pneumococcal Vaccine: 50+ Years Completed 08/07/2022, 12/12/2018 [facility]-RSV Vaccine: 60+ Years or Completed 02/07/2024 [facility]-Obesity Intervention Completed 09/10/2024 HPV Vaccines Aged Out No longer eligi ble based on patient's age to complete this topic [facility]-HIB Vaccines Aged Out No longer e ligible based on patient's age to complete this topic [facility]-Hepatitis A Vaccines Aged Out No longer eligible based on patient's age to complete this topic [facility]-IPV Vaccines Aged Out No longer e ligible based on patient's age to complete this topic [facility]-Rotavirus Vaccines Aged Out No lo nger eligible based on patient's age to complete this topic Goals Goal Patient Goal Type Associated Problems Recent Progress Patient-Stated? Author Autogenerat ed Goal Care Plan Autogenerated Problem No Kalpana Hawkins Procedures Procedure Name Priority Date/Time Associated Diagnosis Comments URINE CULTURE Routine 09/10/2024 2:[address] MSK OUTSIDE IMAGES 08/19/2024 7:34 PM EDT from Last 3 Months Results * Urine Culture - Clinic Collect (09/10/2024 2:16 PM EDT) Culture No growth at day 1 09/12/2024 8:25 AM EDT [facility] Urine Urine specimen obtained by clean catch procedure / Unknown Non-blood Collection / Unknown 09/10/2024 2:16 PM EDT 09/10/2024 5:32 PM EDT Leena Calderon MD LAB MICROBIOLOGY - GENERAL O RDERABLES Final Result [facility] [address] [place] [address] * CT MSK OUTSIDE IMAGES (08/19/2024 7:34 PM EDT) Anatomical Region Laterality Modality Computed Tomogra phy 08/19/2024 7:34 PM EDT us External Provider IMG CT PROCEDURES Final Result from Last 3 Months Additional Health Concerns Active Problems Noted Date Diagnosed Date Autogenerated Problem 09/12/2024 Insurance MEDICARE Care Teams Signaling Project Engineer Relationship Specialty Start Date End Date Zack Orellana MD [address] [place] [address] PCP - General 07/30/20
[2024-09-23 08:16] VITALS: BP 139/94; PULSE 85; RESP 18; TEMP 36.6; O2SAT 100
--- NOTE | 2024-09-23 08:18 | ECG_ITS ---
APPROVED REPORT Exam: Resting ECG HR:80 bpm ECG Measurements Heart Rate 80 AXES QRSd 110 QRS 31 QT 381 T 49 QTc 417 Conclusion ATRIAL FIBRILLATION MINIMAL ST DEPRESSION [0.025+ mV ST DEPRESSION] ABNORMAL RHYTHM ECG UNCONFIRMED REPORT Electronically signed by : Michael Hewitt MD 09/24/2024 08:25:19
[2024-09-23 08:23] LABS: Hematocrit 40.4 % (42.0-52.0); Hemoglobin 13.7 g/dL (14.1-18.0); Immature Granulocytes % 0.5 %; Mean Corpuscular HGB Conc 33.9 g/dL (31.8-35.4); Mean Corpuscular Hemoglobin 29.7 pg (27.0-31.2); Mean Corpuscular Volume 87.6 fl (80-94); Nucleated Red Blood Cells % 0 %; Platelet Count 297 K/mm3 (142-424); Red Blood Count 4.61 M/mm3 (4.60-6.20); Red Cell Distribution Width-SD 43.0 fL; White Blood Count 12.8 K/mm3 (4.8-10.8)
[2024-09-23 08:35] LABS: INR 1.10 (0.9-1.1); Prothrombin Time 12.1 seconds (10.1-12.5)
[2024-09-23] MEDS: LACTATED RINGERS 1000ML 1,000 ML 50 ML IV (08:41)
[2024-09-23 08:48] LABS: Anion Gap 17.1 mEq/L (5-15); Blood Urea Nitrogen 12 mg/dl (9-20); Calcium 10.2 mg/dl (8.4-10.2); Carbon Dioxide 28 mmol/L (22.0-30.0); Chloride 97 mmol/L (98-107); Creatinine Clearance Estimated 67 mL/min (50-200); Creatinine,Serum 0.80 mg/dl (0.66-1.25); Estimated Glomerular Filt Rate 93 ml/min (>60); GFR (African American) 113 ML/MIN (>60); Glucose 175 mg/dl (74-100); Potassium 4.1 mmoL/L (3.5-5.1); Sodium 138 mmol/L (136-145)
--- NOTE | 2024-09-23 08:49 | P.PNANES_ITS ---
[facility] Disclaimer: The information contained in this section may have been updated after the patient was seen, as this information can be updated by other users. Medical History Paroxysmal atrial fibrillation Afib SOB (shortness of breath) Right chronic serous otitis media Vertigo TIA (transient ischemic attack) Radius fracture Pulmonary HTN Degenerative joint disease (DJD) of lumbar spine Postlaminectomy syndrome Left Achilles tendinitis Left Achilles bursitis Type 2 diabetes mellitus with hyperglycemia, without long-term current use of insulin Varicose veins of both lower extremities DJD (degenerative joint disease) Diabetes mellitus HHD (hypertensive heart disease) History of myocardial infarction HLD (hyperlipidemia) HTN (hypertension) CAD (coronary artery disease) Surgical History History of ankle surgery History of laparoscopic cholecystectomy History of esophagogastroduodenoscopy (EGD) History of back surgery History of coronary artery stent placement Family History Other No significant family history Social History Smoking Status: Never smoker second hand exposure: No alcohol intake: never substance use type: denies use current occupational status: retired Travel in the last 8 weeks?: None household members: family housing: house number of children: 2 current occupational exposures/hazards: No caffeine: Yes Contact w/someone who lives/traveled outside US past 30 days?: No Exposure to someone with infectious disease in past 14 days?: No Do you have a fever (greater than 100.4 F or 38 C)?: No Have you tested positive for COVID-19?: Yes Exposed to someone with COVID-19 in past 14 days?: No Do you have a sore throat?: No Do you have a cough?: No Do you have any weakness?: No Are you experiencing any nausea/vomitting?: No Do you have any diarrhea?: No Are you experiencing any unusual bleeding?: No Do you have any muscle aches/pain?: No Do you have any abdominal pain?: No Are you experiencing loss of taste or smell?: No [facility] Anesthesia Checklist Patient Identification Patient Identification: Arm Band and Verbal (Name & ) Structural Data Admitted From: Home Planned Operative Procedure/s: MARTINEZ cardioversion Verified Documents: Surgical Consent and History and Physical NPO Status Verified Time NPO: 00:00 Additional verifications Anesthesia Reactions: No Hx Blood Transfusions: No Blood Transfusion Reaction: No Airway Assessment Mallampati Score:: Class II Dentition: Poor Dentition Neurological Assessment Level of Consciousness: Awake, Alert and Appropriate Hx Seizures: No Anesthesia Plan Anesthesia Risk discussed: Yes Anesthesia Plan: Verified ASA Class: IV Anesthesia Type: MAC
--- NOTE | 2024-09-23 09:51 | SUR.OPER ---
Pt cardioverted at 150j per Dr Lyon. Pt converted to NSR per .
[2024-09-23 09:58] VITALS: BP 91/60; PULSE 57; RESP 18; TEMP 36.2; O2SAT 95
[2024-09-23 10:13] VITALS: BP 93/60; PULSE 62; RESP 18; TEMP 36.2; O2SAT 94
[2024-09-23 10:28] VITALS: BP 104/69; PULSE 64; RESP 18; TEMP 36.2; O2SAT 97
[2024-09-23 10:43] VITALS: BP 109/67; PULSE 62; RESP 18; TEMP 36.2; O2SAT 97
--- NOTE | 2024-09-23 10:52 | ECG_ITS ---
APPROVED REPORT Exam: Resting ECG HR:74 bpm ECG Measurements Heart Rate 74 AXES DC 92 P -34 QRSd 103 QRS 30 QT 411 T 63 QTc 439 Conclusion SINUS RHYTHM WITH SHORT DC INTERVAL WITH FREQUENT SUPRAVENTRICULAR PREMATURE COMPLEXES POSSIBLE ANTERIOR MYOCARDIAL INFARCTION , OF INDETERMINATE AGE [30 ms Q WAVE IN V3/V4, OR R < 0.2 mV IN V4] ABNORMAL ECG UNCONFIRMED REPORT Electronically signed by : Michael Hewitt MD 09/24/2024 08:24:34
[2024-09-23 10:58] VITALS: BP 112/64; PULSE 65; RESP 18; TEMP 36.2; O2SAT 96
== END 2024-09-23 11:00 | disposition home or self-care (01) ==
PROVIDERS: Internal Medicine; PCP Nurse Practitioner Family; Visit Provider Physician Assistant
PROC: (CPT 93312; principal; 2024-09-23 09:00)
DX: I48.0 Paroxysmal atrial fibrillation (principal); I25.10 Atherosclerotic heart disease of native coronary artery without angina pectoris; I11.0 Hypertensive heart disease with heart failure; I50.20 Unspecified systolic (congestive) heart failure; E78.2 Mixed hyperlipidemia; E11.65 Type 2 diabetes mellitus with hyperglycemia; N21.0 Calculus in bladder; I25.2 Old myocardial infarction; Z79.84 Long term (current) use of oral hypoglycemic drugs; Z79.02 Long term (current) use of antithrombotics/antiplatelets; Z79.01 Long term (current) use of anticoagulants; Z79.899 Other long term (current) drug therapy; Z88.1 Allergy status to other antibiotic agents
CPT/HCPCS: 80048; 85025; 85610; 92960; 93005; 93270; 93312; 93319; J2003; J2704; J7120

== ENCOUNTER 2024-09-29 13:43 | Outpatient (CLI) | payer MEDICARE, SELFPAY ==
--- OUTSIDE RECORDS SUMMARY | 2024-06-21 17:30 | XMS_ITS ---
Author Organization [facility] D [place] Address [address] [place] [address] Care Team Providers Care Health Insurance Specialist Name Role Phone Reanna Lockhart Primary Care Provider REANNA LOCKHART Unavailable Unavaila ble Migration, Provider Unavailable Unavailable Allergies Allergen (clinical drug ingredient) Drug/Non Drug Allergy documented on EMR Reaction Allergy Type Onset Date Status LEVAQUIN (uncoded) anaphylaxis Allergy Active REASON FOR VISIT [facility] To [facility] Conversion Encounter Medications Medication SIG (Take, Route, Frequency, Duration) Notes Start Date End Date Status Gabapentin 300 MG 1 cap(s) orally 2 times a day as needed for pain; Duration: 30 days 03/03/2024 Active Tamsulosin HCl 0.4 MG 2 caps orally once a day; Duration: 90 days Active Lasix 20 MG 1 tab(s) orally once a day; Duration: 14 days 10/18/2023 Active Pantoprazole Sodium 40 MG 1 tab(s) orall y once a day; Duration: 90 days 07/09/2023 Active Allergy Relief (Loratadine) 10 MG 1 tab(s) orally once a day; Duration: 30 days 01/09/2023 Active metFORMIN HCl 1000 MG 1 tab(s) orally 2 times a day; Duration: 30 days Active oxyBUTYnin Chloride ER 10 MG 1 tab(s) or ally once a day Active Aspirin Adult Low Dose 81 MG 1 tab(s) or ally once a day Active Atorvastatin Calcium 20 MG 1/2 tab orall y once a day Active Lisinopril 40 MG 1 tab(s) orally once a day Active hydroCHLOROthiazide 25 MG 1 tab(s) orall y once a day Active Bisoprolol Fumarate 10 MG 1 tab(s) orall y once a day; Duration: 30 days Active Gemtesa 75 MG 1 tab(s) orally once a day; Duration: 30 day(s) 06/10/2024 Active Farxiga 5 MG 1 tab(s) orally once a day; Duration: 30 day(s) 06/09/2024 Active Clopidogrel Bisulfate 75 MG 1 tab(s) ora lly once a day Active Encounters Encounter Location Date Provider Diagnosis [facility] [place] [address] [place] [address] 06/21/2024 Provider Migration Urinary frequency R35.0 and Type 2 diabetes mellitus without complication, without long-term current use of insulin E11.9 Assessments Encounter Date Diagnosis (ICD Code) Assessment Notes Treatment Notes Treatment Clinical Notes Section Notes 06/21/2024 Urinary frequency (ICD-10 - R35.0) 06/21/2024 Type 2 diabetes mellitus without complication, without long-term current use of insulin (ICD-10 - E11.9) Plan Of Treatment Medication Medication Name Sig Start Date Stop Date Notes metFORMIN HCl 1000 MG 1 tab(s) orally 2 times a day; Duration: 30 days Bisoprolol Fumarate 10 MG 1 tab(s) orall y once a day; Duration: 30 days Gemtesa 75 MG 1 tab(s) orally once a day; Duration: 30 day(s) 06/10/2024 Farxiga 5 MG 1 tab(s) orally once a day; Duration: 30 day(s) 06/09/2024 Next Appt Details Provider Name:Reanna Rico ce, 11/24/2024 02:00:00 PM, [address] [facility], [address], [place], [place], [address], Progress Notes * Rocky COMBS ADOB: [birth year] (79 yo M)Acc No.[id number]:06/21/2024 Patient: Rocky ADRIAN Provider: Konrad lam Migration :1945 A ge:78 Y S ex:Male Date:06/21/2024 Address:[address] [place] [address] [place], [id number] Pcp:Reanna Lockhart Subjective: * Chief Complaints: * [facility] . [facility]. * Medical History: * Medications: T aking hydroCHLOROthiazide 25 MG Tablet 1 tab(s) orally once a day , Taking Clopidogrel Bisulfate 75 MG Tablet 1 tab(s) orally once a day , Taking Lisinopril 40 MG Tablet 1 tab(s) orally once a day , Taking Atorvastatin Calcium 20 MG Tablet 1/2 tab orally once a day , Taking Aspirin Adult Low Dose 81 MG Tablet Delayed Release 1 tab(s) orally once a day , Taking oxyBUTYnin Chloride ER 10 MG Tablet Extended Release 24 Hour 1 tab(s) orally once a day , Taking Allergy Relief (Loratadine) 10 MG Tablet 1 tab(s) orally once a day , Taking Pantoprazole Sodium 40 MG Tablet Delayed Release 1 tab(s) orally once a day , Taking Lasix 20 MG Tablet 1 tab(s) orally once a day , Taking Tamsulosin HCl 0.4 MG Capsule 2 caps orally once a day , Taking Gabapentin 300 MG Capsule 1 cap(s) orally 2 times a day as needed for pain * Allergies: L EVAQUIN: anaphylaxis - Allergy. Objective: * Vitals: Assessment: * Assessment: 1. T ype 2 diabetes mellitus without complication, without long-term current use of insulin - E11.9 (Primary) 2 . U rinary frequency - R35.0 Plan: * Treatment: 2. U rinary frequency Start Gemtesa Tablet, 75 MG, 1 tab(s), orally, once a day, 30 day(s), 30. 3. O thers Refill Bisoprolol Fumarate Tablet, 10 MG, 1 tab(s), orally, once a day, 30 days, 30 Tablet, Refills 3; S tart metFORMIN HCl Tablet, 1000 MG, 1 tab(s), orally, 2 times a day, 30 days, 60, Refills 2. * * Electronic signature of Prov ider Migration on 09/29/2024 at 01:52 PM EDT Sign off status: Pending * Provider: Konrad lam Migration Date: 0 06/21/2024 Generated for Sarbjit bullard/Domenico/Mohsenitting on: 0 09/29/2024 01:52 PM EDT
--- OUTSIDE RECORDS SUMMARY | 2024-08-28 11:45 | XMS_ITS ---
Author Organization [facility] D [place] Address [address] [place] [address] Care Team Providers [facility] Assistant Name Role Phone Evie Lockhartah Primary Care Provider LEANDER LOCKHART Unavailable Unavaila ble Allergies Allergen (clinical drug ingredient) Drug/Non Drug Allergy documented on EMR Reaction Allergy Type Onset Date Status LEVAQUIN (uncoded) anaphylaxis Allergy Active Results Component Value Reference Range Notes BASIC METABOLIC PANEL (75066 ) Reviewed date:09/01/2024 11:31:03 AM Interpretation: Performing Lab:CB, [facility] [place] [id number], [id number] Dave Vogt Notes/Report: NON-FASTING GLUCOSE 162 65-99 [...] Problem Status W/U Status Risk Notes Problem Chronic systolic heart failure (733868562) Systolic CHF, chronic (I50.22) Active confirmed Problem Esophageal dysmotility (184621522) Esophageal dysmotility (K22.4) Active confirmed Problem Atrial fibrillation (09579244) Atrial fibrillation, unspecified type (I48.91) Active confirmed Problem Essential hypertension (42099803) Essential hypertension (I10) Active confirmed Problem Bladder stone (89383187) Bladder stone (N21.0) Active confirmed Vital Signs Temperature 96.6 degrees Fahrenheit 08/29/19 25 Heart Rate 84 /min 08/28/2024 Blood pressure systolic 88 mm Hg 08/29/19 25 Blood pressure diastolic 58 mm Hg 025 Height 5ft 6in in 08/28/2024 Weight 161.4 lbs 08/28/2024 BMI 26.05 kg/m2 08/28/2024 Encounters Encounter Location Date Provider Diagnosis [facility] [place] [address] [place] [address] 08/28/2024 Leander Chantelle Systolic CHF, chroni c I50.22 ; Hypertensive [...] Up: 4 Weeks,prn, Reas on: Provider Name:Leander zafar, 11/24/2024 02:00:00 PM, [address] [facility], [address], [place], [address], Progress Notes * Rocky COMBS ADOB: 6 (79 yo M)Acc No.[id number]:08/28/2024 HOSP F/U Patient: Ever Rocky CALDREON Provider: GALO Longoria :1945 A ge:79 Y S ex:Male Date:08/28/2024 Address:[address] [place] [address] [place], [id number] Subjective: * Chief Complaints: * 1 . [...] CHF, chronic L AB: BASIC METABOLIC PANEL (26952) (Collection Date & Time - 08/28/2024 04:50 [...] 08/28/2024 Generated for Sarbjit bullard/Domenico/Star on: 0 09/29/2024 01:52 PM EDT History and Physical Notes * HPI [...]
--- OUTSIDE RECORDS SUMMARY | 2024-09-10 13:30 | XMS_ITS | Encounter Summary ---
Author Organization Healthcare Address [address] [id number] Care Team Providers Care Inspector Fibrous Wallboard Name Role Phone Zack Orellana MD Primary Care Provider [phone] Reason for Visit * Reason Comments Advice Only Encounter Details Date Type Department Care Team ([facility] Contact Info) Description 09/10/2024 1:30 PM EDT Consult Medical Office Building Urology [address], [address] [place] [address] Leena Calderon MD [address] [place] [address] Nocturia (Primary Dx) Social History Tobacco Use Types Packs/Day Years Used Date Smoking Tobacco: Never Smokeless Tobacco: Never Tobacco Cessation:Counseling Given: Not Answered Alcohol Use Standard Drinks/Week Comments Never 0 (1 standard drink = 0.6 oz pur e alcohol) PHQ-2 Answer Date Recorded Patient Health Questionnaire-2 Score 2 09/10/2024 AUDIT-C Answer Date Recorded Q1: How often do you have a drink containing alcohol? Never 09/10/2024 Q2: How many drinks containi ng alcohol do you have on a typical day when you are drinking? Patient does not drink Q3: How often do you have si x or more drinks on one occasion? Never 09/10/2024 Sex and Gender Information Value Date Recorded Sex Assigned at Not on file Legal Sex Male 8:02 PM EDT Gender Identity Not on file Sexual Orientation Not on file documented as of this encounter Last Filed Vital Signs Vital Sign Reading Time Taken Comments Blood Pressure 95/68 09/10/2024 1:06 PM EDT Pulse 73 09/10/2024 1:06 PM EDT Temperature - - Respiratory Rate - - Oxygen Saturation 96% 09/10/2024 1:06 PM EDT Inhaled Oxygen Concentration - - Weight 82.6 kg (182 lb) 09/10/2024 1:06 PM EDT Height 165.1 cm (5' 5 ) 09/10/2024 1:06 PM EDT Body Mass Index 30.29 09/10/2024 1:06 PM EDT documented in this encounter Functional Status * AUDIT-C Score Answer Date of Assessment Author 0 09/10/2024 1:08 PM EDT Cathy Conde * Question Answer Date of Assessment Author Q1: How often do you have a drink containing alcohol? Never 09/10/2024 1:08 PM EDT Cathy Conde Q2: How many drinks containing alcohol do you have on a typical day when you are drinking? Patient does not drink 09/10/2024 1:08 PM EDT Cathy Conde Q3: How often do you have six or more drinks on one occasion? Never 09/10/2024 1:08 PM EDT Cathy Conde * Over the past 2 weeks, how often have you been bothered by any of the following problems? Question Answer Date of Assessment Author Little interest or pleasure in doing things Several days 09/10/2024 1:21 PM EDT Cathy Conde Feeling down, depressed, or hopeless Several days 09/10/2024 1:21 PM EDT Cathy Conde Patient Health Questionnaire -2 Score 2 09/10/2024 1:21 PM EDT Cathy Conde * Question Answer Date of Assessment Author Trouble falling or staying asleep, or sleeping too much Not at all 09/10/2024 1:21 PM EDT Cathy Conde Feeling tired or having merlene le energy Several days 09/10/2024 1:21 PM EDT Cathy Conde Poor appetite or overeating Not at all 09/10/2024 1: 21 PM EDT Cathy Conde Trouble concentrating on things, such as reading the newspaper or watching television Several days 09/10/2024 1:21 PM EDT Cathy Conde Moving or speaking so slowly that other people could have noticed? Or the opposite - being so fidgety or restless that you have been moving around a lot more than usual. Not at all 09/10/2024 1:21 PM SOLET Cathy Conde Thoughts that you would be better off or hurting yourself in some way Not at all 09/10/2024 1:21 PM EDT Cathy Conde * If you checked off any problems on this questionnaire so far, Question Answer Date of Assessment Author How difficult have these problems made it for you to do your work, take care of things at home, or get along with other people? Not difficult at all 09/10/2024 1:21 PM EDT Cathy Conde * How difficult have these problems made it for you to do your work, take care of things at home, or get along with other people? Answer Date of Assessment Author Not difficult at all 09/10/2024 1:21 PM EDT Cathy Avila documented as of this encounter Miscellaneous Notes * Progress Notes - Adelso Posadas MD - 09/10/2024 1:30 PM EDT [facility] Urology Clinic Note 09/10/24 CC: BPH HPI: Rocky Combs is a 79 y.o. male hx of CAD on Plavix, DM, HLD, HTN, BPH on Flomax, who presentsfor worsening LUTS. He states he has had bothersome voiding symptoms the last 5-6 years. He states he has an intermittently weak stream, poor emptying, urgency with occasional urge incontinence, and post void dribbling. Has previously seen Dr. Bryson at [facility] and was on Flomax for a period of time. He states this helped his symptoms initially but he now continues to have bothersome symptoms despite the medication. He underwent CT imaging 08/19 which noted an enlarged prostate measuring ~60 grams, and a 1.2 cm bladder stone. He denies prior surgery. He denies history of urinary retention or need for Carson placement. He denies dysuria, hematuria. He states he has had prior surgeries before and has been able to come offPlavix perioperatively. Past Medical History: Past Medical History[1] Past Surgical History: Surgical History[2] Family History: Family History[3] Social History: Social History[4] Outpatient Medications: Current Outpatient Medications Medication Instructions amLODIPine (NORVASC) 5 mg, Daily ascorbic acid (Vitamin C) 500 MG ER capsule bisoprolol (ZEBETA) 20 mg, Daily carvedilol (COREG) 12.5 mg, 2 times daily clopidogrel (Plavix) 75 MG tablet TAKE ONE TABLET BY MOUTH EVERY DAY FOR blood thinner furosemide (LASIX) 20 mg, Daily lisinopril 10 mg, Daily losartan (COZAAR) 50 mg, Daily metFORMIN (GLUCOPHAGE) 1,000 mg, 2 times daily tolterodine (DETROL) 2 mg, Nightly Physical Exam: Vitals: 09/10/24 1306 BP: 95/68 Pulse: 73 SpO2: 96% GEN: NAD HEENT: NCAT, EOMI RESP: Equal bilateral chest rise, normal work of breathing CV: Regular rate, appears well perfused ABD: Nondistended : Normal phallus, with bilateral testicles in dependent scrotum EXT: No gross deformities MSK: Full ROM in BL UE NEURO: No focal deficits, alert and oriented PSYCH: Normal mood and affect Imaging: I have personally reviewed the imaging below: OSH CT 08/19: Reviewed. Enlarged prostate measuring ~60 grams, and a 1.2 cm bladder stone. There is also a 2 mm non obstructing left renal stone. Assessment: Rocky Combs is a 79 y.o. M with hx of CAD on Plavix, DM, HLD, HTN, BPH on Flomax, who presents for worsening LUTS. Recent CT notes a 60 gram gland and a 1.2 cm bladder stone. We discussed treating his bladder stone and BPH at the same time. We discussed HoLEP vs Greenlight to treat his prostate. He ultimately decided to proceed with Greenlight. Plan: - to OR for cystolitholapaxy, Greenlight PVP - Urine culture today Adelso Posadas MD PGY-2 Urology [1] Past Medical History: Diagnosis Date Diabetes (CMS/HCC) Heart attack (CMS/HCC) High cholesterol Hypertension Personal history of other endocrine, nutritional and metabolic disease History of diabetes mellitus Stroke (CMS/HCC) [2] Past Surgical History: Procedure Laterality Date ANKLE SURGERY N/A Ankle Surgery from [facility] BACK SURGERY N/A Back Surgery from [facility] CHOLECYSTECTOMY SHOULDER SURGERY N/A Shoulder Surgery from [facility] [3] Family History Problem Relation Name Age of Onset Heart Problem Mother [4] Social History Tobacco Use Smoking status: Never Smokeless tobacco: Never Vaping Use Vaping status: Never Used Substance Use Topics Alcohol use: Never Drug use: Never Cosigned by Leena Calderon MD at 09/11/2024 8:38 AM EDT Associated attestation - Leena Calderon MD - 09/11/2024 8:38 AM EDT I saw and evaluated the patient with the resident/fellow. I discussed the case with the resident/fellow and agree with the findings and plan as documented. We discussed the options for the management of BPH/LUTS including medical therapy and/or surgical therapy. Surgical therapies discussed included Rezum, laser photovaporization of the prostate (Greenlight), transurethral resection of the prostate (TURP), simple prostatectomy, and holmium laser enucleation of the prostate (HoLEP). He elected for PVP documented in this encounter Plan of Treatment Upcoming Encounters Date Type Department Care Team (Latest Contact Info) Description 10/03/2024 2:00 PM EDT [facility] [address] [place] [address] 10/10/2024 12:45 PM EDT Hospital Encounter [facility] [address] [place] [address] Leena Calderon MD [address] [place] [address] 10/10/2024 12:45 PM EDT - 10/10/2024 3:05 PM EDT Surgery [facility] [address] [place] [address] Leena Calderon MD [address] [place] [address] TURP, USING SALINE PLASMA VAPORIZATION TECHNIQUE,GREENLIGHT, CYSTOLITHOLAPAXY [91077 (CPT )] Scheduled Procedures Name Priority Associated Diagnoses Date/Ti me TURP, USING SALINE PLASMA VAPORIZATION TECHNIQUE Benign prostatic hyperplasia 10/10/2024 12:45 PM EDT documented as of this encounter Procedures Procedure Name Priority Date/Time Associated Diagnosis Comments URINE CULTURE Routine 09/10/2024 2:16 PM EDT Nocturia documented in this encounter Results * Urine Culture - Clinic Collect (09/10/2024 2:16 PM EDT) Culture No growth at day 1 09/12/2024 8:25 AM EDT [facility] Urine Urine specimen obtained by clean catch procedure / Unknown Non-blood Collection / Unknown 09/10/2024 2:16 PM EDT 09/10/2024 5:32 PM EDT us Leena Calderon MD LAB MICROBIOLOGY - GENERAL O RDERABLES Final Result [facility] [address] [place] [address] documented in this encounter Visit Diagnoses Diagnosis Nocturia- Primary Benign prostatic hyperplasia Unspecified hyperplasia of prostate without urinary obstruction and other lower urinary tract symptoms (LUTS) documented in this encounter Additional Health Concerns Assessment Noted Time A fall risk assessment has been complete d for the patient 09/10/2024 1:20 PM EDT A Body Mass Index follow-up plan has been documented for the patient 09/11/2024 8:38 AM EDT documented as of this encounter Care Teams Inspector Fibrous Wallboard Relationship Specialty Start Date End Date Zack Orellana MD [address] [place] [address] PCP - General 07/30/20 documented as of this encounter
--- OUTSIDE RECORDS SUMMARY | 2024-09-29 13:53 | XMS_ITS | Encounter Summary ---
Author Organization Healthcare Address [address] [id number] Care Team Providers Care Histologic Technician Name Role Phone Zack Orellana MD Primary Care Provider [phone] Encounter Details Date Type Department Care Team (Late st Contact Info) Description 09/12/[address] [facility] Urology [address], [address] [place] [address] Leena Calderon MD [address] [facility] [address] [place] [address] Social History Tobacco Use Types [...] Description 10/03/2024 2:00 PM EDT Pre-Admission Testing [facility] Pre[facility]op Clinic [address] [place] [address] 10/10/2024 12:45 PM EDT Hospital Encounter [facility] RO[facility] [address] [place] [address] Leena Calderon MD [address] [address] 10/10/2024 12:45 PM EDT - 10/10/2024 3:05 PM EDT Surgery [facility] [address] [place] [address] Leena Calderon MD [address] [address] TURP, USING SALINE PLASMA VAPORIZATION TECHNIQUE,GREENLIGHT, CYSTOLITHOLAPAXY [46352 (CPT )] Scheduled Orders Name Type Priority [...] documented as of this encounter Care Teams Histologic Technician Relationship Specialty Start Date End Date Zack Orellana MD [address] [place] [address] PCP - General 07/30/20 documented as of this encounter
--- OUTSIDE RECORDS SUMMARY | 2024-09-29 13:53 | XMS_ITS | Encounter Summary ---
Author Organization Healthcare Address [address] [phone] Care Team Providers Care Machine Packager Name Role Phone Zack Orellana MD Primary Care Provider [phone] Reason for Visit * Reason Onset Date Comments HCN - Patient Message 09/09/2024 Encounter Details Date Type Department Care Team (Late st Contact Info) Description 09/09/2024 Telephone [place] [facility] [address], [address] [place] [address] None, None [address] [place], [place] [phone] HCN - Patient Message Social History Tobacco [...] Phone Message Reason for Call: Poly with [facility] calling regarding a fax they received to [employer]hare his CT done on 08/20/23 but states they do not have any records of him having that done there. Best contact number and optimal time of day to reach caller: [phone] - anytime Note: Please do not reply to this message. Follow-up communication and further actions as a result of this message need to be communicated with the patient directly, if the patient is not active onMyChart. If the patient is active on MyChart, they will receive notification of the communication/outcome via [employer]. documented in this encounter Plan of Treatment Upcoming Encounters Date Type Department Care Team (Latest Contact Info) Description 10/03/2024 2:00 PM EDT Pre[place] Testing [place] [facility] [address] [place] [address] 10/10/2024 12:45 PM EDT Hospital Encounter [facility] RO[facility] [address] [place] [address] Leena Calderon MD [address] [place] [address] 10/10/2024 12:45 PM EDT - 10/10/2024 3:05 PM EDT Surgery [facility] [address] [place] [address] Leena Calderon MD [address] [place] [address] TURP, USING SALINE PLASMA VAPORIZATION TECHNIQUE,GREENLIGHT, CYSTOLITHOLAPAXY [91634 (CPT )] Scheduled Procedures Name Priority Associated Diagnoses Date/Ti me TURP, USING SALINE PLASMA VAPORIZATION TECHNIQUE Benign prostatic hyperplasia 10/10/2024 12:45 PM EDT documented as of this encounter Visit Diagnoses Not on filedocumented in this encounter Care Teams Machine Packager Relationship Specialty Start Date End Date Zack Orellana MD [address] [place] [address] PCP - General 07/30/20 documented as of this encounter
--- OUTSIDE RECORDS SUMMARY | 2024-09-29 13:53 | XMS_ITS | Encounter Summary ---
Author Organization Healthcare Address [address] [place] [address] Care Team Providers Care Vp Compliance Name Role Phone Zack Orellana MD Primary Care Provider [phone] Encounter Details Date Type Department Care Team [...] Description 10/03/2024 2:00 PM EDT Pre-[facility] Testing [facility] [address] [place] [address] 10/10/2024 12:45 PM EDT Hospital Encounter P[facility] A OPERATING ROOM [address] [place] [address] Leena Calderon MD [facility] [address] [address] 10/10/2024 12:45 PM EDT - 10/10/2024 3:05 PM EDT Surgery [facility] A OPERATING ROOM [address] [place] [address] Leena Calderon MD [facility] [address] [address] TURP, USING SALINE PLASMA VAPORIZATION TECHNIQUE,GREENLIGHT, CYSTOLITHOLAPAXY [34544 (CPT )] Scheduled Procedures Name Priority Associated [...] documented as of this encounter Care Teams Vp Compliance Relationship Specialty Start Date End Date Zack Orellana MD [address] [place] [address] PCP - General 07/30/20 documented as of this encounter
--- OUTSIDE RECORDS SUMMARY | 2024-09-29 13:53 | XMS_ITS | Patient Health Record ---
Author Organization [facility] D [facility] Address [address] [place] [address] Care Team Providers Care Material Handling Warehouse Supervisor Name Role Phone Leander Lockhart Primary Care Provider [phone] LEANDER LOCKHART Unavailable Unavaila ble Migration, Provider Unavailable Unavailable Allergies Allergen (clinical drug ingredient) Drug/Non Drug Allergy documented on EMR Reaction Allergy Type Onset Date Status LEVAQUIN (uncoded) anaphylaxis Allergy Active Results Component Value Reference Range Notes TSH W/REFLEX TO FT4 (86976) Reviewed date:02/12/2024 09:57:49 AM Interpretation: Performing Lab:CM [facility] [employer] [id number], [place] Dave Vogt Notes/Report: NON-FASTING; NON-FASTING; NON-FASTING; NON-FASTING; NON-FAST FASTING:YES FASTING: YES TSH W/REFLEX TO FT4 0.82 0.40-4.50 mIU/L HEMOGLOBIN A1c (496) Reviewed date:02/12/2024 09:57:49 AM Interpretation: Performing Lab:CM [facility] [address], [place] Dave Vogt Notes/Report: NON-FASTING; NON-FASTING; NON-FASTING; NON-FASTING; [...] A1c for diagnosis of diabetes for children. CBC (INCLUDES DIFF/PLT) (639 9) Reviewed date:02/12/2024 09:57:49 AM Interpretation: Performing Lab:CM [facility] [facility] [address], [place]mis[place] Dave Vogt Notes/Report: NON-FASTING; NON-FASTING; NON-FASTING; NON-FASTING; [...] MPV 10.7 7.5-12.5 fL ABSOLUTE NEUTROPHILS [phone] cells/uL ABSOLUTE LYMPHOCYTES 0924 523-7805 cells/uL ABSOLUTE MONOCYTES 484 200-950 cells/uL ABSOLUTE EOSINOPHILS 62 15-500 cells/uL ABSOLUTE BASOPHILS 114 0-200 cells/uL NEUTROPHILS 72.7 LYMPHOCYTES 19.8 MONOCYTES 5.5 EOSINOPHILS 0.7 BASOPHILS 1.3 LIPID PANEL, STANDARD (7600) Reviewed date:02/12/2024 09:57:48 AM Interpretation: Performing Lab:CM [facility] [address], [place]JscjFU[address] Dave Vogt Notes/Report: NON-FASTING; NON-FASTING; NON-FASTING; NON-FASTING; NON-FAST FASTING:YES FASTING: YES CHOLESTEROL, TOTAL 79 <200 mg/dL HDL CHOLESTEROL 34 > OR = 40 mg/dL TRIGLYCERIDES 119 <150 mg/dL LDL-CHOLESTEROL 24 Reference range: <100 Desirable range <100 mg/dL for primary prevention; <70 mg/dL for patients with CHD or diabetic patients with > or = 2 CHD risk factors. LDL-C is now calculated using the Haprreet calculation, which is a validated novel method providing better accuracy than the Friedewald equation in the estimation of LDL-C. Humberto SS et al. ANUP. 2013;310(89): 1157-5460 (http://NoteSick.SolarVista Media/faq/LBB917) CHOL/HDLC RATIO 2.3 <5.0 (calc) NON HDL CHOLESTEROL 45 <130 mg/dL (calc) For patients with diabetes plus 1 major ASCVD risk factor, treating to a non-HDL-C goal of <100 mg/dL (LDL-C of <70 mg/dL) is considered a therapeutic option. Microalbumin (In-House) Reviewed date:02/07/2024 07:14:02 PM Interpretation: Performing Lab: Notes/Report: ALB 80mg/L CRE 300mg/dL A:C 30-300mg/g PSA, TOTAL (5363) Reviewed date:02/12/2024 09:57:49 AM Interpretation: Performing Lab:CM [facility], [place]wbq[place] Dave Vogt Notes/Report: NON-FASTING; NON-FASTING; NON-FASTING; NON-FASTING; NON-FAST FASTING:YES FASTING: YES PSA, TOTAL 1.37 < OR = 4.00 ng/mL The total PSA value from this assay system is standardized against the WHO standard. The test result will be approximately 20% lower when compared to the equimolar-standardized total PSA (Carina Marcel). Comparison of serial PSA results should be interpreted with this fact in mind. This test was performed using the Siemens chemiluminescent method. Values obtained from different assay methods cannot be used interchangeably. PSA levels, regardless of value, should not be interpreted as absolute evidence of the presence or absence of disease. COMPREHENSIVE METABOLIC PANE L (71555) Reviewed date:02/12/2024 09:57:49 AM Interpretation: Performing Lab:CM [facility], [place]ahvTV[address] Dave Vogt Notes/Report: NON-FASTING; NON-FASTING; NON-FASTING; NON-FASTING; [...] = 60 mL/min/1.73m2 BUN/CREATININE RATIO SEE NOTE: - (calc) Not Reported: BUN and Creatinine are [...] 11 10-35 U/L ALT 10 9-46 U/L Urinalysis Reviewed date:06/09/2024 10:12:27 AM Interpretation: Performing Lab: Notes/Report: Color/Clarity yellow Leuk neg Nitrite neg Urobili 0.2 Protein neg pH 6.0 Blood neg Sp. Gr. 1.025 Ketone neg Bili neg Glucose 500mg HEMOGLOBIN A1c (496) Reviewed date:07/23/2024 09:34:31 AM Interpretation: Performing Lab:CB, [facility] E[address] [facility] RehabilitationServandoZpecSU[address] Dave Vogt Notes/Report: NON-FASTING; NON-FASTING HEMOGLOBIN A1c [...] A1c for diagnosis of diabetes for children. COMPREHENSIVE METABOLIC PANE L (21180) Reviewed date:07/23/2024 09:34:31 AM Interpretation: Performing Lab:CM [facility] [address] [facility]iefNetteBachar[facility], [facility] Access HospitalSzwoYL[address] Dave Vogt Notes/Report: NON-FASTING; NON-FASTING GLUCOSE 128 [...] 11 10-35 U/L ALT 7 9-46 U/L BASIC METABOLIC PANEL (00716 ) Reviewed date:09/01/2024 11:31:03 AM Interpretation: Performing Lab:CM [facility] [address] [facility], [facility] HospitalZdxaTE[address] Dave Vogt Notes/Report: NON-FASTING GLUCOSE 162 65-99 mg/dL Fasting reference interval For someone without known diabetes, a glucose value >125 mg/dL indicates that they may have diabetes and this should be confirmed with a follow-up test. UREA NITROGEN (BUN) 19 7-25 mg/dL CREATININE 1.13 0.70-1.28 mg/dL EGFR 66 > OR = 60 mL/min/1.73m2 BUN/CREATININE RATIO SEE NOTE: 6 (calc) Not Reported: BUN and Creatinine are within reference range. SODIUM 137 135-146 mmol/L POTASSIUM 3.5 3.5-5.3 mmol/L CHLORIDE 99 98-110 mmol/L CARBON DIOXIDE 25 20-32 mmol/L CALCIUM 10.6 8.6-10.3 mg/dL Reason For Referral Reason Dr Velasquez for can [place] skin check at [facility] Diagnosis 1 Seborrheic dermatiti s of scalp (L21.9) Referral Organization [facility] Referring Provider First Name [place] Referring Provider Last Name [place] [facility] Referred Organization [facility] Referred Address [address], [place], [place],[address], Referred Provider Specialty Dermatology General Notes Sarah Beth Fernandez 2023 10:08:00 AM >Sent to Dr. Velasquez- They will contact patient to schedule. Referral Priority Routine Reason please send screenin g kit Diagnosis 1 Colon cancer screeni ng (Z12.11) Referral Organization [facility] Referring Provider First Name Leander Referring Provider Last Name Chantelle Referring Provider [facility] ctlandon Referred Provider Sil eng Referral Priority Routine [...] Status W/U Status Risk Notes Problem Sciatica (41340286) Lumbago with sciatica, right side (M54.41) Active confirmed Problem Sciatica (95492476) Lumbago with sciatica, left side (M54.42) Active confirmed Problem Esophageal dysmotility (596999925) Esophageal dysmotility (K22.4) Active confirmed Problem Essential hypertension (67268318) Essential hypertension (I10) Active confirmed Problem Chronic pain (00110733) Other chronic pain (G89.29) Active confirmed Problem Body mass index 25-29 - overweight (633206448) BMI 28.0-28.9,adult (Z68.28) Active confirmed Problem Chronic systolic heart failure (618362947) Systolic CHF, chronic (I50.22) Active confirmed Problem Atrial fibrillation (77537121) Atrial fibrillation, unspecified type (I48.91) Active confirmed Problem Type II diabetes mellitus without complication (804539574) Type 2 diabetes mellitus without complication, without long-term current use of insulin (E11.9) Active confirmed Problem Lower urinary tract symptoms due to benign prostatic hypertrophy (79975452607974) Benign prostatic hyperplasia with lower urinary tract symptoms (N40.1) Active confirmed Problem Hearing loss (20468124) Bilateral hearing loss, unspecified hearing loss type (H91.93) Active confirmed Problem Seasonal allergic rhinitis (669290129) Seasonal allergic rhinitis, unspecified trigger (J30.2) Active confirmed Problem Bladder stone (22108840) Bladder stone (N21.0) Active confirmed Problem History of excision of intestinal structure (544534549) S/P cholecystectomy (Z90.49) Active confirmed Vital Signs Heart Rate 84 /min 08/28/2024 Temperature 96.6 degrees Fahrenheit 08/28/2024 Blood pressure diastolic 58 mm Hg 08/28/2024 Height 5ft 6in in 08/28/2024 Blood pressure systolic 88 mm Hg 08/28/2024 Weight 161.4 lbs 08/28/2024 BMI 26.05 kg/m2 08/28/2024 Encounters Encounter Location Date Provider Diagnosis [facility] [address] [facility] [address] [place] [address] 06/21/2024 Provider Migration Urinary frequency R35.0 and Type 2 diabetes mellitus without complication, without long-term current use of insulin E11.9 [facility] [address] [place] [address] 10/15/2023 Leander Chantelle Lower extremity andie a R60.0 and S/P cholecystectomy Z90.49 [facility] [address] [facility] [address] [place], [place] [address] 12/27/2023 Leander Chantelle Immunization(s) administered Z23 ; Seborrheic dermatitis of scalp L21.9 ; HTN (hypertension), benign I10 and Type 2 diabetes mellitus without complication, without long-term current use of insulin E11.9 [facility] [address] [facility] [address] [place], [place] [address] 02/07/2024 Leander Chantelle Urinary frequency R3 5.0 ; Medicare annual wellness visit, subsequent Z00.00 ; HTN (hypertension), benign I10 ; History of stroke Z86.73 ; History of coronary artery disease Z86.79 ; Type 2 diabetes mellitus without complication, without long-term current use of insulin E11.9 ; BMI 28.0-28.9,adult Z68.28 ; Recurrent vomiting R11.10 ; Encounter for immunization Z23 and Colon cancer screening Z12.11 [facility] [address] [facility] [address] [place] [address] 06/09/2024 Leander Chantelle Urinary frequency R3 5.0 ; Type 2 diabetes mellitus without complication, without long-term current use of insulin E11.9 ; HTN (hypertension), benign I10 and Benign prostatic hyperplasia with lower urinary tract symptoms N40.1 [facility] [address] [facility] [address] [place] [address] 07/21/2024 Leander Chantelle Urinary frequency R3 5.0 ; Type 2 diabetes mellitus without complication, without long-term current use of insulin E11.9 ; HTN (hypertension), benign I10 and Benign prostatic hyperplasia with lower urinary tract symptoms N40.1 [facility] [address] 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 ; Esophageal dysmotility K22.4 ; Recurrent vomiting R11.10 ; Atrial fibrillation, unspecified type I48.91 ; Essential hypertension I10 ; Bladder stone N21.0 and Hospital discharge follow-up Z09 [facility] [address] [facility] [address] [place] [address] 10/18/2023 Leander Chantelle [facility] [address] [facility] [address] [place] [address] 02/12/2024 Leander Chantelle [facility] [address] [facility] [address] [place] [address] 06/09/2024 Leander Chantelle [facility] [address] [address] 06/11/2024 Leander Chantelle [facility] [address] [facility] [address] [place] [address] 07/21/2024 Leander Chantelle [facility] [address] [facility] [address] [place] [address] 08/26/2024 Leander Chantelle [facility] [address] [address] 09/18/2024 Leander Chantelle Assessments Encounter Date Diagnosis [...] Plan Of Treatment Next Appt Details Provider Name:Leanedr Pro Jacky ce, 11/24/2024 02:00:00 PM, [address], [address], [place], [address], Insurance Providers Payer Name Payer Address Payer Phone Subscriber Number Group Number Insured Name Patient Relationship to Insured Coverage Start Date Coverage End Date [place] [address] [place] [address] [id number] Rocky Combs Self - patient is the insured [facility] [address] [place] [address] [id number] Rocky Combs Self - patient is the insured [employer] [address] [place] [address] ACL Rocky Combs Self - patient is [...]
--- OUTSIDE RECORDS SUMMARY | 2024-09-29 13:53 | XMS_ITS | Encounter Summary ---
Author Organization Healthcare Address [address] [place] [address] Care Team Providers Care Collar Padder Blindstitch Name Role Phone Zack Orellana MD Primary Care Provider [phone] Encounter Details Date Type Department Care Team (Late st Contact Info) Description 08/19/2024 Orders Only External Location [address] [place] [address] Provider, External Social History Tobacco Use Types [...] Description 10/03/2024 2:00 PM EDT [facility] Testing [facility] [address] [place] [address], 1st [place] [address] 10/10/2024 12:45 PM EDT Hospital Encounter [facility] [address] [place] [address] Leena Calderon MD [address] [place] [address] 10/10/2024 12:45 PM EDT - 10/10/2024 3:05 PM EDT Surgery [facility] [address] [place] [address] Leena Calderon MD [address] [place] [address] TURP, USING SALINE PLASMA VAPORIZATION TECHNIQUE,GREENLIGHT, CYSTOLITHOLAPAXY [84840 (CPT )] Scheduled Procedures Name Priority Associated [...] Computed Tomogra phy 08/19/2024 7:34 PM EDT External Provider IMG CT PROCEDURES Final Result documented in this encounter Visit Diagnoses Not on filedocumented in this encounter Care Teams Collar Padder Blindstitch Relationship Specialty Start Date End Date Zack Orellana MD [address] [place] [address] PCP - General 07/30/20 documented as of this encounter
--- OUTSIDE RECORDS SUMMARY | 2024-09-29 13:54 | XMS_ITS | Clinical Summary ---
Author Organization Healthcare Address [address] [place] [address] Care Team Providers Care Operations Research Engineer Name Role Phone Zack Orellana MD Primary Care Provider [phone] Allergies Active Allergy Reactions Criticality Noted Date [...] Encounters Date Type Department Care Team Description 09/29/2024 Telephone [facility] Pre-op Clinic [address], [address]st [place] [address] Noe Stokes MD 09/12/2024 Telephone [facility] Urology [address], [address] [place] [address] Leena Calderon MD 09/10/2024 1:30 PM EDT Consult Medical Office Building Urology [address] [facility], [address] [place] [address] Leena Calderon MD Nocturia (Primary Dx) 09/10/2024 Travel 09/09/2024 Telephone [place] [facility] U[facility] [address], [address] [place] [address] None, None [facility] - Patient Message 08/19/2024 Orders Only External Location [address] [place] [address] Provider, External from Last 3 Months Family [...] Description 10/03/2024 2:00 PM EDT Pre-[facility]mission Testing [place] [facility] [address], [address] [place] [address] 10/10/2024 12:45 PM EDT Hospital Encounter [facility] [address] [place] [address] Leena Calderon MD [address] [address] 10/10/2024 12:45 PM EDT - 10/10/2024 3:05 PM EDT Surgery [facility] [address] [place] [address] Leena Calderon MD [address] [address] TURP, USING SALINE PLASMA VAPORIZATION TECHNIQUE,GREENLIGHT, CYSTOLITHOLAPAXY [51997 (CPT )] Scheduled Procedures Name Priority Associated Diagnoses Date/Ti me TURP, USING SALINE PLASMA VAPORIZATION TECHNIQUE Benign prostatic hyperplasia 10/10/2024 12:45 PM EDT Health Maintenance Due Date Last Done Comments [facility]-Hepatitis C Screening 1945 [facility]Medicare Annual Wellness (AWV) 1945 [facility]-/Child/Adol SDOH Screenings 1945 [facility]- SDOH Screenings 07/21/1963 [facility]-Adult SDOH Screenings 07/21/1963 [facility]-DTaP,Tdap,and Td Vaccines (1 - Tdap) 1964 [facility]-Zoster Vaccines (1 of 2) 07/21/1995 [id number]-[id number]-60 Vaccine (2 - Vlad risk series) 06/26/2020 05/29/2020 [facility]-Influenza Vaccine (#1) 11/17/202412/26, 11/28/2022, 12/14/2021, Additional history exists [facility]-Depression Screening 09/10/2025 09/10/2024 [facility]-Pneumococcal Vaccine: 50+ Years Completed 08/07/2022, 12/12/2018 [...] at day 1 09/12/2024 8:25 AM EDT [facility] Urine Urine specimen obtained by clean catch procedure / Unknown Non-blood Collection / Unknown 09/10/2024 2:16 PM EDT 09/10/2024 5:32 PM EDT us Leena Calderon MD LAB MICROBIOLOGY - GENERAL O RDERABLES Final Result [facility] [address] [place] [address] * CT MSK OUTSIDE IMAGES (08/19/2024 7:34 PM EDT) Anatomical Region Laterality Modality Computed Tomogra phy 08/19/2024 7:34 PM EDT us External Provider IMG CT PROCEDURES Final Result from Last 3 Months Additional Health Concerns Active Problems Noted Date Diagnosed Date Autogenerated Problem 09/12/2024 Insurance MEDICARE Care Teams Operations Research Engineer Relationship Specialty Start Date End Date Zack Orellana MD [address] [place] [address] PCP - General 07/30/20
--- OUTSIDE RECORDS SUMMARY | 2024-09-29 13:54 | XMS_ITS | Encounter Summary ---
Author Organization Healthcare Address [address] [id number] Care Team Providers Care Inductor Tester Name Role Phone Zack Orellana MD Primary Care Provider [phone] Encounter Details Date Type Department Care Team (Late st Contact Info) Description 09/29/2024 Telephone [facility] Pre-op Clinic [address], 1st [place] [address] Noe Stokes MD [address] [facility] [address] [place] [address] Social History Tobacco Use Types [...] Description 10/03/2024 2:00 PM EDT Pre-Admission Testing [facility] Pre-op Clinic [address], 1[address] [place] [address] 10/10/2024 12:45 PM EDT Hospital Encounter [facility] [address] [place] [address] Leena Calderon MD [address] [address] 10/10/2024 12:45 PM EDT - 10/10/2024 3:05 PM EDT Surgery [facility] [address] [place] [address] Leena Calderon MD [address] [address] TURP, USING SALINE PLASMA VAPORIZATION TECHNIQUE,GREENLIGHT, CYSTOLITHOLAPAXY [45851 (CPT )] Scheduled Procedures Name Priority Associated Diagnoses Date/Ti ma TURP, USING SALINE PLASMA VAPORIZATION TECHNIQUE Benign prostatic hyperplasia 10/10/2024 12:45 PM EDT documented as of this encounter Goals Goal Patient Goal Type Associated Problems Recent Progress Patient-Stated? Author Autogenerat ed Goal Care Plan Autogenerated Problem No Kalpana Hawkins Freida documented as of this encounter Visit Diagnoses Not on filedocumented in this encounter Additional Health Concerns Active Problems Noted Date Diagnosed Date Autogenerated Problem 09/12/2024 Assessment Noted Time A fall risk assessment has been complete d for the patient 09/10/2024 1:20 PM EDT A Body Mass Index follow-up plan has been documented for the patient 09/11/2024 8:38 AM EDT documented as of this encounter Care Teams Inductor Tester Relationship Specialty Start Date End Date Zack Orellana MD [address] [place] [address] PCP - General 07/30/20 documented as of this encounter
== END 2024-09-29 23:59 | disposition home or self-care (01) ==
LOC: LAB 13:44
PROVIDERS: PCP Nurse Practitioner Family; Visit Provider Urology
DX: R35.1 Nocturia (principal)
CPT/HCPCS: 87086